=== PATIENT | female | born 1960 | race Caucasian/White ===

== ENCOUNTER → 2020-02-01 08:30 | Outpatient (BNVA) | payer MEDICAID, SELFPAY | PROVIDERS: PCP Internal Medicine; Referring Provider Internal Medicine; Visit Provider Nurse Practitioner | DX: K59.04 Chronic idiopathic constipation (principal); K59.9 Functional intestinal disorder, unspecified; K21.9 Gastro-esophageal reflux disease without esophagitis; N81.6 Rectocele; Z79.899 Other long term (current) drug therapy | CPT/HCPCS: 99214 ==

== ENCOUNTER → 2020-03-25 14:41 | Outpatient (BNVA) | payer MEDICAID, SELFPAY | PROVIDERS: PCP Internal Medicine; Visit Provider Nurse Practitioner | DX: Z76.89 Persons encountering health services in other specified circumstances (principal) ==

== ENCOUNTER 2020-03-27 12:51 | Outpatient (REF) | payer MEDICAID, SELFPAY | END 2020-03-27 12:52 | disposition home or self-care (01) | LOC: HO.LAB 12:51 | PROVIDERS: Visit Provider Internal Medicine | DX: Z20.828 Contact with and (suspected) exposure to other viral communicable diseases (principal) | CPT/HCPCS: C9803; U0003 ==

== ENCOUNTER → 2020-04-01 10:49 | Outpatient (BNVA) | payer MEDICAID, SELFPAY | PROVIDERS: PCP Internal Medicine; Visit Provider Nurse Practitioner Gerontology | DX: E11.42 Type 2 diabetes mellitus with diabetic polyneuropathy (principal); E66.09 Other obesity due to excess calories; Z68.34 Body mass index [BMI] 34.0-34.9, adult; E78.5 Hyperlipidemia, unspecified; I10 Essential (primary) hypertension | CPT/HCPCS: 82947 ==

== ENCOUNTER 2020-05-17 13:00 | Outpatient (REF) | payer MEDICAID, SELFPAY ==
[2020-05-17 14:29] LABS: Creatinine Urine 146.63 mg/dL; Microalbum/Creatinine Ratio Ur 5.4 ug/mg cr
[2020-05-17 14:47] LABS: Cholesterol 128 mg/dL; HDL Cholesterol 33 mg/dL; LDL Cholesterol Calculated 49 mg/dl; Triglycerides 233 mg/dL
== END 2020-05-17 13:01 | disposition home or self-care (01) ==
LOC: HO.LAB 13:00
PROVIDERS: PCP Internal Medicine; Visit Provider Nurse Practitioner Gerontology
DX: E11.42 Type 2 diabetes mellitus with diabetic polyneuropathy (principal)
CPT/HCPCS: 36415; 80061; 82043

== ENCOUNTER 2020-06-27 14:10 | Outpatient (REF) | payer MEDICAID, SELFPAY ==
--- NOTE | ~2020-06-27 | MR_ITS ---
EXAMINATION: MR BRAIN WITHOUT CONTRAST CLINICAL INFORMATION: Evaluate for left acoustic neuroma. Ringing in ears. Vertigo. COMPARISON: Head CT dated 12/27/2016.. TECHNIQUE: Multiplanar, multisequential imaging was obtained without intravenous contrast. Due to claustrophobia, the patient refused contrast. FINDINGS: No diffusion abnormality is seen. There are punctate foci of T2 hyperintense signal abnormality in the bifrontal centrum semiovale which are nonspecific. The ventricles are normal in size. No mass effect or midline shift is evident. No extra-axial fluid collections are noted. The brainstem and cerebellum are normal. The VII and VIII cranial nerve complexes are normal in course and caliber. Fluid signal is preserved within the cochlea, semicircular canals, and vestibule on the high-resolution axial FIESTA sequence. No cerebellopontine angle lesion is noted. The gradient acquisition is normal. The craniovertebral junction, marrow signal, and midline structures are normal. The visualized portions of the major intracranial flow voids at the level of the [place] of [place] are preserved. The dural venous sinus flow voids are maintained. The mastoid air cells and paranasal sinuses are well aerated. MR/MR head/brain wo con IMPRESSION: No retrocochlear pathology. Nonspecific very mild bifrontal white matter signal changes. No acute process. Otherwise, relatively normal MRI of the brain.
[2020-06-27 15:01] LABS: Blood Urea Nitrogen 16 mg/dL (9-16); Estimated Glomerular Filt Rate > 60
== END 2020-06-27 14:11 | disposition home or self-care (01) ==
LOC: HO.MRI 14:10
PROVIDERS: Visit Provider Otolaryngology
DX: H90.42 Sensorineural hearing loss, unilateral, left ear, with unrestricted hearing on the contralateral side (principal); H81.4 Vertigo of central origin; D33.3 Benign neoplasm of cranial nerves
CPT/HCPCS: 36415; 70551; 82565; 84520

== ENCOUNTER 2020-07-10 11:00 | Outpatient (RCR) | payer MEDICAID, SELFPAY ==
[2020-07-05 14:18] VITALS: BP 122/70
--- NOTE | 2020-07-05 15:48 | MHC.PT.EP ---
[facility] [place] Office [place] Office [place] Office [address] Keli Gonzales [address] [phone] F: [phone] F: [phone] F: [phone] F: [phone] Physical Therapy Plan of Care Date of Evaluation: 07/05/20 Date of Surgery: Diagnosis: Vestibular rehab, vertigo Assessment: 59 year old female referred for vestibular rehab, vertigo . Pt reports of having symptoms of vertigo for last 2 years. They are intermittent in nature and last for a few hours to days. During episodes of vertigo she has dizziness with rolling in bed, sit to supine, looking up and down and looking side ways. She describes her symptoms as feeling confused . She started therapy for vertigo last year but had to stop due to COVID. Examination reveals intact saccades, smooth pursuit, visual tracking and DVA. She has mildly impaired static and dynamic balance. She was negative for BPPV in [place] and B roll test. She is independent with ADLS during remission. Her daughter helps her with ADLs during acute episodes. 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 She would benefit from vestibular rehab to address the above mentioned impairments. Frequency and Duration: The patient will be seen 2/ week for 5 weeks. Short Term Goals: 1. Pt will be able to perform bed mobility activities without any symptoms of vertigo in 2 weeks. 2. Pt will be independent with balance exercises and be able to maintain improvements between sessions in 3 weeks. Fdc Goals: 1. Pt will be able walk, bend forward and perform sudden head turns as needed for ADLS without vertigo in 4 weeks. 2. Pt will return to PLOF in 5 weeks. Treatment Plan: Modalities to reduce pain, spasms and effusion. Manual therapy to restore motion and function. Therapeutic exercise to improve strength and flexibility. Neuromuscular re-education for posture and balance. Therapeutic activities to return to functional activities of daily living. Electronically signed by: Shoshana Reyna DPT Please sign and return to therapist. Thank you for your referral.
--- NOTE | 2020-08-19 09:27 | MHC.PT.DC ---
[facility] [place] [facility] [place] Office [place] Office [address] Keli Gonzales [address] [phone] F: [phone] F: [phone] F: [phone] F: [phone] Physical Therapy Discharge Report Diagnosis: Vestibular rehab, vertigo Date of Surgery: NA Date of Evaluation: 07/05/20 Date of Discharge: 08/19/20 Treatments to Date: 2 Cancellations to Date: 1 No Shows to Date: 4 Discharge Status: Visit Non-compliance Discharge Summary: Pt no showed 4 visits after her second treatment. She was therefore d/c from therapy for non compliance. Electronically signed by: Shoshana Reyna DPT Please sign and return to therapist. Thank you for your referral.
== END 2020-08-19 09:28 | disposition other institution (70) ==
LOC: HO.PT 11:00
PROVIDERS: PCP Internal Medicine; Visit Provider Otolaryngology
DX: R42 Dizziness and giddiness (principal)
CPT/HCPCS: 97112; 97161; 97530

== ENCOUNTER → 2020-07-22 15:12 | Outpatient (BNVA) | payer MEDICAID, SELFPAY | PROVIDERS: PCP Internal Medicine; Visit Provider Nurse Practitioner ==

== ENCOUNTER 2020-09-20 10:11 | Outpatient (REF) | payer MEDICAID, SELFPAY ==
[2020-09-20 11:53] LABS: Estimated Average Glucose 160 mg/dL; Hemoglobin A1c % 7.2 %
[2020-09-20 12:15] LABS: Alanine Aminotransferase 24 U/L (0-31); Albumin Level 4.4 g/dL (3.5-5.0); Alkaline Phosphatase 81 U/L (39-117); Anion Gap 13 (12-20); Aspartate Amino Transferase 29 U/L (5-31); Blood Urea Nitrogen 12 mg/dL (9-16); Calcium 9.8 mg/dL (8.4-10.2); Carbon Dioxide 28 mmol/L (22-29); Chloride 104 mmol/L (96-108); Estimated Glomerular Filt Rate > 60; Glucose Random 234 mg/dL (60-115); Sodium 140 mmol/L (135-145); Total Protein 7.3 g/dL (6.5-8.0)
== END 2020-09-20 10:12 | disposition home or self-care (01) ==
LOC: HO.LAB 10:11
PROVIDERS: PCP Internal Medicine; Visit Provider Internal Medicine
DX: E11.9 Type 2 diabetes mellitus without complications (principal); I10 Essential (primary) hypertension; J30.89 Other allergic rhinitis; J45.998 Other asthma
CPT/HCPCS: 36415; 80053; 83036

== ENCOUNTER 2020-10-23 09:17 | Outpatient (REF) | payer MEDICAID, SELFPAY ==
--- NOTE | ~2020-10-23 | XR_ITS ---
EXAMINATION: XR PELVIS CLINICAL INFORMATION: Pubic region pain after a fall COMPARISON: CT 12/28/2019 TECHNIQUE: AP view of the pelvis. FINDINGS: The bones and soft tissues are normal. No fracture. Sacroiliac and hip joints are normal. Pubic symphysis is normal. No abnormal soft tissue calcifications. XR/XR pelvis 1-2V IMPRESSION: No fracture.
[2020-10-23 10:07] LABS: Estimated Average Glucose 160 mg/dL; Hemoglobin A1c % 7.2 %
[2020-10-23 10:24] LABS: Alanine Aminotransferase 17 U/L (0-31); Albumin Level 4.3 g/dL (3.5-5.0); Alkaline Phosphatase 78 U/L (39-117); Anion Gap 12 (12-20); Aspartate Amino Transferase 25 U/L (5-31); Bilirubin Total 0.8 mg/dL (0.0-1.0); Blood Urea Nitrogen 13 mg/dL (9-16); Calcium 9.5 mg/dL (8.4-10.2); Carbon Dioxide 29 mmol/L (22-29); Chloride 104 mmol/L (96-108); Estimated Glomerular Filt Rate > 60; Glucose Random 201 mg/dL (60-115); Potassium 4.9 mmol/L (3.3-5.1); Sodium 140 mmol/L (135-145); Total Protein 7.1 g/dL (6.5-8.0)
== END 2020-10-23 09:18 | disposition home or self-care (01) ==
LOC: HO.XRAY 09:17
PROVIDERS: PCP Internal Medicine; Visit Provider Internal Medicine
DX: E11.9 Type 2 diabetes mellitus without complications (principal); G56.03 Carpal tunnel syndrome, bilateral upper limbs; I10 Essential (primary) hypertension; M13.0 Polyarthritis, unspecified
CPT/HCPCS: 36415; 72170; 80053; 83036

== ENCOUNTER → 2020-11-27 11:06 | Outpatient (BNVA) | payer MEDICAID, SELFPAY | PROVIDERS: PCP Internal Medicine; Visit Provider Nurse Practitioner Gerontology | DX: E11.42 Type 2 diabetes mellitus with diabetic polyneuropathy (principal); I10 Essential (primary) hypertension; E78.5 Hyperlipidemia, unspecified; E66.09 Other obesity due to excess calories; Z68.34 Body mass index [BMI] 34.0-34.9, adult | CPT/HCPCS: 82947; 99212 ==

== ENCOUNTER 2021-01-01 08:05 | Outpatient (REF) | payer MEDICAID, SELFPAY ==
--- NOTE | 2021-01-01 08:11 | EMG_ITS ---
This is a 60-year-old woman with bilateral hand pain and numbness. PHYSICAL EXAMINATION: On examination, she is alert and oriented with normal intellectual functions. Cranial nerves II through XII are normal. Muscle tone and strength are normal in all 4 extremities. Deep tendon reflexes symmetrical. Plantar responses are flexor. No Tinel or Phalen sign. IMPRESSION: Rule out carpal tunnel syndrome. Nerve conduction EMG study: Normal electrodiagnostic study of both upper extremities with no evidence of carpal tunnel syndrome or generalized peripheral neuropathy. Normal EMG of the right C5-T1 innervated muscles. MD JACOBY Reyes/MISSY / [id number]
== END 2021-01-01 08:06 | disposition home or self-care (01) ==
LOC: HO.NEURO 08:05
PROVIDERS: PCP Internal Medicine; Visit Provider Internal Medicine
DX: G56.02 Carpal tunnel syndrome, left upper limb (principal)
CPT/HCPCS: 95885; 95913

== ENCOUNTER → 2021-01-21 07:51 | Outpatient (BNVA) | payer MEDICAID, SELFPAY | PROVIDERS: PCP Internal Medicine; Visit Provider Nurse Practitioner Gerontology | DX: E11.9 Type 2 diabetes mellitus without complications (principal); E78.5 Hyperlipidemia, unspecified; E66.09 Other obesity due to excess calories; I10 Essential (primary) hypertension; Z68.34 Body mass index [BMI] 34.0-34.9, adult | CPT/HCPCS: 82947; 83036; 99212 ==

== ENCOUNTER 2021-02-12 18:18 | Emergency (ER) | payer OTHER, SELFPAY ==
--- NOTE | ~2021-02-12 | CT_ITS ---
EXAMINATION: CT HEAD WITHOUT CONTRAST CLINICAL INFORMATION: Fall COMPARISON: Previous head CT most recent December 2016 and brain MRI June 2020 TECHNIQUE: Contiguous axial imaging was performed from the skull base to vertex without intravenous administration of contrast. This CT examination was performed using dose optimization techniques as appropriate, variously including the following: *Automated exposure control *Adjustment of mA and/or kV according to patient size (this includes techniques or standardized protocols for targeted exams where dose is matched to indication/reason for exam; i.e. extremities or head) *Use of iterative reconstruction technique DLP: 703 mGy-cm FINDINGS: There is no evidence of acute intracranial hemorrhage or territorial infarction. No abnormal mass effect or midline shift is seen. Rose to white matter differentiation is well preserved. No extra-axial fluid collections are identified. The ventricles are normal in size. There is no abnormal attenuation within the brain parenchyma. The osseous structures and soft tissues are normal. The mastoid air cells and visualized portions of the paranasal sinuses are well aerated. CT/CT head/brain wo con IMPRESSION: Unremarkable exam
--- NOTE | ~2021-02-12 | XR_ITS ---
EXAMINATION: XR ELBOW, LEFT CLINICAL INFORMATION: Fall COMPARISON: None TECHNIQUE: AP, lateral, and oblique views of the left elbow. FINDINGS: No acute fracture or dislocation. Some possible soft tissue disruption toward the ulnar aspect XR/XR elbow LT min 3V IMPRESSION: No acute fracture or dislocation.
[2021-02-12 18:27] VITALS: BP 149/76; PULSE 71; RESP 18; TEMP 36.2; O2SAT 98; BMI 32.5
[2021-02-12 20:31] VITALS: BP 148/87; PULSE 72; RESP 20; TEMP 37.1; O2SAT 100
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
== END 2021-02-12 21:06 | disposition home or self-care (01) ==
PROVIDERS: Emergency Provider Emergency Medicine Emergency Medical Services; PCP Internal Medicine
DX: M25.522 Pain in left elbow (principal); M54.2 Cervicalgia; M54.50 Low back pain, unspecified; R51.9 Headache, unspecified; I10 Essential (primary) hypertension; E11.9 Type 2 diabetes mellitus without complications; J45.909 Unspecified asthma, uncomplicated; Z91.81 History of falling
CPT/HCPCS: 70450; 73080; 99284

== ENCOUNTER 2021-03-14 11:02 | Outpatient (REF) | payer MEDICAID, SELFPAY ==
--- NOTE | ~2021-03-14 | MM_ITS ---
EXAMINATION: MM SCREENING DIGITAL BREAST TOMOSYNTHESIS, BILATERAL CLINICAL INFORMATION: Screening. Asymptomatic. The lifetime risk of breast cancer based on the Tyrer-Cuzick Model is 5%. COMPARISON: Mammography: 06/09/2018, 11/30/2016, 06/26/2015 TECHNIQUE: Digital breast tomosynthesis is performed in both the craniocaudal and mediolateral oblique views along with computer-aided detection (CAD). Synthesized 2D images are generated from the tomosynthesis. FINDINGS: There are scattered areas of fibroglandular density (ACR BI-RADS breast composition Category b). There are no significant masses, abnormal calcifications, or other abnormalities. No developing density. The axilla and skin contours are unremarkable. No significant changes. MM/MM tomosynthesis screening BI IMPRESSION: No mammographic evidence of malignancy. ASSESSMENT: BI-RADS 1: Negative RECOMMENDATION: Routine annual mammography screening. This patient's information was entered into a reminder system with a target due date for their next mammogram.
== END 2021-03-14 11:03 | disposition home or self-care (01) ==
LOC: HO.MAMMO 11:02
PROVIDERS: Visit Provider Internal Medicine
DX: Z12.31 Encounter for screening mammogram for malignant neoplasm of breast (principal)
CPT/HCPCS: 77063; 77067

== ENCOUNTER 2021-03-19 10:22 | Outpatient (REF) | payer MEDICAID, SELFPAY ==
[2021-03-19 13:43] LABS: MANUAL DIFF FLAG NO
[2021-03-19 13:54] LABS: Basophils Percent Auto 0.3 % (0-2); Eosinophils Absolute Auto 0.1 X10*3/uL (0.0-0.4); Eosinophils Percent Auto 2.1 % (0-4); Hematocrit 37.5 % (37.0-47.0); Hemoglobin 12.4 g/dl (12.0-16.0); Imm Gran Abs Auto 0.01 X10*3/uL (0.00-0.03); Imm Gran Pct Auto 0.2 % (0.0-0.4); Lymphocytes Percent Auto 34.9 % (20-40); Mean Corpuscular HGB Conc 33.1 g/dl (31.0-35.0); Mean Corpuscular Hemoglobin 31.7 pg (27.0-33.0); Mean Corpuscular Volume 95.9 fL (80.0-98.0); Mean Platelet Volume 10.4 fL (9.4-12.3); Monocytes Absolute Auto 0.5 X10*3/uL (0.1-1.2); Monocytes Percent Auto 9.3 % (2-11); Neutrophils Absolute Auto 3.1 x10*3/uL (2.0-8.3); Neutrophils Percent Auto 53.2 % (45-73); Platelet Count 293 X10*3/uL (160-400); Red Blood Count 3.91 X10*6/uL (4.20-5.50); Red Cell Distribution Width 12.4 % (11.0-16.0); White Blood Count 5.8 X10*3/uL (4.8-10.8)
[2021-03-19 14:25] LABS: Creatinine Urine 40.48 mg/dL; Microalbumin Urine < 5.0 mg/L
[2021-03-19 14:30] LABS: Estimated Average Glucose 160 mg/dL; Hemoglobin A1c % 7.2 %
[2021-03-19 14:39] LABS: Alanine Aminotransferase 22 U/L (0-31); Albumin Level 4.4 g/dL (3.5-5.0); Alkaline Phosphatase 78 U/L (39-117); Anion Gap 13 (12-20); Aspartate Amino Transferase 27 U/L (5-31); Bilirubin Total 0.8 mg/dL (0.0-1.0); Blood Urea Nitrogen 14 mg/dL (9-16); Calcium 9.5 mg/dL (8.4-10.2); Carbon Dioxide 26 mmol/L (22-29); Chloride 104 mmol/L (96-108); Cholesterol 144 mg/dL; Estimated Glomerular Filt Rate > 60; Glucose Random 168 mg/dL (60-115); HDL Cholesterol 30 mg/dL; LDL Cholesterol Calculated 41 mg/dl; Potassium 4.9 mmol/L (3.3-5.1); Sodium 138 mmol/L (135-145); Total Protein 7.5 g/dL (6.5-8.0); Triglycerides 366 mg/dL
[2021-03-19 15:50] LABS: Vitamin B12 327 pg/mL (200-900)
== END 2021-03-19 10:23 | disposition home or self-care (01) ==
LOC: HO.10HDL 10:22
PROVIDERS: Visit Provider Internal Medicine
DX: B37.3 Candidiasis of vulva and vagina (principal); E11.9 Type 2 diabetes mellitus without complications; I10 Essential (primary) hypertension; R35.0 Frequency of micturition; E78.00 Pure hypercholesterolemia, unspecified; F41.8 Other specified anxiety disorders
CPT/HCPCS: 36415; 80053; 80061; 82043; 82607; 83036; 85025; 87086

== ENCOUNTER 2021-03-20 19:24 | Emergency (ER) | payer MEDICAID, SELFPAY ==
--- NOTE | ~2021-03-20 | CT_ITS ---
EXAMINATION: CT ABDOMEN AND PELVIS WITH CONTRAST CLINICAL INFORMATION: Abdominal distention, nausea COMPARISON: 12/28/2019 TECHNIQUE: Multidetector volumetric images were obtained from the superior aspect of the liver through the pubic symphysis following administration 85 mL of Omnipaque 350 intravenous contrast. Sagittal and coronal reformatted images were obtained on the technologist's workstation. Oral contrast: No This CT examination was performed using dose optimization techniques as appropriate, variously including the following: *Automated exposure control *Adjustment of mA and/or kV according to patient size (this includes techniques or standardized protocols for targeted exams where dose is matched to indication/reason for exam; i.e. extremities or head) *Use of iterative reconstruction technique DLP: 701 mGy-cm FINDINGS: LUNG BASES: The visualized lung bases are unremarkable. LIVER, GALLBLADDER, AND BILIARY TREE: The liver is normal in size, shape, and attenuation. No focal hepatic lesion or biliary ductal dilatation is present. The gallbladder is unremarkable with no evidence of radiopaque gallstones, gallbladder wall thickening, or obvious pericholecystic inflammatory changes. PANCREAS: Unremarkable. SPLEEN: Unremarkable. ADRENAL GLANDS: Unremarkable. KIDNEYS AND URETERS: The kidneys are normal in size, shape, and attenuation. No hydronephrosis, hydroureter, or calculi seen. No perinephric stranding. Unchanged left renal cyst. BLADDER: Unremarkable. GASTROINTESTINAL TRACT: The cecum is distended with stool. No focal inflammatory process or obstruction. Postsurgical changes related to gastric bypass. ABDOMINAL WALL: No significant hernia is appreciated. LYMPH NODES: Normal. VASCULAR: Diffuse atherosclerotic calcifications. PELVIC VISCERA: The uterus is surgically absent. OSSEOUS STRUCTURES: Unremarkable. CT/CT abdomen pelvis w con IMPRESSION: Distended rectum with stool. No proximal bowel dilatation to suggest obstruction. No focal inflammatory process.
[2021-03-20 19:31] VITALS: BP 150/73; PULSE 73; RESP 17; TEMP 36.8; O2SAT 98; BMI 34.0
[2021-03-20 19:58] VITALS: BP 130/86; PULSE 75; RESP 20; TEMP 36.6; O2SAT 96
--- NOTE | 2021-03-20 20:13 | ED.ABDPAIN ---
HPI - Abdominal Pain General Chief Complaint: Abdominal Pain Stated Complaint: Abdominal pain Time Seen by Provider: 03/20/21 19:35 Source: patient Mode of arrival: ambulatory History of Present Illness HPI narrative: This is a 60-year-old female with history of diabetes, hypertension as well as gastric bypass who comes in with abdominal distension and pain where she states it feels like ?my intestines or moving around? and the pain worsens when she attempts to have a bowel movement. Patient states she did pass flatus 1 time today and has been having nausea with some chills but denies any vomiting or fevers or shortness of breath/chest pain/palpitations. She was recently started on Norvasc in feels that she has become more constipated after being started on this medication. In addition, patient was recently treated for a UTI with Bactrim. Related Data Home Medications Medication Instructions Recorded Confirmed ascorbic acid (vitamin C) 500 mg 1 g PO Q6H 02/01/20 01/21/21 tablet cholecalciferol (vitamin D3) 25 25 mcg PO DAILY 02/01/20 01/21/21 mcg (1,000 unit) capsule cinnamon bark 500 mg capsule 1,000 mg PO DAILY 02/01/20 01/21/21 (Cinnamon) loratadine 10 mg tablet (Allergy 10 mg PO DAILY 02/01/20 01/21/21 Relief (loratadine)) losartan 100 mg tablet 100 mg PO DAILY 02/01/20 01/21/21 omeprazole 40 mg capsule,delayed 40 mg PO DAILY 02/01/20 01/21/21 release Previous Rx's Medication Instructions Recorded linaclotide 290 mcg capsule 290 mcg PO DAILY 30 Days #30 cap 03/25/20 (Linzess) bisacodyl 5 mg tablet,delayed 10 mg PO BEDTIME 30 Days #60 tab 07/22/20 release (Dulcolax (bisacodyl)) metoclopramide HCl 5 mg tablet 5 mg PO .T.I.D. Q.H.S. 30 Days #90 07/22/20 (Reglan) tab simethicone 180 mg capsule 180 mg PO QID #120 cap 12/11/20 hydrocortisone acetate 25 mg 25 mg OK BEDTIME 20 Days #24 ea 12/30/20 rectal suppository flash glucose sensor (FreeStyle #2 ea 01/21/21 Glenn 2 Sensor) metformin 500 mg tablet,extended 500 mg PO BID 30 Days #60 tab 01/21/21 release 24 hr sitagliptin 100 mg tablet (Januvia) 100 mg PO DAILY #30 tab 01/21/21 acetaminophen 500 mg tablet 500 mg PO Q6H PRN #20 tab 02/12/21 (Tylenol Extra Strength) cyclobenzaprine 5 mg tablet 5 mg PO Q8H PRN 5 Days #14 tab 02/12/21 lidocaine 5 % topical patch 1 patch TOPICAL DAILY PRN #30 ea 02/12/21 (Lidoderm) MDD remove after 12 hours naproxen 500 mg tablet 500 mg PO BID PRN 10 Days #20 tab 02/12/21 repaglinide 0.5 mg tablet 0.5 mg PO BID #60 tab 02/17/21 nitrofurantoin 100 mg PO Q12H 5 Days #10 cap 03/20/21 monohydrate/macrocrystals 100 mg capsule (Macrobid) Allergies Allergy/AdvReac Type Severity Reaction Status Date / Time latex [LATEX] Allergy Intermediate RASH Verified 02/12/21 18:27 lisinopril [LISINOPRIL] Allergy Intermediate HALLUCINATIONS, Verified 02/12/21 18:27 cough CLOVER Inhibitors Allergy Unknown UNKNOWN Verified 02/12/21 18:27 [CLOVER INHIBITORS] canagliflozin [Invokana] Allergy Unknown unknown Verified 02/12/21 18:27 liraglutide [From VICTOZA] Allergy Unknown UNKNOWN, Verified 02/12/21 18:27 abdominal pain, nausea metformin [METFORMIN] Allergy Unknown UNKNOWN, Verified 02/12/21 18:27 abdominal cramps penicillin V Allergy Unknown angioedema Verified 02/12/21 18:27 Penicillins [PENICILLINS] Allergy Unknown SYNCOPE Verified 02/12/21 18:27 pioglitazone [From ACTOS] Allergy Unknown UNKNOW, Verified 02/12/21 18:27 body puffiness sertraline Allergy Unknown unknown Verified 02/12/21 18:27 shellfish derived Allergy Unknown Rash and Verified 02/12/21 18:27 [SHELLFISH DERIVED] swelling Sulfa (Sulfonamide Allergy Unknown RASH Verified 02/12/21 18:27 Antibiotics) [SULFA (SULFONAMIDE ANTIBIOTICS)] black pepper Allergy cough, Verified 02/12/21 18:27 choking seafood Allergy Swelling Verified 02/12/21 18:27 mushrooms Allergy Intermediate Diarrhea, Uncoded 01/21/21 08:13 swollen stomach,rash Onglyza Allergy Unknown unknown Uncoded 01/21/21 08:13 Danish vanilla creamer AdvReac Diarhea, Uncoded 01/21/21 08:13 nausea, stomach pain Review of Systems Review of Systems Pertinent positives and negatives as stated in HPI 10 point review of systems is otherwise negative. Physical Exam Vital Signs: Vital Signs: Last Vital Signs Temp 98 F 03/20/21 19:58 Pulse 75 03/20/21 19:58 Resp 20 03/20/21 19:58 BP 130/86 03/20/21 19:58 Pulse Ox 96 03/20/21 19:58 Body Mass Index 34.0 VITAL SIGNS: Reviewed. GENERAL: Well developed, well nourished, in no acute distress. HEAD: Normocephalic/atraumatic EYES: PERRLA, EOMI OROPHARYNX: no oral lesions noted, posterior pharynx clear NECK: Supple, no adenopathy LUNGS: Normal breath sounds. No adventitious sounds or accessory muscle use. SpO2<96> CARDIOVASCULAR: Regular rate and rhythm without noted murmurs ABDOMEN: Obese, physical exam limited by body habitus, Soft, mild diffuse tenderness, non-distended with hypoactive bowel sounds. MUSCULOSKELETAL: No tenderness, deformities, or effusions noted on gross inspection. EXTREMITIES: No cyanosis, clubbing or edema. SKIN: Inspection of the skin reveals no rashes NEUROLOGIC: Alert and oriented x 4. Strength and sensation to light touch were grossly intact x 4. Course Course Course Narrative: 52-year-old female with history and clinical presentation suggestive SBO, diverticulitis and less likely felt to be renal colic or UTI. Review of all investigations negative for acute findings although patient likely had an attenuated treatment course for for UTI and will be discharged with antibiotics to complete. MDM - Abdominal Pain Lab Data Result diagrams: 03/20/21 20:29 03/20/21 20:29 Labs: Lab Results 03/20/21 03/20/21 03/20/21 Range/Units 20:29 20:29 20:29 WBC 7.0 (4.8-10.8) X10*3/uL RBC 4.09 L (4.20-5.50) X10*6/uL Hgb 12.8 (12.0-16.0) g/dl Hct 39.3 (37.0-47.0) % MCV 96.1 (80.0-98.0) fL MCH 31.3 (27.0-33.0) pg MCHC 32.6 (31.0-35.0) g/dl RDW 12.1 (11.0-16.0) % Plt Count 315 (160-400) X10*3/uL MPV 9.6 (9.4-12.3) fL Immature Gran % (Auto) 0.1 (0.0-0.4) % Neut % (Auto) 51.7 (45-73) % Lymph % (Auto) 37.3 (20-40) % [place] % (Auto) 8.8 (2-11) % Eos % (Auto) 1.8 (0-4) % Baso % (Auto) 0.3 (0-2) % Lymph # (Auto) 2.6 (1.2-4.9) X10*3/uL [place] # (Auto) 0.6 (0.1-1.2) X10*3/uL Eos # (Auto) 0.1 (0.0-0.4) X10*3/uL Baso # (Auto) 0.0 (0.0-0.2) X10*3/uL Abs Immat Gran (auto) 0.01 (0.00-0.03) X10*3/uL Absolute Neuts (auto) 3.6 (2.0-8.3) x10*3/uL Absolute Nucleated RBC 0.000 (0.0-0.012) X10*3/uL Nucleated RBC % (auto) 0.0 (0.0-0.2) /100WBC Sodium 139 (135-145) mmol/L Potassium 4.8 (3.3-5.1) mmol/L Chloride 104 (96-108) mmol/L Carbon Dioxide 26 (22-29) mmol/L Anion Gap 14 (12-20) BUN 20 H (9-16) mg/dL Creatinine 0.91 (0.5-1.4) mg/dL Estim Creat Clear Calc 81.2 Estimated GFR > 60 Random Glucose 121 H (60-115) mg/dL Lactic Acid 1.8 (0.5-2.0) mmol/L Calcium 10.1 D (8.4-10.2) mg/dL Total Bilirubin 0.4 (0.0-1.0) mg/dL AST 29 (5-31) U/L ALT 21 (0-31) U/L Alkaline Phosphatase 76 (39-117) U/L Total Protein 8.1 H (6.5-8.0) g/dL Albumin 4.7 (3.5-5.0) g/dL Lipase 64 (8-78) U/L Urine Color Urine Appearance Urine pH (5.0-8.0) Ur Specific [place] (1.005-1.025) Urine Protein (NEG-TRACE) MG/DL Urine Glucose (UA) (NEG) MG/DL Urine Ketones (NEG) MG/DL Urine Blood (NEG) Urine Nitrite (NEG) Ur Leukocyte Esterase (NEG) Urine RBC (0) /HPF Urine WBC (0-4) /HPF Ur Squamous Epith Cells /LPF Urine Bacteria /LPF // Range/Units 21:22 WBC (4.8-10.8) X10*3/uL RBC (4.20-5.50) X10*6/uL Hgb (12.0-16.0) g/dl Hct (37.0-47.0) % MCV (80.0-98.0) fL MCH (27.0-33.0) pg MCHC (31.0-35.0) g/dl RDW (11.0-16.0) % Plt Count (160-400) X10*3/uL MPV (9.4-12.3) fL Immature Gran % (Auto) (0.0-0.4) % Neut % (Auto) (45-73) % Lymph % (Auto) (20-40) % [place] % (Auto) (2-11) % Eos % (Auto) (0-4) % Baso % (Auto) (0-2) % Lymph # (Auto) (1.2-4.9) X10*3/uL [place] # (Auto) (0.1-1.2) X10*3/uL Eos # (Auto) (0.0-0.4) X10*3/uL Baso # (Auto) (0.0-0.2) X10*3/uL Abs Immat Gran (auto) (0.00-0.03) X10*3/uL Absolute Neuts (auto) (2.0-8.3) x10*3/uL Absolute Nucleated RBC (0.0-0.012) X10*3/uL Nucleated RBC % (auto) (0.0-0.2) /100WBC Sodium (135-145) mmol/L Potassium (3.3-5.1) mmol/L Chloride (96-108) mmol/L Carbon Dioxide (22-29) mmol/L Anion Gap (12-20) BUN (9-16) mg/dL Creatinine (0.5-1.4) mg/dL Estim Creat Clear Calc Estimated GFR Random Glucose (60-115) mg/dL Lactic Acid (0.5-2.0) mmol/L Calcium (8.4-10.2) mg/dL Total Bilirubin (0.0-1.0) mg/dL AST (5-31) U/L ALT (0-31) U/L Alkaline Phosphatase (39-117) U/L Total Protein (6.5-8.0) g/dL Albumin (3.5-5.0) g/dL Lipase (8-78) U/L Urine Color YELLOW Urine Appearance CLEAR Urine pH 6.0 (5.0-8.0) Ur Specific [place] <= 1.005 (1.005-1.025) Urine Protein NEG (NEG-TRACE) MG/DL Urine Glucose (UA) NEG (NEG) MG/DL Urine Ketones NEG (NEG) MG/DL Urine Blood 1+ H (NEG) Urine Nitrite NEG (NEG) Ur Leukocyte Esterase NEG (NEG) Urine RBC 0-2 (0) /HPF Urine WBC 0 (0-4) /HPF Ur Squamous Epith Cells TRACE /LPF Urine Bacteria TRACE /LPF Discharge Plan Discharge Clinical Impression: Constipation, Abdominal discomfort Patient Disposition: Home, Self-Care Instructions: Constipation (ED), Urinary Tract Infection in Women (ED), Gas and Bloating (ED), Abdominal Pain (ED) Additional Instructions: 1. Resume all home medications as prescribed. 2. Increase fluid hydration especially with water as well as raw fruits and vegetables. 3. Consider using daily MiraLax until you are having regular, soft stools. 4. Please complete the entire course of antibiotics. 5. Follow-up with primary care provider in the next 2-3 days for re-evaluation. Return to the ER for worsening symptoms. Prescriptions: New nitrofurantoin monohyd/m-cryst [Macrobid] 100 mg capsule 100 mg PO Q12H 5 Days Qty: 10 RF: 0 No Action simethicone 180 mg capsule 180 mg PO QID Qty: 120 RF: 3 hydrocortisone acetate 25 mg suppository 25 mg OK BEDTIME 20 Days Qty: 24 RF: 0 repaglinide 0.5 mg tablet 0.5 mg PO BID Qty: 60 RF: 4 acetaminophen [Tylenol Extra Strength] 500 mg tablet 500 mg PO Q6H PRN (Reason: pain or fever) Qty: 20 RF: 0 lidocaine [Lidoderm] 5 % adhesive patch,medicated 1 patch topical DAILY MDD remove after 12 hours PRN (Reason: pain) Qty: 30 RF: 0 naproxen 500 mg tablet 500 mg PO BID PRN (Reason: pain) 10 Days Qty: 20 RF: 0 cyclobenzaprine 5 mg tablet 5 mg PO Q8H PRN (Reason: pain (scale score 7-10)) 5 Days Qty: 14 RF: 0 losartan 100 mg tablet 100 mg PO DAILY RF: 0 cinnamon bark [Cinnamon] 500 mg capsule 1,000 mg PO DAILY RF: 0 loratadine [Allergy Relief (loratadine)] 10 mg tablet 10 mg PO DAILY RF: 0 omeprazole 40 mg capsule,delayed release(DR/EC) 40 mg PO DAILY RF: 0 cholecalciferol (vitamin D3) 25 mcg (1,000 unit) capsule 25 mcg PO DAILY RF: 0 ascorbic acid (vitamin C) 500 mg tablet 1 g PO Q6H RF: 0 Linzess 290 mcg capsule 290 mcg PO DAILY 30 Days Qty: 30 RF: 6 bisacodyl [Dulcolax (bisacodyl)] 5 mg tablet,delayed release (DR/EC) 10 mg PO BEDTIME 30 Days Qty: 60 RF: 6 metoclopramide HCl [Reglan] 5 mg tablet 5 mg PO .T.I.D. Q.H.S. 30 Days Qty: 90 RF: 4 metformin 500 mg tablet extended release 24 hr 500 mg PO BID 30 Days Qty: 60 RF: 6 Januvia 100 mg tablet 100 mg PO DAILY Qty: 30 RF: 11 (DME) FreeStyle Glenn 2 Sensor Kit See Rx Instructions .ROUTE .MEDSUPPLY Qty: 2 RF: 0 Referrals: Michelle Sidhu MD [Primary Care Provider] - 2 days [facility] Past Medical History Source: nursing notes reviewed Medical History Allergic rhinitis Asthma Carpal tunnel syndrome Cataracts, bilateral Depression with anxiety DM2 (diabetes mellitus, type 2) Essential hypertension Fibromyalgia High cholesterol HTN (hypertension), benign Hyperlipidemia LDL goal <100 Surgical History H/O esophagogastroduodenoscopy H/O gastric bypass H/O hemorrhoidectomy H/O hysterectomy for benign disease History of carpal tunnel release History of colonoscopy History of ear surgery History of Cynthia fundoplication Hx of cataract surgery Hx of hand surgery S/P appendectomy Family History Family History Father Myocardial infarction Hypertension Diabetes Mother Dementia HTN (hypertension), benign High cholesterol Diabetes Maternal Aunt Breast cancer Social History Social History Household Members: Spouse Alcohol intake: former Patient Tobacco Use Status: Former Tobacco user Years Smoked: quit 15-20 years ago Advance Directives: No Advance Directives Information Provided: No Patient : No Current occupational status: employed 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
[2021-03-20 20:33] LABS: MANUAL DIFF FLAG NO
[2021-03-20 20:36] LABS: Basophils Percent Auto 0.3 % (0-2); Eosinophils Absolute Auto 0.1 X10*3/uL (0.0-0.4); Eosinophils Percent Auto 1.8 % (0-4); Hematocrit 39.3 % (37.0-47.0); Hemoglobin 12.8 g/dl (12.0-16.0); Imm Gran Abs Auto 0.01 X10*3/uL (0.00-0.03); Imm Gran Pct Auto 0.1 % (0.0-0.4); Lymphocytes Absolute Auto 2.6 X10*3/uL (1.2-4.9); Lymphocytes Percent Auto 37.3 % (20-40); Mean Corpuscular HGB Conc 32.6 g/dl (31.0-35.0); Mean Corpuscular Hemoglobin 31.3 pg (27.0-33.0); Mean Corpuscular Volume 96.1 fL (80.0-98.0); Mean Platelet Volume 9.6 fL (9.4-12.3); Monocytes Absolute Auto 0.6 X10*3/uL (0.1-1.2); Monocytes Percent Auto 8.8 % (2-11); Neutrophils Absolute Auto 3.6 x10*3/uL (2.0-8.3); Neutrophils Percent Auto 51.7 % (45-73); Platelet Count 315 X10*3/uL (160-400); Red Blood Count 4.09 X10*6/uL (4.20-5.50); Red Cell Distribution Width 12.1 % (11.0-16.0)
[2021-03-20 20:46] LABS: Lactic Acid 1.8 mmol/L (0.5-2.0)
[2021-03-20 20:51] LABS: Alanine Aminotransferase 21 U/L (0-31); Albumin Level 4.7 g/dL (3.5-5.0); Alkaline Phosphatase 76 U/L (39-117); Anion Gap 14 (12-20); Aspartate Amino Transferase 29 U/L (5-31); Bilirubin Total 0.4 mg/dL (0.0-1.0); Blood Urea Nitrogen 20 mg/dL (9-16); Calcium 10.1 mg/dL (8.4-10.2); Carbon Dioxide 26 mmol/L (22-29); Chloride 104 mmol/L (96-108); Creatinine Clr Calc Pharmacy 81.2; Estimated Glomerular Filt Rate > 60; Glucose Random 121 mg/dL (60-115); Lipase 64 U/L (8-78); Potassium 4.8 mmol/L (3.3-5.1); Sodium 139 mmol/L (135-145); Total Protein 8.1 g/dL (6.5-8.0)
[2021-03-20] MEDS: iohexoL 350 MG/ML 100 ML INFUS..BTL IV (21:20)
[2021-03-20 21:29] LABS: Appearance Urine CLEAR; Color Urine YELLOW; Glucose Urine UA NEG (NEG); Leukocyte Esterase Urine NEG (NEG); Nitrite Urine NEG (NEG); Specific Gravity - Urine <= 1.005 (1.005-1.025); UACC Culture Trigger NO; Urine Blood 1+ (NEG); Urine Ketones NEG (NEG); Urine Protein NEG (NEG-TRACE)
[2021-03-20 21:40] LABS: Bacteria Urine TRACE /LPF; RBC Urine 0-2 /HPF (0); Squamous Epithelial Cell Urine TRACE /LPF; WBC Urine 0 /HPF (0-4)
== END 2021-03-20 22:43 | disposition home or self-care (01) ==
PROVIDERS: Emergency Provider Student in an Organized Health Care Education/Training Program; PCP Internal Medicine
DX: K59.00 Constipation, unspecified (principal); R10.9 Unspecified abdominal pain; R11.0 Nausea; E11.9 Type 2 diabetes mellitus without complications; I10 Essential (primary) hypertension; Z87.440 Personal history of urinary (tract) infections
CPT/HCPCS: 36415; 74177; 80053; 81001; 83605; 83690; 85025; 99283; 99284; Q9967

== ENCOUNTER → 2021-04-08 09:25 | Outpatient (BNVA) | payer MEDICAID, SELFPAY | PROVIDERS: PCP Internal Medicine; Visit Provider Nurse Practitioner | DX: K31.84 Gastroparesis (principal); K59.04 Chronic idiopathic constipation; K21.9 Gastro-esophageal reflux disease without esophagitis; K59.9 Functional intestinal disorder, unspecified; D12.6 Benign neoplasm of colon, unspecified; N81.6 Rectocele; R14.0 Abdominal distension (gaseous) | CPT/HCPCS: 99212 ==

== ENCOUNTER → 2021-04-09 13:04 | Outpatient (BNVA) | payer MEDICAID, SELFPAY | PROVIDERS: PCP Internal Medicine; Visit Provider Registered Nurse Diabetes Educator | DX: E11.9 Type 2 diabetes mellitus without complications (principal) | CPT/HCPCS: 99211 ==

== ENCOUNTER → 2021-04-23 09:16 | Outpatient (BNVA) | payer MEDICAID, SELFPAY | PROVIDERS: PCP Internal Medicine; Visit Provider Nurse Practitioner Gerontology ==

== ENCOUNTER 2021-05-06 10:50 | Outpatient (REF) | payer MEDICAID, SELFPAY ==
[2021-05-06 11:59] LABS: Estimated Average Glucose 163 mg/dL; Hemoglobin A1c % 7.3 %
[2021-05-06 12:20] LABS: Alanine Aminotransferase 20 U/L (0-31); Albumin Level 4.2 g/dL (3.5-5.0); Alkaline Phosphatase 68 U/L (39-117); Anion Gap 11 (12-20); Aspartate Amino Transferase 23 U/L (5-31); Bilirubin Total 0.6 mg/dL (0.0-1.0); Blood Urea Nitrogen 14 mg/dL (9-16); Calcium 9.6 mg/dL (8.4-10.2); Carbon Dioxide 27 mmol/L (22-29); Chloride 106 mmol/L (96-108); Cholesterol 139 mg/dL; Estimated Glomerular Filt Rate > 60; Glucose Random 109 mg/dL (60-115); HDL Cholesterol 29 mg/dL; LDL Cholesterol Calculated 52 mg/dl; Potassium 4.3 mmol/L (3.3-5.1); Sodium 140 mmol/L (135-145); Total Protein 7.2 g/dL (6.5-8.0); Triglycerides 293 mg/dL
[2021-05-06 12:47] LABS: Creatinine Urine 126.51 mg/dL; Microalbum/Creatinine Ratio Ur 4.7 ug/mg cr
[2021-05-08 20:17] LABS: TS Negative Control Passed; TS Panel A 1; TS Panel B 0; TS Positive Control Passed; TSpotTB Negative (Negative)
== END 2021-05-06 10:51 | disposition home or self-care (01) ==
LOC: HO.LAB 10:50
PROVIDERS: PCP Internal Medicine; Visit Provider Internal Medicine
DX: Z11.1 Encounter for screening for respiratory tuberculosis (principal); E11.9 Type 2 diabetes mellitus without complications; I10 Essential (primary) hypertension; J45.901 Unspecified asthma with (acute) exacerbation; U07.1 COVID-19
CPT/HCPCS: 36415; 80053; 80061; 82043; 83036; 86481

== ENCOUNTER 2021-06-24 11:15 | Outpatient (REF) | payer MEDICAID, SELFPAY ==
[2021-06-24 12:42] LABS: Estimated Average Glucose 163 mg/dL; Hemoglobin A1c % 7.3 %
[2021-06-24 13:17] LABS: Alanine Aminotransferase 13 U/L (0-31); Albumin Level 4.3 g/dL (3.5-5.0); Alkaline Phosphatase 72 U/L (39-117); Anion Gap 10 (12-20); Aspartate Amino Transferase 22 U/L (5-31); Bilirubin Total 0.6 mg/dL (0.0-1.0); Blood Urea Nitrogen 11 mg/dL (9-16); Calcium 10.1 mg/dL (8.4-10.2); Carbon Dioxide 31 mmol/L (22-29); Chloride 102 mmol/L (96-108); Estimated Glomerular Filt Rate > 60; Glucose Random 134 mg/dL (60-115); Sodium 138 mmol/L (135-145); Total Protein 7.5 g/dL (6.5-8.0)
[2021-06-24 13:38] LABS: Thyroid Stimulating Hormone 2.21 uIU/mL (0.32-4.0); Vitamin B12 364 pg/mL (200-900)
== END 2021-06-24 11:16 | disposition home or self-care (01) ==
LOC: HO.LAB 11:15
PROVIDERS: PCP Internal Medicine; Visit Provider Internal Medicine
DX: Z00.00 Encounter for general adult medical examination without abnormal findings (principal); E11.69 Type 2 diabetes mellitus with other specified complication; I10 Essential (primary) hypertension; Z98.84 Bariatric surgery status
CPT/HCPCS: 36415; 80053; 82607; 83036; 84443

== ENCOUNTER → 2021-07-25 10:51 | Outpatient (BNVA) | payer MEDICAID, SELFPAY | PROVIDERS: PCP Internal Medicine; Visit Provider Nurse Practitioner Gerontology | DX: E11.9 Type 2 diabetes mellitus without complications (principal); E78.5 Hyperlipidemia, unspecified; E66.09 Other obesity due to excess calories; Z68.34 Body mass index [BMI] 34.0-34.9, adult; I10 Essential (primary) hypertension; Z71.3 Dietary counseling and surveillance | CPT/HCPCS: 82947; 99212 ==

== ENCOUNTER 2021-08-20 12:52 | Emergency (ER) | payer MEDICAID, SELFPAY | END 2021-08-20 13:40 | disposition left against medical advice (07) | PROVIDERS: Emergency Provider Emergency Medicine; PCP Internal Medicine | DX: M25.569 Pain in unspecified knee (principal); E11.9 Type 2 diabetes mellitus without complications; Z91.81 History of falling ==

== ENCOUNTER 2021-08-20 14:11 | Outpatient (REF) | payer MEDICAID, SELFPAY ==
--- NOTE | ~2021-08-20 | XR_ITS ---
EXAMINATION: XR KNEE, RIGHT CLINICAL INFORMATION: Right knee pain status post fall. COMPARISON: None TECHNIQUE: Four views of the right knee. FINDINGS: Mild lateral femoral tibial joint space narrowing is seen. There is no acute fracture or dislocation. Trace suprapatellar joint fluid is seen. The soft tissues are unremarkable. XR/XR knee RT 4V IMPRESSION: Mild lateral patellofemoral joint space narrowing and trace suprapatellar joint fluid without acute abnormality.
[2021-08-20 15:18] LABS: Alanine Aminotransferase 15 U/L (0-31); Albumin Level 4.4 g/dL (3.5-5.0); Alkaline Phosphatase 75 U/L (39-117); Anion Gap 12 (12-20); Aspartate Amino Transferase 21 U/L (5-31); Bilirubin Total 0.9 mg/dL (0.0-1.0); Blood Urea Nitrogen 14 mg/dL (9-16); Calcium 10.1 mg/dL (8.4-10.2); Carbon Dioxide 29 mmol/L (22-29); Chloride 103 mmol/L (96-108); Estimated Glomerular Filt Rate > 60; Glucose Random 154 mg/dL (60-115); Potassium 5.2 mmol/L (3.3-5.1); Sodium 139 mmol/L (135-145); Total Protein 7.5 g/dL (6.5-8.0)
[2021-08-20 15:22] LABS: Estimated Average Glucose 157 mg/dL; Hemoglobin A1c % 7.1 %
== END 2021-08-20 14:12 | disposition home or self-care (01) ==
LOC: HO.LAB 14:11
PROVIDERS: PCP Internal Medicine; Visit Provider Internal Medicine
DX: M25.561 Pain in right knee (principal); E11.9 Type 2 diabetes mellitus without complications; N30.00 Acute cystitis without hematuria; Z90.710 Acquired absence of both cervix and uterus
CPT/HCPCS: 36415; 73564; 80053; 83036

== ENCOUNTER 2021-09-13 21:03 | Emergency (ER) | payer MEDICAID, SELFPAY ==
--- NOTE | ~2021-09-13 | XR_ITS ---
EXAMINATION: XR FOOT, LEFT CLINICAL INFORMATION: Pain x2 days. No injury. COMPARISON: 02/22/2013 TECHNIQUE: AP, lateral, and oblique views of the left foot. FINDINGS: Small enthesopathic spurs at the Achilles tendon insertion and plantar fascial origin on the calcaneus are slightly more pronounced in size as compared to the prior study from 2018. No fracture or malalignment. Bones are osteopenic. Soft tissues are unremarkable. Joints appear well-preserved. No erosions. No radiodense foreign bodies. XR/XR foot LT min 3V IMPRESSION: Enthesopathic spurs at the calcaneus. No acute osseous or soft tissue findings
[2021-09-13 21:36] VITALS: BP 138/88; PULSE 70; RESP 18; TEMP 36.7; O2SAT 99; BMI 34.0
--- NOTE | 2021-09-13 22:59 | ED.LOWEXIN ---
HPI - Extremity Injury (Lower) General Chief Complaint: Extremity Injury, Lower Stated Complaint: L foot pain Time Seen by Provider: 09/13/21 22:59 Source: patient Mode of arrival: ambulatory Limitations: no limitations History of Present Illness HPI Narrative: patient been having left heel pain for some time got worse for last few days no injury Related Data Home Medications Medication Instructions Recorded Confirmed ascorbic acid (vitamin C) 500 mg 1 g PO Q6H 02/01/20 07/25/21 tablet cholecalciferol (vitamin D3) 25 25 mcg PO DAILY 02/01/20 07/25/21 mcg (1,000 unit) capsule cinnamon bark 500 mg capsule 1,000 mg PO DAILY 02/01/20 07/25/21 (Cinnamon) loratadine 10 mg tablet (Allergy 10 mg PO DAILY 02/01/20 07/25/21 Relief (loratadine)) losartan 100 mg tablet 100 mg PO DAILY 02/01/20 07/25/21 amlodipine 2.5 mg tablet 2.5 mg PO DAILY 04/08/21 07/25/21 clonazepam 1 mg tablet 1 mg PO TID PRN 04/08/21 07/25/21 Previous Rx's Medication Instructions Recorded hydrocortisone acetate 25 mg 25 mg FL BEDTIME 20 Days #24 ea 12/30/20 rectal suppository sitagliptin 100 mg tablet (Januvia) 100 mg PO DAILY #30 tab 01/21/21 acetaminophen 500 mg tablet 500 mg PO Q6H PRN #20 tab 02/12/21 (Tylenol Extra Strength) cyclobenzaprine 5 mg tablet 5 mg PO Q8H PRN 5 Days #14 tab 02/12/21 lidocaine 5 % topical patch 1 patch TOPICAL DAILY PRN #30 ea 02/12/21 (Lidoderm) MDD remove after 12 hours naproxen 500 mg tablet 500 mg PO BID PRN 10 Days #20 tab 02/12/21 nitrofurantoin 100 mg PO Q12H 5 Days #10 cap 03/20/21 monohydrate/macrocrystals 100 mg capsule (Macrobid) omeprazole 40 mg capsule,delayed 40 mg PO DAILY 30 Days #30 cap 04/08/21 release simethicone 180 mg capsule 180 mg PO QID #120 cap 04/08/21 linaclotide 290 mcg capsule 290 mcg PO DAILY 30 Days #30 cap 04/09/21 (Linzess) bisacodyl 5 mg tablet,delayed 10 mg PO BEDTIME #60 tab 04/21/21 release (Laxative (bisacodyl)) blood sugar diagnostic (FreeStyle #100 ea 04/23/21 Lite Strips) flash glucose sensor (FreeStyle #2 ea 04/23/21 Glenn 2 Sensor) metformin 500 mg tablet,extended See Rx Instructions PO BID 30 Days 04/23/21 release 24 hr #90 tab acarbose 25 mg tablet 25 mg PO TID 30 Days #90 tab 07/25/21 ibuprofen 600 mg tablet 600 mg PO Q6H PRN #30 tab 09/13/21 tramadol 50 mg tablet 50 mg PO Q6H PRN #20 tab 09/13/21 Allergies Allergy/AdvReac Type Severity Reaction Status Date / Time latex [LATEX] Allergy Intermediate RASH Verified 09/13/21 21:35 lisinopril [LISINOPRIL] Allergy Intermediate HALLUCINATIONS, Verified 09/13/21 21:35 cough CLOVER Inhibitors Allergy Unknown UNKNOWN Verified 09/13/21 21:35 [CLOVER INHIBITORS] canagliflozin [Invokana] Allergy Unknown unknown Verified 09/13/21 21:35 liraglutide [From VICTOZA] Allergy Unknown UNKNOWN, Verified 09/13/21 21:35 abdominal pain, nausea penicillin V Allergy Unknown angioedema Verified 09/13/21 21:35 Penicillins [PENICILLINS] Allergy Unknown SYNCOPE Verified 09/13/21 21:35 pioglitazone [From ACTOS] Allergy Unknown UNKNOW, Verified 09/13/21 21:35 body puffiness sertraline Allergy Unknown unknown Verified 09/13/21 21:35 shellfish derived Allergy Unknown Rash and Verified 09/13/21 21:35 [SHELLFISH DERIVED] swelling Sulfa (Sulfonamide Allergy Unknown RASH Verified 09/13/21 21:35 Antibiotics) [SULFA (SULFONAMIDE ANTIBIOTICS)] black pepper Allergy cough, Verified 09/13/21 21:35 choking seafood Allergy Swelling Verified 09/13/21 21:35 mushrooms Allergy Intermediate Diarrhea, Uncoded 07/25/21 11:06 swollen stomach,rash Onglyza Allergy Unknown unknown Uncoded 07/25/21 11:06 Slovenian vanilla creamer AdvReac Diarhea, Uncoded 07/25/21 11:06 nausea, stomach pain Review of Systems Review of Systems: Yes all other systems are reviewed and are negative [facility] Past Medical History Medical History Allergic rhinitis Asthma Carpal tunnel syndrome Cataracts, bilateral Depression with anxiety DM2 (diabetes mellitus, type 2) Essential hypertension Fibromyalgia High cholesterol HTN (hypertension), benign Hyperlipidemia LDL goal <100 Surgical History H/O esophagogastroduodenoscopy H/O gastric bypass H/O hemorrhoidectomy H/O hysterectomy for benign disease History of carpal tunnel release History of colonoscopy History of ear surgery History of Cynthia fundoplication Hx of cataract surgery Hx of hand surgery S/P appendectomy Family History Family History Father Myocardial infarction Hypertension Diabetes Mother Dementia HTN (hypertension), benign High cholesterol Diabetes Maternal Aunt Breast cancer Social History Social History Household Members: Spouse Alcohol intake: former Patient Tobacco Use Status: Former Tobacco user Years Smoked: quit 15-20 years ago Advance Directives: No Advance Directives Information Provided: Yes Current occupational status: employed 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 tenderness at left heel with slight swelling no deformity MDM - Extremity Injury (Lower) MDM Narrative Medical decision making narrative: patient clinically with plantar fasciitis with calcaneal spur patient does not want any lidocaine or cortisone injection at this time will follow with hose inspector will give her ibuprofen for pain x-ray negative for fracture Discharge Plan Discharge Clinical Impression: Plantar fasciitis of left foot Patient Disposition: Home, Self-Care Instructions: Plantar Fasciitis (ED), Heel Spur (ED) Additional Instructions: take pain medication as prescribed use heel cushion for support follow-up with hose inspector Prescriptions: New tramadol 50 mg tablet 50 mg PO Q6H PRN (Reason: pain) Qty: 20 0RF ibuprofen 600 mg tablet 600 mg PO Q6H PRN (Reason: pain) Qty: 30 0RF No Action hydrocortisone acetate 25 mg suppository 25 mg FL BEDTIME 20 Days Qty: 24 0RF Rx Instructions: UNWRAP AND INSERT 1 SUPPOSITORY RECTALLY TWICE DAILY NEEDED FOR 20 DAYS Linzess 290 mcg capsule 290 mcg PO DAILY 30 Days Qty: 30 6RF bisacodyl [Laxative (bisacodyl)] 5 mg tablet,delayed release (DR/EC) 10 mg PO BEDTIME Qty: 60 6RF acetaminophen [Tylenol Extra Strength] 500 mg tablet 500 mg PO Q6H PRN (Reason: pain or fever) Qty: 20 0RF lidocaine [Lidoderm] 5 % adhesive patch,medicated 1 patch topical DAILY MDD remove after 12 hours PRN (Reason: pain) Qty: 30 0RF Rx Instructions: leave on most painful area for up to 12 hrs naproxen 500 mg tablet 500 mg PO BID PRN (Reason: pain) 10 Days Qty: 20 0RF cyclobenzaprine 5 mg tablet 5 mg PO Q8H PRN (Reason: pain (scale score 7-10)) 5 Days Qty: 14 0RF nitrofurantoin monohyd/m-cryst [Macrobid] 100 mg capsule 100 mg PO Q12H 5 Days Qty: 10 0RF Rx Instructions: must administer with a meal/food losartan 100 mg tablet 100 mg PO DAILY 0RF cinnamon bark [Cinnamon] 500 mg capsule 1,000 mg PO DAILY 0RF loratadine [Allergy Relief (loratadine)] 10 mg tablet 10 mg PO DAILY 0RF cholecalciferol (vitamin D3) 25 mcg (1,000 unit) capsule 25 mcg PO DAILY 0RF ascorbic acid (vitamin C) 500 mg tablet 1 g PO Q6H 0RF (DME) FreeStyle Lite Strips Strip See Rx Instructions .ROUTE .MEDSUPPLY Qty: 100 11RF Rx Instructions: As directed three times a day (DME) FreeStyle Glenn 2 Sensor Kit See Rx Instructions .ROUTE .MEDSUPPLY Qty: 2 11RF Rx Instructions: As directed every 2 weeks metformin 500 mg tablet extended release 24 hr See Rx Instructions PO BID 30 Days Qty: 90 6RF Rx Instructions: 1 tab in the am and 2 tab in pm PO 2 times a day; acarbose 25 mg tablet 25 mg PO TID 30 Days Qty: 90 6RF Januvia 100 mg tablet 100 mg PO DAILY Qty: 30 11RF clonazepam 1 mg tablet 1 mg PO TID PRN0RF amlodipine 2.5 mg tablet 2.5 mg PO DAILY 0RF omeprazole 40 mg capsule,delayed release(DR/EC) 40 mg PO DAILY 30 Days Qty: 30 6RF simethicone 180 mg capsule 180 mg PO QID Qty: 120 6RF Print Language: [place]anian
[2021-09-13] MEDS: Ibuprofen 600 MG TABLET PO (23:35)
== END 2021-09-14 00:20 | disposition home or self-care (01) ==
PROVIDERS: Emergency Provider Internal Medicine; PCP Internal Medicine
DX: M72.2 Plantar fascial fibromatosis (principal); Z87.891 Personal history of nicotine dependence; Z79.899 Other long term (current) drug therapy
CPT/HCPCS: 73630; 99282; 99283

== ENCOUNTER → 2021-10-07 10:34 | Outpatient (BNVA) | payer MEDICAID, SELFPAY | PROVIDERS: PCP Internal Medicine; Visit Provider Nurse Practitioner | DX: K59.04 Chronic idiopathic constipation (principal); K21.9 Gastro-esophageal reflux disease without esophagitis; K31.84 Gastroparesis; N81.6 Rectocele; R14.0 Abdominal distension (gaseous); Z86.010 Personal history of colon polyps; Z79.899 Other long term (current) drug therapy; Z98.890 Other specified postprocedural states | CPT/HCPCS: 99212 ==

== ENCOUNTER 2021-12-31 10:40 | Outpatient (REF) | payer MEDICAID, SELFPAY ==
[2021-12-31 12:38] LABS: Alanine Aminotransferase 17 U/L (0-31); Albumin Level 4.5 g/dL (3.5-5.0); Alkaline Phosphatase 68 U/L (39-117); Anion Gap 17 (12-20); Aspartate Amino Transferase 24 U/L (5-31); Blood Urea Nitrogen 15 mg/dL (9-16); Calcium 9.6 mg/dL (8.4-10.2); Carbon Dioxide 25 mmol/L (22-29); Chloride 103 mmol/L (96-108); Estimated Glomerular Filt Rate > 60; Glucose Random 114 mg/dL (60-115); Potassium 4.7 mmol/L (3.3-5.1); Sodium 140 mmol/L (135-145); Total Protein 7.8 g/dL (6.5-8.0)
[2021-12-31 15:29] LABS: Estimated Average Glucose 151 mg/dL; Hemoglobin A1c % 6.9 %
== END 2021-12-31 10:41 | disposition home or self-care (01) ==
LOC: HO.LAB 10:40
PROVIDERS: PCP Internal Medicine; Visit Provider Internal Medicine
DX: E11.9 Type 2 diabetes mellitus without complications (principal); E78.00 Pure hypercholesterolemia, unspecified; F41.8 Other specified anxiety disorders; G47.62 Sleep related leg cramps; I10 Essential (primary) hypertension; K58.9 Irritable bowel syndrome, unspecified
CPT/HCPCS: 36415; 80053; 83036

== ENCOUNTER 2022-03-16 11:31 | Outpatient (REF) | payer MEDICAID, SELFPAY ==
--- NOTE | ~2022-03-16 | MM_ITS ---
EXAMINATION: MM SCREENING DIGITAL BREAST TOMOSYNTHESIS, BILATERAL CLINICAL INFORMATION: Screening. Asymptomatic. The lifetime risk of breast cancer based on the Tyrer-Cuzick Model is 5%. COMPARISON: Mammography: 03/14/2021, 02/06/2019 TECHNIQUE: Digital breast tomosynthesis is performed in both the craniocaudal and mediolateral oblique views along with computer-aided detection (CAD). Synthesized 2D images are generated from the tomosynthesis. Additional right CC view is provided. FINDINGS: There are scattered areas of fibroglandular density (ACR BI-RADS breast composition Category b). There are no significant masses, abnormal calcifications, or other abnormalities. Parenchymal pattern is similar to prior studies. The axilla and skin contours are unremarkable. No significant changes. MM/MM tomosynthesis screening BI IMPRESSION: No mammographic evidence of malignancy. ASSESSMENT: BI-RADS 1: Negative RECOMMENDATION: Routine annual mammography screening. This patient's information was entered into a reminder system with a target due date for their next mammogram.
== END 2022-03-16 11:32 | disposition home or self-care (01) ==
LOC: HO.MAMMO 11:31
PROVIDERS: PCP Internal Medicine; Visit Provider Internal Medicine
DX: Z12.31 Encounter for screening mammogram for malignant neoplasm of breast (principal)
CPT/HCPCS: 77063; 77067

== ENCOUNTER 2022-03-17 10:51 | Outpatient (REF) | payer MEDICAID, SELFPAY ==
--- NOTE | ~2022-03-17 | XR_ITS ---
EXAMINATION: XR FOOT, LEFT CLINICAL INFORMATION: Pain. Rule out fracture. COMPARISON: Previous x-ray August 2021 TECHNIQUE: AP, lateral, and oblique views of the left foot. FINDINGS: Bone alignment is normal. No fracture or dislocation. Joint spaces are normal. The bones are osteopenic. There is a plantar calcaneal spur. Soft tissues are otherwise normal. XR/XR foot LT min 3V IMPRESSION: Osteopenia and small plantar calcaneal spur similar to recent exam.
[2022-03-17 11:15] LABS: MANUAL DIFF FLAG NO
[2022-03-17 12:08] LABS: Basophils Percent Auto 0.5 % (0-2); Eosinophils Absolute Auto 0.1 X10*3/uL (0.0-0.4); Hematocrit 41.7 % (37.0-47.0); Hemoglobin 13.5 g/dl (12.0-16.0); Imm Gran Abs Auto 0.01 X10*3/uL (0.00-0.03); Imm Gran Pct Auto 0.2 % (0.0-0.4); Lymphocytes Absolute Auto 2.2 X10*3/uL (1.2-4.9); Lymphocytes Percent Auto 36.9 % (20-40); Mean Corpuscular HGB Conc 32.4 g/dl (31.0-35.0); Mean Corpuscular Hemoglobin 30.8 pg (27.0-33.0); Mean Platelet Volume 10.1 fL (9.4-12.3); Monocytes Absolute Auto 0.3 X10*3/uL (0.1-1.2); Monocytes Percent Auto 5.5 % (2-11); Neutrophils Absolute Auto 3.3 x10*3/uL (2.0-8.3); Neutrophils Percent Auto 54.9 % (45-73); Platelet Count 316 X10*3/uL (160-400); Red Blood Count 4.39 X10*6/uL (4.20-5.50); Red Cell Distribution Width 12.2 % (11.0-16.0)
[2022-03-17 12:30] LABS: Estimated Average Glucose 163 mg/dL; Hemoglobin A1c % 7.3 %
[2022-03-17 12:44] LABS: Microalbumin Urine < 5.0 mg/L
[2022-03-17 13:11] LABS: Alanine Aminotransferase 17 U/L (0-31); Albumin Level 4.3 g/dL (3.5-5.0); Alkaline Phosphatase 65 U/L (39-117); Anion Gap 16 (12-20); Aspartate Amino Transferase 22 U/L (5-31); Blood Urea Nitrogen 11 mg/dL (9-16); Calcium 9.7 mg/dL (8.4-10.2); Carbon Dioxide 26 mmol/L (22-29); Chloride 104 mmol/L (96-108); Cholesterol 144 mg/dL; Estimated Glomerular Filt Rate > 60; Glucose Random 244 mg/dL (60-115); HDL Cholesterol 34 mg/dL; LDL Cholesterol Calculated 62 mg/dl; Potassium 5.2 mmol/L (3.3-5.1); Sodium 141 mmol/L (135-145); Total Protein 7.2 g/dL (6.5-8.0); Triglycerides 243 mg/dL
== END 2022-03-17 10:52 | disposition home or self-care (01) ==
LOC: HO.XRAY 10:51
PROVIDERS: PCP Internal Medicine; Visit Provider Internal Medicine
DX: M79.672 Pain in left foot (principal); E11.9 Type 2 diabetes mellitus without complications; E78.00 Pure hypercholesterolemia, unspecified; I10 Essential (primary) hypertension; R07.89 Other chest pain; R35.0 Frequency of micturition
CPT/HCPCS: 36415; 73630; 80053; 80061; 82043; 83036; 85025

== ENCOUNTER → 2022-04-01 11:22 | Outpatient (BNVA) | payer MEDICAID, SELFPAY | PROVIDERS: PCP Internal Medicine; Visit Provider Physician Assistant | DX: M76.62 Achilles tendinitis, left leg (principal); M72.2 Plantar fascial fibromatosis; M76.72 Peroneal tendinitis, left leg | CPT/HCPCS: 99202 ==

== ENCOUNTER → 2022-04-07 10:47 | Outpatient (BNVA) | payer MEDICAID, SELFPAY | PROVIDERS: PCP Internal Medicine; Visit Provider Nurse Practitioner | DX: K59.04 Chronic idiopathic constipation (principal); K31.84 Gastroparesis; K21.9 Gastro-esophageal reflux disease without esophagitis; K59.9 Functional intestinal disorder, unspecified; N81.6 Rectocele; R14.0 Abdominal distension (gaseous); D12.6 Benign neoplasm of colon, unspecified | CPT/HCPCS: 99212 ==

== ENCOUNTER 2022-05-13 14:08 | Outpatient (REF) | payer MEDICAID, SELFPAY ==
[2022-05-13 14:22] LABS: MANUAL DIFF FLAG NO
[2022-05-13 14:31] LABS: Basophils Percent Auto 0.3 % (0-2); Eosinophils Absolute Auto 0.1 X10*3/uL (0.0-0.4); Hematocrit 39.3 % (37.0-47.0); Hemoglobin 12.8 g/dl (12.0-16.0); Imm Gran Abs Auto 0.03 X10*3/uL (0.00-0.03); Imm Gran Pct Auto 0.4 % (0.0-0.4); Lymphocytes Percent Auto 27.8 % (20-40); Mean Corpuscular HGB Conc 32.6 g/dl (31.0-35.0); Mean Corpuscular Hemoglobin 30.5 pg (27.0-33.0); Mean Corpuscular Volume 93.8 fL (80.0-98.0); Mean Platelet Volume 9.1 fL (9.4-12.3); Monocytes Absolute Auto 0.7 X10*3/uL (0.1-1.2); Monocytes Percent Auto 9.4 % (2-11); Neutrophils Absolute Auto 4.4 x10*3/uL (2.0-8.3); Neutrophils Percent Auto 61.1 % (45-73); Platelet Count 322 X10*3/uL (160-400); Red Blood Count 4.19 X10*6/uL (4.20-5.50); Red Cell Distribution Width 12.5 % (11.0-16.0); White Blood Count 7.2 X10*3/uL (4.8-10.8)
[2022-05-13 14:37] LABS: Estimated Average Glucose 174 mg/dL; Hemoglobin A1c % 7.7 %
[2022-05-13 14:57] LABS: Alanine Aminotransferase 15 U/L (0-31); Albumin Level 4.1 g/dL (3.5-5.0); Alkaline Phosphatase 63 U/L (39-117); Anion Gap 12 (12-20); Aspartate Amino Transferase 19 U/L (5-31); Bilirubin Total 0.6 mg/dL (0.0-1.0); Blood Urea Nitrogen 13 mg/dL (9-16); Calcium 9.3 mg/dL (8.4-10.2); Carbon Dioxide 28 mmol/L (22-29); Chloride 107 mmol/L (96-108); Estimated Glomerular Filt Rate > 60; Glucose Random 106 mg/dL (60-115); Potassium 4.3 mmol/L (3.3-5.1); Sodium 143 mmol/L (135-145)
== END 2022-05-13 14:09 | disposition home or self-care (01) ==
LOC: HO.LAB 14:08
PROVIDERS: PCP Internal Medicine; Visit Provider Internal Medicine
DX: Z00.00 Encounter for general adult medical examination without abnormal findings (principal)
CPT/HCPCS: 36415; 80053; 83036; 85025

== ENCOUNTER → 2022-08-14 08:50 | Outpatient (BNVA) | payer MEDICAID, SELFPAY | PROVIDERS: PCP Internal Medicine; Visit Provider Nurse Practitioner | DX: Z01.818 Encounter for other preprocedural examination (principal); K31.84 Gastroparesis; K59.04 Chronic idiopathic constipation; K21.9 Gastro-esophageal reflux disease without esophagitis; R14.0 Abdominal distension (gaseous); N95.1 Menopausal and female climacteric states; D12.6 Benign neoplasm of colon, unspecified | CPT/HCPCS: 99212 ==

== ENCOUNTER 2022-08-20 10:01 | Outpatient (REF) | payer MEDICAID, SELFPAY ==
[2022-08-20 10:44] LABS: Estimated Average Glucose 169 mg/dL; Hemoglobin A1c % 7.5 %
[2022-08-20 11:44] LABS: Alanine Aminotransferase 13 U/L (0-31); Alkaline Phosphatase 58 U/L (39-117); Anion Gap 12 (12-20); Aspartate Amino Transferase 21 U/L (5-31); Bilirubin Total 0.9 mg/dL (0.0-1.0); Blood Urea Nitrogen 10 mg/dL (9-16); Calcium 9.4 mg/dL (8.4-10.2); Carbon Dioxide 28 mmol/L (22-29); Chloride 105 mmol/L (96-108); Estimated Glomerular Filt Rate > 60; Glucose Random 168 mg/dL (60-115); Sodium 140 mmol/L (135-145); Total Protein 6.6 g/dL (6.5-8.0)
== END 2022-08-20 10:02 | disposition home or self-care (01) ==
LOC: HO.LAB 10:01
PROVIDERS: PCP Internal Medicine; Visit Provider Internal Medicine
DX: Z00.00 Encounter for general adult medical examination without abnormal findings (principal); E78.00 Pure hypercholesterolemia, unspecified; H02.89 Other specified disorders of eyelid; I10 Essential (primary) hypertension; N30.00 Acute cystitis without hematuria; Z86.010 Personal history of colon polyps
CPT/HCPCS: 36415; 80053; 83036

== ENCOUNTER → 2022-10-01 11:03 | Outpatient (BNVA) | payer MEDICAID, SELFPAY | PROVIDERS: PCP Internal Medicine; Visit Provider Nurse Practitioner | DX: K31.84 Gastroparesis (principal); K59.04 Chronic idiopathic constipation; K59.9 Functional intestinal disorder, unspecified; K21.9 Gastro-esophageal reflux disease without esophagitis; D12.6 Benign neoplasm of colon, unspecified; N81.6 Rectocele | CPT/HCPCS: 99212 ==

== ENCOUNTER 2022-10-12 13:12 | Day surgery (SDC) | payer MEDICAID, SELFPAY ==
[2022-10-08 09:37] VITALS: BMI 32.8
--- NOTE | 2022-10-09 13:30 | P.CONAN_ITS ---
Documented by User: Arlette Alvarez NP 10/09/22 13:32 HPI - Anesthesia Eval Consult details Narrative: 61yo F for Upper Endoscopy and Colonoscopy Multiple Med Allergies PMFSH Active Problems Active Problems: All Active Problems (Updated 08/14/22 @ 10:21 by NASEEM Ortega) Pre-op examination (Acute) Menopause syndrome (Acute) Diarrhea (Acute) Peroneal tendonitis of left lower leg (Acute) Plantar fasciitis, left (Acute) Achilles tendinitis, left leg (Acute) Abdominal bloating (Acute) DM2 (diabetes mellitus, type 2) (Acute) Tubular adenoma of colon (Acute) Gastroparesis (Acute) Essential hypertension (Acute) Hyperlipidemia LDL goal <100 (Acute) Obesity (Acute) Chronic idiopathic constipation (Acute) Rectocele (Acute) Microscopic hematuria (Acute) Small bowel motility disorder (Acute) GERD (gastroesophageal reflux disease) (Acute) Hemorrhoids (Acute) Plantar fasciitis (Acute) Past Medical History Medical History (Updated 10/12/22 @ 13:45 by Isha Adam, RN) Allergic rhinitis Asthma Carpal tunnel syndrome Cataracts, bilateral Depression with anxiety DM2 (diabetes mellitus, type 2) Essential hypertension Fibromyalgia GERD (gastroesophageal reflux disease) High cholesterol HTN (hypertension), benign Hyperlipidemia LDL goal <100 IBS (irritable bowel syndrome) Family History Family History Father Myocardial infarction Hypertension Diabetes Mother Dementia HTN (hypertension), benign High cholesterol Diabetes Maternal Aunt Breast cancer Surgical History Surgical History H/O esophagogastroduodenoscopy H/O gastric bypass H/O hemorrhoidectomy H/O hysterectomy for benign disease History of carpal tunnel release History of colonoscopy History of ear surgery History of Cynthia fundoplication Hx of cataract surgery Hx of hand surgery S/P appendectomy Social History Social History Household Members: Spouse Alcohol intake: former Patient Tobacco Use Status: Former Tobacco user Quit Date: >10 YRS AGO Years Smoked: quit 15-20 years ago Use of substances other than those prescribed or required for medical reasons: No Are you DNR?: No Advance Directives: No Advance Directives Information Provided: Yes Current occupational status: employed 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 Meds Allergies Allergy/AdvReac Type Severity Reaction Status Date / Time latex [LATEX] Allergy Intermediate RASH Verified 10/12/22 13:40 lisinopril [LISINOPRIL] Allergy Intermediate HALLUCINATIONS, Verified 10/12/22 13:40 cough CLOVER Inhibitors Allergy Unknown UNKNOWN Verified 10/12/22 13:40 [CLOVER INHIBITORS] canagliflozin [Invokana] Allergy Unknown unknown Verified 10/12/22 13:40 liraglutide [From VICTOZA] Allergy Unknown UNKNOWN, Verified 10/12/22 13:40 abdominal pain, nausea penicillin V Allergy Unknown angioedema Verified 10/12/22 13:40 Penicillins [PENICILLINS] Allergy Unknown SYNCOPE Verified 10/12/22 13:40 pioglitazone [From ACTOS] Allergy Unknown UNKNOW, Verified 10/12/22 13:40 body puffiness sertraline Allergy Unknown unknown Verified 10/12/22 13:40 shellfish derived Allergy Unknown Rash and Verified 10/12/22 13:40 [SHELLFISH DERIVED] swelling Sulfa (Sulfonamide Allergy Unknown RASH Verified 10/12/22 13:40 Antibiotics) [SULFA (SULFONAMIDE ANTIBIOTICS)] black pepper Allergy cough, Verified 10/12/22 13:40 choking mushrooms Allergy Intermediate Diarrhea, Uncoded 04/07/22 11:00 swollen stomach,rash Onglyza Allergy Unknown unknown Uncoded 04/07/22 11:00 [place]err[place] vanilla creamer AdvReac Diarhea, Uncoded 04/07/22 11:00 nausea, stomach pain Home Medications Medication Instructions Recorded Confirmed Last Taken Type cinnamon bark 500 mg capsule 1,000 mg PO DAILY 02/01/20 10/12/22 Unknown History (Cinnamon) clonazepam 1 mg tablet 1 mg PO TID PRN Anxiety 04/08/21 10/12/22 Unknown History albuterol sulfate 90 mcg/actuation 2 puff inhalation Q4H PRN wheezing 10/07/21 10/12/22 10/12/22 09:00 History aerosol inhaler (ProAir HFA) meclizine 25 mg tablet 25 mg PO TID 10/07/21 10/12/22 Unknown History pravastatin 40 mg tablet 40 mg PO BEDTIME 10/07/21 10/12/22 Unknown History fexofenadine 180 mg tablet 180 mg PO DAILY 04/07/22 10/12/22 Unknown History ketotifen fumarate 0.025 % (0.035 2 drp ophthalmic (eye) BID 04/07/22 10/12/22 Unknown History %) eye drops (Alaway) metoprolol succinate 100 mg 100 mg PO DAILY 10/01/22 10/12/22 10/12/22 09:00 History tablet,extended release 24 hr Exam Exam Date and Time: October 09, 2022 1330 Height,Weight and Vital Signs: Height 5 ft 8 in Weight 97.976 kg Pertinent Lab Results Pertinent Lab Results: Laboratory Tests 05/13/22 08/20/22 14:21 10:16 WBC 7.2 Hgb 12.8 Hct 39.3 Plt Count 322 Sodium 140 Potassium 5.0 Chloride 105 Carbon Dioxide 28 BUN 10 Creatinine 0.69 Assessment and Plan Assessment Anesthesia Assessment: Chart Reviewed Documented by User: Stella Parkinson MD 10/12/22 14:47 [facility] Past Medical History Medical History (Updated 10/12/22 @ 13:45 by Isha Adam, ARPITA) Allergic rhinitis Asthma Carpal tunnel syndrome Cataracts, bilateral Depression with anxiety DM2 (diabetes mellitus, type 2) Essential hypertension Fibromyalgia GERD (gastroesophageal reflux disease) High cholesterol HTN (hypertension), benign Hyperlipidemia LDL goal <100 IBS (irritable bowel syndrome) Family History Family History Father Myocardial infarction Hypertension Diabetes Mother Dementia HTN (hypertension), benign High cholesterol Diabetes Maternal Aunt Breast cancer Family history of problems with anesthesia: No Surgical History Surgical History H/O esophagogastroduodenoscopy H/O gastric bypass H/O hemorrhoidectomy H/O hysterectomy for benign disease History of carpal tunnel release History of colonoscopy History of ear surgery History of Cynthia fundoplication Hx of cataract surgery Hx of hand surgery S/P appendectomy History of Problems with Anesthesia: No Social History Social History Household Members: Spouse Alcohol intake: former Patient Tobacco Use Status: Former Tobacco user Quit Date: >10 YRS AGO Years Smoked: quit 15-20 years ago Use of substances other than those prescribed or required for medical reasons: No Are you DNR?: No Advance Directives: No Advance Directives Information Provided: Yes Current occupational status: employed 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 Meds Allergies Allergy/AdvReac Type Severity Reaction Status Date / Time latex [LATEX] Allergy Intermediate RASH Verified 10/12/22 13:40 lisinopril [LISINOPRIL] Allergy Intermediate HALLUCINATIONS, Verified 10/12/22 13:40 cough CLOVER Inhibitors Allergy Unknown UNKNOWN Verified 10/12/22 13:40 [CLOVER INHIBITORS] canagliflozin [Invokana] Allergy Unknown unknown Verified 10/12/22 13:40 liraglutide [From VICTOZA] Allergy Unknown UNKNOWN, Verified 10/12/22 13:40 abdominal pain, nausea penicillin V Allergy Unknown angioedema Verified 10/12/22 13:40 Penicillins [PENICILLINS] Allergy Unknown SYNCOPE Verified 10/12/22 13:40 pioglitazone [From ACTOS] Allergy Unknown UNKNOW, Verified 10/12/22 13:40 body puffiness sertraline Allergy Unknown unknown Verified 10/12/22 13:40 shellfish derived Allergy Unknown Rash and Verified 10/12/22 13:40 [SHELLFISH DERIVED] swelling Sulfa (Sulfonamide Allergy Unknown RASH Verified 10/12/22 13:40 Antibiotics) [SULFA (SULFONAMIDE ANTIBIOTICS)] black pepper Allergy cough, Verified 10/12/22 13:40 choking mushrooms Allergy Intermediate Diarrhea, Uncoded 04/07/22 11:00 swollen stomach,rash Onglyza Allergy Unknown unknown Uncoded 04/07/22 11:00 [place] vanilla creamer AdvReac Diarhea, Uncoded 04/07/22 11:00 nausea, stomach pain Home Medications Medication Instructions Recorded Confirmed Last Taken Type cinnamon bark 500 mg capsule 1,000 mg PO DAILY 02/01/20 10/12/22 Unknown History (Cinnamon) clonazepam 1 mg tablet 1 mg PO TID PRN Anxiety 04/08/21 10/12/22 Unknown History albuterol sulfate 90 mcg/actuation 2 puff inhalation Q4H PRN wheezing 10/07/21 10/12/22 10/12/22 09:00 History aerosol inhaler (ProAir HFA) meclizine 25 mg tablet 25 mg PO TID 10/07/21 10/12/22 Unknown History pravastatin 40 mg tablet 40 mg PO BEDTIME 10/07/21 10/12/22 Unknown History fexofenadine 180 mg tablet 180 mg PO DAILY 04/07/22 10/12/22 Unknown History ketotifen fumarate 0.025 % (0.035 2 drp ophthalmic (eye) BID 04/07/22 10/12/22 Unknown History %) eye drops (Alaway) metoprolol succinate 100 mg 100 mg PO DAILY 10/01/22 10/12/22 10/12/22 09:00 History tablet,extended release 24 hr Exam Airway Mallampati Class: III (cracked teeth) TM Dist: >3cm Neck ROM: Full Heart: rrr Lungs: cta Assessment and Plan Assessment Anesthesia Assessment: Anesthesia Plan Discussed Final Anesthetic Review Family History of Problems with Anesthesia: No History of Problems with Anesthesia: No NPO: Yes ASA Class: III Final Preanesthetic Review: No Changes in Pt Med Stat, Meds/Allgs Chart Reviewed and Consent Obtained/Reviewed Patient Risk: Intermediate Procedure Risk: Intermediate Anesthetic Plan Anesthetic Plan: MAC: Disposition: Standard PACU
[2022-10-12 13:46] VITALS: BMI 32.7
[2022-10-12 14:05] VITALS: BP 136/76; PULSE 55; RESP 16; TEMP 36.4; O2SAT 98
[2022-10-12] MEDS: Lactated Ringers 1,000 ML 100 ML IVCONT (14:13)
[2022-10-12 15:00] LABS: Glucose, Whole Blood 124 mg/dL (60-115)
--- NOTE | 2022-10-12 15:06 | P.HPSUR_ITS ---
Pre-Procedural Eval Section A Date of Service: 10/12/22 The patient is an INPATIENT: No Changes since office visit: Yes Patient answered all questions; No Cold of Flu in the past 2 weeks, No New Medical Problems and No Changes in Medication The History & Physical has been completed within 30 days and I have reviewed it.: Yes Section B Chief Complaint: Gastroparesis,Chronic idiopathic constipation,rect Allergies: Allergies Allergy/AdvReac Type Severity Reaction Status Date / Time latex [LATEX] Allergy Intermediate RASH Verified 10/12/22 13:40 lisinopril [LISINOPRIL] Allergy Intermediate HALLUCINATIONS, Verified 10/12/22 13:40 cough CLOVER Inhibitors Allergy Unknown UNKNOWN Verified 10/12/22 13:40 [CLOVER INHIBITORS] canagliflozin [Invokana] Allergy Unknown unknown Verified 10/12/22 13:40 liraglutide [From VICTOZA] Allergy Unknown UNKNOWN, Verified 10/12/22 13:40 abdominal pain, nausea penicillin V Allergy Unknown angioedema Verified 10/12/22 13:40 Penicillins [PENICILLINS] Allergy Unknown SYNCOPE Verified 10/12/22 13:40 pioglitazone [From ACTOS] Allergy Unknown UNKNOW, Verified 10/12/22 13:40 body puffiness sertraline Allergy Unknown unknown Verified 10/12/22 13:40 shellfish derived Allergy Unknown Rash and Verified 10/12/22 13:40 [SHELLFISH DERIVED] swelling Sulfa (Sulfonamide Allergy Unknown RASH Verified 10/12/22 13:40 Antibiotics) [SULFA (SULFONAMIDE ANTIBIOTICS)] black pepper Allergy cough, Verified 10/12/22 13:40 choking mushrooms Allergy Intermediate Diarrhea, Uncoded 04/07/22 11:00 swollen stomach,rash Onglyza Allergy Unknown unknown Uncoded 04/07/22 11:00 Martiniquais vanilla creamer AdvReac Diarhea, Uncoded 04/07/22 11:00 nausea, stomach pain Plan Diagnosis/Plan: Change (Pt scheduled for EGD and Colonoscopy) I have reviewed the history and physical and performed a pertinent physical examination on my patient. No changes have occurred unless specified. Time Spent With Patient Time: Total time managing care of this patient today ____ minutes.
--- NOTE | 2022-10-12 15:07 | W.PM.OPN ---
Operative Note Operative Note Date of Service: 10/12/22 Narrative: FLEXIBLE TRANSORAL UPPER GASTROINTESTINAL ENDOSCOPY WITH BIOPSIES AND COLONOSCOPY TILL CECUM WITH SNARE POLYPECTOMY Pre-op diagnosis: Colon cancer screening, hx of colon polyps, abdominal pain, status post gastric bypass. Post-op diagnosis: GERD, Gastric bypass status,?Colon polyp Endoscopist:? Robert Larsen MD Anesthesia:?MAC UPPER ENDOSCOPY Consent: Indications for the procedure and potential complications of bleeding, perforation, reaction to medications and missed diagnosis were discussed with the patient and informed consent was obtained. Instrument: Olympus GIF H 190 mid size upper endoscope Monitoring: Vital signs and clinical assessment, continuous EKG monitoring, Pulse oximetry, Carbon Dioxide monitoring and blood pressure monitoring were done throughout the procedure. Procedure: The patient was placed in the left lateral decubitis position and pre-procedure medications were administered and a bite block was placed. The endoscope was inserted into the mouth and advanced under direct vision to the third part of duodenum. A careful inspection was made as the upper endoscope was withdrawn including a retroflexed examination of the proximal stomach; Findings and interventions are described below. Findings: Larynx: Normal Esophagus: GE junction at 35 cms. No esophagitis or Baptiste's. Stomach: Normal appearing gastric pouch with normal anatomosis at 40 cms. Biopsies were obtained from the gastric pouch. Jejunum: Normal small bowel mucosa - biopsies obtained to check for celiac sprue Intervention: Biopsies as noted above COLONOSCOPY PROCEDURE NOTE Consent: Indications for the procedure and potential complications of bleeding, perforation, reaction to medications and missed diagnosis were discussed with the patient and informed consent was obtained. Instrument: Olympus PCF H 190 L variable stiffness pediatric colonoscope Monitoring: Vital signs and clinical assessment, intermittent blood pressure monitoring, continuous EKG monitoring, Pulse oximetry and Carbon Dioxide monitoring were done throughout the procedure. Colon withdrawl time was 25 minutes. Procedure: The patient was placed in the left lateral decubitis position and pre-procedure medications were administered. After a digital rectal examination of the ano-rectum, the video colonoscope was inserted into the rectum and advanced through the colon to the cecum. The colonoscope was slowly withdrawn in a retrograde panoramic fashion and the colon mucosa was carefully examined including a retroflexed view of the rectum. Findings and interventions are described below. Procedure Difficulty: Colon was long and tortuous and live was spasm and recurrent loop formation Findings: Terminal Ileum: Not evaluated Cecum: Partially evaluated due to fair prep Ascending Colon: Normal Transverse Colon: Normal Descending Colon: Normal Sigmoid Colon: A 10-12 mm sessile polyp inadvertantly removed with a cold snare. Some bleeding noted from polypectomy site - treated with cautery using the snare tip. Polyp was not retrieved. Rectum: Normal Ano-rectum: Normal Colon preparation: Good after copious irrigation and fair in the cecum and rectum Impression and Post Procedure Diagnosis: Endoscopy Findings: STOMACH: Normal appearing gastric pouch with normal anatomosis at 40 cms. Biopsies were obtained from the gastric pouch. JEJUNUM: Normal small bowel mucosa Colonoscopy Findings: One medium sized polyp removed - polyp was not retrieved Plan: Await pathology results Patient has an appointment on 10/29/22 in the [facility] with Isabel Shabazz NP. Repeat Colonoscopy interval based on path results - in 3 years due to fair prep (Bisacodyl x 3 days before colonoscopy and adult colonoscope for future colonoscopies). Above findings were reviewed with the patient and colon polyps handout was given in the discharge area
[2022-10-12 16:10] VITALS: BP 123/60; PULSE 62; RESP 16; TEMP 36.1; O2SAT 98
[2022-10-12 16:25] VITALS: BP 134/64; PULSE 58; RESP 16; TEMP 36.9; O2SAT 98
== END 2022-10-12 16:45 | disposition home or self-care (01) ==
PROVIDERS: PCP Internal Medicine; Visit Provider Internal Medicine Gastroenterology
PROC: (CPT 45385; principal; 2022-10-12 14:40)
DX: Z12.11 Encounter for screening for malignant neoplasm of colon (principal); Z86.010 Personal history of colon polyps; K63.5 Polyp of colon; K59.04 Chronic idiopathic constipation; N81.6 Rectocele; K31.84 Gastroparesis; R14.0 Abdominal distension (gaseous); K21.9 Gastro-esophageal reflux disease without esophagitis; K59.9 Functional intestinal disorder, unspecified; Z98.84 Bariatric surgery status; J45.909 Unspecified asthma, uncomplicated; I10 Essential (primary) hypertension; E78.00 Pure hypercholesterolemia, unspecified; F41.8 Other specified anxiety disorders; M79.7 Fibromyalgia; Z79.899 Other long term (current) drug therapy; Z88.0 Allergy status to penicillin; Z88.2 Allergy status to sulfonamides; Z88.8 Allergy status to other drugs, medicaments and biological substances; Z91.040 Latex allergy status; Z87.891 Personal history of nicotine dependence; Z98.890 Other specified postprocedural states
CPT/HCPCS: 45385; 43239; 82947; 88305; 88342

== ENCOUNTER → 2022-10-29 14:24 | Outpatient (BNVA) | payer MEDICAID, SELFPAY | PROVIDERS: PCP Internal Medicine; Visit Provider Nurse Practitioner | DX: K21.9 Gastro-esophageal reflux disease without esophagitis (principal); K59.9 Functional intestinal disorder, unspecified; K59.04 Chronic idiopathic constipation; K31.84 Gastroparesis; D12.6 Benign neoplasm of colon, unspecified | CPT/HCPCS: 99212 ==

== ENCOUNTER 2022-12-08 11:42 | Outpatient (REF) | payer MEDICAID, SELFPAY ==
[2022-12-08 12:27] LABS: Estimated Average Glucose 154 mg/dL
[2022-12-08 12:31] LABS: Alanine Aminotransferase 14 U/L (0-31); Albumin Level 4.2 g/dL (3.5-5.0); Alkaline Phosphatase 61 U/L (39-117); Anion Gap 10 (12-20); Aspartate Amino Transferase 23 U/L (5-31); Blood Urea Nitrogen 12 mg/dL (9-16); Carbon Dioxide 29 mmol/L (22-29); Chloride 106 mmol/L (96-108); Estimated Glomerular Filt Rate > 60; Glucose Random 163 mg/dL (60-115); Potassium 4.3 mmol/L (3.3-5.1); Sodium 141 mmol/L (135-145); Total Protein 7.5 g/dL (6.5-8.0)
== END 2022-12-08 11:43 | disposition home or self-care (01) ==
LOC: HO.LAB 11:42
PROVIDERS: PCP Internal Medicine; Visit Provider Internal Medicine
DX: E11.65 Type 2 diabetes mellitus with hyperglycemia (principal); I10 Essential (primary) hypertension; J01.90 Acute sinusitis, unspecified; R35.0 Frequency of micturition; R60.0 Localized edema
CPT/HCPCS: 36415; 80053; 83036

== ENCOUNTER 2023-01-13 13:42 | Outpatient (REF) | payer MEDICAID, SELFPAY ==
[2023-01-13 14:46] LABS: Estimated Average Glucose 154 mg/dL
[2023-01-13 15:14] LABS: Alanine Aminotransferase 14 U/L (0-31); Albumin Level 4.3 g/dL (3.5-5.0); Alkaline Phosphatase 67 U/L (39-117); Anion Gap 12 (12-20); Aspartate Amino Transferase 25 U/L (5-31); Bilirubin Total 0.9 mg/dL (0.0-1.0); Blood Urea Nitrogen 16 mg/dL (9-16); Calcium 9.9 mg/dL (8.4-10.2); Carbon Dioxide 28 mmol/L (22-29); Chloride 106 mmol/L (96-108); Estimated Glomerular Filt Rate > 60; Glucose Random 109 mg/dL (60-115); Potassium 4.9 mmol/L (3.3-5.1); Sodium 141 mmol/L (135-145); Total Protein 7.8 g/dL (6.5-8.0)
== END 2023-01-13 13:43 | disposition home or self-care (01) ==
LOC: HO.LAB 13:42
PROVIDERS: PCP Internal Medicine; Visit Provider Internal Medicine
DX: E11.9 Type 2 diabetes mellitus without complications (principal); I10 Essential (primary) hypertension; M76.62 Achilles tendinitis, left leg
CPT/HCPCS: 36415; 80053; 83036

== ENCOUNTER 2023-02-08 12:44 | Emergency (ER) | payer MEDICAID, SELFPAY ==
--- NOTE | ~2023-02-08 | XR_ITS ---
EXAMINATION: XR FOOT, LEFT CLINICAL INFORMATION: Left heel pain COMPARISON: 03/17/2022 TECHNIQUE: AP, lateral, and oblique views of the left foot. FINDINGS: There is no evidence of fracture or dislocation. There is stable plantar calcaneal spurring. Soft tissues unremarkable. XR/XR foot LT 2V IMPRESSION: Plantar calcaneal spur
--- NOTE | ~2023-02-08 | XR_ITS ---
EXAMINATION: XR FOOT, RIGHT CLINICAL INFORMATION: Right heel pain COMPARISON: 09/20/2018 TECHNIQUE: AP, lateral, and oblique views of the right foot. FINDINGS: Seen on the previous examination of comminuted fracture of the distal third phalanx has been completely healed. The rest of the foot is unremarkable. There is small enthesopathy at the insertion of Achilles tendon. XR/XR foot RT 2V IMPRESSION: Healed fracture of the distal third phalanx.
[2023-02-08 13:09] VITALS: BP 152/60; PULSE 76; RESP 18; TEMP 36.4; O2SAT 97; BMI 32.4
--- NOTE | 2023-02-08 13:15 | ED_ITS ---
HPI - General Adult General Chief complaint: Extremity Problem Stated complaint: both heels in pain Time Seen by Provider: 02/08/23 14:20 Source: patient Mode of arrival: ambulatory Limitations: no limitations History of Present Illness HPI narrative: 62 year old female with pmhx significant for plantar fasciitis, achilles tendinitis, IBS, GERD, T2DM, HTN, HDL, presents to the ED today with bilateral heel pain x1 year, worsening x1 mo. Patient reports a history of Achilles tendinitis and plantar fasciitis and sees her PCP who administers her cortisone injections every 3-6 months. She has an appointment with an orthopedist next month to establish care. Admits to a slip and fall about 1 month ago and since this time has had worsening right heel pain. No head strike or LOC. Her bilateral heel pain is worse upon waking in the morning and standing for long periods of time. Pain does not radiate. Has not taken any medications for this at home. Denies fever, chills, knee or ankle pain, or numbness/tingling/ weakness of the LE. Related Data Home Medications Medication Instructions Recorded Confirmed cinnamon bark 500 mg capsule 1,000 mg PO DAILY 02/01/20 10/12/22 (Cinnamon) clonazepam 1 mg tablet 1 mg PO TID PRN Anxiety 04/08/21 10/12/22 albuterol sulfate 90 mcg/actuation 2 puff inhalation Q4H PRN wheezing 10/07/21 10/12/22 aerosol inhaler (ProAir HFA) meclizine 25 mg tablet 25 mg PO TID 10/07/21 10/12/22 pravastatin 40 mg tablet 40 mg PO BEDTIME 10/07/21 10/12/22 fexofenadine 180 mg tablet 180 mg PO DAILY 04/07/22 10/12/22 ketotifen fumarate 0.025 % (0.035 2 drp ophthalmic (eye) BID 04/07/22 10/12/22 %) eye drops (Alaway) metoprolol succinate 100 mg 100 mg PO DAILY 10/01/22 10/12/22 tablet,extended release 24 hr Previous Rx's Medication Instructions Recorded acetaminophen 500 mg tablet 500 mg PO Q6H PRN pain or fever 02/12/21 (Tylenol Extra Strength) #20 tabs blood sugar diagnostic (FreeStyle #100 ea 04/23/21 Lite Strips) flash glucose sensor (FreeStyle #2 ea 04/23/21 Glenn 2 Sensor kit) metformin 500 mg tablet,extended See Rx Instructions PO BID 30 days 04/23/21 release 24 hr #90 tabs sitagliptin phosphate 100 mg 100 mg PO DAILY #30 tabs 01/01/22 tablet (Januvia) Saccharomyces boulardii 250 mg 250 mg PO DAILY #30 caps 08/14/22 capsule (Daily Probiotic (S. boulardii)) simethicone 180 mg capsule 180 mg PO QID #120 caps 08/14/22 hydrocortisone acetate 25 mg 25 mg AK BID 30 days #6 supp 10/01/22 rectal suppository linaclotide 290 mcg capsule 290 mcg PO DAILY 30 days #30 caps 10/01/22 (Linzess) metoclopramide HCl 5 mg tablet 5 mg PO QIDACHS #120 tabs 10/01/22 (Reglan) omeprazole 40 mg capsule,delayed 40 mg PO DAILY 30 days #30 caps 10/01/22 release acetaminophen 325 mg tablet 325 mg PO Q6H PRN pain (scale 02/08/23 (Tylenol) score 1-3) #20 tabs Allergies Allergy/AdvReac Type Severity Reaction Status Date / Time latex [LATEX] Allergy Intermediate RASH Verified 10/12/22 13:40 lisinopril [LISINOPRIL] Allergy Intermediate HALLUCINATIONS, Verified 10/12/22 13:40 cough CLOVER Inhibitors Allergy Unknown UNKNOWN Verified 10/12/22 13:40 [CLOVER INHIBITORS] canagliflozin [Invokana] Allergy Unknown unknown Verified 10/12/22 13:40 liraglutide [From VICTOZA] Allergy Unknown UNKNOWN, Verified 10/12/22 13:40 abdominal pain, nausea penicillin V Allergy Unknown angioedema Verified 10/12/22 13:40 Penicillins [PENICILLINS] Allergy Unknown SYNCOPE Verified 10/12/22 13:40 pioglitazone [From ACTOS] Allergy Unknown UNKNOW, Verified 10/12/22 13:40 body puffiness sertraline Allergy Unknown unknown Verified 10/12/22 13:40 shellfish derived Allergy Unknown Rash and Verified 10/12/22 13:40 [SHELLFISH DERIVED] swelling Sulfa (Sulfonamide Allergy Unknown RASH Verified 10/12/22 13:40 Antibiotics) [SULFA (SULFONAMIDE ANTIBIOTICS)] black pepper Allergy cough, Verified 10/12/22 13:40 choking mushrooms Allergy Intermediate Diarrhea, Uncoded 04/07/22 11:00 swollen stomach,rash Onglyza Allergy Unknown unknown Uncoded 04/07/22 11:00 Tajik vanilla creamer AdvReac Diarhea, Uncoded 04/07/22 11:00 nausea, stomach pain Review of Systems Review of Systems: Constitutional: No fever, chills, fatigue, night sweats, weight changes ENT/Mouth: No ear pain, hearing loss, nasal congestion Eyes: No eye pain, swelling, redness, vision changes, discharge Cardio: No chest pain, palpitations, STREET, orthopnea, peripheral edema Pulm: No SOB, cough, sputum, wheezing, dyspnea, hemoptysis GI: No nausea, vomiting, hematemesis, abdominal pain : No irregular bleeding, dysuria, frequency, urgency, hesitancy, hematuria MSK: No back pain, neck pain, joint pain, myalgias, +bilateral heel pain Skin: No lesions, rashes Neuro: No weakness, numbness, paresthesias, LOC, dizziness, headache All other systems reviewed and are negative. [facility] Past Medical History Attestation statement: The following information was validated with the patient. Source: old records reviewed and nursing notes reviewed Medical History IBS (irritable bowel syndrome) GERD (gastroesophageal reflux disease) DM2 (diabetes mellitus, type 2) Cataracts, bilateral Essential hypertension Hyperlipidemia LDL goal <100 Allergic rhinitis Carpal tunnel syndrome Asthma Fibromyalgia Depression with anxiety High cholesterol HTN (hypertension), benign Surgical History Hx of hand surgery History of colonoscopy H/O esophagogastroduodenoscopy History of Cynthia fundoplication Hx of cataract surgery History of ear surgery History of carpal tunnel release H/O gastric bypass H/O hemorrhoidectomy S/P appendectomy H/O hysterectomy for benign disease Family History Family History Father Myocardial infarction Hypertension Diabetes Mother Dementia HTN (hypertension), benign High cholesterol Diabetes Maternal Aunt Breast cancer Social History Social History Household Members: Spouse Alcohol intake: former Patient Tobacco Use Status: Former Tobacco user Quit Date: >10 YRS AGO Years Smoked: quit 15-20 years ago Smoked in Last 30 Days: No Use of substances other than those prescribed or required for medical reasons: No Advance Directives: No Advance Directives Information Provided: Yes Current occupational status: employed 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 Const General: cooperative, comfortable, no acute distress, alert and awake Orientation/consciousness: patient oriented x3 Limitations: no limitations HENWA Head: Yes normal to inspection Ears: hearing grossly normal bilaterally General nose exam: Normal external nose present Eyes General: appearance normal, both eyes and all related structures Conjunctivae: conjunctivae normal Sclerae: sclerae normal Pupils: Equal, round and reactive pupils present EOM: EOMs intact bilaterally Resp Effort & Inspection: normal respiratory effort Auscultation: clear to auscultation bilaterally, no rales, no rhonchi and no wheezes Cardio Rate: regular rate Rhythm: regular rhythm Peripheral pulses: Peripheral pulses 2+ throughout Skin General skin exam: no rashes or lesions noted Neuro General: patient oriented x3, gait normal and moves all extremities Cranial nerves: Yes CN's II-XII intact bilaterally and Yes Equal, round and reactive pupils present Extrem Other: Full ROM to plantar/ dorsi flexion and inversion/eversion of bilateral feet. Strength 5/5 intact throughout.?Sensation intact to light touch.?NV intact distally.? 2+ DP/PT pulses bilaterally. General: Yes normal to inspection and Yes full ROM Course Course Course Narrative: RME: 62 yold female presents to the ED for bilateral heel pain. patient states foot injury last month and pmh of heel spurs of left foot which requires cortisone shots. xrays ordered Reevaluation(s) Reevaluation #1: [id number]-- Patient tells me she has to leave the ED for an emergency at home. I informed her that her xray results are still pending and that she would be leaving against medical advice/ without completing treatment. She expresses understanding and has decided to leave. She is asking that tylenol be sent to her pharmacy. >> Xray pending. Xray shows old fracture of the right distal 3rd phalynx. No acute fracture noted on left foot xray. Patient's pain is most likely consisted with plantar fasciitis. Will call and inform patient of her xray results. Medications Administered Discontinued Medications Generic Name Dose Route Start Last Admin Trade Name Carlos PRN Reason Stop Dose Admin Acetaminophen 975 mg 02/08/23 15:01 02/08/23 15:05 Acetaminophen 325 Mg Tablet PO 02/08/23 15:02 975 mg ONCE ONE Administration Medical Decision Making Medical Decision Making MDM Narrative: 62 year old female with pmhx significant for plantar fasciitis, achilles tendinitis, IBS, GERD, T2DM, HTN, HDL, presents to the ED today with bilateral heel pain x1 year, worsening x1 mo. VSS. Patient is nontoxic appearing and in NAD. Full ROM intact throughout. Stregnth 5/5 throughout. NV intact distally. There is no visible palpable deformity noted to heels b/l. Patient walking with steady gait. Clinical concern for plantar fasciitis vs diabetic neuropathy vs bursitis vs tendonitis vs tendonopathy. Low suspicion for fracture or dislocation. Unlikely osteomyelitis, arterial occlusion, DVT, threat to limb. Differential Diagnosis Differential Diagnoses: The differential diagnosis associated with the presentation includes As above. Admission/Observation Not indicated. Independent Interpretation I performed an independent interpretation of an: Plain X-Ray Interpretation: Xray left foot without acute facture, agree with radiologist's interpretation. Xray right foot with fracture of distal 3rd phalynx, agree with radiologist's interpretation. Radiology Impression Discussion of test interpretation with radiology: I have reviewed the radiologist's reading. Radiologist Impression: XR foot LT 2V IMPRESSION: Plantar calcaneal spur XR foot RT 2V IMPRESSION: Healed fracture of the distal third phalanx. External Record Review External record reviewed: Inpatient record, Office record, Outpatient record, Prior outpatient labs, Prior outpatient radiology, Primary care record and Outside ED record Prescription Management I considered prescription management with: Pain Medication Chronic Conditions Patient?s care impacted by: Diabetes Social Determinants Patient?s care significantly limited by Social Determinants of Health including: Other Social Determinant of Health Critical Care Time Critical Care Time Critical Care Time: No Discharge Plan Discharge Clinical Impression: Plantar fasciitis, bilateral, Closed fracture of phalanx of left third toe, Heel spur Patient Disposition: Left W/O Completing Treatment Instructions: Plantar Fasciitis (ED), Plantar Fasciitis Exercises (ED) Additional Instructions: The xray of your right foot showed an old fracture of the 3rd toe. The xray of your left foot showed chronic bone spurs along the heel. Your symptoms are consistent with plantar fasciitis. Take Tylenol and ibuprofen as needed for pain or discomfort. You can purchase heel lifts from the store which you can put in your shoes to help the discomfort. You've also been provided with exercises for your feet that you can do daily. A referral for podiatry has been provided to you. Call them to make an appointment. They will not call you. If you develop new or worsening symptoms, return to the ED. In the case of emergency call 911. Prescriptions: New acetaminophen [Tylenol] 325 mg tablet 325 mg PO Q6H PRN (Reason: pain (scale score 1-3)) Qty: 20 0RF No Action Januvia 100 mg tablet 100 mg PO DAILY Qty: 30 3RF acetaminophen [Tylenol Extra Strength] 500 mg tablet 500 mg PO Q6H PRN (Reason: pain or fever) Qty: 20 0RF cinnamon bark [Cinnamon] 500 mg capsule 1,000 mg PO DAILY (DME) FreeStyle Lite Strips Strip See Rx Instructions .ROUTE .MEDSUPPLY Qty: 100 11RF Rx Instructions: As directed three times a day (DME) FreeStyle Glenn 2 Sensor Kit See Rx Instructions .ROUTE .MEDSUPPLY Qty: 2 11RF Rx Instructions: As directed every 2 weeks metformin 500 mg tablet extended release 24 hr See Rx Instructions PO BID 30 Days Qty: 90 6RF Rx Instructions: 1 tab in the am and 2 tab in pm PO 2 times a day; clonazepam 1 mg tablet 1 mg PO TID PRN (Reason: Anxiety) albuterol sulfate [ProAir HFA] 90 mcg/actuation HFA aerosol inhaler 2 puff inhalation Q4H PRN (Reason: wheezing) meclizine 25 mg tablet 25 mg PO TID pravastatin 40 mg tablet 40 mg PO BEDTIME fexofenadine 180 mg tablet 180 mg PO DAILY ketotifen fumarate [Alaway] 0.025 % (0.035 %) drops 2 drp ophthalmic (eye) BID metoprolol succinate 100 mg tablet extended release 24 hr 100 mg PO DAILY Linzess 290 mcg capsule 290 mcg PO DAILY 30 Days Qty: 30 6RF metoclopramide HCl [Reglan] 5 mg tablet 5 mg PO QIDACHS Qty: 120 6RF omeprazole 40 mg capsule,delayed release(DR/EC) 40 mg PO DAILY 30 Days Qty: 30 6RF hydrocortisone acetate 25 mg suppository 25 mg AK BID 30 Days Qty: 6 3RF simethicone 180 mg capsule 180 mg PO QID Qty: 120 6RF Saccharomyces boulardii [Daily Probiotic (S. boulardii)] 250 mg capsule 250 mg PO DAILY Qty: 30 6RF Referrals: Luis Cheatham MD [Physician] - Discharge Date/Time: 02/08/23 15:54
--- NOTE | 2023-02-08 15:00 | PC.NURSE ---
sitting at bedside. +CMS. heel pain continues. no respiratory distress.
[2023-02-08] MEDS: Acetaminophen 325 MG TABLET 975 MG PO (15:05)
--- NOTE | 2023-02-08 15:54 | PC.NURSE ---
pt made nurse/provider aware pt had emergency at home and needed to leave- pt provided with DC instrcutions- advised to return with any new/worsening symptoms- pt verbalized understanding
== END 2023-02-08 15:54 | disposition left against medical advice (07) ==
PROVIDERS: Emergency Provider Emergency Medicine; PCP Internal Medicine
DX: S92.502A Displaced unspecified fracture of left lesser toe(s), initial encounter for closed fracture (principal); M72.2 Plantar fascial fibromatosis; M77.32 Calcaneal spur, left foot; M77.31 Calcaneal spur, right foot; M79.672 Pain in left foot; M79.671 Pain in right foot; X58.XXXA Exposure to other specified factors, initial encounter; Y93.9 Activity, unspecified; Y92.9 Unspecified place or not applicable; Y99.9 Unspecified external cause status
CPT/HCPCS: 73620; 99283; 99284

== ENCOUNTER 2023-03-12 12:07 | Outpatient (REF) | payer MEDICAID, SELFPAY ==
[2023-03-15 10:38] LABS: TS Negative Control Passed; TS Panel A 2; TS Panel B 2; TS Positive Control Passed; TSpotTB Negative (Negative)
== END 2023-03-12 12:08 | disposition home or self-care (01) ==
LOC: HO.LAB 12:07
PROVIDERS: PCP Internal Medicine; Visit Provider Internal Medicine
DX: Z11.1 Encounter for screening for respiratory tuberculosis (principal); E11.65 Type 2 diabetes mellitus with hyperglycemia; J45.901 Unspecified asthma with (acute) exacerbation
CPT/HCPCS: 36415; 86481

== ENCOUNTER 2023-03-23 10:53 | Outpatient (REF) | payer MEDICAID, SELFPAY | END 2023-03-23 10:54 | disposition home or self-care (01) | LOC: HO.MAMMO 10:53 | PROVIDERS: PCP Internal Medicine; Visit Provider Internal Medicine | DX: Z12.31 Encounter for screening mammogram for malignant neoplasm of breast (principal) | CPT/HCPCS: 77063; 77067 ==

== ENCOUNTER → 2023-03-23 11:15 | Outpatient (BNV) | payer MEDICAID, SELFPAY | PROVIDERS: PCP Internal Medicine; Visit Provider Radiology Diagnostic Radiology | DX: Z12.31 Encounter for screening mammogram for malignant neoplasm of breast (principal) | CPT/HCPCS: 77063; 77067 ==

== ENCOUNTER 2023-04-13 20:08 | Emergency (ER) | payer MEDICAID, SELFPAY ==
--- NOTE | ~2023-04-13 | CT_ITS ---
EXAMINATION: CT HEAD WITHOUT CONTRAST CLINICAL INFORMATION: Pain. Fall. COMPARISON: Previous head CT January 2021 TECHNIQUE: Contiguous axial imaging was performed from the skull base to vertex without intravenous administration of contrast. This CT examination was performed using dose optimization techniques as appropriate, variously including the following: *Automated exposure control *Adjustment of mA and/or kV according to patient size (this includes techniques or standardized protocols for targeted exams where dose is matched to indication/reason for exam; i.e. extremities or head) *Use of iterative reconstruction technique DLP: 742 mGy-cm FINDINGS: There is no evidence for an extra-axial collection. There is no evidence for intra-or extra-axial hemorrhage. The ventricles and extra-axial CSF spaces are appropriate. Rose-white matter differentiation is normal. No mass, mass effect or infarct is seen. Review of bone windows is normal. Visualized paranasal sinuses, mastoid air cells ears and middle ears are clear. CT/CT head/brain wo IV con IMPRESSION: Unremarkable exam.
--- NOTE | ~2023-04-13 | CT_ITS ---
EXAMINATION: CT CERVICAL SPINE WITHOUT CONTRAST CLINICAL INFORMATION: Pain. Fall. COMPARISON: None available. TECHNIQUE: Axial images through the cervical spine without IV contrast. Sagittal and coronal reconstructions on the technologist workstation. This CT examination was performed using dose optimization techniques as appropriate, variously including the following: *Automated exposure control *Adjustment of mA and/or kV according to patient size (this includes techniques or standardized protocols for targeted exams where dose is matched to indication/reason for exam; i.e. extremities or head) *Use of iterative reconstruction technique DLP: 596 mGy-cm FINDINGS: Bone alignment is normal. No fracture or dislocation. Normal disc spaces. Prevertebral soft tissues are normal. Bilateral carotid calcification. Lung apices are clear. CT/CT cervical spine wo IV con IMPRESSION: Unremarkable examination. Fleischner guidelines were followed.
--- NOTE | ~2023-04-13 | XR_ITS ---
EXAMINATION: BILATERAL KNEES CLINICAL INFORMATION: Pain COMPARISON: Right knee 08/20/2021 TECHNIQUE: 4 views each knee FINDINGS: There is mild narrowing of the medial compartments bilaterally consistent with mild degenerative change. No fractures are seen. No joint effusions. No chondrocalcinosis. XR/XR knee RT 3V IMPRESSION: Mild narrowing of the medial compartments bilaterally.
--- NOTE | ~2023-04-13 | XR_ITS ---
EXAMINATION: BILATERAL KNEES CLINICAL INFORMATION: Pain COMPARISON: Right knee 08/20/2021 TECHNIQUE: 4 views each knee FINDINGS: There is mild narrowing of the medial compartments bilaterally consistent with mild degenerative change. No fractures are seen. No joint effusions. No chondrocalcinosis. XR/XR knee LT 3V IMPRESSION: Mild narrowing of the medial compartments bilaterally.
--- NOTE | 2023-04-13 20:36 | ED_ITS ---
HPI - General Adult General Chief complaint: Fall Stated complaint: fall/elbow & knee Time Seen by Provider: 04/13/23 22:26 Source: patient Mode of arrival: ambulatory Limitations: no limitations History of Present Illness HPI narrative: 62 yo female with PMH of HTN, HLD, DM, fibromyalgia not on blood thinners here with c/o being at gas station and there is a black speedbump that is hard to see. She tripped over it falling forward did hit head and hurt R elbow, both knees no LOC. Hurts to walk. complaint: trip and fall Onset (ago): hour(s) (few hours ago) Location: head, upper extremity and lower extremity Radiation: non-radiation Severity: moderate Quality: aching Pain Consistency: intermittent Relieving factors: none Exacerbating factors: movement Associated symptoms: denies other symptoms Treatments prior to arrival: none Related Data Home Medications Medication Instructions Recorded Confirmed cinnamon bark 500 mg capsule 1,000 mg PO DAILY 02/01/20 10/12/22 (Cinnamon) clonazepam 1 mg tablet 1 mg PO TID PRN Anxiety 04/08/21 10/12/22 albuterol sulfate 90 mcg/actuation 2 puff inhalation Q4H PRN wheezing 10/07/21 10/12/22 aerosol inhaler (ProAir HFA) meclizine 25 mg tablet 25 mg PO TID 10/07/21 10/12/22 pravastatin 40 mg tablet 40 mg PO BEDTIME 10/07/21 10/12/22 fexofenadine 180 mg tablet 180 mg PO DAILY 04/07/22 10/12/22 ketotifen fumarate 0.025 % (0.035 2 drp ophthalmic (eye) BID 04/07/22 10/12/22 %) eye drops (Alaway) metoprolol succinate 100 mg 100 mg PO DAILY 10/01/22 10/12/22 tablet,extended release 24 hr Previous Rx's Medication Instructions Recorded acetaminophen 500 mg tablet 500 mg PO Q6H PRN pain or fever 02/12/21 (Tylenol Extra Strength) #20 tabs blood sugar diagnostic (FreeStyle #100 ea 04/23/21 Lite Strips) flash glucose sensor (FreeStyle #2 ea 04/23/21 Glenn 2 Sensor kit) metformin 500 mg tablet,extended See Rx Instructions PO BID 30 days 04/23/21 release 24 hr #90 tabs sitagliptin phosphate 100 mg 100 mg PO DAILY #30 tabs 01/01/22 tablet (Januvia) Saccharomyces boulardii 250 mg 250 mg PO DAILY #30 caps 08/14/22 capsule (Daily Probiotic (S. boulardii)) simethicone 180 mg capsule 180 mg PO QID #120 caps 08/14/22 hydrocortisone acetate 25 mg 25 mg MD BID 30 days #6 supp 10/01/22 rectal suppository linaclotide 290 mcg capsule 290 mcg PO DAILY 30 days #30 caps 10/01/22 (Linzess) metoclopramide HCl 5 mg tablet 5 mg PO QIDACHS #120 tabs 10/01/22 (Reglan) acetaminophen 325 mg tablet 325 mg PO Q6H PRN pain (scale 02/08/23 (Tylenol) score 1-3) #20 tabs omeprazole 40 mg capsule,delayed 40 mg PO DAILY 30 days #30 caps 03/16/23 release Allergies Allergy/AdvReac Type Severity Reaction Status Date / Time latex [LATEX] Allergy Intermediate RASH Verified 10/12/22 13:40 lisinopril [LISINOPRIL] Allergy Intermediate HALLUCINATIONS, Verified 10/12/22 13:40 cough CLOVER Inhibitors Allergy Unknown UNKNOWN Verified 10/12/22 13:40 [CLOVER INHIBITORS] canagliflozin [Invokana] Allergy Unknown unknown Verified 10/12/22 13:40 liraglutide [From VICTOZA] Allergy Unknown UNKNOWN, Verified 10/12/22 13:40 abdominal pain, nausea penicillin V Allergy Unknown angioedema Verified 10/12/22 13:40 Penicillins [PENICILLINS] Allergy Unknown SYNCOPE Verified 10/12/22 13:40 pioglitazone [From ACTOS] Allergy Unknown UNKNOW, Verified 10/12/22 13:40 body puffiness sertraline Allergy Unknown unknown Verified 10/12/22 13:40 shellfish derived Allergy Unknown Rash and Verified 10/12/22 13:40 [SHELLFISH DERIVED] swelling Sulfa (Sulfonamide Allergy Unknown RASH Verified 10/12/22 13:40 Antibiotics) [SULFA (SULFONAMIDE ANTIBIOTICS)] black pepper Allergy cough, Verified 10/12/22 13:40 choking mushrooms Allergy Intermediate Diarrhea, Uncoded 04/07/22 11:00 swollen stomach,rash Onglyza Allergy Unknown unknown Uncoded 04/07/22 11:00 Y[place]ut vanilla creamer AdvReac Diarhea, Uncoded 04/07/22 11:00 nausea, stomach pain Review of Systems Review of Systems: Constitutional : No Fever, No Chills ENT/Mouth : No Ear Pain, No Hoarseness, No sore throat Eyes: No Eye Pain, No Swelling, No Redness, No Foreign Body Cardiovascular : No Chest Pain, No SOB Respiratory : No Cough, No Dyspnea Gastrointestinal : No Nausea, No Vomiting, No Diarrhea, No abdominal Pain Genitourinary : No Dysuria, No Hematuria Musculoskeletal : positive joint pain, No Myalgias, No Joint Swelling Skin : No Skin lacerations, No rash Neuro : No Weakness, No Numbness, No Loss of Consciousness, No Dizziness, pos Headache Psych : No Anxiety/Panic, No Depression All other systems reviewed and are negative [facility] Past Medical History Attestation statement: The following information was validated with the patient. Source: old records reviewed Medical History IBS (irritable bowel syndrome) GERD (gastroesophageal reflux disease) DM2 (diabetes mellitus, type 2) Cataracts, bilateral Essential hypertension Hyperlipidemia LDL goal <100 Allergic rhinitis Carpal tunnel syndrome Asthma Fibromyalgia Depression with anxiety High cholesterol HTN (hypertension), benign Surgical History Hx of hand surgery History of colonoscopy H/O esophagogastroduodenoscopy History of Cynthia fundoplication Hx of cataract surgery History of ear surgery History of carpal tunnel release H/O gastric bypass H/O hemorrhoidectomy S/P appendectomy H/O hysterectomy for benign disease Family History Family History Father Myocardial infarction Hypertension Diabetes Mother Dementia HTN (hypertension), benign High cholesterol Diabetes Maternal Aunt Breast cancer Social History Social History Household Members: Spouse Alcohol intake: former Patient Tobacco Use Status: Former Tobacco user Quit Date: >10 YRS AGO Years Smoked: quit 15-20 years ago Advance Directives: No Advance Directives Information Provided: No Current occupational status: employed 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 Oriented X3. No acute distress. Eyes: Pupils equal, round and reactive to light. ENT: Pharynx normal. Atraumatic Neck: Normal inspection. Neck supple. CVS: Normal heart rate and rhythm. Pulses normal. Respiratory: No respiratory distress. Breath sounds normal. Abdomen: Soft and nontender. Skin: Skin warm and dry. Normal skin color. Normal skin turgor. Extremities: No lower extremity edema. contusions and abrasions both knees. normal ROM of both knees and elbows Neuro: Oriented X 3. No motor deficit. No sensory deficit. Course Course Course Narrative: RME- 62 year old female presents for evaluation after a fall. Plan for x-rays Medical Decision Making Medical Decision Making MDM Narrative: 62 yo female with PMH of HTN, HLD, DM, fibromyalgia not on blood thinners here with trip and fall at gas station at this time xrays of both knees she has normal ROM and CT head and cspine. She is GCS 15. Will give tylenol. She is NV intact Differential Diagnosis Differential Diagnoses: The differential diagnosis associated with the presentation includes sprain, strain, head injury, abrasions, contusions Admission/Observation Consideration of admission/observation: Escalation of care including admission/observation considered Independent Interpretation I performed an independent interpretation of an: Plain X-Ray (no fracture) and CT Scan (no trauma) Radiology Impression Discussion of test interpretation with radiology: I have reviewed the radiologist's reading. Independent Historian Clinical information obtained from an independent historian. History obtained from or confirmed by: Spouse Discharge Plan Discharge Clinical Impression: Contusion of knee Qualifiers: Encounter type: initial encounter Laterality: unspecified laterality Qualified Code(s): S80.00XA - Contusion of unspecified knee, initial encounter Head injury Qualifiers: Encounter type: initial encounter Qualified Code(s): S09.90XA - Unspecified injury of head, initial encounter Elbow sprain Qualifiers: Encounter type: initial encounter Laterality: right Qualified Code(s): S53.401A - Unspecified sprain of right elbow, initial encounter Patient Disposition: Home, Self-Care Instructions: Head Injury (ED), Contusion in Adults (ED), Elbow Sprain (ED) Additional Instructions: return for worsening pain, confusion, vomiting, numbness, weakness or any other concerns. no trauma noted on CT head or cervical spine no fractures on knees just arthritis Prescriptions: No Action Januvia 100 mg tablet 100 mg PO DAILY Qty: 30 3RF omeprazole 40 mg capsule,delayed release(DR/EC) 40 mg PO DAILY 30 Days Qty: 30 6RF acetaminophen [Tylenol Extra Strength] 500 mg tablet 500 mg PO Q6H PRN (Reason: pain or fever) Qty: 20 0RF acetaminophen [Tylenol] 325 mg tablet 325 mg PO Q6H PRN (Reason: pain (scale score 1-3)) Qty: 20 0RF cinnamon bark [Cinnamon] 500 mg capsule 1,000 mg PO DAILY (DME) FreeStyle Lite Strips Strip See Rx Instructions .ROUTE .MEDSUPPLY Qty: 100 11RF Rx Instructions: As directed three times a day (DME) FreeStyle Glenn 2 Sensor Kit See Rx Instructions .ROUTE .MEDSUPPLY Qty: 2 11RF Rx Instructions: As directed every 2 weeks metformin 500 mg tablet extended release 24 hr See Rx Instructions PO BID 30 Days Qty: 90 6RF Rx Instructions: 1 tab in the am and 2 tab in pm PO 2 times a day; clonazepam 1 mg tablet 1 mg PO TID PRN (Reason: Anxiety) albuterol sulfate [ProAir HFA] 90 mcg/actuation HFA aerosol inhaler 2 puff inhalation Q4H PRN (Reason: wheezing) meclizine 25 mg tablet 25 mg PO TID pravastatin 40 mg tablet 40 mg PO BEDTIME fexofenadine 180 mg tablet 180 mg PO DAILY ketotifen fumarate [Alaway] 0.025 % (0.035 %) drops 2 drp ophthalmic (eye) BID metoprolol succinate 100 mg tablet extended release 24 hr 100 mg PO DAILY Linzess 290 mcg capsule 290 mcg PO DAILY 30 Days Qty: 30 6RF metoclopramide HCl [Reglan] 5 mg tablet 5 mg PO QIDACHS Qty: 120 6RF hydrocortisone acetate 25 mg suppository 25 mg MD BID 30 Days Qty: 6 3RF simethicone 180 mg capsule 180 mg PO QID Qty: 120 6RF Saccharomyces boulardii [Daily Probiotic (S. boulardii)] 250 mg capsule 250 mg PO DAILY Qty: 30 6RF
[2023-04-13 20:37] VITALS: BP 170/64; PULSE 60; RESP 18; TEMP 36.8; O2SAT 97; BMI 32.6
[2023-04-13] MEDS: Acetaminophen 325 MG TABLET 650 MG PO (23:28)
== END 2023-04-13 23:32 | disposition home or self-care (01) ==
PROVIDERS: Emergency Provider Emergency Medicine; PCP Internal Medicine
DX: S80.00XA Contusion of unspecified knee, initial encounter (principal); S09.90XA Unspecified injury of head, initial encounter; S53.401A Unspecified sprain of right elbow, initial encounter; R51.9 Headache, unspecified; M54.2 Cervicalgia; M25.562 Pain in left knee; M25.561 Pain in right knee; W01.10XA Fall on same level from slipping, tripping and stumbling with subsequent striking against unspecified object, initial encounter; Y93.9 Activity, unspecified; Y92.524 Gas station as the place of occurrence of the external cause; Y99.9 Unspecified external cause status; Z79.899 Other long term (current) drug therapy
CPT/HCPCS: 70450; 72125; 73562; 99283; 99284

== ENCOUNTER 2023-04-28 11:08 | Outpatient (REF) | payer MEDICAID, SELFPAY ==
[2023-04-28 13:25] LABS: Alanine Aminotransferase 14 U/L (0-31); Albumin Level 4.2 g/dL (3.5-5.0); Alkaline Phosphatase 63 U/L (39-117); Anion Gap 10 (12-20); Aspartate Amino Transferase 22 U/L (5-31); Bilirubin Total 0.7 mg/dL (0.0-1.0); Blood Urea Nitrogen 11 mg/dL (9-16); Calcium 9.6 mg/dL (8.4-10.2); Carbon Dioxide 30 mmol/L (22-29); Chloride 106 mmol/L (96-108); Cholesterol 154 mg/dL (<200); Estimated Glomerular Filt Rate > 60; Glucose Random 130 mg/dL (60-115); HDL Cholesterol 40 mg/dL (>40); LDL Cholesterol Calculated 68 mg/dL (<100); Potassium 4.2 mmol/L (3.3-5.1); Sodium 142 mmol/L (135-145); Thyroid Stimulating Hormone 1.65 uIU/mL (0.32-4.0); Total Protein 7.4 g/dL (6.5-8.0); Triglycerides 232 mg/dL (<150)
[2023-04-28 14:15] LABS: Creatinine Urine 148.63 mg/dL
== END 2023-04-28 11:09 | disposition home or self-care (01) ==
LOC: HO.LAB 11:08
PROVIDERS: PCP Internal Medicine; Visit Provider Internal Medicine
DX: E11.65 Type 2 diabetes mellitus with hyperglycemia (principal); J45.901 Unspecified asthma with (acute) exacerbation
CPT/HCPCS: 36415; 80053; 80061; 82043; 82570; 83036; 84443; 85025

== ENCOUNTER 2023-05-10 16:06 | Emergency (ER) | payer MEDICAID, SELFPAY ==
[2023-05-10 16:45] VITALS: BP 127/47; PULSE 65; RESP 16; TEMP 36.4; O2SAT 98; BMI 33.0
== END 2023-05-10 18:24 | disposition left against medical advice (07) ==
PROVIDERS: Emergency Provider Emergency Medicine; PCP Internal Medicine
DX: R51.9 Headache, unspecified (principal)
CPT/HCPCS: 99281

== ENCOUNTER 2023-05-12 11:05 | Outpatient (REF) | payer MEDICAID, SELFPAY ==
[2023-05-12 12:32] LABS: Estimated Average Glucose 154 mg/dL
== END 2023-05-12 11:06 | disposition home or self-care (01) ==
LOC: HO.LAB 11:05
PROVIDERS: PCP Internal Medicine; Visit Provider Internal Medicine
DX: B37.31 Acute candidiasis of vulva and vagina (principal); E11.65 Type 2 diabetes mellitus with hyperglycemia; I10 Essential (primary) hypertension
CPT/HCPCS: 36415; 83036

== ENCOUNTER 2023-10-05 10:50 | Outpatient (REF) | payer MEDICAID, SELFPAY ==
[2023-10-05 12:12] LABS: Estimated Average Glucose 157 mg/dL; Hemoglobin A1c % 7.1 % (<6.0)
[2023-10-05 13:03] LABS: Alanine Aminotransferase 30 U/L (0-31); Albumin Level 4.3 g/dL (3.5-5.0); Alkaline Phosphatase 63 U/L (39-117); Anion Gap 11 (12-20); Aspartate Amino Transferase 30 U/L (5-31); Bilirubin Total 0.8 mg/dL (0.0-1.0); Blood Urea Nitrogen 11 mg/dL (9-16); Calcium 9.9 mg/dL (8.4-10.2); Carbon Dioxide 30 mmol/L (22-29); Chloride 104 mmol/L (96-108); Cholesterol 163 mg/dL (<200); Estimated Glomerular Filt Rate > 60; Glucose Random 157 mg/dL (60-115); HDL Cholesterol 46 mg/dL (>40); LDL Cholesterol Calculated 74 mg/dL (<100); Potassium 4.8 mmol/L (3.3-5.1); Sodium 140 mmol/L (135-145); Total Protein 7.7 g/dL (6.5-8.0); Triglycerides 217 mg/dL (<150)
== END 2023-10-05 10:51 | disposition home or self-care (01) ==
LOC: HO.LAB 10:50
PROVIDERS: PCP Internal Medicine; Visit Provider Internal Medicine
DX: E11.9 Type 2 diabetes mellitus without complications (principal); E66.9 Obesity, unspecified; H81.10 Benign paroxysmal vertigo, unspecified ear; I10 Essential (primary) hypertension
CPT/HCPCS: 36415; 80053; 80061; 83036

== ENCOUNTER 2023-11-02 15:15 | Outpatient (REF) | payer MEDICAID, SELFPAY ==
--- NOTE | ~2023-11-02 | US_ITS ---
EXAMINATION: US VENOUS ULTRASOUND WITH DOPPLER LOWER EXTREMITY, RIGHT CLINICAL INFORMATION: Lower extremity edema COMPARISON: 02/22/2013 TECHNIQUE: Ultrasound of the deep veins is performed from the hip to the calf with compression sonography and color and pulse Doppler assessment. Spectral analysis with color-flow imaging is performed. FINDINGS: There is normal venous compression and respiratory variation and augmented flow. The visualized common femoral vein, superficial femoral vein, profunda femoral vein, popliteal vein, and the trifurcation region shows no evidence of deep venous thrombosis. There is no significant popliteal fossa cyst. If the patient's symptoms persist, followup ultrasound in 5 days 7 days might be of value to exclude proximal propagation from a non-visualized calf vein. US/US venous duplex LE RT IMPRESSION: No DVT demonstrated in the right lower extremity.
== END 2023-11-02 15:16 | disposition home or self-care (01) ==
LOC: HO.US 15:15
PROVIDERS: PCP Internal Medicine; Visit Provider Internal Medicine
DX: R60.0 Localized edema (principal)
CPT/HCPCS: 93971

== ENCOUNTER 2023-12-30 11:59 | Outpatient (AMB) | payer MEDICAID, SELFPAY ==
--- NOTE | 2023-12-30 12:04 | MHC.OFFVIS ---
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 Accompanied by: Self / Same As Patient Allergies latex [LATEX] Allergy (Intermediate, Verified 12/30/23 12:06) RASH lisinopril [LISINOPRIL] Allergy (Intermediate, Verified 12/30/23 12:06) HALLUCINATIONS, cough CLOVER Inhibitors [CLOVER INHIBITORS] Allergy (Unknown, Verified 12/30/23 12:06) UNKNOWN canagliflozin [Invokana] Allergy (Unknown, Verified 12/30/23 12:06) unknown liraglutide [From VICTOZA] Allergy (Unknown, Verified 12/30/23 12:06) UNKNOWN, abdominal pain, nausea penicillin V Allergy (Unknown, Verified 12/30/23 12:06) angioedema Penicillins [PENICILLINS] Allergy (Unknown, Verified 12/30/23 12:06) SYNCOPE pioglitazone [From ACTOS] Allergy (Unknown, Verified 12/30/23 12:06) UNKNOW, body puffiness sertraline Allergy (Unknown, Verified 12/30/23 12:06) unknown shellfish derived [SHELLFISH DERIVED] Allergy (Unknown, Verified 12/30/23 12:06) Rash and swelling Sulfa (Sulfonamide Antibiotics) [SULFA (SULFONAMIDE ANTIBIOTICS)] Allergy (Unknown, Verified 12/30/23 12:06) RASH black pepper Allergy (Verified 12/30/23 12:06) cough, choking mushrooms Allergy (Intermediate, Uncoded 04/07/22 11:00) Diarrhea, swollen stomach,rash Onglyza Allergy (Unknown, Uncoded 04/07/22 11:00) unknown Mongolian vanilla creamer Adverse Reaction (Uncoded 04/07/22 11:00) Diarhea, nausea, stomach pain HPI HPI Follow up medication refill: Details: Assessment & Plan (1) Tubular adenoma of colon: Comment: 2022 equal un retrieved polyp and insufficient prep repeat in 3 years : 2018 sessile polyp . Code(s): D12.6 - Benign neoplasm of colon, unspecified Plan: Repeat Colonoscopy interval based on path results - in 3 years due to fair prep (Bisacodyl x 3 days before colonoscopy and adult colonoscope for future colonoscopies). The procedure was well tolerated. The results were explained and the patient is agreeable to the follow-up interval as stated. The bowel pattern has returned to normal. Education was provided to tell any 1st degree relatives about their findings to be sure that they are screened by age 45. Educated that they will be put on a recall list when it is time for their repeat scope but should they move out of state or away from the hospital they will need to remember along with their primary to repeat the procedure in a timely fashion to avoid any adverse complications. . She continues on her Linzess 290, Reglan 5mg qidachs, omeprazole 40mg qd, simethicone and a denise tea with probiotic. . Return office visit in 6 months (2) GERD (gastroesophageal reflux disease): Code(s): K21.9 - Gastro-esophageal reflux disease without esophagitis (3) Small bowel motility disorder: Code(s): K59.9 - Functional intestinal disorder, unspecified (4) Chronic idiopathic constipation: Comment: Complicated by rectocele that really should be surgically corrected but the patient is not ready Code(s): K59.04 - Chronic idiopathic constipation (5) Gastroparesis: Code(s): K31.84 - Gastroparesis Laboratory Tests 10/05/23 11:11 Estimated GFR > 60 Total Bilirubin 0.8 AST 30 ALT 30 Alkaline Phosphatase 63 CORRESPONDENCE On 09/07/23 @ 12:58 MeleIsabel Wrote To Mele (2) She should continue Linzess and I am sending bisacodyl for her to take 2 tablets at bedtime to see if this helps. On 09/07/23 @ 10:16 Melissa Knox Wrote To Mele patient requesting increase in Linzess but I see she is at the maximum dose. patient states gets a lot of urge, but cannot move her bowels. TODAYS VISIT She is having trouble with her plantar fasciitis; apparently her current foot doctor won't give her cortisone injections as aggressively as she has had in the past. She continues to do well on her GI regimen. She continues on her Linzess 290, Reglan 5mg qidachs, omeprazole 40mg qd, simethicone and a denise tea with probiotic. She is due for repeat colonoscopy. She had history of large tubular adenomas in the past There are no prior problems with anesthesia or sedation. Her asthma is well controlled and she denies any cardiac problems. NO ID problems. Needs 2 days prep, bisacodyl the week before, low fiber diet, can't tolerate liquid preps needs SUtab. ROV 6 mos. PFSH Medical History IBS (irritable bowel syndrome) GERD (gastroesophageal reflux disease) DM2 (diabetes mellitus, type 2) Cataracts, bilateral Essential hypertension Hyperlipidemia LDL goal <100 Allergic rhinitis Carpal tunnel syndrome Asthma Fibromyalgia Depression with anxiety High cholesterol HTN (hypertension), benign Surgical History Hx of hand surgery History of colonoscopy H/O esophagogastroduodenoscopy History of Cynthia fundoplication Hx of cataract surgery History of ear surgery History of carpal tunnel release H/O gastric bypass H/O hemorrhoidectomy S/P appendectomy H/O hysterectomy for benign disease Family History Father Myocardial infarction Hypertension Diabetes Mother Dementia HTN (hypertension), benign High cholesterol Diabetes Maternal Aunt Breast cancer Social History Household Members: Spouse Alcohol intake: former Patient Tobacco Use Status: Former Tobacco user Years Smoked: quit 15-20 years ago Current occupational status: employed 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 Review of Systems Const Denies fatigue, Denies fever(s), Denies night sweats, Denies poor appetite and Denies weight loss ENT Reports Normal hearing present, Denies dysphagia, Denies odynophagia, Denies throat swelling and Denies tongue swelling Card Reports no additional complaints Resp Reports no additional complaints GI Details: Denies abdominal pain, Denies melena, Reports bloating, Denies hematochezia, Reports constipation, Denies GI cramping, Denies dysphagia, Denies excessive flatus, Reports early satiety, Reports heartburn, Denies diarrhea, Denies nausea, Denies odynophagia, Denies vomiting and Denies hematemesis Musc Reports other (Foot pain) Skin/Breast Denies pruritus, Denies lesions, Denies rash and Denies jaundice Neuro Reports Normal hearing present and Denies Abnormal speech present Endo Denies fatigue Aller/Immun Denies throat swelling and Denies tongue swelling Physical Exam Vital Signs: Last Vital Signs Pulse 54 12/30/23 12:07 BP 107/53 L 12/30/23 12:07 Const General: cooperative, no acute distress, well developed and well groomed Nutritional Appearance: well nourished and obese Orientation/consciousness: oriented to person, oriented to place and oriented to time Limitations: No language barrier HEENT Head: Yes normocephalic and Yes atraumatic Eyes General: appearance normal, both eyes and all related structures Pupils: Equal, round and reactive pupils present Neck Neck: Yes normal visual inspection and Yes no lymphadenopathy Thyroid: Thyroid normal Resp Effort & Inspection: normal respiratory effort and able to speak in complete sentences Auscultation: clear to auscultation bilaterally Cardio Rate: regular rate Rhythm: regular rhythm Heart sounds: Normal, physiologic split S2 sound present Peripheral pulses: radial pulses present and posterior tibial pulses present GI Inspection: No distended, No Abdominal panniculus present and Yes obesity Palpation (GI): Soft to palpation, nontender, no guarding, not rigid and No hepatosplenomegaly present Percussion: Yes normal to percussion Auscultation: normal bowel sounds Rectal Exam - Female: deferred Skin General skin exam: no rashes or lesions noted, turgor normal, skin not dry, no jaundice, No spider nevi and no striae Rashes: no rashes Nails: normal Neuro General: oriented to person, oriented to place and oriented to time Cranial nerves: Yes Equal, round and reactive pupils present and Yes Normal hearing present Speech: No Abnormal speech present Extrem Other: Right foot in walking/boot General: Yes normal to inspection, No clubbing, No cyanosis and No edema Psych Appearance: grossly normal and well kempt Mental Status: mental status grossly normal Speech and movement: Normal speech and movement present Affect: normal affect Attitude: cooperative Thought process: Normal thought process present and not confabulating Thought content: Normal thought content present Insight: Limited insight present (Psych) Judgement: Limited judgement present (Psych) Results Reviewed Results Reviewed: Laboratory Tests 10/05/23 11:11 Estimated GFR > 60 Total Bilirubin 0.8 AST 30 ALT 30 Alkaline Phosphatase 63 Assessment & Plan Assessment & Plan (1) Tubular adenoma of colon: Comment: 2022 equal un retrieved polyp and insufficient prep repeat in 3 years : 2018 sessile polyp . Code(s): D12.6 - Benign neoplasm of colon, unspecified Category: Medical (2) GERD (gastroesophageal reflux disease): Code(s): K21.9 - Gastro-esophageal reflux disease without esophagitis Category: Medical (3) Small bowel motility disorder: Code(s): K59.9 - Functional intestinal disorder, unspecified Category: Medical (4) Chronic idiopathic constipation: Comment: Complicated by rectocele that really should be surgically corrected but the patient is not ready Code(s): K59.04 - Chronic idiopathic constipation Category: Medical (5) Abdominal bloating: Code(s): R14.0 - Abdominal distension (gaseous) Category: Medical (6) Pre-op examination: Code(s): Z01.818 - Encounter for other preprocedural examination Category: Medical Plan She is having trouble with her plantar fasciitis; apparently her current foot doctor won't give her cortisone injections as aggressively as she has had in the past. She continues to do well on her GI regimen. She continues on her Linzess 290, Reglan 5mg qidachs, omeprazole 40mg qd, simethicone and a denise tea with probiotic. She is due for repeat colonoscopy. She had history of large tubular adenomas in the past There are no prior problems with anesthesia or sedation. Her asthma is well controlled and she denies any cardiac problems. NO ID problems. Needs 2 days prep, bisacodyl the week before, low fiber diet, can't tolerate liquid preps needs SUtab. ROV 6 mos. Orders: Orders Colonoscopy - GI Use Only Today D12.6 - Benign neoplasm of colon, unspecified Medications: New sod sulf-pot chloride-mag sulf 1.479-0.188- 0.225 gram (Sutab) PO PER PKG DIR for colonoscopy prep 24 tabs 0RF Refilled bisacodyl (Dulcolax (bisacodyl)) 10 mg (2 x 5 mg) PO BEDTIME 60 tabs 3RF 30 days simethicone 180 mg PO QID 120 caps 6RF Saccharomyces boulardii (Daily Probiotic (S. boulardii)) 250 mg PO DAILY 30 caps 6RF Coding Level of Care Code Est Pt Level 4 (89721) Diagnoses Tubular adenoma of colon D12.6 GERD (gastroesophageal reflux disease) K21.9 Small bowel motility disorder K59.9 Chronic idiopathic constipation K59.04 Abdominal bloating R14.0 Pre-op examination Z01.818
[2023-12-30 12:07] VITALS: BP 107/53; PULSE 54
== END 2023-12-30 13:10 | disposition home or self-care (01) ==
PROVIDERS: PCP Internal Medicine; Visit Provider Nurse Practitioner
DX: D12.6 Benign neoplasm of colon, unspecified (principal); K21.9 Gastro-esophageal reflux disease without esophagitis; K59.9 Functional intestinal disorder, unspecified; K59.04 Chronic idiopathic constipation; R14.0 Abdominal distension (gaseous); Z01.818 Encounter for other preprocedural examination
CPT/HCPCS: 99214

== ENCOUNTER → 2023-12-30 11:59 | Outpatient (BNVA) | payer MEDICAID, SELFPAY | PROVIDERS: PCP Internal Medicine; Visit Provider Nurse Practitioner | DX: Z01.818 Encounter for other preprocedural examination (principal); K21.9 Gastro-esophageal reflux disease without esophagitis; K59.9 Functional intestinal disorder, unspecified; K59.04 Chronic idiopathic constipation; K31.84 Gastroparesis; R14.0 Abdominal distension (gaseous); D12.6 Benign neoplasm of colon, unspecified; Z79.899 Other long term (current) drug therapy | CPT/HCPCS: 99212 ==

== ENCOUNTER 2024-02-22 10:29 | Outpatient (REF) | payer MEDICAID, SELFPAY ==
[2024-02-22 11:30] LABS: Estimated Average Glucose 171 mg/dL; Hemoglobin A1C 204.3326 umol/L; Hemoglobin A1c % 7.6 % (<6.0); Total Hemoglobin (HGBA1C) 3443.4828 umol/L
[2024-02-22 12:20] LABS: Alanine Aminotransferase 17 U/L (0-31); Alkaline Phosphatase 68 U/L (39-117); Anion Gap 15 (12-20); Aspartate Amino Transferase 27 U/L (5-31); Bilirubin Total 0.8 mg/dL (0.0-1.0); Blood Urea Nitrogen 11 mg/dL (9-16); Calcium 9.5 mg/dL (8.4-10.2); Carbon Dioxide 29 mmol/L (22-29); Chloride 105 mmol/L (96-108); Estimated Glomerular Filt Rate > 60; Glucose Random 176 mg/dL (60-115); Potassium 4.5 mmol/L (3.3-5.1); Sodium 144 mmol/L (135-145); Total Protein 7.2 g/dL (6.5-8.0)
== END 2024-02-22 10:30 | disposition home or self-care (01) ==
LOC: HO.LAB 10:29
PROVIDERS: PCP Internal Medicine; Visit Provider Internal Medicine
DX: E11.9 Type 2 diabetes mellitus without complications (principal); F32.2 Major depressive disorder, single episode, severe without psychotic features; F41.0 Panic disorder [episodic paroxysmal anxiety]; M72.2 Plantar fascial fibromatosis
CPT/HCPCS: 36415; 80053; 83036

== ENCOUNTER 2024-05-11 11:04 | Outpatient (REF) | payer MEDICAID, SELFPAY ==
[2024-05-11 11:44] LABS: MANUAL DIFF FLAG NO
[2024-05-11 12:05] LABS: Basophils Percent Auto 0.3 % (0-2); Eosinophils Absolute Auto 0.1 X10*3/uL (0.0-0.4); Eosinophils Percent Auto 1.3 % (0-4); Hematocrit 42.5 % (37.0-47.0); Hemoglobin 13.8 g/dl (12.0-16.0); Imm Gran Abs Auto 0.04 X10*3/uL (0.00-0.03); Imm Gran Pct Auto 0.4 % (0.0-0.4); Lymphocytes Absolute Auto 2.9 X10*3/uL (1.2-4.9); Lymphocytes Percent Auto 32.4 % (20-40); Mean Corpuscular HGB Conc 32.5 g/dl (31.0-35.0); Mean Corpuscular Hemoglobin 31.2 pg (27.0-33.0); Mean Corpuscular Volume 96.2 fL (80.0-98.0); Mean Platelet Volume 9.8 fL (9.4-12.3); Monocytes Absolute Auto 0.8 X10*3/uL (0.1-1.2); Monocytes Percent Auto 8.4 % (2-11); Neutrophils Absolute Auto 5.1 x10*3/uL (2.0-8.3); Neutrophils Percent Auto 57.2 % (45-73); Platelet Count 327 X10*3/uL (160-400); Red Blood Count 4.42 X10*6/uL (4.20-5.50); Red Cell Distribution Width 12.7 % (11.0-16.0)
[2024-05-11 12:18] LABS: Estimated Average Glucose 160 mg/dL; Hemoglobin A1C 204.0626 umol/L; Hemoglobin A1c % 7.2 % (<6.0); Total Hemoglobin (HGBA1C) 3677.2159 umol/L
[2024-05-11 12:52] LABS: Creatinine Urine 296.41 mg/dL; Microalbum/Creatinine Ratio Ur 15.8 ug/mg cr (<30)
[2024-05-11 12:55] LABS: Alanine Aminotransferase 25 U/L (0-31); Albumin Level 4.4 g/dL (3.5-5.0); Alkaline Phosphatase 78 U/L (39-117); Anion Gap 14 (12-20); Aspartate Amino Transferase 36 U/L (5-31); Blood Urea Nitrogen 14 mg/dL (9-16); Calcium 9.8 mg/dL (8.4-10.2); Carbon Dioxide 24 mmol/L (22-29); Chloride 105 mmol/L (96-108); Cholesterol 155 mg/dL (<200); Estimated Glomerular Filt Rate > 60; Glucose Random 127 mg/dL (60-115); HDL Cholesterol 39 mg/dL (>40); LDL Cholesterol Calculated 68 mg/dL (<100); Potassium 4.7 mmol/L (3.3-5.1); Sodium 138 mmol/L (135-145); Total Protein 8.7 g/dL (6.5-8.0); Triglycerides 240 mg/dL (<150)
== END 2024-05-11 11:05 | disposition home or self-care (01) ==
LOC: HO.LAB 11:04
PROVIDERS: PCP Internal Medicine; Visit Provider Internal Medicine
DX: E11.65 Type 2 diabetes mellitus with hyperglycemia (principal); E78.2 Mixed hyperlipidemia; I10 Essential (primary) hypertension; J45.909 Unspecified asthma, uncomplicated
CPT/HCPCS: 36415; 80053; 80061; 82043; 82570; 83036; 85025

== ENCOUNTER 2024-06-14 13:34 | Emergency (ER) | payer MEDICAID, SELFPAY ==
--- NOTE | ~2024-06-14 | XR_ITS ---
EXAMINATION: XR CHEST CLINICAL INFORMATION: cough COMPARISON: None available. TECHNIQUE: 2 views of the chest were obtained. FINDINGS: The cardiac, hilar, and mediastinal contours are normal. The lungs are clear bilaterally. There is no pneumothorax or pleural effusion. There is no focal osseous or soft tissue abnormality. XR/XR chest 2V IMPRESSION: No active disease. Electronically signed by: Paul Dueñas MD 06/14/2024 02:26 PM [facility] [place]
--- NOTE | 2024-06-14 14:09 | ED_ITS ---
HPI - General Adult General Chief complaint: Abdominal Pain Stated complaint: Lower Abd Pain, Left Side Pain Time Seen by Provider: 06/14/24 18:26 Source: patient Mode of arrival: ambulatory Limitations: no limitations History of Present Illness ED Provider: lisa hernandez NP HPI narrative: Patient is a 63-year-old female who presents emergency department for evaluation. Reports over the past 2 days she has been experiencing intermittent headache without dizziness lightheadedness vision changes or neck pain/stiffness. She has also experiencing generalized fatigue and feeling off from her baseline. She has had a nonproductive cough, she has pain to the bilateral sides of her abdomen during episodes of cough only. Otherwise without abdominal pain. Has no associated nausea, vomiting, diarrhea, constipation, genitourinary symptoms. She denies any overt unilateral weakness, no facial drooping, no numbness or tingling of the extremities. Denies any known sick contacts. She states that she has a history of asthma, she had a couple prednisone 20 mg tablets left over which she took 1 tablet 2 days ago and another today. She states she does not like to take more than 20 mg of prednisone when she does as it causes her blood sugars to elevate. Related Data Home Medications ?Medication ?Instructions ?Recorded ?Confirmed cinnamon bark 500 mg capsule 1,000 mg PO DAILY 02/01/20 10/12/22 (Cinnamon) clonazepam 1 mg tablet 1 mg PO TID PRN Anxiety 04/08/21 10/12/22 albuterol sulfate 90 mcg/actuation 2 puff inhalation Q4H PRN wheezing 10/07/21 10/12/22 aerosol inhaler (ProAir HFA) meclizine 25 mg tablet 25 mg PO TID 10/07/21 10/12/22 pravastatin 40 mg tablet 40 mg PO BEDTIME 10/07/21 10/12/22 fexofenadine 180 mg tablet 180 mg PO DAILY 04/07/22 10/12/22 ketotifen fumarate 0.025 % (0.035 2 drp ophthalmic (eye) BID 04/07/22 10/12/22 %) eye drops (Alaway) metoprolol succinate 100 mg 100 mg PO DAILY 10/01/22 10/12/22 tablet,extended release 24 hr Previous Rx's ?Medication ?Instructions ?Recorded acetaminophen 500 mg tablet 500 mg PO Q6H PRN pain or fever 02/12/21 (Tylenol Extra Strength) #20 tabs blood sugar diagnostic (FreeStyle #100 ea 04/23/21 Lite Strips) flash glucose sensor (FreeStyle #2 ea 04/23/21 Glenn 2 Sensor kit) metformin 500 mg tablet,extended See Rx Instructions PO BID 30 days 04/23/21 release 24 hr #90 tabs sitagliptin phosphate 100 mg 100 mg PO DAILY #30 tabs 01/01/22 tablet (Januvia) hydrocortisone acetate 25 mg 25 mg IN BID 30 days #6 supp 10/01/22 rectal suppository metoclopramide HCl 5 mg tablet 5 mg PO QIDACHS #120 tabs 10/01/22 (Reglan) acetaminophen 325 mg tablet 325 mg PO Q6H PRN pain (scale 02/08/23 (Tylenol) score 1-3) #20 tabs linaclotide 290 mcg capsule 290 mcg PO DAILY #30 caps 11/24/23 (Linzess) bisacodyl 5 mg tablet,delayed 10 mg (2 x 5 mg) PO BEDTIME 30 12/30/23 release (Dulcolax (bisacodyl)) days #60 tabs simethicone 180 mg capsule 180 mg PO QID #120 caps 12/30/23 sodium sul 1.479 gram-potas ch See Rx Instructions PO PER PKG DIR 12/30/23 0.188 gram-magnes sul 0.225 gram #24 tabs tablet (Sutab) Saccharomyces boulardii 250 mg 250 mg PO DAILY #30 caps 12/31/23 capsule (Daily Probiotic (S. boulardii)) omeprazole 40 mg capsule,delayed 40 mg PO DAILY #90 caps 05/26/24 release acetaminophen 500 mg capsule 1,000 mg (2 x 500 mg) PO Q6H PRN 06/14/24 fever or pain #30 caps azithromycin 250 mg tablet See Rx Instructions PO .COMPLEX #6 06/14/24 tabs prednisone 20 mg tablet 20 mg PO DAILY #5 tabs 06/14/24 Allergies Allergy/AdvReac Type Severity Reaction Status Date / Time latex [LATEX] Allergy Intermediate RASH Verified 06/14/24 14:16 lisinopril [LISINOPRIL] Allergy Intermediate HALLUCINATIONS, Verified 06/14/24 14:16 cough CLOVER Inhibitors Allergy Unknown UNKNOWN Verified 06/14/24 14:16 [CLOVER INHIBITORS] canagliflozin [Invokana] Allergy Unknown unknown Verified 06/14/24 14:16 liraglutide [From VICTOZA] Allergy Unknown UNKNOWN, Verified 06/14/24 14:16 abdominal pain, nausea penicillin V Allergy Unknown angioedema Verified 06/14/24 14:16 Penicillins [PENICILLINS] Allergy Unknown SYNCOPE Verified 06/14/24 14:16 pioglitazone [From ACTOS] Allergy Unknown UNKNOW, Verified 06/14/24 14:16 body puffiness sertraline Allergy Unknown unknown Verified 06/14/24 14:16 shellfish derived Allergy Unknown Rash and Verified 06/14/24 14:16 [SHELLFISH DERIVED] swelling Sulfa (Sulfonamide Allergy Unknown RASH Verified 06/14/24 14:16 Antibiotics) [SULFA (SULFONAMIDE ANTIBIOTICS)] black pepper Allergy cough, Verified 06/14/24 14:16 choking mushrooms Allergy Intermediate Diarrhea, Uncoded 04/07/22 11:00 swollen stomach,rash Onglyza Allergy Unknown unknown Uncoded 04/07/22 11:00 Kinyarwanda vanilla creamer AdvReac Diarhea, Uncoded 04/07/22 11:00 nausea, stomach pain Review of Systems 2 Review of Systems: Yes all other systems are reviewed and are negative PMFSH Past Medical History Attestation statement: The following information was validated with the patient. Source: old records reviewed Medical History IBS (irritable bowel syndrome) GERD (gastroesophageal reflux disease) DM2 (diabetes mellitus, type 2) Cataracts, bilateral Essential hypertension Hyperlipidemia LDL goal <100 Allergic rhinitis Carpal tunnel syndrome Asthma Fibromyalgia Depression with anxiety High cholesterol HTN (hypertension), benign Surgical History Hx of hand surgery History of colonoscopy H/O esophagogastroduodenoscopy History of Cynthia fundoplication Hx of cataract surgery History of ear surgery History of carpal tunnel release H/O gastric bypass H/O hemorrhoidectomy S/P appendectomy H/O hysterectomy for benign disease Family History Family History Father Myocardial infarction Hypertension Diabetes Mother Dementia HTN (hypertension), benign High cholesterol Diabetes Maternal Aunt Breast cancer Social History Social History Household Members: Spouse Alcohol intake: former Patient Tobacco Use Status: Former Tobacco user Years Smoked: quit 15-20 years ago Current occupational status: employed 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 No acute distress.?Normal affect.?? ENT: TM normal bilaterally. Posterior oropharynx normal. Neck: Normal inspection.? Neck supple.??No nuchal rigidity. No cervical adenopathy CVS: Heart sounds normal. Normal heart rate and rhythm.? Pulses normal.?? Respiratory: No respiratory distress.? Lung sounds with mild expiratory wheezing bilaterally Abdomen: Soft and non-tender. No rebound tenderness at McBurney's point. Negative psoas sign. Negative Rovsing sign. Negative Valerio sign. No CVAT. Normoactive bowel sounds. No pulsatile mass.?? Skin: Skin warm and dry.? Normal skin color.? Extremities: No lower extremity edema.? Neuro: Moves all extremities spontaneously. Sensation intact bilaterally. Ambulates with normal steady gait. No focal neurological deficits Course Course Course Narrative: RME, this is a rapid medical exam performed by Macho Valverde please refer to primary provider for complete H&P- 63-year-old female presents for evaluation of weakness, confusion, cough for last 2 days. Plan for labs, viral testing, EKG and a chest x-ray. She is neurologically intact in triage. No nuchal rigidity Medical Decision Making Medical Decision Making MDM Narrative: Patient is a 63-year-old female presents emergency department for evaluation of viral type symptoms including headache, myalgias, cough, pain in the abdomen during episodes of coughing as per HPI. Overall she appears well, she is without tachycardia tachypnea hypoxia or increased work of breathing. She is speaking clear full sentences. No clinical evidence of DVT, denies personal history of VTE/malignancy. Her abdominal examination is benign, I suspect that this is muscular in nature due to her coughing episodes, lower suspicion for acute surgical abdomen that would warrant radiographic imaging. Chest x-ray was obtained is without signs consolidation infiltrate to suggest pneumonia. She is noted to be influenza A positive, suspect that this is causing an exacerbation/flare of her asthma with result in bronchitis causing excessive cough and discomfort. She has an associated headache but no meningismus or nuchal rigidity, not consistent with meningitis. We discussed indications for use and possible side effects/contraindications for Tamiflu, she declines interest in Tamiflu at this time. On review of serum labs CBC revealing a mild leukopenia consistent with likely viral infection, no anemia, no thrombocytopenia. Random sodium of 133 glucose of 229 corrected sodium of 135. No NAHID. LFTs overall unremarkable. High sensitive troponin below detectable limits, EKG revealing normal sinus rhythm with ventricular rate of 72, QTC 409, no ST elevation, nonspecific T-wave abnormality, not consistent with ACS at this time. At this time is stable for discharge home outpatient follow-up with primary care doctor cautions have been discussed. All questions answered. Differential Diagnosis Differential Diagnoses: The differential diagnosis associated with the presentation includes (See narrative above) Admission/Observation Consideration of admission/observation: Escalation of care including admission/observation considered (See narrative above ) Lab Data MDM Lab Attestation statement: I reviewed the patient's lab results. 06/14/24 18:00 06/14/24 18:00 Labs: Lab Results 06/14/24 Range/Units 18:00 PT 12.6 H (10.9-12.4) SEC INR 1.1 (0.9-1.1) Sodium 133 L (135-145) mmol/L Potassium 4.8 (3.3-5.1) mmol/L Chloride 100 (96-108) mmol/L Carbon Dioxide 21 L (22-29) mmol/L Anion Gap 17 (12-20) BUN 18 H (9-16) mg/dL Creatinine 0.89 (0.5-1.4) mg/dL Estim Creat Clear Calc 81.0 Estimated GFR > 60 Random Glucose 229 H (60-115) mg/dL Calcium 9.5 (8.4-10.2) mg/dL Magnesium 2.2 (1.6-2.6) mg/dL Total Bilirubin 0.6 (0.0-1.0) mg/dL AST 46 H (5-31) U/L ALT 25 (0-31) U/L Alkaline Phosphatase 73 (39-117) U/L Total Protein 8.3 H (6.5-8.0) g/dL Albumin 4.4 (3.5-5.0) g/dL Lipase 75 (8-78) U/L Independent Interpretation I performed an independent interpretation of an: EKG (See narrative above) and Plain X-Ray (See narrative above) Radiology Impression Discussion of test interpretation with radiology: I have reviewed the radiologist's reading. Radiologist Impression: XR/XR chest 2V IMPRESSION: No active disease. Independent Historian Clinical information obtained from an independent historian. History obtained from or confirmed by: Spouse External Record Review External record reviewed: Outpatient record Prescription Management I considered prescription management with: Other (See narrative above) Chronic Conditions Patient?s care impacted by: Other (See narrative above) Discharge Plan Discharge Clinical Impression: Bronchitis, Influenza A Patient Disposition: Home, Self-Care Instructions: Influenza (ED), Acute Bronchitis (ED) Additional Instructions: Be sure to rest, stay well hydrated drinking plenty of fluids, eat small frequent meals. You can take Tylenol 500 mg, 2 tablets (1,000mg) every 4-6 hours as needed for pain, but not to exceed 3 doses daily (3,000mg).? Desv-qay-ieuwess cold medications may be helpful as well for symptoms. Saline nasal spray, humidifier may be helpful for nasal congestion. You may return to the emergency department with any new or worsening symptoms or concerns. Follow-up with your primary care provider as needed. Prescriptions: New acetaminophen 500 mg capsule 1,000 mg PO Q6H PRN (Reason: fever or pain) Qty: 30 0RF azithromycin 250 mg tablet See Rx Instructions .ROUTE .COMPLEX Qty: 6 0RF Rx Instructions: For 250 mg dose pack: take 500 mg today (day 1), then 250 mg for 4 days (days 2-5) prednisone 20 mg tablet 20 mg PO DAILY Qty: 5 0RF No Action Januvia 100 mg tablet 100 mg PO DAILY Qty: 30 3RF Linzess 290 mcg capsule 290 mcg PO DAILY Qty: 30 6RF Saccharomyces boulardii [Daily Probiotic (S. boulardii)] 250 mg capsule 250 mg PO DAILY Qty: 30 6RF omeprazole 40 mg capsule,delayed release(DR/EC) 40 mg PO DAILY Qty: 90 2RF acetaminophen [Tylenol Extra Strength] 500 mg tablet 500 mg PO Q6H PRN (Reason: pain or fever) Qty: 20 0RF acetaminophen [Tylenol] 325 mg tablet 325 mg PO Q6H PRN (Reason: pain (scale score 1-3)) Qty: 20 0RF cinnamon bark [Cinnamon] 500 mg capsule 1,000 mg PO DAILY (DME) FreeStyle Lite Strips Strip See Rx Instructions .ROUTE .MEDSUPPLY Qty: 100 11RF Rx Instructions: As directed three times a day (DME) FreeStyle Glenn 2 Sensor Kit See Rx Instructions .ROUTE .MEDSUPPLY Qty: 2 11RF Rx Instructions: As directed every 2 weeks metformin 500 mg tablet extended release 24 hr See Rx Instructions PO BID 30 Days Qty: 90 6RF Rx Instructions: 1 tab in the am and 2 tab in pm PO 2 times a day; clonazepam 1 mg tablet 1 mg PO TID PRN (Reason: Anxiety) albuterol sulfate [ProAir HFA] 90 mcg/actuation HFA aerosol inhaler 2 puff inhalation Q4H PRN (Reason: wheezing) meclizine 25 mg tablet 25 mg PO TID pravastatin 40 mg tablet 40 mg PO BEDTIME fexofenadine 180 mg tablet 180 mg PO DAILY ketotifen fumarate [Alaway] 0.025 % (0.035 %) drops 2 drp ophthalmic (eye) BID metoprolol succinate 100 mg tablet extended release 24 hr 100 mg PO DAILY metoclopramide HCl [Reglan] 5 mg tablet 5 mg PO QIDACHS Qty: 120 6RF hydrocortisone acetate 25 mg suppository 25 mg IN BID 30 Days Qty: 6 3RF Sutab 1.479-0.188- 0.225 gram tablet See Rx Instructions PO PER PKG DIR Qty: 24 0RF Rx Instructions: PO PER PKG DIR for colonoscopy prep bisacodyl [Dulcolax (bisacodyl)] 5 mg tablet,delayed release (DR/EC) 10 mg PO BEDTIME 30 Days Qty: 60 3RF simethicone 180 mg capsule 180 mg PO QID Qty: 120 6RF Referrals: Michelle Sidhu MD [Primary Care Provider] - Print Language: Nepalese
--- NOTE | 2024-06-14 14:11 | ECG_ITS ---
Test Reason : weaness Blood Pressure : */* mmHG Vent. Rate : 72 BPM Atrial Rate : 72 BPM P-R Int : 156 ms QRS Dur : 80 ms QT Int : 374 ms P-R-T Axes : 3 -11 -1 degrees QTcB Int : 409 ms Normal sinus rhythm with sinus arrhythmia Nonspecific T wave abnormality Abnormal ECG When compared with ECG of 28-Jan-2018 11:06, No significant change was found Referred By: Jose Valverde Electronically Signed By: MICHELLE OLMSTEAD
[2024-06-14 14:14] VITALS: BP 137/44; PULSE 75; RESP 18; TEMP 36.9; O2SAT 96; BMI 32.7
[2024-06-14 18:06] LABS: MANUAL DIFF FLAG NO
[2024-06-14 18:12] LABS: INTERNATIONAL NORM RATIO 1.1 (0.9-1.1); Prothrombin Time 12.6 SEC (10.9-12.4)
[2024-06-14 18:20] LABS: Alanine Aminotransferase 25 U/L (0-31); Albumin Level 4.4 g/dL (3.5-5.0); Alkaline Phosphatase 73 U/L (39-117); Anion Gap 17 (12-20); Aspartate Amino Transferase 46 U/L (5-31); Bilirubin Total 0.6 mg/dL (0.0-1.0); Blood Urea Nitrogen 18 mg/dL (9-16); Calcium 9.5 mg/dL (8.4-10.2); Carbon Dioxide 21 mmol/L (22-29); Chloride 100 mmol/L (96-108); Estimated Glomerular Filt Rate > 60; Glucose Random 229 mg/dL (60-115); Lipase 75 U/L (8-78); Magnesium 2.2 mg/dL (1.6-2.6); Potassium 4.8 mmol/L (3.3-5.1); Sodium 133 mmol/L (135-145); Total Protein 8.3 g/dL (6.5-8.0)
[2024-06-14 18:28] LABS: Basophils Percent Auto 0.2 % (0-2); Hematocrit 39.7 % (37.0-47.0); Hemoglobin 13.2 g/dl (12.0-16.0); Imm Gran Abs Auto 0.02 X10*3/uL (0.00-0.03); Imm Gran Pct Auto 0.5 % (0.0-0.4); Lymphocytes Absolute Auto 0.8 X10*3/uL (1.2-4.9); Mean Corpuscular HGB Conc 33.2 g/dl (31.0-35.0); Mean Corpuscular Hemoglobin 30.6 pg (27.0-33.0); Mean Corpuscular Volume 91.9 fL (80.0-98.0); Mean Platelet Volume 9.5 fL (9.4-12.3); Monocytes Absolute Auto 0.4 X10*3/uL (0.1-1.2); Monocytes Percent Auto 8.7 % (2-11); Neutrophils Absolute Auto 3.2 x10*3/uL (2.0-8.3); Neutrophils Percent Auto 72.6 % (45-73); Platelet Count 287 X10*3/uL (160-400); Red Blood Count 4.32 X10*6/uL (4.20-5.50); Red Cell Distribution Width 12.9 % (11.0-16.0); White Blood Count 4.4 X10*3/uL (4.8-10.8)
[2024-06-14 18:30] LABS: Troponin-I High Sensitivity < 2.7 ng/L (<3.5-17.0)
[2024-06-14 18:43] LABS: Influenza A PCR POSITIVE (Negative); Influenza B PCR NEGATIVE (Negative); Resp Syncy Virus RNA Qual PCR NEGATIVE (Negative); SARS COV2 PCR INHOUSE NEGATIVE (Negative)
[2024-06-14 19:40] VITALS: BP 137/44; PULSE 75; RESP 18; TEMP 36.9; O2SAT 96
== END 2024-06-14 19:40 | disposition home or self-care (01) ==
PROVIDERS: Physician Assistant; Emergency Provider Emergency Medicine; PCP Internal Medicine
DX: J10.1 Influenza due to other identified influenza virus with other respiratory manifestations (principal); J40 Bronchitis, not specified as acute or chronic; Z03.818 Encounter for observation for suspected exposure to other biological agents ruled out; E11.9 Type 2 diabetes mellitus without complications; I10 Essential (primary) hypertension; E78.5 Hyperlipidemia, unspecified; J45.909 Unspecified asthma, uncomplicated; Z87.891 Personal history of nicotine dependence
CPT/HCPCS: 0241U; 71046; 80053; 83690; 83735; 84484; 85025; 85610; 93005; 99283

== ENCOUNTER → 2024-06-14 14:11 | Outpatient (BNV) | payer MEDICAID, SELFPAY | PROVIDERS: PCP Internal Medicine; Visit Provider Internal Medicine | DX: I49.9 Cardiac arrhythmia, unspecified (principal) | CPT/HCPCS: 93010 ==

== ENCOUNTER → 2024-06-14 14:11 | Outpatient (BNV) | payer MEDICAID, SELFPAY | PROVIDERS: PCP Internal Medicine; Visit Provider Radiology Diagnostic Radiology | DX: R05.9 Cough, unspecified (principal) | CPT/HCPCS: 71046 ==

== ENCOUNTER 2024-06-27 08:01 | Day surgery (SDC) | payer MEDICAID, SELFPAY ==
--- NOTE | 2024-06-26 13:42 | HO.ANESPROP2 ---
Documented by User: Arlette Alvarez NP 06/26/24 13:44 HPI - Anesthesia Eval Consult details Narrative: 63yo F for Colonoscopy Anesthesia Pre-Procedure Meds Is the patient on any of the following meds?: GLP1/DPP4 PMFSH Active Problems Active Problems: All Active Problems Pre-op examination (Acute) Menopause syndrome (Acute) Diarrhea (Acute) Peroneal tendonitis of left lower leg (Acute) Plantar fasciitis, left (Acute) Achilles tendinitis, left leg (Acute) Abdominal bloating (Acute) Tubular adenoma of colon (Acute) Gastroparesis (Acute) Chronic idiopathic constipation (Acute) Rectocele (Acute) Microscopic hematuria (Acute) Small bowel motility disorder (Acute) GERD (gastroesophageal reflux disease) (Acute) Hemorrhoids (Acute) Obesity (Acute) Plantar fasciitis (Acute) DM2 (diabetes mellitus, type 2) (Acute) Essential hypertension (Acute) Hyperlipidemia LDL goal <100 (Acute) Past Medical History Medical History IBS (irritable bowel syndrome) GERD (gastroesophageal reflux disease) DM2 (diabetes mellitus, type 2) Cataracts, bilateral Essential hypertension Hyperlipidemia LDL goal <100 Allergic rhinitis Carpal tunnel syndrome Asthma Fibromyalgia Depression with anxiety High cholesterol HTN (hypertension), benign Family History Family History Father Myocardial infarction Hypertension Diabetes Mother Dementia HTN (hypertension), benign High cholesterol Diabetes Maternal Aunt Breast cancer Family history of problems with anesthesia: No Surgical History Surgical History Hx of hand surgery History of colonoscopy H/O esophagogastroduodenoscopy History of Cynthia fundoplication Hx of cataract surgery History of ear surgery History of carpal tunnel release H/O gastric bypass H/O hemorrhoidectomy S/P appendectomy H/O hysterectomy for benign disease History of Problems with Anesthesia: No Social History Social History Household Members: Spouse Are you a primary daycare teacher to a significant other at home: No Do you presently have visiting nurse or other home services: No Alcohol intake: former Patient Tobacco Use Status: Former Tobacco user Years Smoked: quit 15-20 years ago Have you been hit, kicked, punched, or otherwise hurt by someone within the past year? 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 Allergies Allergy/AdvReac Type Severity Reaction Status Date / Time latex [LATEX] Allergy Intermediate RASH Verified 06/27/24 08:53 lisinopril [LISINOPRIL] Allergy Intermediate HALLUCINATIONS, Verified 06/27/24 08:53 cough CLOVER Inhibitors Allergy Unknown UNKNOWN Verified 06/14/24 14:16 [CLOVER INHIBITORS] canagliflozin [Invokana] Allergy Unknown unknown Verified 06/27/24 08:53 liraglutide [From VICTOZA] Allergy Unknown UNKNOWN, Verified 06/27/24 08:53 abdominal pain, nausea penicillin V Allergy Unknown angioedema Verified 06/27/24 08:53 Penicillins [PENICILLINS] Allergy Unknown SYNCOPE Verified 06/27/24 08:53 pioglitazone [From ACTOS] Allergy Unknown UNKNOW, Verified 06/27/24 08:53 body puffiness sertraline Allergy Unknown unknown Verified 06/27/24 08:53 shellfish derived Allergy Unknown Rash and Verified 06/27/24 08:53 [SHELLFISH DERIVED] swelling Sulfa (Sulfonamide Allergy Unknown RASH Verified 06/27/24 08:53 Antibiotics) [SULFA (SULFONAMIDE ANTIBIOTICS)] black pepper Allergy cough, Verified 06/27/24 08:53 choking mushrooms Allergy Intermediate Diarrhea, Uncoded 06/27/24 08:53 swollen stomach,rash Onglyza Allergy Unknown unknown Uncoded 06/27/24 08:53 Citizen Of [place] vanilla creamer AdvReac Diarhea, Uncoded 06/27/24 08:53 nausea, stomach pain Home Medications ?Medication ?Instructions ?Recorded ?Confirmed ?Last Taken ?Type cinnamon bark 500 mg capsule 1,000 mg PO DAILY 02/01/20 06/23/24 Unknown History (Cinnamon) clonazepam 1 mg tablet 1 mg PO TID PRN Anxiety 04/08/21 06/23/24 Unknown History albuterol sulfate 90 mcg/actuation 2 puff inhalation Q4H PRN wheezing 10/07/21 06/23/24 10/12/22 09:00 History aerosol inhaler (ProAir HFA) meclizine 25 mg tablet 25 mg PO TID 10/07/21 06/23/24 Unknown History pravastatin 40 mg tablet 40 mg PO BEDTIME 10/07/21 06/23/24 Unknown History fexofenadine 180 mg tablet 180 mg PO DAILY 04/07/22 06/23/24 Unknown History ketotifen fumarate 0.025 % (0.035 2 drp ophthalmic (eye) BID 04/07/22 06/23/24 Unknown History %) eye drops (Alaway) metoprolol succinate 100 mg 100 mg PO DAILY 10/01/22 06/23/24 10/12/22 09:00 History tablet,extended release 24 hr semaglutide 0.25 mg or 0.5 mg (2 0.25 mg subcut QWEEK 06/23/24 06/23/24 06/19/24 History mg/3 mL) subcutaneous pen injector (Ozempic) Exam Height,Weight and Vital Signs: Height 5 ft 8 in Pertinent Lab Results Pertinent Lab Results: Laboratory Tests 06/14/24 18:00 Hgb 13.2 Hct 39.7 Plt Count 287 Sodium 133 L Potassium 4.8 Chloride 100 Carbon Dioxide 21 L BUN 18 H Creatinine 0.89 Narrative Narrative: EKG 05/2024 Vent. Rate : 72 BPM Atrial Rate : 72 BPM P-R Int : 156 ms QRS Dur : 80 ms QT Int : 374 ms P-R-T Axes : 3 -11 -1 degrees QTcB Int : 409 ms Normal sinus rhythm with sinus arrhythmia Nonspecific T wave abnormality Abnormal ECG When compared with ECG of 28-Jan-2018 11:06, No significant change was found Assessment and Plan Assessment Anesthesia Assessment: Chart Reviewed Final Anesthetic Review Family History of Problems with Anesthesia: No History of Problems with Anesthesia: No Documented by User: Zach Collier MD 06/27/24 10:13 HPI - Anesthesia Eval Anesthesia Pre-Procedure Meds If yes to any meds - educate patient: Pt education - increased risk of aspiration and/or euvolemic DKA and Pt education - possibility of cancelled proc at provider's discretion PMFSH Past Medical History Medical History IBS (irritable bowel syndrome) GERD (gastroesophageal reflux disease) DM2 (diabetes mellitus, type 2) Cataracts, bilateral Essential hypertension Hyperlipidemia LDL goal <100 Allergic rhinitis Carpal tunnel syndrome Asthma Fibromyalgia Depression with anxiety High cholesterol HTN (hypertension), benign Family History Family History Father Myocardial infarction Hypertension Diabetes Mother Dementia HTN (hypertension), benign High cholesterol Diabetes Maternal Aunt Breast cancer Surgical History Surgical History Hx of hand surgery History of colonoscopy H/O esophagogastroduodenoscopy History of Cynthia fundoplication Hx of cataract surgery History of ear surgery History of carpal tunnel release H/O gastric bypass H/O hemorrhoidectomy S/P appendectomy H/O hysterectomy for benign disease Social History Social History Household Members: Spouse Are you a primary daycare teacher to a significant other at home: No Do you presently have visiting nurse or other home services: No Alcohol intake: former Patient Tobacco Use Status: Former Tobacco user Years Smoked: quit 15-20 years ago Have you been hit, kicked, punched, or otherwise hurt by someone within the past year? 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 Allergies Allergy/AdvReac Type Severity Reaction Status Date / Time latex [LATEX] Allergy Intermediate RASH Verified 06/27/24 08:53 lisinopril [LISINOPRIL] Allergy Intermediate HALLUCINATIONS, Verified 06/27/24 08:53 cough CLOVER Inhibitors Allergy Unknown UNKNOWN Verified 06/14/24 14:16 [CLOVER INHIBITORS] canagliflozin [Invokana] Allergy Unknown unknown Verified 06/27/24 08:53 liraglutide [From VICTOZA] Allergy Unknown UNKNOWN, Verified 06/27/24 08:53 abdominal pain, nausea penicillin V Allergy Unknown angioedema Verified 06/27/24 08:53 Penicillins [PENICILLINS] Allergy Unknown SYNCOPE Verified 06/27/24 08:53 pioglitazone [From ACTOS] Allergy Unknown UNKNOW, Verified 06/27/24 08:53 body puffiness sertraline Allergy Unknown unknown Verified 06/27/24 08:53 shellfish derived Allergy Unknown Rash and Verified 06/27/24 08:53 [SHELLFISH DERIVED] swelling Sulfa (Sulfonamide Allergy Unknown RASH Verified 06/27/24 08:53 Antibiotics) [SULFA (SULFONAMIDE ANTIBIOTICS)] black pepper Allergy cough, Verified 06/27/24 08:53 choking mushrooms Allergy Intermediate Diarrhea, Uncoded 06/27/24 08:53 swollen stomach,rash Onglyza Allergy Unknown unknown Uncoded 06/27/24 08:53 Citizen Of [place] vanilla creamer AdvReac Diarhea, Uncoded 06/27/24 08:53 nausea, stomach pain Home Medications ?Medication ?Instructions ?Recorded ?Confirmed ?Last Taken ?Type cinnamon bark 500 mg capsule 1,000 mg PO DAILY 02/01/20 06/23/24 Unknown History (Cinnamon) clonazepam 1 mg tablet 1 mg PO TID PRN Anxiety 04/08/21 06/23/24 Unknown History albuterol sulfate 90 mcg/actuation 2 puff inhalation Q4H PRN wheezing 10/07/21 06/23/24 10/12/22 09:00 History aerosol inhaler (ProAir HFA) meclizine 25 mg tablet 25 mg PO TID 10/07/21 06/23/24 Unknown History pravastatin 40 mg tablet 40 mg PO BEDTIME 10/07/21 06/23/24 Unknown History fexofenadine 180 mg tablet 180 mg PO DAILY 04/07/22 06/23/24 Unknown History ketotifen fumarate 0.025 % (0.035 2 drp ophthalmic (eye) BID 04/07/22 06/23/24 Unknown History %) eye drops (Alaway) metoprolol succinate 100 mg 100 mg PO DAILY 10/01/22 06/23/24 10/12/22 09:00 History tablet,extended release 24 hr semaglutide 0.25 mg or 0.5 mg (2 0.25 mg subcut QWEEK 06/23/24 06/23/24 06/19/24 History mg/3 mL) subcutaneous pen injector (Ozempic) Exam Airway Mallampati Class: I TM Dist: >3cm Neck ROM: Full Loose/Missing/Broken Teeth: Yes Assessment and Plan Assessment Anesthesia Assessment: Anesthesia Plan Discussed Final Anesthetic Review NPO: Yes ASA Class: III Final Preanesthetic Review: No Changes in Pt Med Stat, Meds/Allgs Chart Reviewed, Consent Obtained/Reviewed and Anes Risks/Benef Reviewed Patient Risk: Intermediate Procedure Risk: Low Anesthetic Plan Anesthetic Plan: MAC: Disposition: Standard PACU
[2024-06-27 08:50] VITALS: BMI 31.6
[2024-06-27] MEDS: Sodium Phosphate,Mono-Dibasic 133 ML ENEMA PR (08:57)
[2024-06-27] MEDS: Lactated Ringers 1,000 ML 100 ML IVCONT (09:01)
[2024-06-27 09:16] VITALS: BP 123/62; PULSE 73; RESP 18; TEMP 36.7; O2SAT 99
[2024-06-27 09:18] LABS: Glucose, Whole Blood 150 mg/dL (60-115)
--- NOTE | 2024-06-27 09:41 | MHC.SHP ---
Pre-Procedural Eval Section A - 24 Hr Update-Section A only Date of Service: 06/27/24 Section B - Complete if H&P > 30 days Chief Complaint: Hx of polyps Details of Present Illness: IBS (irritable bowel syndrome) GERD (gastroesophageal reflux disease) DM2 (diabetes mellitus, type 2) Cataracts, bilateral Essential hypertension Hyperlipidemia LDL goal <100 Allergic rhinitis Carpal tunnel syndrome Asthma Fibromyalgia Depression with anxiety High cholesterol HTN (hypertension), benign Surgical History Hx of hand surgery History of colonoscopy H/O esophagogastroduodenoscopy History of Cynthia fundoplication Hx of cataract surgery History of ear surgery History of carpal tunnel release H/O gastric bypass H/O hemorrhoidectomy S/P appendectomy H/O hysterectomy for benign disease Allergies: Allergies Allergy/AdvReac Type Severity Reaction Status Date / Time latex [LATEX] Allergy Intermediate RASH Verified 06/27/24 08:53 lisinopril [LISINOPRIL] Allergy Intermediate HALLUCINATIONS, Verified 06/27/24 08:53 cough CLOVER Inhibitors Allergy Unknown UNKNOWN Verified 06/14/24 14:16 [CLOVER INHIBITORS] canagliflozin [Invokana] Allergy Unknown unknown Verified 06/27/24 08:53 liraglutide [From VICTOZA] Allergy Unknown UNKNOWN, Verified 06/27/24 08:53 abdominal pain, nausea penicillin V Allergy Unknown angioedema Verified 06/27/24 08:53 Penicillins [PENICILLINS] Allergy Unknown SYNCOPE Verified 06/27/24 08:53 pioglitazone [From ACTOS] Allergy Unknown UNKNOW, Verified 06/27/24 08:53 body puffiness sertraline Allergy Unknown unknown Verified 06/27/24 08:53 shellfish derived Allergy Unknown Rash and Verified 06/27/24 08:53 [SHELLFISH DERIVED] swelling Sulfa (Sulfonamide Allergy Unknown RASH Verified 06/27/24 08:53 Antibiotics) [SULFA (SULFONAMIDE ANTIBIOTICS)] black pepper Allergy cough, Verified 06/27/24 08:53 choking mushrooms Allergy Intermediate Diarrhea, Uncoded 06/27/24 08:53 swollen stomach,rash Onglyza Allergy Unknown unknown Uncoded 06/27/24 08:53 [place] vanilla creamer AdvReac Diarhea, Uncoded 06/27/24 08:53 nausea, stomach pain Review of Systems Review of Systems Comment: Ten point ROS negative Exam Exam Comment: Gen appear: No acute distress HEENT: no icterus Chest: No overt resp distress Abd: soft, nontender, nondistended Psych: Stable affect, answering questions appropriately Neuro: A/Ox3 noted to move all extremities spontaneously Ext: no peripheral edema Plan Diagnosis/Plan: Unchanged I have reviewed the history and physical and performed a pertinent physical examination on my patient. No changes have occurred unless specified. Time Spent With Patient Time: Total time managing care of this patient today ____ minutes.
--- NOTE | 2024-06-27 09:42 | HO.OPN-COLON ---
Colonoscopy Operative Note Operative Note Date of Service: 06/27/24 Narrative: Procedure: Colonoscopy Indication: Personal history of polyps Endoscopist: Brooklyn Arroyo MD Anesthesia Provider: Dr Zach Collier Anesthesia type: MAC Instrument: Olympus [id number] Consent: Indication, risks vs benefits, and alternatives were discussed with the patient who gave written informed consent to proceed. EKG, pulse, pulse oximetry and blood pressure were monitored throughout the procedure. Please see anesthesia flowsheet. Procedure: The patient was brought to the procedure room and placed in the left lateral decubitus position. IV medications were administered by the anesthesia provider in attendance. A digital rectal exam was performed which was normal. A distal attachment cap was affixed to the tip of the colonoscope which was then inserted through the anus and advanced through the colon to transverse colon at 70 cm. Mucosa was carefully examined under high definition white light as the instrument was slowly withdrawn in a retrograde panoramic fashion. The procedure was not difficult. There were no immediate obvious complications. The quality of the prep was BBPS: N/A+0+2 = inadequate Limitations: Poor prep Findings: Mucosa: Liquid stool in left colon and solid stool in transverse colon obscuring complete visualization. The procedure was therefore terminated. Impression: 1. Poor prep Recommendations: - This will be rebooked within 6 months. - Consider daily use of Linzess x 1 week prior to colo, 2 days of bisacodyl BID and 2 days of miralax BID followed by either miralax/gatorade prep or suprep 1 day before the procedure.
--- NOTE | 2024-06-27 09:58 | PC.NURSE ---
dr. sewell aware that patient drank all of the prep and clear liquids only yesterday and only had one very large BM that was yellow at the end per pt. Dr. sewell ordered enema to be given and results were yellow liquid. ok to proceed per dr. sewell.
[2024-06-27 10:05] VITALS: BP 122/57; PULSE 60; RESP 18; TEMP 36.2; O2SAT 98
[2024-06-27] MEDS: Scopolamine 1.5 MG PATCH.TD.3 EAR-BEHIND (10:09)
[2024-06-27 10:20] VITALS: BP 136/70; PULSE 60; RESP 16; TEMP 36.2; O2SAT 98
== END 2024-06-27 10:45 | disposition home or self-care (01) ==
PROVIDERS: PCP Internal Medicine; Visit Provider Internal Medicine
PROC: 0DJD8ZZ Inspection of Lower Intestinal Tract, Via Natural or Artificial Opening Endoscopic (ICD-10-PCS; CPT 45378; principal; 2024-06-27 10:30)
DX: Z12.11 Encounter for screening for malignant neoplasm of colon (principal); Z86.0101 Personal history of adenomatous and serrated colon polyps; K59.04 Chronic idiopathic constipation; K58.9 Irritable bowel syndrome, unspecified; K21.9 Gastro-esophageal reflux disease without esophagitis; I10 Essential (primary) hypertension; E11.9 Type 2 diabetes mellitus without complications; E78.00 Pure hypercholesterolemia, unspecified; J45.909 Unspecified asthma, uncomplicated; M79.7 Fibromyalgia; F41.9 Anxiety disorder, unspecified; Z79.84 Long term (current) use of oral hypoglycemic drugs; Z79.85 Long-term (current) use of injectable non-insulin antidiabetic drugs; Z79.899 Other long term (current) drug therapy; Z90.49 Acquired absence of other specified parts of digestive tract; Z91.018 Allergy to other foods; Z91.040 Latex allergy status; Z88.8 Allergy status to other drugs, medicaments and biological substances; Z88.0 Allergy status to penicillin; Z88.2 Allergy status to sulfonamides; Z98.890 Other specified postprocedural states; Z87.891 Personal history of nicotine dependence
CPT/HCPCS: 45378; 82947; J2003; J2704

== ENCOUNTER → 2024-06-27 08:01 | Outpatient (BNV) | payer MEDICAID, SELFPAY | PROVIDERS: PCP Internal Medicine; Visit Provider Internal Medicine | DX: Z12.11 Encounter for screening for malignant neoplasm of colon (principal); Z86.0100 Personal history of colon polyps, unspecified; Z91.199 Patient's noncompliance with other medical treatment and regimen due to unspecified reason | CPT/HCPCS: 45378 ==

== ENCOUNTER 2024-07-20 10:37 | Outpatient (REF) | payer MEDICAID, SELFPAY ==
[2024-07-20 11:23] LABS: Alanine Aminotransferase 23 U/L (0-31); Albumin Level 4.4 g/dL (3.5-5.0); Alkaline Phosphatase 73 U/L (39-117); Anion Gap 13 (12-20); Aspartate Amino Transferase 32 U/L (5-31); Bilirubin Total 0.7 mg/dL (0.0-1.0); Blood Urea Nitrogen 17 mg/dL (9-16); Calcium 9.8 mg/dL (8.4-10.2); Carbon Dioxide 27 mmol/L (22-29); Chloride 104 mmol/L (96-108); Estimated Glomerular Filt Rate > 60; Glucose Random 176 mg/dL (60-115); Potassium 3.9 mmol/L (3.3-5.1); Sodium 140 mmol/L (135-145); Total Protein 7.7 g/dL (6.5-8.0)
[2024-07-20 11:27] LABS: Estimated Average Glucose 169 mg/dL; Hemoglobin A1c % 7.5 % (<6.0)
[2024-07-20 11:57] LABS: Influenza A PCR NEGATIVE (Negative); Influenza B PCR NEGATIVE (Negative); Resp Syncy Virus RNA Qual PCR NEGATIVE (Negative); SARS COV2 PCR INHOUSE NEGATIVE (Negative)
== END 2024-07-20 10:38 | disposition home or self-care (01) ==
LOC: HO.LAB 10:37
PROVIDERS: PCP Internal Medicine; Visit Provider Internal Medicine
DX: E11.65 Type 2 diabetes mellitus with hyperglycemia (principal); I10 Essential (primary) hypertension; Z68.35 Body mass index [BMI] 35.0-35.9, adult
CPT/HCPCS: 0241U; 80053; 83036

== ENCOUNTER 2024-10-03 09:21 | Outpatient (AMB) | payer MEDICAID, SELFPAY ==
--- NOTE | 2024-10-03 09:23 | A.OFFVIS_ITS ---
Vital Signs 10/03/24 09:24 Height 5 ft 8 in Weight 204 lb 6 oz BMI 31.1 BP 114/72 Blood Pressure Location Lt brachial Position Sitting Pulse 63 Pulse Source Pulse Oximeter Pulse Oximetry (%) 99 Oxygen Delivery Method Room Air Intake Visit Reasons: asthma Allergies latex [LATEX] Allergy (Intermediate, Verified 10/03/24 09:) RASH lisinopril [LISINOPRIL] Allergy (Intermediate, Verified 10/03/24) HALLUCINATIONS, cough CLOVER Inhibitors [CLOVER INHIBITORS] Allergy (Unknown, Verified 10/03/24) UNKNOWN canagliflozin [Invokana] Allergy (Unknown, Verified 10/03/24) unknown liraglutide [From VICTOZA] Allergy (Unknown, Verified 10/03/24) UNKNOWN, abdominal pain, nausea penicillin V Allergy (Unknown, Verified 10/03/24) angioedema Penicillins [PENICILLINS] Allergy (Unknown, Verified 10/03/24) SYNCOPE pioglitazone [From ACTOS] Allergy (Unknown, Verified 10/03/24) UNKNOW, body puffiness sertraline Allergy (Unknown, Verified 10/03/24) unknown shellfish derived [SHELLFISH DERIVED] Allergy (Unknown, Verified 10/03/24) Rash and swelling Sulfa (Sulfonamide Antibiotics) [SULFA (SULFONAMIDE ANTIBIOTICS)] Allergy (Unknown, Verified 10/03/24) RASH black pepper Allergy (Verified 10/03/24:) cough, choking mushrooms Allergy (Intermediate, Uncoded 10/03/24:) Diarrhea, swollen stomach,rash Onglyza Allergy (Unknown, Uncoded 10/03/24:) unknown Jamaican vanilla creamer Adverse Reaction (Uncoded 10/03/24:28) Diarhea, nausea, stomach pain HPI HPI asthma: Details: Brooklyn is a pleasant 63 year old female, former 20 pack year smoker, quit 20 years ago with underlying asthma, DMII and s/p hiatal hernia repair 2018. She was referred by PCP for pulmonary evaluation for worsening control of asthma. She is currently prescribed Advair and albuterol MDI, however has discontinued use over the last 2 weeks as her symptoms were better controlled. She recently reports asthma exacerbation requiring prednisone with resolution of cough. She continues to report intermittent dyspnea and wheezing which is triggered by allergies and irritants. She previously underwent allergy testing 15+ years ago which revealed significant environmental allergies. She is also taking Singulair and antihistamine as needed with moderate effect. She reports of asthma was diagnosed as an adult, number requiring intubation. She denies any occupational exposures. She reports son with severe asthma, otherwise no pertinent family history. [facility] Medical History (Updated 10/03/24 @ 12:39 by Cherry Whitmore NP) Asthma IBS (irritable bowel syndrome) GERD (gastroesophageal reflux disease) DM2 (diabetes mellitus, type 2) Cataracts, bilateral Essential hypertension Hyperlipidemia LDL goal <100 Allergic rhinitis Carpal tunnel syndrome Fibromyalgia Depression with anxiety High cholesterol HTN (hypertension), benign Surgical History Hx of hand surgery History of colonoscopy H/O esophagogastroduodenoscopy History of Cynthia fundoplication Hx of cataract surgery History of ear surgery History of carpal tunnel release H/O gastric bypass H/O hemorrhoidectomy S/P appendectomy H/O hysterectomy for benign disease Family History Father Myocardial infarction Hypertension Diabetes Mother Dementia HTN (hypertension), benign High cholesterol Diabetes Maternal Aunt Breast cancer Social History Household Members: Spouse Are you a primary physician locums urgent care to a significant other at home: No Do you presently have visiting nurse or other home services: No Alcohol intake: former Patient Tobacco Use Status: Former Tobacco user Years Smoked: quit 15-20 years ago Current occupational status: employed 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[employer] Review of Systems Const Denies chills, Denies excessive sweating, Denies fever(s), Denies headache(s) and Denies night sweats Eyes Denies dry eyes, Denies irritation and Reports itchy eyes ENT Reports Normal hearing present and Denies headache(s) Card Denies chest pain, Denies chest pain at rest, Denies chest pain with activity, Denies claudication, Denies leg edema, Reports dyspnea on exertion, Denies orthopnea and Denies paroxysmal nocturnal dyspnea Resp Denies change in phlegm color, Denies chest congestion, Denies cough, Denies hemoptysis, Denies excessive phlegm production, Denies pain on inspiration, Denies pain with cough, Reports dyspnea on exertion, Denies stridor and Reports wheezing Musc Denies myalgias Neuro Reports Normal hearing present and Denies headache(s) Endo Denies excessive sweating Will/Lymph Denies lymphadenopathy Aller/Immun Reports itchy eyes, Reports seasonal rhinorrhea and Reports wheezing Physical Exam Vital Signs: Last Vital Signs Pulse 63 10/03/24 09:24 BP 114/72 10/03/24 09:24 Pulse Ox 99 10/03/24 09:24 Oxygen Delivery Method Room Air 10/03/24 09:24 BMI result Body Mass Index 31.1 Const General: cooperative, healthy appearing, comfortable, no acute distress, well developed and alert Nutritional Appearance: obese Orientation/consciousness: patient oriented x3 Limitations: no limitations HEENT Head: Yes normal to inspection, Yes normocephalic and Yes atraumatic Ears: hearing grossly normal bilaterally and external ears normal Eyes General: appearance normal, both eyes and all related structures Eyelids: Yes eyelids normal Sclerae: sclerae normal EOM: EOMs intact bilaterally Neck Neck: Yes normal visual inspection and Yes no lymphadenopathy Lymphatic: no lymphadenopathy noted Chest Chest palpation & inspection: normal inspection of the chest Resp Effort & Inspection: normal respiratory effort, able to speak in complete sentences, no audible wheezes, no cough, no stridor, not tachypneic, no tripod positioning and no use of accessory muscles Auscultation: clear to auscultation bilaterally Cardio Jugular venous distension: no JVD Rate: regular rate Rhythm: regular rhythm Skin Other: warm, dry General skin exam: no rashes or lesions noted Neuro General: patient oriented x3 Cranial nerves: Yes Normal hearing present Cognition (Neuro): normal cognition Gait exam (Neuro): Normal gait present Extrem General: Yes normal to inspection, Yes capillary refill normal, Yes no clubbing, cyanosis or edema and Yes no pedal edema Psych Appearance: grossly normal and well kempt Speech and movement: Normal speech and movement present and Clear speech present Affect: normal affect Attitude: cooperative Thought process: Normal thought process present Thought content: Normal thought content present Insight: Good insight present (Psych) Judgement: Good judgement present (Psych) Results Reviewed Results Reviewed: [address] [place] [address] XRay Report Signed Patient: Brooklyn Villalta MR#: [id number] : 1960 Acct:[id number] Age/Sex: 63 / F ADM Date: 06/14/24 Loc: .ED Attending Dr: Ordering Physician: Jose Valverde Date of Service: 06/14/24 Procedure(s): XR chest 2V Accession Number(s): [id number] cc: Michelle Sidhu MD; Jose Valverde~ EXAMINATION: XR CHEST CLINICAL INFORMATION: cough COMPARISON: None available. TECHNIQUE: 2 views of the chest were obtained. FINDINGS: The cardiac, hilar, and mediastinal contours are normal. The lungs are clear bilaterally. There is no pneumothorax or pleural effusion. There is no focal osseous or soft tissue abnormality. XR/XR chest 2V IMPRESSION: No active disease. Electronically signed by: Paul Dueñas MD 06/14/2024 02:26 PM [facility] Dictated By: Paul Dueñas MD Signed By: <Electronically signed by Paul Dueñas MD in OV> 06/14/24 1426 DD/ 1411 TD/TT: 06/14/24 1423 Pattern Assembler: Assessment & Plan Assessment & Plan (1) Asthma: Code(s): J45.909 - Unspecified asthma, uncomplicated Category: Medical (2) Environmental allergies: Code(s): Z91.09 - Other allergy status, other than to drugs and biological substances Category: Medical (3) Personal history of tobacco use: Code(s): Z87.891 - Personal history of nicotine dependence Category: Social Hx Plan Brooklyn presents for pulmonary evaluation for known history of asthma. Will send for PFT to assess severity. Will send for RAST to assess for an allergic component. Discussed ways to minimize allergen exposures. Encouraged patient to use Advair on a daily basis and albuterol p.r.n. for better control of asthma symptoms. She is aware to call if symptoms remain uncontrolled despite consistent therapy. Chest x-ray from May 2024 was unremarkable no need for further imaging at this time. All questions were answered patient is in agreement of plan. Will follow-up in 8-10 weeks or sooner if needed. Orders: Orders Resp Allergy Profile Region I Today Z91.09 - Other allergy status, other than to drugs and biological substances PFT pulmonary function test Today J45.909 - Unspecified asthma, uncomplicated Immunoglobulin E Today Z91.09 - Other allergy status, other than to drugs and biological substances Complete Blood Count Auto Diff Today Z91.09 - Other allergy status, other than to drugs and biological substances Coding Level of Care Code New Pt Level 4 (31783) Diagnoses Asthma J45.909 Environmental allergies Z91.09 Personal history of tobacco use Z87.896
[2024-10-03 09:24] VITALS: BP 114/72; PULSE 63; O2SAT 99; BMI 31.1
--- OUTSIDE RECORDS SUMMARY | 2024-10-03 10:14 | XMS_ITS | Clinical Summary ---
Author Organization [facility] Address [address] [place] [address] Phone Care Team Providers Care Telecommunications Sales Representative Name Role Phone Michelle Sidhu MD Primary Care Provider Allergies Active Allergy Reactions Criticality Noted Date [...] 1 (one) time each day if needed. 05/12/19 24 Active linaCLOtide (LINZESS) 290 mcg capsule Take by mouth. Activ e meclizine (ANTIVERT) 25 mg tablet Take by [...] cholecalciferol (Vitamin D3) 50 mcg (2,000 unit) capsuleIndication s:Postgastrectomy malabsorption Take 1 capsule (2,000 Units total) by mouth 1 (one) time each day. 30 each 03/14/20 24 025 Active ergocalciferol (VITAMIN D-2) 1,250 mcg (50,000 unit) capsuleIndication s:Postgastrectomy malabsorption Take 1 capsule (50,000 Units total) by mouth 1 (one) time per week. 4 each 03/15/20 24 Active cyanocobalamin (VITAMIN B-12) 1,000 mcg tabletIndications :Postgastrectomy malabsorption Take 1 tablet (1,000 mcg total) by mouth 1 (one) time each day. 30 each 03/15/20 24 025 Active ferrous gluconate (FERGON) 324 mg (38 mg iron) tabletIndications :Postgastrectomy malabsorption Take 1 tablet (324 mg total) by mouth 1 (one) time each day. 30 each 03/15/20 24 025 Active metoprolol succinate (TOPROL-XL) 100 mg 24 hr tablet Take 1 tablet (100 mg total) by mouth 1 (one) time each day. Do not crush or chew. Active hydroCHLOROthiazi de 12.5 mg tablet Take 1 tablet (12.5 [...] a day if needed (pain). 90 each 03/29/20 24 025 Active Additional Information Patient not taking.Reported on 08/11/2024 pregabalin (Lyrica) 50 mg capsule Take 1 capsule (50 mg total) by mouth 3 (three) times a day for 14 days. 42 each 04/11/20 24 Active semaglutide (OZEMPIC SUBQ) Inject under the skin. Active oxyCODONE (ROXICODONE) 5 mg immediate release tabletIndications :acute postoperative pain Take 1 tablet (5 mg total) by mouth every 6 (six) hours if needed (breakthrough pain). Max Daily Amount: 20 mg 10 tablet 04/12/20 24 Active Additional Information Patient not taking.Reported on 08/11/2024 docusate sodium (COLACE) 100 mg capsule TAKE 1 CAPSULE BY MOUTH TWICE A DAY FOR 2 WEEKS 28 capsule 08/01/19 25 Active nystatin (MYCOSTATIN) cream Apply 1 Application topically 1 (one) time each day. 30 g 3 08/04/19 25 Active multivitamin tablet Take 2 tablets by mouth 1 (one) time each day. 60 each 5 03/15/20 24 025 Active Problems Problem Noted Date Diagnosed Date Class 1 obesity due to exces s calories with serious comorbidity and body mass index (BMI) of 32.0 to 32.9 in adult 02/01/2024 Symptomatic abdominal panniculus 08/26/2020 Vitamin D deficiency 12/14/2018 Essential hypertension 11/25/2017 Intestinal malabsorption following gastrectomy 0 11/25/2017 Mixed hyperlipidemia 11/25/2017 Type 2 diabetes mellitus wit hout complication, without long-term current use of insulin ([facility] V24, [facility] V28) 11/25/2017 Encounters Date Type Department Care Team Description 08/11/2024 1:30 PM EDT Consult [facility]astic & [facility] [place] [address] [facility] [address] [place] [id number] Adan Maria PA Symptomatic abdominal panniculus 08/03/2024 8:15 AM EDT Office Visit Bariatric Surgery - [place] [address] [place] [id number] Melyssa Zuniga MD Class 1 obesity due to excess calories with serious comorbidity and body mass index (BMI) of 32.0 to 32.9 in adult (Primary Dx); Symptomatic abdominal panniculus; Postgastrectomy malabsorption from Last 3 Months Surgical History Surgery Date Site/Laterality Comments OTHER SURGICAL HISTORY 04/05/2014 PROCEDURE: OH LAPS GSTR RSTCV PX W/BYP INÉS-EN-Y LIMB <150 CM HYSTERECTOMY PROCEDURE: HISTORICAL HYSTERECTOMY HAND SURGERY PROCEDURE: HISTORICAL HAND SURGERY HEMORRHOID SURGERY PROCEDURE: OH INCISION THROMBOSED HEMORRHOID EXTERNAL APPENDECTOMY PROCEDURE: HISTORICAL APPENDECTOMY Medical History Medical History Date Comments 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 Type 2 diabetes mellitus wit hout complication, without long-term current use of insulin ([facility] V24, [facility] V28) 11/25/2017 DX:Type 2 diabetes mellitus without complication, without long-term current use of insulin ([facility]) Essential hypertension 11/25/2017 DX:Essent ial hypertension Mixed [...] AM EDT Office Visit Bariatric Surgery - [place] [address] [place] [phone] Melyssa Zuniga MD [address] [place] [address] Health Maintenance Due Date Last Done Comments [...] D 25 hydroxy (08/04/2024 1:45 PM EDT) [facility] Vit D, 25-Hydroxy 33.1 30.0 - 80.0 ng/mL LAB CHEMISTRY METHOD 08/04/2024 4:54 PM EDT [facility] Blood Venous blood specimen / Unknown Venipuncture / Unknown 08/04/2024 1:45 PM EDT 08/04/2024 3:16 PM EDT us Melyssa Zuniga MD LAB BLOOD ORDERABLES Final R esult [facility] [address] [place] [address], [place] [phone] * (ABNORMAL) Vitamin B12 (08/04/2024 1:45 PM EDT) [facility] Vitamin B-12 1,152(H) 250 - 900 pcg/mL LAB CHEMISTRY METHOD 08/04/2024 4:22 PM EDT [facility] Blood Venous blood specimen / Unknown Venipuncture / Unknown 08/04/2024 1:45 PM EDT 08/04/2024 3:16 PM EDT us Melyssa Zuniga MD LAB BLOOD ORDERABLES Final R esult Performing Organization Address [facility]/ZIP Co de Phone Number [facility] [address] [place] [address], [place] [phone] * (ABNORMAL) Hemoglobin A1c (03/27/2024 8:50 AM EST) [facility] Hemoglobin A1C 7.2(H) <6.5 % LAB CHEMISTRY METHOD 03/27/2024 11:00 AM EST [facility] Mean Bld Glu Estim. 160 mg/dL LAB CHEMISTRY METHOD 03/27/2024 11:00 AM EST [facility] Blood Venous blood specimen / Unknown Venipuncture / Unknown 03/27/2024 8:50 AM EST 03/27/2024 9:07 AM EST us Lisa Holly MD LAB BLOOD ORDERABLES Final Resu lt Performing Organization Address [facility]/ZIP Co de Phone Number [facility] [address] [place] [address], [place] [phone] * (ABNORMAL) Basic metabolic panel (03/27/2024 8:50 AM EST) [facility] Sodium 139 133 - 145 mmol/L LAB CHEMISTRY METHOD 03/27/2024 9:45 AM EST [facility] Potassium 4.5 3.5 - 5.5 mmol/L LAB CHEMISTRY METHOD 03/27/2024 9:45 AM EST [facility] Chloride 105 96 - 110 mmol/L LAB CHEMISTRY METHOD 03/27/2024 9:45 AM [facility] CO2 31 21 - 32 mmol/L LAB CHEMISTRY METHOD 03/27/2024 9:45 AM [facility] Anion Gap 3 3 - 11 LAB CHEMISTRY METHOD 03/27/2024 9:45 AM [facility] Glucose 202(H) 70 - 100 mg/dL LAB CHEMISTRY METHOD 03/27/2024 9:45 AM [facility] BUN 13 5 - 25 mg/dL LAB CHEMISTRY METHOD 03/27/2024 9:45 AM [facility] Creatinine 0.76 0.50 - 1.10 mg/dL LAB CHEMISTRY METHOD 03/27/2024 9:45 AM [facility] eGFR 89 >=60 mL/min/1. 73m2 LAB CHEMISTRY METHOD 03/27/2024 9:45 AM [facility] Comment:Calculation based on the??Chronic Kidney Disease Epidemiology Collaboration (CKD-EPI) equation refit??without adjustment for race. BUN/Creatinine Ratio 17.1 LAB CHEMISTRY METHOD 03/27/2024 9:45 AM [facility] Calcium 9.4 8.5 - 10.5 mg/dL LAB CHEMISTRY METHOD 03/27/2024 9:45 AM [facility] Blood Venous blood specimen / Unknown Venipuncture / Unknown 03/27/2024 8:50 AM EST 03/27/2024 9:07 AM EST us Lsia Holly MD LAB BLOOD ORDERABLES Final Resu lt [facility] [address] [place] [address], from Last 3 Months or Most Recently [...] currently active code status orders. Care Teams Telecommunications Sales Representative Relationship Specialty Start Date End Date Michelle Sidhu MD [address] [place], [place] PCP - General Internal Medicine 04/05/14
== END 2024-10-03 09:59 | disposition home or self-care (01) ==
LOC: HO.HPSW 09:22
PROVIDERS: PCP Internal Medicine; Visit Provider Nurse Practitioner Family
DX: J45.909 Unspecified asthma, uncomplicated (principal); Z91.09 Other allergy status, other than to drugs and biological substances; Z87.891 Personal history of nicotine dependence
CPT/HCPCS: 99204

== ENCOUNTER → 2024-10-03 09:21 | Outpatient (BNVA) | payer MEDICAID, SELFPAY | PROVIDERS: PCP Internal Medicine; Visit Provider Nurse Practitioner Family | DX: J45.909 Unspecified asthma, uncomplicated (principal); Z91.09 Other allergy status, other than to drugs and biological substances; Z87.891 Personal history of nicotine dependence | CPT/HCPCS: 99212 ==

== ENCOUNTER 2024-10-03 10:07 | Outpatient (REF) | payer MEDICAID, SELFPAY ==
[2024-10-03 11:27] LABS: MANUAL DIFF FLAG NO
[2024-10-03 11:32] LABS: Basophils Percent Auto 0.5 % (0-2); Eosinophils Absolute Auto 0.1 X10*3/uL (0.0-0.4); Hematocrit 40.4 % (37.0-47.0); Hemoglobin 13.1 g/dl (12.0-16.0); Imm Gran Abs Auto 0.02 X10*3/uL (0.00-0.03); Imm Gran Pct Auto 0.3 % (0.0-0.4); Lymphocytes Absolute Auto 2.1 X10*3/uL (1.2-4.9); Lymphocytes Percent Auto 31.8 % (20-40); Mean Corpuscular HGB Conc 32.4 g/dl (31.0-35.0); Mean Corpuscular Hemoglobin 30.9 pg (27.0-33.0); Mean Corpuscular Volume 95.3 fL (80.0-98.0); Mean Platelet Volume 10.1 fL (9.4-12.3); Monocytes Absolute Auto 0.5 X10*3/uL (0.1-1.2); Monocytes Percent Auto 7.6 % (2-11); Neutrophils Absolute Auto 3.8 x10*3/uL (2.0-8.3); Neutrophils Percent Auto 57.8 % (45-73); Platelet Count 356 X10*3/uL (160-400); Red Blood Count 4.24 X10*6/uL (4.20-5.50); Red Cell Distribution Width 12.6 % (11.0-16.0); White Blood Count 6.6 X10*3/uL (4.8-10.8)
[2024-10-04 05:54] LABS: Immunoglobulin E 218 kU/L (<OR=114)
[2024-10-04 22:58] LABS: Class Alternaria alternata 0; Class Aspergillus fumigatus 0; Class Bermuda Grass 0; Class Birch 0; Class Cat Dander 0; Class Cladosporium herbarum 0; Class Cockroach 0; Class Common Ragweed 0; Class Cottonwood 0; Class Derm. pterony 0; Class Dermatophagoides farinae 0; Class Dog Dander 0/1; Class Elm 0; Class Maple Box Elder 0; Class Mountain Cedar 0; Class Mouse Urine Protein 0; Class Mugwort 0; Class Oak 0; Class Penicillium crysogenum 0; Class Rough Pigweed 0; Class Sheep Sorrel 0; Class Sycamore 0; Class Timothy Grass 0; Class Walnut Tree 0; Class White Ash 0; Class White Mulberry 0; D001 IgE D pteronyssinus <0.10 kU/L; D002 - IgE D farinae <0.10 kU/L; E001 - IgE Cat Dander <0.10 kU/L; E005 - IgE Dog Dander 0.12 kU/L; E072-IgE Mouse Urine <0.10 kU/L; G002 IgE Bermuda Grass <0.10 kU/L; G006 - IgE Timothy Grass <0.10 kU/L; I006-IgE Cockroach, German <0.10 kU/L; Immunoglobulin E 208 kU/L (<OR=114); M001 IgE Penicillium chrysogen <0.10 kU/L; M002 - IgE Cladosporium herbar <0.10 kU/L; M003 - IgE Aspergillus fumigat <0.10 kU/L; M006 - IgE Alternaria alternat <0.10 kU/L; T001 IgE Maple/Box Elder <0.10 kU/L; T003 IgE Common Silver Birch <0.10 kU/L; T006 - IgE Cedar, Mountain <0.10 kU/L; T007 - IgE Oak, White <0.10 kU/L; T008 IgE Elm, American <0.10 kU/L; T010 - IgE Walnut <0.10 kU/L; T011 - IgE Maple Leaf Sycamore <0.10 kU/L; T014 - IgE Cottonwood <0.10 kU/L; T015 - IgE Ash, White <0.10 kU/L; T070 - IgE White Mulberry <0.10 kU/L; W001 - IgE Ragweed, Short <0.10 kU/L; W006 - IgE Mugwort <0.10 kU/L; W014 IgE Pigweed, Common <0.10 kU/L; W018 IgE Sheep Sorrel <0.10 kU/L
== END 2024-10-03 10:08 | disposition home or self-care (01) ==
LOC: HO.WFDLDS 10:07
PROVIDERS: Visit Provider Nurse Practitioner Family
DX: Z91.09 Other allergy status, other than to drugs and biological substances (principal)
CPT/HCPCS: 36415; 82785; 85025; 86003

== ENCOUNTER 2024-10-09 07:52 | Day surgery (SDC) | payer MEDICAID, SELFPAY ==
--- OUTSIDE RECORDS SUMMARY | 2024-08-28 13:28 | XMS_ITS | Data Portability ---
Author Organization [facility], Allergy Address [address] [facility] [address] [place] [phone] Care Team Providers Care Academic Advising Director Name Role Phone MALI JESUS Primary Care Provider [phone] Assessment Encounter Date Assessment Date Assessment LastModified by Organization Details LastModified Time 05/26/2024 05/26/2024 The patient's history, physical exam and audiometric findings are consistent with vestibular migraine (migraine associated dizziness). Today we discussed the pathophysiology of migraine and migraine associated phenomena such as dizziness and visual aura. We discussed how the patient's balance disturbance symptoms are likely mediated by a central processing abnormality rather than an isolated inner ear abnormality. I gave the patient a significant amount of literature to review at home regarding how there are many environmental and dietary triggers that can lead to not only migraine headaches but balance disturbance symptoms as well. We spent a lot of time discussing the importance of following a migraine diet. We have offered the patient a copy of the Heal Your Headache book to read at home, which gives a [id number] discussion on what causes migraine and how to make the necessary lifestyle and dietary changes to significantly reduce or eliminate migraine symptoms. I have also recommended the use of dietary supplements magnesium, vitamin B2 and feverfew which have been shown to help control migrainous phenomena. We discussed dosage and schedule for these supplements. We discussed alternative of using Migranol, which contains a combination of magnesium, vitamin B2, and feverfew. Follow up: As needed Dry mouth likely related to medications. Did not recommend meclizine long-term, but she may use it as needed. Encouraged her to discuss with her primary care possible rescue medications for migraine dplosky Not available 05/26/2024 11:23:52 Plan of Treatment Reminders Order Date Submit Date Provider Last Modified By Organization Details Last Modified Time Details Appointments None record ed. Lab None record ed. Referral None record ed. Procedures None record ed. Surgeries None record ed. Imaging None record ed. Medication Orders None record ed. Patient TargetsNo targets recorded. Patient InstructionsNo instructions recorded. Reason for Referral None Reported. Results Created Date Observation Date Name Description Value Unit Range Abnormal Flag Note LastModifiedBy Organization Detail LastModifiedTime 05/26/19 audio gram No observ ation record ed. BARCODE Not Available 2024 15:54:15 05/26/19 25 audio gram No observ ation record ed. BARCODE Not Available 2024 15:56:25 Result Notes None recorded. Problems Name Problem SNOMED Code Status Onset Date Resolution Date Notes Provider Name and Address Organization Details Recorded Time Bilateral tinnitus 38827331489 02 Active 2016 Tinnitus, bilateral ; Note: Date Diagnosed : 01/20/2017 3:55 PM (H93.13) [facility]14 Abnormal auditory perceptio n 02734114 Active 2016 Other abnormal auditory perceptio ns, bilateral ; Note: Date Diagnosed : 01/20/2017 3:55 PM (H93.293) [facility] Available [facility] 03:01:15 Dizziness and giddiness 567489935 Active 2016 Dizziness and giddiness ; Note: Date Diagnosed : 01/20/2017 3:55 PM (R42) Vertigo NOS; Note: Date Diagnosed : 01/20/2017 4:16 PM (R42) [facility] Available [facility] 03:01:12 Allergic rhinitis 72010449 Active 2016 Other allergic rhinitis; Note: Date Diagnosed : 7 11:47 AM (J30.89) Not Available [facility] 03:01:13 Migraine variants 591894462 Active 2024 ORQUIDEA ANDERSON MD [address] [place] [address], [facility] [place], [phone] , [facility] - [facility] 5 11:20:57 Problem Notes None recorded. Procedures Surgical History Date Name Laterality Status Provider Name and Address Organization Details Recorded Time 05/26/2024 Air & Speech Audio with Tymps - 00597, 38657 & 40141 completed DYLAN MOBLEY, AUD [address] [facility], [place], [address], [facility] - [facility] 05/26/2024 10:33:53 Imaging Results Imaging Date Name Status LastModified by Organiz ation Details LastModified Time 05/26/2024 audiogram completed BARCODE Information no t available 05/26/2024 15:54:15 05/26/2024 audiogram completed BARCODE Information no t available 05/26/2024 15:56:25 Procedure Notes None recorded. Medical Equipment None Reported. Allergies Allergen ID Allergen Name Allergen Category Reaction Reaction Severity Criticality Documentation Date Start Date Code Code System Note Provider Name and Address Organization Details Recorded Time 523214 penicilli n V potassium medicatio n other Not available Not available 09/07/202395596 5 RxNorm React ion: unkno wn, unspe cifie d;; Not Available [facility] 4 01:14:39 [id number] Substance with sulfonami de structure and antibacte rial mechanism of action (substanc e) medicatio n other Not available Not available 09/07/2023 [id number] SNOMED React ion: unkno wn, unspe cifie d;; Not Available [facility] 4 01:14:40 Medications Name Sig Start Date Stop Date Status Note LastModified by Organization Details LastModified Time Qvar 80 mcg/actua tion Metered Aerosol oral inhaler 2016 active Medicati on ID: [id number] D uration Value: 30 Brand Name: Qvar Sen d Method: E-Prescr ibed Sub s Allowed: subs OK Speci al Instruct ion: TAKE 2 PUFFS INHALED TWICE A DAY Medi cationGe nericNam e: Qvar Not Available Not Available Not Available venlafaxi ne ER 75 mg capsule,e xtended release 24 hr TAKE 1 CAPSULE BY MOUTH EVERY DAY active Not Available Not Available No t Available albuterol sulfate 2.5 mg/3 mL (0.083 %) solution for nebulizat ion INHALE USING 1 VIAL TWICE DAILY active Not Available Not Available No t Available cetirizin e 10 mg tablet TAKE 1 TABLET BY MOUTH EVERY DAY active Not Available Not Available No t Available azithromy kimberli 250 mg tablet TAKE 2 TABLETS BY MOUTH TODAY, THEN TAKE 1 TABLET DAILY FOR 4 DAYS DIRECTED 05/26 completed Not Available Not Available Not Available pravastat in 40 mg tablet ONE TAKE 1 TABLET BY MOUTH DAILY AT BEDTIME. active Not Available Not Available No t Available ibuprofen 800 mg tablet 05/26 completed Medicati on ID: [id number] D uration Value: 7 Brand Name: mark n Send Method: E-Prescr ibed Sub s Allowed: subs OK Speci al Instruct ion: TAKE 1 TABLET BY MOUTH EVERY 8 HOURS NEEDED M edicatio nGeneric Name: ibuprofe n Not Available Not Available Not Available simethico ne 180 mg capsule TAKE 1 CAPSULE BY MOUTH FOUR TIMES A DAY active Not Available Not Available No t Available fluconazo le 150 mg tablet TAKE 1 TABLET BY MOUTH ONCE 05/26 completed Not Available Not Available Not Available FreeStyle Lancets 28 gauge CHECK SUGARS 3 TIMES A DAY active Not Available Not Available No t Available prednison e 20 mg tablet TAKE 1 TABLET BY MOUTH EVERY DAY active Not Available Not Available No t Available metoprolo l succinate ER 100 mg tablet,ex tended release 24 hr TAKE 1 TABLET BY MOUTH EVERY DAY active Not Available Not Available No t Available terconazo le 0.8 % vaginal cream APPLY TO VAGINA AT BEDTIME active Not Available Not Available No t Available clonazepa m 1 mg tablet TAKE 1 TABLET BY MOUTH THREE TIMES A DAY active Not Available Not Available No t Available meclizine 12.5 mg tablet 2016 active Medicati on ID: [id number] D uration Value: 30 Brand Name: meclizin e Send Method: E-Prescr ibed Sub s Allowed: subs OK Speci al Instruct ion: TAKE 1 TABLET BY MOUTH 4 TIMES A DAY NEEDED FOR DIZZINES S Medica tionGene ricName: meclizin e Not Available Not Available Not Available cyanocoba parvin (vit B-12) 250 mcg tablet TAKE 1 TABLET BY MOUTH EVERY DAY active Not Available Not Available No t Available omeprazol e 40 mg capsule,d elayed release TAKE 1 CAPSULE BY MOUTH EVERY DAY active Not Available Not Available No t Available tramadol 50 mg tablet TAKE 1 TABLET EVERY 8 HOURS BY ORAL ROUTE NEEDED FOR 10 DAYS, FOR PAIN. active Not Available Not Available No t Available acetamino phen 500 mg tablet TAKE 2 TABLETS (1,000 MG TOTAL) BY MOUTH EVERY 6 (SIX) HOURS FOR 7 DAYS. 05/26 completed Not Available Not Available Not Available acetamino phen ER 650 mg tablet,ex tended release TAKE 1 TABLET BY MOUTH THREE TIMES A DAY active Not Available Not Available No t Available hydrocort isone acetate 25 mg rectal supposito ry 25 MG RECTALLY 2 TIMES A DAY FOR 30 DAYS NOT COVERED 05/26 completed Not Available Not Available Not Available repaglini de 0.5 mg tablet TAKE 1 TABLET BY MOUTH TWICE A DAY active Not Available Not Available No t Available telmisart an 40 mg tablet TAKE 1 TABLET BY MOUTH EVERY DAY active Not Available Not Available No t Available neomycin- polymyxin -dexameth 3.5 mg/mL-10, 000 unit/mL-0 .1% eye drops INSTILL 1 DROP INTO BOTH EYES FOUR TIMES A DAY USE FOR 2 WEEKS THEN STOP active Not Available Not Available No t Available oxycodone 5 mg capsule TAKE 1 CAPSULE EVERY 6 HOURS IF NEEDED FOR SEVERE PAIN FOR UP TO 10 DAYS. MAX DAILY AMOUNT: 20 MG 05/26 completed Not Available Not Available Not Available docusate sodium 100 mg capsule TAKE 1 CAPSULE BY MOUTH TWICE A DAY FOR 2 WEEKS 05/26 completed Not Available Not Available Not Available gabapenti n 300 mg capsule TAKE 1 CAPSULE BY MOUTH 3 TIMES A DAY IF NEEDED FOR PAIN 05/26 completed Not Available Not Available Not Available monteluka st 10 mg tablet TAKE 1 TABLET BY MOUTH EVERY DAY active Not Available Not Available No t Available clindamyc in 2 % vaginal cream INSERT 1 APPLICAT OR INTO THE VAGINA AT BEDTIME FOR 7 DAYS. 05/26 completed Not Available Not Available Not Available pravastat in 20 mg tablet 05/26 completed Medicati on ID: [id number] D uration Value: 30 Brand Name: pravasta tin Send Method: E-Prescr ibed Sub s Allowed: subs OK Speci al Instruct ion: TAKE 1 TABLET BY MOUTH AT BEDTIME Medicati onGeneri cName: pravasta tin Not Available Not Available Not Available hydrochlo rothiazid e 25 mg tablet TAKE 1 TABLET BY MOUTH EVERY MORNING active Not Available Not Available No t Available telmisart an 20 mg tablet TAKE 1 TABLET BY MOUTH EVERY DAY 05/26 completed Not Available Not Available Not Available ergocalci ferol (vitamin D2) 1,250 mcg (50,000 unit) capsule TAKE 1 CAPSULE (50,000 UNITS TOTAL) BY MOUTH ONCE WEEKLY active Not Available Not Available No t Available ibuprofen 600 mg tablet TAKE 1 TABLET (600 MG TOTAL) BY MOUTH EVERY 6 (SIX) HOURS FOR 5 DAYS. TAKE 3 HOURS AFTER TYLENOL 05/26 completed Not Available Not Available Not Available ferrous sulfate 325 mg (65 mg iron) tablet,de layed release TAKE 1 TABLET (324 MG TOTAL) BY MOUTH 1 (ONE) TIME EACH DAY. active Not Available Not Available No t Available celecoxib 100 mg capsule TAKE 1 CAPSULE BY MOUTH 2 TIMES A DAY IF NEEDED FOR MILD PAIN. DO NOT BREAK CAPSULE APART. 05/26 completed Not Available Not Available Not Available fluticaso ne propionat e 50 mcg/actua tion nasal spray,ian pension SPRAY 1 SPRAY NASALLY EVERY DAY 05/26 completed Not Available Not Available Not Available metformin ER 500 mg tablet,ex tended release 24 hr TAKE 2 TABLETS BY MOUTH TWICE A DAY active Not Available Not Available No t Available sertralin e 50 mg tablet ONE TAKE 1 TABLET BY MOUTH EVERY MORNING 05/26 completed Not Available Not Available Not Available loratadin e 10 mg tablet 2016 active Medicati on ID: [id number] D uration Value: 30 Brand Name: sandy antoine Send Method: E-Prescr ibed Sub s Allowed: subs OK Speci al Instruct ion: TAKE 1 TABLET BY MOUTH DAILY Me dication GenericN doreen: sandy elina Not Available Not Available Not Available Vitamin B-12 1,000 mcg tablet TAKE 1 TABLET (1,000 MCG TOTAL) BY MOUTH ONCE DAILY active Not Available Not Available No t Available Ventolin HFA 90 mcg/actua tion aerosol inhaler INHALE 2 PUFFS INTO THE LUNGS EVERY 4 HOURS NEEDED FOR SHORTNES S OF BREATH/W HEEZING active Not Available Not Available No t Available oxycodone 5 mg tablet TAKE 1 TABLET BY MOUTH EVERY 6 HOURS IF NEEDED (BREAKTH ROUGH PAIN). MAX DAILY AMOUNT: 20 MG 05/26 completed Not Available Not Available Not Available Laxative (bisacody l) 5 mg tablet,de layed release TAKE 2 TABLETS BY MOUTH AT BEDTIME 05/26 completed Not Available Not Available Not Available Hair Regrowth Treatment 2 % topical solution APPLY SCALP DAILY OTC NOT COVERED AND COUPONS DONT WORK ON OTC active Not Available Not Available No t Available metformin ER 750 mg tablet,ex tended release 24 hr 05/26 completed Medicati on ID: [id number] D uration Value: 30 Brand Name: desean n Send Method: E-Prescr ibed Sub s Allowed: subs OK Speci al Instruct ion: TAKE 1 TABLET BY MOUTH TWICE A DAY Medi cationGe nericNam e: metformi n Not Available Not Available Not Available Saccharom yces boulardii 250 mg capsule TAKE 1 CAPSULE BY MOUTH EVERY DAY active Not Available Not Available No t Available nitrofura ntoin monohydra te/macroc rystals 100 mg capsule TAKE 1 CAPSULE BY MOUTH TWICE A DAY FOR 7 DAYS active Not Available Not Available No t Available Januvia 100 mg tablet TAKE 1 TABLET BY MOUTH EVERY DAY active Not Available Not Available No t Available Alaway 0.025 % (0.035 %) eye drops INSTILL 2 DROPS INTO AFFECTED EYE(S) TWICE A DAY 05/26 completed Not Available Not Available Not Available FreeStyle Lite Strips CHECK SUGARS TWICE A DAY active Not Available Not Available No t Available cholecalc iferol (vitamin D3) 1,250 mcg (50,000 unit) capsule TAKE 1 CAPSULE BY MOUTH ONE TIME PER WEEK *INS NEEDS 3 MONTH SUPPLY* active Not Available Not Available No t Available Gavilax 17 gram/dose oral powder TAKE 17 GRAMS AND MIX WITH LIQUID BY MOUTH 1 (ONE) TIME EACH DAY FOR 14 DAYS. active Not Available Not Available No t Available Vitamin D3 50 mcg (2,000 unit) capsule TAKE 1 CAPSULE (2,000 UNITS TOTAL) BY MOUTH ONCE DAILY active Not Available Not Available No t Available Linzess 290 mcg capsule TAKE 1 CAPSULE BY MOUTH DAILY 05/26 completed Not Available Not Available Not Available Trulicity 0.75 mg/0.5 mL subcutane ous pen injector INJECT ONCE A WEEK DIRECTED active Not Available Not Available No t Available Sutab 1.479-0.1 88-0.225 gram tablet TAKE BY MOUTH PER PACKAGE DIRECTIO NS FOR COLONOSC OPY PREP active Not Available Not Available No t Available Daily-Vit e (with folic acid) 400 mcg tablet TAKE 2 TABLETS BY MOUTH EVERY DAY active Not Available Not Available No t Available Ozempic 0.25 mg or 0.5 mg (2 mg/3 mL) subcutane ous pen injector INJECT 0.25 MG SUBCUTAN EOUSLY WEEKLY active Not Available Not Available No t Available Vitals Date Recorded Body height Body mass index (BMI) Body weight Provider Name and Address Organization Details Last Updated DateTime 05/26/2024 172.72 cm 32.2 kg/m2 86063.58 g Yelitza Quezada [place] - [facility] 05/26/2024 10:44:23 Social History None recorded. Functional Status None recorded. Mental Status None recorded. Family History Nothing Reported. Medical History No medical history recorded. Gynecological HistoryNo gynecological history recorded. Obstetrics History GPAL:G 0 P 0 0 0 0 Past Encounters Encounter ID Performer Location Encounter Start Date Encounter Closed Date Diagnosis/Indication Diagnosis SNOMED-CT Code Diagnosis ICD10 Code Diagnosis Note [id number] ORQUIDEA ANDERSON MD [facility] [address] [phone] 05/26/2024 10:17:25 05/26/2024 11:24:09 Dizziness and giddiness 611175058 R42 Right Ear:Normal hearing with excellent speech discrimina tion. Left Ear:Normal hearing with excellent speech discrimina tion. Migraine variants [id number] 005 G43.809 Health Concerns Section Related Observation LastModified by Organization Detai ls LastModified Time None Recorded Concern Status LastModified by Organization Details LastModified Time None Recorded Advance Directives Directive None Recorded Payers Encounter Date Sequence Insurance Name Policy Number Policy Barger Covered Member ID Barger Member ID Guarantor Name 05/26/2024 1 [place] [facility] Brooklyn Cuellar [id number] Brooklyn Cuellar Notes Date Note Type Note Provider Name and Address Organization Details Recorded Time 05/26/2024 text/html dizzyusing mecli zine about one week at a time per monthhyperacusis at [place], bright lights also very sensitivefood triggers of seafood smell, mushrooms, spanish vanilladry mouth PV 03/11/2017 Norma tinnitus - advised masking techniques. migraine associated vertigo - elimination diet ORQUIDEA ANDERSON MD [address] [place], [address], [facility] - [facility] 05/26/2024 11:24:12 OBGyn Episode No OBEpisode recorded.
--- OUTSIDE RECORDS SUMMARY | 2024-08-28 13:28 | XMS_ITS | Clinical Summary ---
Author Organization [facility] Address [address] [place] [address] Phone Care Team Providers Care Wire Weaver Helper Name Role Phone Michelle Sidhu MD Primary Care Provider [phone] Allergies Active Allergy Reactions Criticality Noted Date Comments Aroldo Inhibitors Cough 03/09/2017 Allopurinol 12/10/2017 No reaction documented. Canagliflozin Other 03/09/2017 Yeast infections Latex 12/10/2017 No reaction documented. Liraglutide Nausea And Vomiting 03/09/2017 Metformin Other 03/09/2017 abd cramps Penicillins Angioedema High 03/09/2017 Pioglitazone Swelling 03/09/2017 Saxagliptin Other 03/09/2017 abd discomfort Sertraline Other 03/09/2017 sleepiness Shellfish Derived Rash Medium 03/27/2024 Sulfa (Sulfonamide Antibiotics) 12/10/2017 No reaction documented. Medications telmisartan (MICARDIS) 40 mg tablet Take 1 tablet (40 mg total) by mouth 1 (one) time each day if needed. 024 Active linaCLOtide (LINZESS) 290 mcg capsule Take by mouth. Act isidro meclizine (ANTIVERT) 25 mg tablet Take by mouth. Activ e cinnamon bark (CINNAMON ORAL) Take by mouth. Active SITagliptin phosphate (Januvia) 100 mg tablet Take 1 tablet (100 mg total) by mouth 1 (one) time each day. Active pravastatin (PRAVACHOL) 40 mg tablet Take 1 tablet (40 mg total) by mouth at bedtime. Active clonazePAM (KlonoPIN) 1 mg tablet Take 1 tablet (1 mg total) by mouth at bedtime. Active omeprazole (PriLOSEC) [address] capsule Take 1 capsule (40 mg total) by mouth every other day. Active cholecalciferol (Vitamin D3) 50 mcg (2,000 unit) capsuleIndicatio ns:Postgastrecto my malabsorption Take 1 capsule (2,000 Units total) by mouth 1 (one) time each day. 30 each 024 2024 Active ergocalciferol (VITAMIN D-2) 1,250 mcg (50,000 unit) capsuleIndicatio ns:Postgastrecto my malabsorption Take 1 capsule (50,000 Units total) by mouth 1 (one) time per week. 4 each 024 2024 Active cyanocobalamin (VITAMIN B-12) 1,000 mcg tabletIndication s:Postgastrectom y malabsorption Take 1 tablet (1,000 mcg total) by mouth 1 (one) time each day. 30 each 024 2024 Active multivitamin tablet Take 2 tablets by mouth 1 (one) time each day. 60 each 024 2024 Active ferrous gluconate (FERGON) 324 mg (38 mg iron) tabletIndication s:Postgastrectom y malabsorption Take 1 tablet (324 mg total) by mouth 1 (one) time each day. 30 each 024 2024 Active metoprolol succinate (TOPROL-XL) 100 mg 24 hr tablet Take 1 tablet (100 mg total) by mouth 1 (one) time each day. Do not crush or chew. Active hydroCHLOROthiaz mirela 12.5 mg tablet Take 1 tablet (12.5 mg total) by mouth 1 (one) time each day. Active metFORMIN XR (GLUCOPHAGE-XR) 500 mg 24 hr tablet Take 2 tablets (1,000 mg total) by mouth 2 (two) times a day. Do not crush, chew, or split. Active gabapentin (NEURONTIN) 300 mg capsule Take 1 capsule (300 mg total) by mouth 3 (three) times a day if needed (pain). 90 each 024 2024 Active Additional Information Patient not taking.Reported on 08/11/2024 pregabalin (Lyrica) 50 mg capsule Take 1 capsule (50 mg total) by mouth 3 (three) times a day for 14 days. 42 each Active semaglutide (OZEMPIC SUBQ) Inject under the skin. Active oxyCODONE (ROXICODONE) 5 mg immediate release tabletIndication s:acute postoperative pain Take 1 tablet (5 mg total) by mouth every 6 (six) hours if needed (breakthrough pain). Max Daily Amount: 20 mg 10 tablet Active Additional Information Patient not taking.Reported on 08/11/2024 docusate sodium (COLACE) 100 mg capsule TAKE 1 CAPSULE BY MOUTH TWICE A DAY FOR 2 WEEKS 28 capsule Active nystatin (MYCOSTATIN) cream Apply 1 Application topically 1 (one) time each day. 30 g 3 025 Active nystatin (MYCOSTATIN) cream Apply 1 Application topically 1 (one) time each day. 021 2024 Discontinued(R eorder) docusate sodium (COLACE) 100 mg capsule Take 1 capsule (100 mg total) by mouth 2 (two) times a day for 14 days. 28 capsule 024 2024 Discontinued Active Problems Problem Noted Date Diagnosed Date Class 1 obesity due to exces s calories with serious comorbidity and body mass index (BMI) of 32.0 to 32.9 in adult 02/01/2024 Symptomatic abdominal panniculus 08/26/2020 Vitamin D deficiency 12/14/2018 Essential hypertension 11/25/2017 Intestinal malabsorption following gastrectomy 0 11/25/2017 Mixed hyperlipidemia 11/25/2017 Type 2 diabetes mellitus wit hout complication, without long-term current use of insulin ([facility] V24, [facility] V28) 11/25/2017 Encounters Date Type Department Care Team Description 08/11/2024 1:30 PM EDT Consult Plastic & Reconstructive Surgery [facility] [address] [facility] [address] [place] [address] Adan Maria PA Symptomatic abdominal panniculus 08/03/2024 8:15 AM EDT Office Visit Bariatric Surgery - [place] [address] [facility] [address] [place] [address] Melyssa Zuniga MD Class 1 obesity due to excess calories with serious comorbidity and body mass index (BMI) of 32.0 to 32.9 in adult (Primary Dx); Symptomatic abdominal panniculus; Postgastrectomy malabsorption from Last 3 Months Surgical History Surgery Date Site/Laterality Comments OTHER SURGICAL HISTORY 04/05/2014 PROCEDURE: DC LAPS GSTR RSTCV PX W/BYP INÉS-EN-Y LIMB <150 CM HYSTERECTOMY PROCEDURE: HISTORICAL HYSTERECTOMY HAND SURGERY PROCEDURE: HISTORICAL HAND SURGERY HEMORRHOID SURGERY PROCEDURE: DC INCISION THROMBOSED HEMORRHOID EXTERNAL APPENDECTOMY PROCEDURE: HISTORICAL APPENDECTOMY Medical History Medical History Date Comments 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 Type 2 diabetes mellitus wit hout complication, without long-term current use of insulin (CMS/HCC V24, CMS/HCC V28) 11/25/2017 DX:Type 2 diabetes mellitus without complication, without long-term current use of insulin ([facility]) Essential hypertension 11/25/2017 DX:Essent ial hypertension Mixed hyperlipidemia 11/25/2017 DX:Mixed hy perlipidemia GERD (gastroesophageal reflux disease) Rectocele Family History Medical History Relation Name Comments Coronary artery disease Father Diabetes Mother Relation Name Status Comments Father Mother Social History Tobacco Use Types Packs/Day Years Used Date Smoking Tobacco: Former Smokeless Tobacco: Never Tobacco Cessation:Counseling Given: Not Answered Alcohol Use Standard Drinks/Week Comments No 0 (1 standard drink = 0.6 oz pur e alcohol) Interpersonal Safety Answer Date Record ed Physical Abuse 03/27/2024 Verbal Abuse 03/27/2024 Comments No Sex and Gender Information Value Date Recorded Sex Assigned at Female 03/27/2024 8:33 AM EST Legal Sex Female 2:37 AM EST Gender Identity Female 03/27/2024 8:33 AM EST Sexual Orientation Straight 03/27/2024 8: 33 AM EST Obstetrics History Last Filed Vital Signs Vital Sign Reading Time Taken Comments Blood Pressure 144/80 08/11/2024 1:49 PM EDT Pulse 72 08/11/2024 1:49 PM EDT Temperature 36.6 ??C (97.8 ??F) 08/03/2024 8:32 AM ED T Respiratory Rate 16 04/12/2024 8:38 AM EST Oxygen Saturation 99% 04/10/2024 4:00 PM EST Inhaled Oxygen Concentration - - Weight 95.9 kg (211 lb 6.4 oz) 08/11/2024 1:49 P M EDT Height 170.2 cm (5' 7 ) 08/11/2024 1:49 PM EDT Body Mass Index 33.11 08/11/2024 1:49 PM EDT Plan of Treatment Upcoming Encounters Date Type Department Care Team (Late st Contact Info) Description 02/13/2025 8:45 AM EDT Office Visit Bariatric Surgery - [place] [address] [place] [address] Melyssa Zuniga MD [address] [facility] [address] [place] [address] Health Maintenance Due Date Last Done Comments Breast Cancer Screening 1960 Diabetes: Annual Foot Exam 1972 Diabetes: Annual Retina Eye Exam 1972 Cervical Cancer Screening: Pap Smear 11/20/1983 Cholesterol Screening (Lipid Panel) 03/29/2022 Colorectal Cancer Screening: Colonoscopy 03/29/2022 Depression Screening 03/29/2022 HIV Screening 03/29/2022 Hepatitis C Screening 03/29/2022 Social Influencers of Health Screening 03/29/2022 Diabetes: Annual Urine Albumin-Creatinine Ratio (uACR) 04/11/2022 Diabetes: Blood Sugar Control Test (HGBA1C) 09/25/2024 03/27/2024 Influenza Vaccine (Season Ended) 2024 Diabetes: Annual GFR (Glomerular Filtration Rate) 03/27/2025 03/27/2024, 06/08/2018 Hypertension/CHF/CAD Annual BMP Blood Test 03/27/2025 03/27/2024, 06/08/2018 DTaP,Tdap,and Td Vaccines (2 - Td or Tdap) 08/22/2031 08/21/2021 RSV Immunization Adult Patients (1 - 1-dose 75+ series) 2037 Pneumococcal Vaccine: 50+ Years Completed 08/25/2021, 08/21/2021 Pneumococcal Vaccine: Pediatrics (0 to 5 Years) and At-Risk Patients (6 to 64 Years) Completed 08/25/2021, 08/21/2021 Zoster Vaccines Completed 08/04/2022, 11/21/2021 COVID-19 Vaccine Completed 01/19/2024, 12/2022, 02/17/2022, Additional history exists HIB Vaccines Aged Out No longer eligi ble based on patient's age to complete this topic HPV Vaccines Aged Out No longer eligi ble based on patient's age to complete this topic Hepatitis A Vaccines Aged Out No long er eligible based on patient's age to complete this topic Hepatitis B Vaccines Aged Out No long er eligible based on patient's age to complete this topic IPV Vaccines Aged Out No longer eligi ble based on patient's age to complete this topic MMR Vaccines Aged Out No longer eligi ble based on patient's age to complete this topic Meningococcal ACWY Vaccine Aged Out N o longer eligible based on patient's age to complete this topic Meningococcal B Vaccine Aged Out No l onger eligible based on patient's age to complete this topic RSV Immunization Patients Under 20 months Aged Out No longer eligible based on patient's age to complete this topic Varicella Vaccines Aged Out No longer eligible based on patient's age to complete this topic Procedures Procedure Name Priority Date/Time Associated Diagnosis Comments VITAMIN D 25 HYDROXY Routine 08/04/2024 1:45 PM EDT Postgastrectomy malabsorption VITAMIN B12 Routine 08/04/2024 1:45 PM EDT Postgastrectomy malabsorption BASIC METABOLIC PANEL STAT 03/27/2024 8:50 AM EST HEMOGLOBIN A1C STAT 03/27/2024 8:50 AM EST from Last 3 Months or Most Recently Relevant to Health Maintenance Results * Vitamin D 25 hydroxy (08/04/2024 1:45 PM EDT) Vit D, 25-Hydroxy 33.1 30.0 - 80.0 ng/mL LAB CHEMISTRY METHOD 08/04/2024 4:54 PM EDT [facility] Blood Venous blood specimen / Unknown Venipuncture / Unknown 08/04/2024 1:45 PM EDT 08/04/2024 3:16 PM EDT us Melyssa Zuniga MD LAB BLOOD ORDERABLES Final R esult [facility] [address] [place] [address], [place] [phone] * (ABNORMAL) Vitamin B12 (08/04/2024 1:45 PM EDT) [facility] Vitamin B-12 1,152(H) 250 - 900 pcg/mL LAB CHEMISTRY METHOD 08/04/2024 4:22 PM EDT [facility] Blood Venous blood specimen / Unknown Venipuncture / Unknown 08/04/2024 1:45 PM EDT 08/04/2024 3:16 PM EDT us Melyssa Zuniga MD LAB BLOOD ORDERABLES Final R esult Performing Organization Address [facility]/ZIP Co de Phone Number [facility] [address] [place] [address], [place] [phone] * (ABNORMAL) Hemoglobin A1c (03/27/2024 8:50 AM EST) [facility] Hemoglobin A1C 7.2(H) <6.5 % LAB CHEMISTRY METHOD 03/27/2024 11:00 AM EST [facility] Mean Bld Glu Estim. 160 mg/dL LAB CHEMISTRY METHOD 03/27/2024 11:00 AM EST [facility] Blood Venous blood specimen / Unknown Venipuncture / Unknown 03/27/2024 8:50 AM EST 03/27/2024 9:07 AM EST us Lisa Holly MD LAB BLOOD ORDERABLES Final Resu lt Performing Organization Address City/[facility]/ZIP Co de Phone Number [facility] [address] [place] [address], [place] [phone] * (ABNORMAL) Basic metabolic panel (03/27/2024 8:50 AM EST) Sodium 139 133 - 145 mmol/L LAB CHEMISTRY METHOD 03/27/2024 9:45 AM [facility] Potassium 4.5 3.5 - 5.5 mmol/L LAB CHEMISTRY METHOD 03/27/2024 9:45 AM [facility] Chloride 105 96 - 110 mmol/L LAB CHEMISTRY METHOD 03/27/2024 9:45 AM [facility] CO2 31 21 - 32 mmol/L LAB CHEMISTRY METHOD 03/27/2024 9:45 AM [facility] Anion Gap 3 3 - 11 LAB CHEMISTRY METHOD 03/27/2024 9:45 AM [facility] Glucose 202(H) 70 - 100 mg/dL LAB CHEMISTRY METHOD 03/27/2024 9:45 AM [facility] BUN 13 5 - 25 mg/dL LAB CHEMISTRY METHOD 03/27/2024 9:45 AM [facility] Creatinine 0.76 0.50 - 1.10 mg/dL LAB CHEMISTRY METHOD 03/27/2024 9:45 AM [facility] eGFR 89 >=60 mL/min/1. 73m2 LAB CHEMISTRY METHOD 03/27/2024 9:45 AM [facility] Comment:Calculation based on the??Chronic Kidney Disease Epidemiology Collaboration (CKD-EPI) equation refit??without adjustment for race. BUN/Creatinine Ratio 17.1 LAB CHEMISTRY METHOD 03/27/2024 9:45 AM [facility] Calcium 9.4 8.5 - 10.5 mg/dL LAB CHEMISTRY METHOD 03/27/2024 9:45 AM [facility] Blood Venous blood specimen / Unknown Venipuncture / Unknown 03/27/2024 8:50 AM EST 03/27/2024 9:07 AM EST us Lisa Holly MD LAB BLOOD ORDERABLES Final Resu lt [facility] [address] [place] [address], from Last 3 Months or Most Recently Relevant to Health Maintenance Insurance MEDICAID - [place] Advance Directives * Full Code - Default (Latest Code Status on File) Date Activated Date Inactivated Comments 03/27/2024 8:45 AM 03/27/2024 6:30 PM This is orde r is used when code status has not been discussed with the patient, or code status is otherwise unknown/unconfirmed To update the patient's code status, place a code status order. Do not modify or discontinue any currently active code status orders. Care Teams Wire Weaver Helper Relationship Specialty Start Date End Date Michelle Sidhu MD [address] [facility] [address] [place], [place] PCP - General Internal Medicine 04/05/14
[2024-10-05 12:12] VITALS: BMI 31.1
[2024-10-05 15:25] VITALS: BMI 30.7
--- NOTE | 2024-10-06 12:29 | P.CONAN_ITS ---
Documented by User: Arlette Alvarez NP 10/06/24 12:31 HPI - Anesthesia Eval Consult details Narrative: 63yo F for Colonoscopy s/p same 06/2024 with MAC Anesthesia Pre-Procedure Meds Is the patient on any of the following meds?: GLP1/DPP4 PMFSH Active Problems Active Problems: All Active Problems Personal history of tobacco use (Acute) Environmental allergies (Acute) Pre-op examination (Acute) Menopause syndrome (Acute) Diarrhea (Acute) Peroneal tendonitis of left lower leg (Acute) Plantar fasciitis, left (Acute) Achilles tendinitis, left leg (Acute) Abdominal bloating (Acute) Tubular adenoma of colon (Acute) Gastroparesis (Acute) Chronic idiopathic constipation (Acute) Rectocele (Acute) Microscopic hematuria (Acute) Small bowel motility disorder (Acute) GERD (gastroesophageal reflux disease) (Acute) Hemorrhoids (Acute) Obesity (Acute) Plantar fasciitis (Acute) Asthma (Acute) DM2 (diabetes mellitus, type 2) (Acute) Essential hypertension (Acute) Hyperlipidemia LDL goal <100 (Acute) Past Medical History Medical History IBS (irritable bowel syndrome) GERD (gastroesophageal reflux disease) DM2 (diabetes mellitus, type 2) Cataracts, bilateral Essential hypertension Hyperlipidemia LDL goal <100 Allergic rhinitis Carpal tunnel syndrome Asthma Fibromyalgia Depression with anxiety High cholesterol HTN (hypertension), benign Family History Family History Father Myocardial infarction Hypertension Diabetes Mother Dementia HTN (hypertension), benign High cholesterol Diabetes Maternal Aunt Breast cancer Family history of problems with anesthesia: No Surgical History Surgical History Hx of colonoscopy (06/27/24) Hx of hand surgery History of colonoscopy H/O esophagogastroduodenoscopy History of Cynthia fundoplication Hx of cataract surgery History of ear surgery History of carpal tunnel release H/O gastric bypass H/O hemorrhoidectomy S/P appendectomy H/O hysterectomy for benign disease History of Problems with Anesthesia: No Social History Social History Household Members: Spouse Are you a primary rn transitional care to a significant other at home: No Do you presently have visiting nurse or other home services: Yes ([employer] daily 2-3 hours) Alcohol intake: former Patient Tobacco Use Status: Former Tobacco user Tobacco use type: Cigarette Years Smoked: quit 15-20 years ago Use of substances other than those prescribed or required for medical reasons: No Have you been hit, kicked, punched, or otherwise hurt by someone within the past year? 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 Allergies Allergy/AdvReac Type Severity Reaction Status Date / Time latex [LATEX] Allergy Intermediate RASH Verified 10/09/24 08:58 lisinopril [LISINOPRIL] Allergy Intermediate HALLUCINATIONS, Verified 10/09/24 08:58 cough CLOVER Inhibitors Allergy Unknown UNKNOWN Verified 10/09/24 08:58 [CLOVER INHIBITORS] canagliflozin [Invokana] Allergy Unknown unknown Verified 10/09/24 08:58 liraglutide [From VICTOZA] Allergy Unknown UNKNOWN, Verified 10/09/24 08:58 abdominal pain, nausea penicillin V Allergy Unknown angioedema Verified 10/09/24 08:58 Penicillins [PENICILLINS] Allergy Unknown SYNCOPE Verified 10/09/24 08:58 pioglitazone [From ACTOS] Allergy Unknown UNKNOW, Verified 10/09/24 08:58 body puffiness sertraline Allergy Unknown unknown Verified 10/09/24 08:58 shellfish derived Allergy Unknown Rash and Verified 10/09/24 08:58 [SHELLFISH DERIVED] swelling Sulfa (Sulfonamide Allergy Unknown RASH Verified 10/09/24 08:58 Antibiotics) [SULFA (SULFONAMIDE ANTIBIOTICS)] black pepper Allergy cough, Verified 10/09/24 08:58 choking mushrooms Allergy Intermediate Diarrhea, Uncoded 10/09/24 08:58 swollen stomach,rash Onglyza Allergy Unknown unknown Uncoded 10/09/24 08:58 Welsh vanilla creamer AdvReac Diarhea, Uncoded 10/09/24 08:58 nausea, stomach pain Home Medications ?Medication ?Instructions ?Recorded ?Confirmed ?Last Taken ?Type cinnamon bark 500 mg capsule 1,000 mg PO DAILY 02/01/20 10/05/24 Unknown History (Cinnamon) clonazepam 1 mg tablet 1 mg PO TID PRN Anxiety 04/08/21 10/05/24 Unknown History albuterol sulfate 90 mcg/actuation 2 puff inhalation Q4H PRN wheezing 10/07/21 10/05/24 10/12/22 09:00 History aerosol inhaler (ProAir HFA) meclizine 25 mg tablet 25 mg PO TID PRN Vertigo 10/07/21 10/05/24 Unknown History pravastatin 40 mg tablet 40 mg PO BEDTIME 10/07/21 10/05/24 Unknown History ketotifen fumarate 0.025 % (0.035 2 drp ophthalmic (eye) BID 04/07/22 06/23/24 Unknown History %) eye drops (Alaway) metoprolol succinate 100 mg 100 mg PO DAILY 10/01/22 10/09/24 10/09/24 History tablet,extended release 24 hr semaglutide 0.25 mg or 0.5 mg (2 0.25 mg subcut QWEEK 06/23/24 10/05/24 09/27/24 History mg/3 mL) subcutaneous pen injector (Ozempic) albuterol sulfate 2.5 mg/3 mL mg continuous nebulization BID 10/03/24 Unknown History (0.083 %) solution for nebulization hydrochlorothiazide 25 mg tablet 12.5 mg PO QAM PRN Edema 10/03/24 10/05/24 Unknown History montelukast 10 mg tablet 10 mg PO DAILY 10/03/24 Unknown History telmisartan 40 mg tablet 40 mg PO DAILY 10/03/24 10/05/24 Unknown History cetirizine 10 mg capsule (Zyrtec) 10 mg PO DAILY PRN Allergy Symptoms 10/05/24 10/05/24 Unknown History fluticasone 250 mcg-salmeterol 50 1 inh inhalation BID 10/05/24 10/05/24 Unknown History mcg/dose blistr powdr for inhalation (Advair Diskus) simethicone 180 mg capsule 180 mg PO QID PRN Abdominal 10/05/24 10/05/24 Unknown History Discomfort Exam Height,Weight and Vital Signs: Height 5 ft 8 in Weight 91.626 kg Assessment and Plan Assessment Anesthesia Assessment: Chart Reviewed Final Anesthetic Review Family History of Problems with Anesthesia: No History of Problems with Anesthesia: No Documented by User: Kvng Sabillon MD 10/10/24 10:03 [facility] Past Medical History Medical History IBS (irritable bowel syndrome) GERD (gastroesophageal reflux disease) DM2 (diabetes mellitus, type 2) Cataracts, bilateral Essential hypertension Hyperlipidemia LDL goal <100 Allergic rhinitis Carpal tunnel syndrome Asthma Fibromyalgia Depression with anxiety High cholesterol HTN (hypertension), benign Family History Family History Father Myocardial infarction Hypertension Diabetes Mother Dementia HTN (hypertension), benign High cholesterol Diabetes Maternal Aunt Breast cancer Surgical History Surgical History Hx of colonoscopy (06/27/24) Hx of hand surgery History of colonoscopy H/O esophagogastroduodenoscopy History of Cynthia fundoplication Hx of cataract surgery History of ear surgery History of carpal tunnel release H/O gastric bypass H/O hemorrhoidectomy S/P appendectomy H/O hysterectomy for benign disease Social History Social History Household Members: Spouse Are you a primary rn transitional care to a significant other at home: No Do you presently have visiting nurse or other home services: Yes ([employer] daily 2-3 hours) Alcohol intake: former Patient Tobacco Use Status: Former Tobacco user Tobacco use type: Cigarette Years Smoked: quit 15-20 years ago Use of substances other than those prescribed or required for medical reasons: No Have you been hit, kicked, punched, or otherwise hurt by someone within the past year? 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 Allergies Allergy/AdvReac Type Severity Reaction Status Date / Time latex [LATEX] Allergy Intermediate RASH Verified 10/09/24 08:58 lisinopril [LISINOPRIL] Allergy Intermediate HALLUCINATIONS, Verified 10/09/24 08:58 cough CLOVER Inhibitors Allergy Unknown UNKNOWN Verified 10/09/24 08:58 [CLOVER INHIBITORS] canagliflozin [Invokana] Allergy Unknown unknown Verified 10/09/24 08:58 liraglutide [From VICTOZA] Allergy Unknown UNKNOWN, Verified 10/09/24 08:58 abdominal pain, nausea penicillin V Allergy Unknown angioedema Verified 10/09/24 08:58 Penicillins [PENICILLINS] Allergy Unknown SYNCOPE Verified 10/09/24 08:58 pioglitazone [From ACTOS] Allergy Unknown UNKNOW, Verified 10/09/24 08:58 body puffiness sertraline Allergy Unknown unknown Verified 10/09/24 08:58 shellfish derived Allergy Unknown Rash and Verified 10/09/24 08:58 [SHELLFISH DERIVED] swelling Sulfa (Sulfonamide Allergy Unknown RASH Verified 10/09/24 08:58 Antibiotics) [SULFA (SULFONAMIDE ANTIBIOTICS)] black pepper Allergy cough, Verified 10/09/24 08:58 choking mushrooms Allergy Intermediate Diarrhea, Uncoded 10/09/24 08:58 swollen stomach,rash Onglyza Allergy Unknown unknown Uncoded 10/09/24 08:58 Welsh vanilla creamer AdvReac Diarhea, Uncoded 10/09/24 08:58 nausea, stomach pain Home Medications ?Medication ?Instructions ?Recorded ?Confirmed ?Last Taken ?Type cinnamon bark 500 mg capsule 1,000 mg PO DAILY 02/01/20 10/05/24 Unknown History (Cinnamon) clonazepam 1 mg tablet 1 mg PO TID PRN Anxiety 04/08/21 10/05/24 Unknown History albuterol sulfate 90 mcg/actuation 2 puff inhalation Q4H PRN wheezing 10/07/21 10/05/24 10/12/22 09:00 History aerosol inhaler (ProAir HFA) meclizine 25 mg tablet 25 mg PO TID PRN Vertigo 10/07/21 10/05/24 Unknown History pravastatin 40 mg tablet 40 mg PO BEDTIME 10/07/21 10/05/24 Unknown History ketotifen fumarate 0.025 % (0.035 2 drp ophthalmic (eye) BID 04/07/22 06/23/24 Unknown History %) eye drops (Alaway) metoprolol succinate 100 mg 100 mg PO DAILY 10/01/22 10/09/24 10/09/24 History tablet,extended release 24 hr semaglutide 0.25 mg or 0.5 mg (2 0.25 mg subcut QWEEK 06/23/24 10/05/24 09/27/24 History mg/3 mL) subcutaneous pen injector (Ozempic) albuterol sulfate 2.5 mg/3 mL mg continuous nebulization BID 10/03/24 Unknown History (0.083 %) solution for nebulization hydrochlorothiazide 25 mg tablet 12.5 mg PO QAM PRN Edema 10/03/24 10/05/24 Unknown History montelukast 10 mg tablet 10 mg PO DAILY 10/03/24 Unknown History telmisartan 40 mg tablet 40 mg PO DAILY 10/03/24 10/05/24 Unknown History cetirizine 10 mg capsule (Zyrtec) 10 mg PO DAILY PRN Allergy Symptoms 10/05/24 10/05/24 Unknown History fluticasone 250 mcg-salmeterol 50 1 inh inhalation BID 10/05/24 10/05/24 Unknown History mcg/dose blistr powdr for inhalation (Advair Diskus) simethicone 180 mg capsule 180 mg PO QID PRN Abdominal 10/05/24 10/05/24 Unknown History Discomfort Exam Airway Mallampati Class: II TM Dist: >3cm Neck ROM: Full Loose/Missing/Broken Teeth: No Heart: RRR Lungs: CTA Assessment and Plan Final Anesthetic Review ASA Class: III Patient Risk: Low Procedure Risk: Low Anesthetic Plan Anesthetic Plan: GA Disposition: Standard PACU
[2024-10-09 09:14] VITALS: BP 130/66; PULSE 58; RESP 14; TEMP 36.6; O2SAT 98
--- NOTE | 2024-10-09 09:18 | P.HPSUR_ITS ---
Pre-Procedural Eval Section A - 24 Hr Update-Section A only Date of Service: 10/09/24 The patient is an INPATIENT: No The patient has been examined within 24 hours of the surgical procedure. The History & Physical has been completed within 30 days and I have reviewed it.: No Section B - Complete if H&P > 30 days Chief Complaint: Surveillance for colon polyps Relevant Family History (Specify if Yes): No Relevant Social History: Tobacco Use (Former smoker) Present Medications: see Short Stay Collaborative assessment Medical History: Significant History (Allergic rhinitis Asthma Carpal tunnel syndrome Cataracts, bilateral Depression with anxiety DM2 (diabetes mellitus, type 2) Essential hypertension Fibromyalgia GERD (gastroesophageal reflux disease) High cholesterol HTN (hypertension), benign Hyperlipidemia LDL goal <100 IBS (irritable bowel syndro) History of Previous Operations: Relevant previous surgery/procedure and date(s) (Hx of hand surgery History of colonoscopy H/O esophagogastroduodenoscopy History of Cynthia fundoplication Hx of cataract surgery History of ear surgery History of carpal tunnel release H/O gastric bypass H/O hemorrhoidectomy S/P appendectomy H/O hysterectomy for benign disease) Allergies: Allergies Allergy/AdvReac Type Severity Reaction Status Date / Time latex [LATEX] Allergy Intermediate RASH Verified 10/09/24 08:58 lisinopril [LISINOPRIL] Allergy Intermediate HALLUCINATIONS, Verified 10/09/24 08:58 cough CLOVER Inhibitors Allergy Unknown UNKNOWN Verified 10/09/24 08:58 [CLOVER INHIBITORS] canagliflozin [Invokana] Allergy Unknown unknown Verified 10/09/24 08:58 liraglutide [From VICTOZA] Allergy Unknown UNKNOWN, Verified 10/09/24 08:58 abdominal pain, nausea penicillin V Allergy Unknown angioedema Verified 10/09/24 08:58 Penicillins [PENICILLINS] Allergy Unknown SYNCOPE Verified 10/09/24 08:58 pioglitazone [From ACTOS] Allergy Unknown UNKNOW, Verified 10/09/24 08:58 body puffiness sertraline Allergy Unknown unknown Verified 10/09/24 08:58 shellfish derived Allergy Unknown Rash and Verified 10/09/24 08:58 [SHELLFISH DERIVED] swelling Sulfa (Sulfonamide Allergy Unknown RASH Verified 10/09/24 08:58 Antibiotics) [SULFA (SULFONAMIDE ANTIBIOTICS)] black pepper Allergy cough, Verified 10/09/24 08:58 choking mushrooms Allergy Intermediate Diarrhea, Uncoded 10/09/24 08:58 swollen stomach,rash Onglyza Allergy Unknown unknown Uncoded 10/09/24 08:58 [place] vanilla creamer AdvReac Diarhea, Uncoded 10/09/24 08:58 nausea, stomach pain Review of Systems Sugical H&P ROS: Negative: Constitution, Cardiovascular, Respiratory and Gastrointestinal Exam Surgical H&P Exam: Normal: Heart, Normal: Lungs, Normal: Extremities and Normal: Abdomen Plan Diagnosis/Plan: Change (proceed with colonoscopy) I have reviewed the history and physical and performed a pertinent physical examination on my patient. No changes have occurred unless specified. Time Spent With Patient Time: Total time managing care of this patient today ____ minutes.
[2024-10-09] MEDS: Lactated Ringers 1,000 ML 100 ML IVCONT (09:19)
[2024-10-09 09:44] LABS: Glucose, Whole Blood 150 mg/dL (60-115)
[2024-10-09 11:26] VITALS: BP 101/53; PULSE 60; RESP 18; TEMP 36.6; O2SAT 98
--- NOTE | 2024-10-09 11:26 | P.OPN-COLO_ITS ---
Colonoscopy Operative Note Operative Note Date of Service: 10/09/24 Narrative: COLONOSCOPY TILL CECUM WITH BIOPSIES AND SNARE POLYPECTOMY Pre-op diagnosis: Surveillance for colon polyps. Post-op diagnosis:? colon polyps Endoscopist:? Robert Larsen MD Anesthesia:?MAC Consent: Indications for the procedure and potential complications of bleeding, perforation, reaction to medications and missed diagnosis were discussed with the patient and informed consent was obtained. Instrument: Olympus PCF H 190 L variable stiffness pediatric colonoscope Monitoring: Vital signs and clinical assessment, intermittent blood pressure monitoring, continuous EKG monitoring, Pulse oximetry and Carbon Dioxide monitoring were done throughout the procedure. Please see anesthesia flowsheet. Colon withdrawl time was 25 minutes. Procedure: The patient was placed in the left lateral decubitis position and pre-procedure medications were administered. After a digital rectal examination of the ano-rectum, the video colonoscope was inserted into the rectum and advanced through the colon to the cecum. The colonoscope was slowly withdrawn in a retrograde panoramic fashion and the colon mucosa was carefully examined including a retroflexed view of the rectum. Findings and interventions are described below. Procedure Difficulty: Pt was placed in the supine position and LLQ pressure was applied to intubate the ascending colon Findings: Terminal Ileum: Not evaluated Cecum: Normal Ascending Colon: Normal Transverse Colon: A 6-7 mm sessile polyp removed with a cold snare and residual polyp was removed with a cold biopsy. Descending Colon: Normal Sigmoid Colon: A few 3-4 mm diminutive appearing polyps in the rectosigmoid - 1 removed with a cold biopsy. Rectum: A 7-8 mm sessile polyp adjacent to the snal verge (seen on retroflexed exam) - removed with a hot snare and polyp was not retrieved Ano-rectum: Normal Colon preparation: Good after copious irrigation. [place] Bowel Preparation Scale Right colon; 2 Transverse colon: 2 Left colon; 2 (0 = Unprepared colon segment with mucosa not seen due to solid stool that cannot be cleared. 1 = Portion of mucosa of the colon segment seen, but other areas of the colon segment not well seen due to staining, residual stool and/or opaque liquid. 2 = Minor amount of residual staining, small fragments of stool and/or opaque liquid, but mucosa of colon segment seen well. 3 = Entire mucosa of colon segment seen well with no residual staining, small fragments of stool or opaque liquid) Impression and Post Procedure Diagnosis: Colonoscopy Findings: Three small polyps were removed - 1 polyp was not retrieved. Plan: Pt has a FU appointment on 10/17/24 with Isabel Shabazz NP, Repeat Colonoscopy in 3-5 years if polyps are adenomatous and 10 year if polyps are hyperplastic. Above findings were reviewed with the patient and relevant handouts were given and the discharge area.
[2024-10-09 11:41] VITALS: BP 116/61; PULSE 56; RESP 16; O2SAT 98
[2024-10-09 11:56] VITALS: BP 119/68; PULSE 56; RESP 16; TEMP 36.4; O2SAT 98
== END 2024-10-09 12:25 | disposition home or self-care (01) ==
PROVIDERS: PCP Internal Medicine; Visit Provider Internal Medicine Gastroenterology
PROC: 0DJD8ZZ Inspection of Lower Intestinal Tract, Via Natural or Artificial Opening Endoscopic (ICD-10-PCS; CPT 45378; principal; 2024-10-09 10:20)
DX: Z12.11 Encounter for screening for malignant neoplasm of colon (principal); Z86.0101 Personal history of adenomatous and serrated colon polyps; K63.5 Polyp of colon; K57.30 Diverticulosis of large intestine without perforation or abscess without bleeding; K64.8 Other hemorrhoids; K59.04 Chronic idiopathic constipation; K58.9 Irritable bowel syndrome, unspecified; K21.9 Gastro-esophageal reflux disease without esophagitis; I10 Essential (primary) hypertension; E78.00 Pure hypercholesterolemia, unspecified; E11.9 Type 2 diabetes mellitus without complications; J45.909 Unspecified asthma, uncomplicated; M79.7 Fibromyalgia; F41.8 Other specified anxiety disorders; Z79.51 Long term (current) use of inhaled steroids; Z79.85 Long-term (current) use of injectable non-insulin antidiabetic drugs; Z79.899 Other long term (current) drug therapy; Z88.0 Allergy status to penicillin; Z88.2 Allergy status to sulfonamides; Z88.8 Allergy status to other drugs, medicaments and biological substances; Z91.040 Latex allergy status; Z98.890 Other specified postprocedural states; Z98.84 Bariatric surgery status; Z87.891 Personal history of nicotine dependence
CPT/HCPCS: 45385; 45380; 82947; 88305; J2003; J2250; J2704; J3010

== ENCOUNTER → 2024-10-09 07:52 | Outpatient (BNV) | payer MEDICAID, SELFPAY | PROVIDERS: PCP Internal Medicine; Visit Provider Internal Medicine Gastroenterology | DX: Z12.11 Encounter for screening for malignant neoplasm of colon (principal); D12.3 Benign neoplasm of transverse colon; D12.8 Benign neoplasm of rectum; D12.7 Benign neoplasm of rectosigmoid junction | CPT/HCPCS: 45380; 45385 ==

== ENCOUNTER 2024-10-16 07:24 | Outpatient (REF) | payer MEDICAID, SELFPAY ==
--- NOTE | ~2024-10-16 | MM_ITS ---
EXAMINATION: MM SCREENING DIGITAL BREAST TOMOSYNTHESIS, BILATERAL CLINICAL INFORMATION: Screening. Asymptomatic. COMPARISON: Mammography: Comparison is made with available priors TECHNIQUE: Digital breast mammography with tomosynthesis is performed in both the craniocaudal and mediolateral oblique views along with computer-aided detection (CAD). FINDINGS: There are scattered areas of fibroglandular density (ACR BI-RADS breast composition Category b). There are no significant masses, abnormal calcifications, or other abnormalities. MM/MM tomosynthesis screening BI IMPRESSION: No mammographic evidence of malignancy. ASSESSMENT: BI-RADS BI-RADS 1 - Negative RECOMMENDATION: Routine annual mammography screening. 1 year F/U This examination should not preclude the clinical evaluation of a suspicious palpable abnormality. This patient's information was entered into a reminder system with a target due date for their next mammogram. Electronically signed by: Cecile Mccauley DO 10/20/2024 08:45 AM EDT
--- OUTSIDE RECORDS SUMMARY | 2024-10-16 07:27 | XMS_ITS | Clinical Summary ---
Author Organization [facility] Address [address] [place] [address] Phone Care Team Providers Care Inspector Water Pollution Control Name Role Phone Michelle Sidhu MD Primary Care Provider [phone] Allergies Active Allergy Reactions Criticality Noted Date [...] 1 (one) time each day if needed. 4 Active linaCLOtide (LINZESS) 290 mcg capsule Take [...] 1 (one) time each day. 30 each 4 025 Active ergocalciferol (VITAMIN D-2) 1,250 mcg (50,000 unit) capsuleIndication s:Postgastrectomy malabsorption Take 1 capsule (50,000 Units total) by mouth 1 (one) time per week. 4 each 4 025 Active cyanocobalamin (VITAMIN B-12) 1,000 mcg tabletIndications :Postgastrectomy malabsorption Take 1 tablet (1,000 mcg total) by mouth 1 (one) time each day. 30 each 4 025 Active ferrous gluconate (FERGON) 324 mg (38 mg iron) tabletIndications :Postgastrectomy malabsorption Take 1 tablet (324 mg total) by mouth 1 (one) time each day. 30 each 4 025 Active metoprolol succinate (TOPROL-XL) 100 mg [...] a day if needed (pain). 90 each 4 025 Active Additional Information Patient not taking.Reported on 08/11/2024 pregabalin (Lyrica) 50 mg capsule Take 1 capsule (50 mg total) by mouth 3 (three) times a day for 14 days. 42 each 4 Active semaglutide (OZEMPIC SUBQ) Inject under the skin. Active oxyCODONE (ROXICODONE) 5 mg immediate release tabletIndications :acute postoperative pain Take 1 tablet (5 mg total) by mouth every 6 (six) hours if needed (breakthrough pain). Max Daily Amount: 20 mg 10 tablet 4 Active Additional Information Patient not taking.Reported on 08/11/2024 docusate sodium (COLACE) 100 mg capsule TAKE 1 CAPSULE BY MOUTH TWICE A DAY FOR 2 WEEKS 28 capsule 5 Active nystatin (MYCOSTATIN) cream Apply 1 Application topically 1 (one) time each day. 30 g 3 5 Active multivitamin (Daily-Feli, with folic acid,) tablet TAKE 2 TABLETS BY MOUTH EVERY DAY 180 tablet 1 5 Active Active Problems Problem Noted Date Diagnosed Date Class 1 obesity due to exces s calories with serious comorbidity and body mass index (BMI) of 32.0 to 32.9 in adult 02/01/2024 Symptomatic abdominal panniculus 08/26/2020 Vitamin D deficiency 12/14/2018 Essential hypertension 11/25/2017 Intestinal malabsorption following gastrectomy 0 11/25/2017 Mixed hyperlipidemia 11/25/2017 Type 2 diabetes mellitus wit hout complication, without long-term current use of insulin ([facility] V24, [facility] V28) 11/25/2017 Encounters Date Type Department Care Team Description 08/11/2024 1:30 PM EDT Consult Plastic & Reconstructive Surgery - [place] [address] [facility] [address] [place] [phone] Adan Maria PA Symptomatic abdominal panniculus 08/03/2024 8:15 AM EDT Office Visit Bariatric Surgery - [place] [address] [facility] [address] [place] [phone] Melyssa Zuniga MD Class 1 obesity due to excess calories with serious comorbidity and body mass index (BMI) of 32.0 to 32.9 in adult (Primary Dx); Symptomatic abdominal panniculus; Postgastrectomy malabsorption from Last 3 Months Surgical History Surgery Date Site/Laterality Comments OTHER SURGICAL HISTORY 04/05/2014 PROCEDURE: WI LAPS GSTR RSTCV PX W/BYP INÉS-EN-Y LIMB <150 CM HYSTERECTOMY PROCEDURE: HISTORICAL HYSTERECTOMY HAND SURGERY PROCEDURE: HISTORICAL HAND SURGERY HEMORRHOID SURGERY PROCEDURE: WI INCISION THROMBOSED HEMORRHOID EXTERNAL APPENDECTOMY PROCEDURE: HISTORICAL APPENDECTOMY Medical History Medical History Date Comments 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 Type 2 diabetes mellitus wit hout complication, without long-term current use of insulin ([facility] V24, [facility] V28) 11/25/2017 DX:Type 2 diabetes mellitus without complication, without long-term current use of insulin ([facility]) Essential hypertension 11/25/2017 DX:Essent ial hypertension Mixed [...] 72 08/11/2024 1:49 PM EDT Temperature 36.6 C (97.8 F) 08/03/2024 8:32 AM EDT Respiratory Rate 16 04/12/2024 8:38 AM EST [...] 8:45 AM EDT Office Visit Bariatric Surgery [address] [place] [phone] Melyssa Zuniga MD [address] [facility] [address] [place] [address] Health Maintenance Due Date Last Done Comments [...] D 25 hydroxy (08/04/2024 1:45 PM EDT) [facility] Vit D, 25-Hydroxy 33.1 30.0 - 80.0 ng/mL LAB CHEMISTRY METHOD 08/04/2024 4:54 PM EDT [facility] Blood Venous blood specimen / Unknown Venipuncture / Unknown 08/04/2024 1:45 PM EDT 08/04/2024 3:16 PM EDT us Melyssa Zuniga MD LAB BLOOD ORDERABLES Final R esult [facility] [address] [place] [address], [place] [phone] * (ABNORMAL) Vitamin B12 (08/04/2024 1:45 PM EDT) Vitamin B-12 1,152(H) 250 - 900 pcg/mL LAB CHEMISTRY METHOD 08/04/2024 4:22 PM EDT [facility] Blood Venous blood specimen / Unknown Venipuncture / Unknown 08/04/2024 1:45 PM EDT 08/04/2024 3:16 PM EDT us Melyssa Zuniga MD LAB BLOOD ORDERABLES Final R esult Performing Organization Address [facility]/ZIP Co de Phone Number [facility] [address] [place] [address], [place] [phone] * (ABNORMAL) Hemoglobin A1c (03/27/2024 8:50 AM EST) Pathologist [facility] Hemoglobin A1C 7.2(H) <6.5 % LAB CHEMISTRY METHOD 03/27/2024 11:00 AM EST [facility] Mean Bld Glu Estim. 160 mg/dL LAB CHEMISTRY METHOD 03/27/2024 11:00 AM EST [facility] Blood Venous blood specimen / Unknown Venipuncture / Unknown 03/27/2024 8:50 AM EST 03/27/2024 9:07 AM EST us iLsa Holly MD LAB BLOOD ORDERABLES Final Resu lt Performing Organization Address [facility]/ZIP Co de Phone Number [facility] [address] [place] [address], [place] [phone] * (ABNORMAL) Basic metabolic panel (03/27/2024 8:50 AM EST) Pathologist [facility] Sodium 139 133 - 145 mmol/L LAB CHEMISTRY METHOD 03/27/2024 9:45 AM EST [facility] Potassium 4.5 3.5 - 5.5 mmol/L LAB CHEMISTRY METHOD 03/27/2024 9:45 AM EST [facility] Chloride 105 96 - [...] [facility] Comment:Calculation based on the Chronic Kidney Disease Epidemiology Collaboration (CKD-EPI) equation refit without adjustment for race. BUN/Creatinine Ratio 17.1 LAB [...] MD LAB BLOOD ORDERABLES Final Resu lt [facility] [address] [place] [address], from Last 3 Months or Most Recently [...] currently active code status orders. Care Teams Inspector Water Pollution Control Relationship Specialty Start Date End Date Michelle Sidhu MD [address] [facility] [address] [place], [place] PCP - General Internal Medicine 04/05/14
== END 2024-10-16 07:25 | disposition home or self-care (01) ==
LOC: HO.MAMMO 07:24
PROVIDERS: PCP Internal Medicine; Visit Provider Internal Medicine
DX: Z12.31 Encounter for screening mammogram for malignant neoplasm of breast (principal)
CPT/HCPCS: 77063; 77067

== ENCOUNTER → 2024-10-16 07:30 | Outpatient (BNV) | payer MEDICAID, SELFPAY | PROVIDERS: PCP Internal Medicine; Visit Provider Internal Medicine | DX: Z12.31 Encounter for screening mammogram for malignant neoplasm of breast (principal) | CPT/HCPCS: 77063; 77067 ==

== ENCOUNTER 2024-11-03 09:47 | Outpatient (REF) | payer MEDICAID, SELFPAY ==
--- OUTSIDE RECORDS SUMMARY | 2024-11-03 10:08 | XMS_ITS | Data Portability ---
Author Organization ID - [facility], Allergy Address [address] [address] Care Team Providers Care Head Of It Name Role Phone MALI JESUS Primary Care Provider Assessment Encounter Date Assessment Date Assessment LastModified [...] to read at home, which gives a [id number] discussion on what causes migraine and how [...] Address Organization Details Recorded Time Bilateral tinnitus 04691404288 02 Active 2016 Tinnitus, bilateral ; Note: Date Diagnosed : 01/20/2017 3:55 PM (H93.13) Not Available [facility] 4 03:01:14 Abnormal auditory perceptio n 25278352 Active 2016 Other abnormal auditory perceptio ns, bilateral ; Note: Date Diagnosed : 01/20/2017 3:55 PM (H93.293) Not Available [facility] 4 03:01:15 Dizziness and giddiness 258798253 Active 2016 Dizziness and giddiness ; Note: Date Diagnosed : 01/20/2017 3:55 PM (R42) Vertigo NOS; Note: Date Diagnosed : 01/20/2017 4:16 PM (R42) Not Available [facility] 4 03:01:12 Allergic rhinitis 69787916 Active 2016 Other allergic rhinitis; Note: Date Diagnosed : 7 11:47 AM (J30.89) Not Available [facility] 4 03:01:13 Migraine variants 061462728 Active 2024 ORQUIDEA ANDERSON MD [address] [place] [address], [facility] [place], [address] , [facility] - [facility] 5 11:20:57 Problem Notes None recorded. Procedures Surgical History Date Name Laterality Status Provider Name and Address Organization Details Recorded Time 05/26/2024 Air & Speech Audio with Tymps - 25103, 42541 & 91492 completed DYLAN MOBLEY, AUD [address] [facility],[place] [address], [place], [address], [facility] 05/26/2024 10:33:53 Imaging Results None recorded. Procedure Notes None recorded. Medical Equipment None Reported. Allergies Allergen ID Allergen Name Allergen Category Reaction Reaction Severity Criticality Documentation Date Start Date Code Code System Note Provider Name and Address Organization Details Recorded Time 783987 penicilli n V potassium medicatio n other Not available Not available 09/07/202395764 5 RxNorm React ion: unkno wn, unspe cifie d;; Not Available [facility] 4 01:14:39 297722 Substance with sulfonami de structure and antibacte rial mechanism of action (substanc e) medicatio n other Not available Not available 09/07/2023 02944 8003 SNOMED React ion: unkno wn, unspe cifie d;; Not Available [facility] 4 01:14:40 Medications Name Sig Start Date Stop Date Status Note LastModified by Organization Details LastModified Time Qvar 80 mcg/actua tion Metered Aerosol oral inhaler 2016 active Medicati on ID: [id number] D uration Value: 30 Brand Name: Rupal Sen d Method: E-Prescr ibed Sub s [...] mg tablet 05/26 completed Medicati on ID: [id number] D uration Value: 7 Brand Name: mark n Send Method: E-Prescr ibed Sub s Allowed: subs OK Speci al Instruct ion: TAKE 1 TABLET BY MOUTH EVERY 8 HOURS NEEDED M karissa nGeneric Name: mark n Not Available Not Available Not Available [...] mg tablet 2016 active Medicati on ID: 608725 D uration Value: 30 Brand Name: meclizin [...] mg tablet 05/26 completed Medicati on ID: [id number] D uration Value: 30 Brand Name: praramírez britt Send Method: E-Prescr ibed Sub s Allowed: [...] mg tablet 2016 active Medicati on ID: [id number] D uration Value: 30 Brand Name: sandy antoine Send Method: E-Prescr ibed Sub s Allowed: subs OK Speci al Instruct ion: TAKE 1 TABLET BY MOUTH DAILY Me dication GenericN doreen: loratadi ne Not Available Not Available Not Available Vitamin [...] 24 hr 05/26 completed Medicati on ID: [id number] D uration Value: 30 Brand Name: desean major Send Method: E-Prescr ibed Sub s Allowed: [...] Updated DateTime 05/26/2024 172.72 cm 32.2 kg/m2 65759.58 g Yelitza Quezada [place] - [facility] 05/26/2024 10:44:23 Social History None recorded. Functional Status None recorded. Mental Status None recorded. Family History Nothing Reported. Medical History No medical history recorded. Gynecological HistoryNo gynecological history recorded. Obstetrics History GPAL:G 0 P 0 0 0 0 Past Encounters Encounter ID Performer Location Encounter Start Date Encounter Closed Date Diagnosis/Indication Diagnosis SNOMED-CT Code Diagnosis ICD10 Code Diagnosis Note [id number] ORQUIDEA ANDERSON MD [facility] [address] [address] 05/26/2024 10:17:25 05/26/2024 11:24:09 Dizziness and giddiness 528453548 R42 Right Ear:Normal hearing with excellent speech discrimina tion. Left Ear:Normal hearing with excellent speech discrimina tion. Migraine variants 467011 005 G43.809 Health Concerns Section Related Observation LastModified by Organization Detai ls LastModified Time None Recorded Concern Status LastModified by Organization Details LastModified Time None Recorded Advance Directives Directive None Recorded Payers Insurance Date Sequence Insurance Name Policy Number Policy Barger Covered Member ID Barger Member ID Guarantor Name 05/24/2024 1 [place] [facility] Brooklyn Cuellar [id number] Brooklyn Cuellar Notes Date Note Type Note Provider Name and Address Organization Details Recorded Time 05/26/2024 text/html dizzyusing mecli zine about one week at a time per monthhyperacusis at yazidism, bright lights also very sensitivefood triggers of seafood smell, mushrooms, haitian vanilladry mouth PV 03/11/2017 Norma tinnitus - advised masking techniques. migraine associated vertigo - elimination diet ORQUIDEA ANDERSON MD [address] [place] [address],[address], [address], [place] - [facility] 05/26/2024 11:24:12 OBGyn Episode No OBEpisode recorded.
--- OUTSIDE RECORDS SUMMARY | 2024-11-03 10:08 | XMS_ITS | Clinical Summary ---
Author Organization [facility] Address [address] [place] [address] Phone Care Team Providers Care Net Mvc Developer Name Role Phone Michelle Sidhu MD Primary Care Provider [phone] Allergies Active Allergy Reactions Criticality Noted Date [...] complication, without long-term current use of insulin ([facility] V24, [facility] V28) 11/25/2017 Encounters Date Type Department Care Team Description 08/11/2024 1:30 PM EDT Consult Plastic & Reconstructive Surgery - [address] [address] Sherine MariahCORINA Symptomatic abdominal panniculus from Last 3 Months Surgical History Surgery Date Site/Laterality Comments OTHER SURGICAL HISTORY 04/05/2014 PROCEDURE: [place] LAPS GSTR RSTCV PX W/BYP INÉS-EN-Y LIMB <150 CM HYSTERECTOMY PROCEDURE: HISTORICAL HYSTERECTOMY HAND SURGERY PROCEDURE: HISTORICAL HAND SURGERY HEMORRHOID SURGERY PROCEDURE: [place] INCISION THROMBOSED HEMORRHOID EXTERNAL APPENDECTOMY PROCEDURE: HISTORICAL APPENDECTOMY Medical History Medical History Date Comments 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 Type 2 diabetes mellitus wit hout complication, without long-term current use of insulin ([facility] V24, [facility] V28) 11/25/2017 DX:Type 2 diabetes mellitus without complication, without long-term current use of insulin (HCC) Essential hypertension 11/25/2017 DX:Essent ial hypertension Mixed [...] AM EDT Office Visit Bariatric Surgery - [place] [address] [facility] [address] [place] [phone] Melyssa Zuniga MD [address] [facility] [address] [place] [address] Health Maintenance Due Date Last Done Comments [...] Control Test (HGBA1C) 09/25/2024 03/27/2024 Influenza Vaccine (#1) 2024 Diabetes: Annual GFR (Glomerular Filtration Rate) 03/27/2025 03/27/2024, 06/08/2018 Hypertension/CHF/CAD Annual BMP Blood Test 03/27/2025 03/27/2024, 06/08/2018 DTaP,Tdap,and Td Vaccines (2 - Td or Tdap) 08/22/2031 08/21/2021 RSV Immunization Adult Patients (1 - 1-dose 75+ series) 2037 Pneumococcal Vaccine: 50+ Years Completed 08/25/2021, 08/21/2021 Pneumococcal Vaccine: Pediatrics (0 to 5 Years) and At-Risk Patients (6 to 49 Years) Completed 08/25/2021, 08/21/2021 Zoster Vaccines Completed [...] R esult [facility] [address] [place] [address], [place] [phone] * (ABNORMAL) Vitamin B12 (08/04/2024 1:45 PM EDT) Vitamin B-12 1,152(H) 250 - 900 pcg/mL LAB CHEMISTRY METHOD 08/04/2024 4:22 PM EDT [facility] Blood Venous blood specimen / Unknown Venipuncture / Unknown 08/04/2024 1:45 PM EDT 08/04/2024 3:16 PM EDT us Melyssa Zuniga MD LAB BLOOD ORDERABLES Final R esult [facility] [address] [place] [address], [place] [phone] * (ABNORMAL) Hemoglobin A1c (03/27/2024 8:50 AM EST) Pathologist [facility] Hemoglobin A1C 7.2(H) <6.5 % LAB CHEMISTRY METHOD 03/27/2024 11:00 AM EST [facility] Mean Bld Glu Estim. 160 mg/dL LAB CHEMISTRY METHOD 03/27/2024 11:00 AM EST [facility] Blood Venous blood specimen / Unknown Venipuncture / Unknown 03/27/2024 8:50 AM EST 03/27/2024 9:07 AM EST Lisa Holly MD LAB BLOOD ORDERABLES Final Resu lt Performing Organization Address City/[facility]/ZIP Co de Phone Number [facility] [address] [place] [address], [place] [phone] * (ABNORMAL) Basic metabolic panel (03/27/2024 8:50 AM EST) [facility] Sodium 139 133 - 145 mmol/L LAB CHEMISTRY METHOD 03/27/2024 9:45 AM EST [facility] Potassium 4.5 3.5 - 5.5 mmol/L LAB CHEMISTRY METHOD 03/27/2024 9:45 AM EST [facility] Chloride 105 96 - 110 mmol/L LAB CHEMISTRY METHOD 03/27/2024 9:45 AM EST [facility] CO2 31 21 - 32 mmol/L LAB CHEMISTRY METHOD 03/27/2024 9:45 AM [facility] Anion Gap 3 3 - 11 LAB CHEMISTRY METHOD 03/27/2024 9:45 AM EST [facility] Glucose 202(H) 70 - 100 mg/dL LAB CHEMISTRY METHOD 03/27/2024 9:45 AM EST [facility] BUN 13 5 - 25 mg/dL LAB CHEMISTRY METHOD 03/27/2024 9:45 AM EST [facility] Creatinine 0.76 0.50 - 1.10 mg/dL LAB CHEMISTRY METHOD 03/27/2024 9:45 AM [facility] eGFR 89 >=60 mL/min/1. 73m2 LAB CHEMISTRY METHOD 03/27/2024 9:45 AM [facility] Comment:Calculation based on the Chronic Kidney Disease Epidemiology Collaboration (CKD-EPI) equation refit without adjustment for race. BUN/Creatinine Ratio 17.1 LAB CHEMISTRY METHOD 03/27/2024 9:45 AM [facility] Calcium 9.4 8.5 - 10.5 mg/dL LAB CHEMISTRY METHOD 03/27/2024 9:45 AM [facility] Blood Venous blood specimen / Unknown Venipuncture / Unknown 03/27/2024 8:50 AM EST 03/27/2024 9:07 AM EST us Lisa Holly MD LAB BLOOD ORDERABLES Final Resu lt [facility] [address] [place] [address], from Last 3 Months or Most Recently [...] currently active code status orders. Care Teams Net Mvc Developer Relationship Specialty Start Date End Date Michelle Sidhu MD [address] PCP - General Internal Medicine 04/05/14
[2024-11-03 10:33] LABS: Hemoglobin A1C 193.1306 umol/L; Total Hemoglobin (HGBA1C) 3318.4723 umol/L
[2024-11-03 10:46] LABS: Alanine Aminotransferase 15 U/L (0-31); Albumin Level 4.2 g/dL (3.5-5.0); Alkaline Phosphatase 81 U/L (39-117); Anion Gap 12 (12-20); Aspartate Amino Transferase 26 U/L (5-31); Blood Urea Nitrogen 14 mg/dL (9-16); Calcium 8.9 mg/dL (8.4-10.2); Carbon Dioxide 28 mmol/L (22-29); Chloride 105 mmol/L (96-108); Estimated Glomerular Filt Rate > 60; Potassium 4.6 mmol/L (3.3-5.1); Sodium 140 mmol/L (135-145); Total Protein 6.8 g/dL (6.5-8.0)
== END 2024-11-03 09:48 | disposition home or self-care (01) ==
LOC: HO.LAB 09:47
PROVIDERS: PCP Internal Medicine; Visit Provider Internal Medicine
DX: E11.9 Type 2 diabetes mellitus without complications (principal); I10 Essential (primary) hypertension; M76.62 Achilles tendinitis, left leg; M79.672 Pain in left foot
CPT/HCPCS: 36415; 80053; 83036

== ENCOUNTER 2025-01-03 15:51 | Outpatient (REF) | payer MEDICAID, SELFPAY ==
--- NOTE | 2025-01-03 15:54 | PFT_ITS ---
Indication: Asthma Spirometry FEV1 to FVC 85%; FEV1 2.64 L; FVC 3.1 L. No significant response to bronchodilators noted. Lung Volumes Total lung capacity 80% predicted; residual volume 78% predicted; expiratory reserve volume 16% predicted Diffusion Capacity DLCO 100% predicted Comparisons None Interpretation No obstructive nor restrictive ventilatory defects identified. No significant response to bronchodilators noted. Lung volumes are normal except for decrease in the expiratory reserve volume secondary to likely an elevated BMI. Diffusing capacity is within normal limits. If asthma is in the differential methacholine challenge may be helpful in assessing for hyperreactive airways. Clinical correlation warranted. MTDD
--- OUTSIDE RECORDS SUMMARY | 2025-01-03 18:32 | XMS_ITS | Clinical Summary ---
Author Organization [facility] Address [address] [place] [address] Phone Care Team Providers Care Software Engineering Project Manager Name Role Phone Michelle Sidhu MD Primary Care Provider [phone] Allergies Active Allergy Reactions Criticality Noted Date [...] complication, without long-term current use of insulin ([facility] V24, [facility] V28) 11/25/2017 Surgical History Surgery Date Site/Laterality Comments OTHER SURGICAL HISTORY 04/05/2014 PROCEDURE: LA LAPS GSTR RSTCV PX W/BYP INÉS-EN-Y LIMB <150 CM HYSTERECTOMY PROCEDURE: HISTORICAL HYSTERECTOMY HAND SURGERY PROCEDURE: HISTORICAL HAND SURGERY HEMORRHOID SURGERY PROCEDURE: LA INCISION THROMBOSED HEMORRHOID EXTERNAL APPENDECTOMY PROCEDURE: HISTORICAL APPENDECTOMY Medical History Medical History Date Comments 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 Type 2 diabetes mellitus wit hout complication, without long-term current use of insulin ([facility] V24, CMS/HCC V28) 11/25/2017 DX:Type 2 diabetes mellitus without complication, without long-term current use of insulin ([facility]) Essential hypertension 11/25/2017 DX:Essent ial hypertension Mixed [...] AM EDT Office Visit Bariatric Surgery - [address] [address] Melyssa Zuniga MD [address] [place] [phone] Health Maintenance Due Date Last Done Comments Breast Cancer Screening 1962 Diabetes: Annual Foot Exam 1972 Diabetes: Annual Retina Eye Exam 1972 Cervical Cancer Screening: Pap Smear 11/20/1983 Cholesterol Screening (Lipid Panel) 03/29/2022 Colorectal Cancer Screening: Colonoscopy 03/29/2022 HIV Screening 03/29/2022 Hepatitis C Screening 03/29/2022 Social Influencers of Health Screening 03/29/2022 Diabetes: Annual Urine Albumin-Creatinine Ratio (uACR) 04/11/2022 Depression Screening 04/26/2024 Diabetes: Blood Sugar Control Test (HGBA1C) 09/25/2024 03/27/2024 Influenza Vaccine (#1) 2024 Diabetes: Annual GFR (Glomerular Filtration Rate) 03/27/2025 03/27/2024, 06/08/2018 Hypertension/CHF/CAD Annual BMP Blood Test 03/27/2025 03/27/2024, 06/08/2018 DTaP,Tdap,and Td Vaccines (2 - Td or Tdap) 08/22/2031 08/21/2021 RSV Immunization Adult Patients (1 - 1-dose 75+ series) 2037 Pneumococcal Vaccine: 50+ Years Completed 08/25/2021, 08/21/2021 Zoster Vaccines Completed 08/04/2022, [...] Procedure Name Priority Date/Time Associated Diagnosis Comments BASIC METABOLIC PANEL STAT 03/27/2024 8:50 AM EST HEMOGLOBIN A1C STAT 03/27/2024 8:50 AM EST from Last 3 Months or Most Recently Relevant to Health Maintenance Results * (ABNORMAL) Hemoglobin A1c (03/27/2024 8:50 AM EST) Hemoglobin A1C 7.2(H) <6.5 % LAB CHEMISTRY METHOD 03/27/2024 11:00 AM EST [facility] Mean Bld Glu Estim. 160 mg/dL LAB CHEMISTRY METHOD 03/27/2024 11:00 AM EST [facility] Blood Venous blood specimen / Unknown Venipuncture / Unknown 03/27/2024 8:50 AM EST 03/27/2024 9:07 AM EST us Lisa Holly MD LAB BLOOD ORDERABLES Final Resu lt [facility] [address] [place] [address], * (ABNORMAL) Basic metabolic panel (03/27/2024 8:50 AM EST) Pathologist [facility] Sodium 139 133 - 145 mmol/L LAB CHEMISTRY METHOD 03/27/2024 9:45 AM [facility] Potassium 4.5 3.5 - 5.5 mmol/L LAB CHEMISTRY METHOD 03/27/2024 9:45 AM [facility] Chloride 105 96 - 110 mmol/L LAB CHEMISTRY METHOD 03/27/2024 9:45 AM [facility] CO2 31 21 - 32 mmol/L LAB CHEMISTRY METHOD 03/27/2024 9:45 AM [facility] Anion Gap 3 3 - 11 LAB CHEMISTRY METHOD 03/27/2024 9:45 AM [facility] Glucose 202(H) 70 - 100 mg/dL LAB CHEMISTRY METHOD 03/27/2024 9:45 AM [facility] BUN 13 5 - 25 mg/dL LAB CHEMISTRY METHOD 03/27/2024 9:45 AM [facility] Creatinine 0.76 0.50 - 1.10 mg/dL LAB CHEMISTRY METHOD 03/27/2024 9:45 AM EST [facility] eGFR 89 >=60 mL/min/1. 73m2 LAB CHEMISTRY METHOD 03/27/2024 9:45 AM EST [facility] Comment:Calculation based on the Chronic Kidney Disease Epidemiology Collaboration (CKD-EPI) equation refit without adjustment for race. BUN/Creatinine Ratio 17.1 LAB CHEMISTRY METHOD 03/27/2024 9:45 AM EST [facility] Calcium 9.4 8.5 - 10.5 mg/dL LAB CHEMISTRY METHOD 03/27/2024 9:45 AM EST [facility] Blood Venous blood specimen / Unknown Venipuncture / Unknown 03/27/2024 8:50 AM EST 03/27/2024 9:07 AM EST us Lisa Holly MD LAB BLOOD ORDERABLES Final Resu lt [facility] [address] [place] [address], from Last 3 Months or Most Recently [...] currently active code status orders. Care Teams Software Engineering Project Manager Relationship Specialty Start Date End Date Michelle Sidhu MD [address] [facility] [address] [place], [place] PCP - General Internal Medicine 04/05/14
--- OUTSIDE RECORDS SUMMARY | 2025-01-03 18:32 | XMS_ITS ---
Author Name [facility] Organization Unknown History of Medication Use Medication Directions Dispensed Refills Start Date End Date Stat pregabalin (Lyrica) 50 mg capsule Take 1 capsule (50 mg total) by mouth 3 (three) times a day for 14 days. 04/11/2024 04/26/2024 active gabapentin (NEURONTIN) 300 mg capsule Take 1 capsule (300 mg total) by mouth 3 (three) times a day if needed (pain). 03/29/2024 active ibuprofen (ADVIL,MOTRIN) 600 mg tablet Take 1 tablet (600 mg total) by mouth every 6 (six) hours for 5 days. Take 3 hours after tylenol 03/27/2024 04/02/2024 active ferrous gluconate (FERGON) 324 mg (38 mg iron) tablet Take 1 tablet (324 mg total) by mouth 1 (one) time each day. 03/15/2024 active cholecalciferol (Vitamin D3) 50 mcg (2,000 unit) capsule Take 1 capsule (2,000 Units total) by mouth 1 (one) time each day. 03/14/2024 active telmisartan (MICARDIS) 40 mg tablet Take 1 tablet (40 mg total) by mouth 1 (one) time each day if needed. 05/12/2023 active cinnamon bark (CINNAMON ORAL) Take by mouth. activ e clonazePAM (KlonoPIN) 1 mg tablet Take 1 tablet (1 mg total) by mouth at bedtime. active linaCLOtide (LINZESS) 290 mcg capsule Take by mouth. activ e omeprazole (PriLOSEC) [address] capsule Take 1 capsule (40 mg total) by mouth every other day. active pravastatin (PRAVACHOL) 40 mg tablet Take 1 tablet (40 mg total) by mouth at bedtime. active SITagliptin phosphate (Januvia) 100 mg tablet Take 1 tablet (100 mg total) by mouth 1 (one) time each day. active Allergies Allergen Reaction Severity Comment Documented Date Source Status SHELLFISH DERIVED RASH 03/27/2024 [facility] active SULFA (SULFONAMIDE ANTIBIOTICS) No reaction documented. 12/10/2017 [facility] active SERTRALINE OTHER sleepiness 03/09/2017 [facility] acti ve CLOVER INHIBITORS COUGH [facility] ALLOPURINOL No reaction documented. [facility] CANAGLIFLOZIN OTHER Yeast infections [facility] LATEX No reaction documented. [facility] LIRAGLUTIDE NAUSEA AND VOMITING [facility] METFORMIN OTHER abd cramps [facility] PENICILLINS ANGIOEDEMA [facility] PIOGLITAZONE SWELLING [facility] SAXAGLIPTIN OTHER abd discomfort [facility] Problems Problem Status Onset Date Problem Type Date of Resoluti on Source Intestinal malabsorption following gastrectomy active 2017-11-25 ProblemAct [facility] Type 2 diabetes mellitus without complication, without long-term current use of insulin active 2017-11-25 ProblemAct [facility] Class 1 obesity due to excess calories with serious comorbidity and body mass index (BMI) of 32.0 to 32.9 in adult active 2024-02-01 ProblemAct [facility] Vitamin D deficiency active 2018-12-14 ProblemAct [facility] Symptomatic abdominal panniculus active 2020-08-26 ProblemAct [facility] Essential hypertension active 2017-11-25 ProblemAct [facility] Mixed hyperlipidemia active 2017-11-25 ProblemAct [facility] Encounters Encounter Type Encounter Reason Primary Diagnosis Location Date Ambulatory Other specified postprocedural states Other specified postprocedural states [facility] 03/31/2024 Care Team Organization Name Specialty Phone Email Start Date End Da te [facility] 04/03/2024 [facility] 03/31/2024
--- OUTSIDE RECORDS SUMMARY | 2025-01-03 18:32 | XMS_ITS | Encounter Summary ---
Author Organization [facility] Address [address] [place] [phone] Phone Care Team Providers Care Post Office Clerk Name Role Phone Michelle Sidhu MD Primary Care Provider Encounter Details Date Type Department Care Team (Late st Contact Info) Description 03/09/2017 Procedure Pass [facility], Ct Scan - [address] [address] Social History Tobacco Use Types Packs/Day Years Used Date Smoking Tobacco: Former Smokeless Tobacco: Never Comments:Quit 10 years ago Comments Unknown Sex and Gender Information Value Date Recorded Sex Assigned at Not on file Legal Sex Female 12:50 AM EST Gender Identity Not on file Sexual Orientation Not on file documented as of this encounter Plan of Treatment Not on file documented as of this encounter Visit Diagnoses Not on filedocumented in this encounter Care Teams Post Office Clerk Relationship Specialty Start Date End Date Michelle Sidhu MD [address] [place] [address] Dr Chang [place] [phone] PCP - General Internal Medicine 03/09/17 documented as of this encounter Additional Source Comments The information contained in this document represents components of the legal health record. It is not the complete legal health record.[facility]
--- OUTSIDE RECORDS SUMMARY | 2025-01-03 18:32 | XMS_ITS | Clinical Summary ---
Author Organization [facility] Address [address] [place] [phone] Phone Care Team Providers Care International Manager Name Role Phone Michelle Sidhu MD Primary Care Provider Allergies Active Allergy Reactions Criticality Noted Date Comments Aroldo Inhibitors Cough 03/09/2017 Pioglitazone Swelling 03/09/2017 Canagliflozin Other (See Comments) 03/09/2017 Yeast infections Metformin Other (See Comments) 03/09/2017 abd cramps Saxagliptin Other (See Comments) 03/09/2017 abd discomfort Penicillins Angioedema 03/09/2017 Sertraline Other (See Comments) 03/09/2017 sleepiness Liraglutide GI Upset 03/09/2017 Medications losartan-hydroC HLOROthiazide (HYZAAR) 50-12.5 mg per tabletIndicatio ns:12.5mg/100mg Take by mouth daily. Indications: 12.5mg/100mg Active clonazePAM (KLONOPIN) 1 MG tablet Take 0.5 mg by mouth nightly as needed. Active omeprazole (PRILOSEC) 40 MG capsuleIndicati ons:PRN Take 40 mg by mouth. Indications: PRN Active pravastatin (PRAVACHOL) 20 MG tablet Take 20 mg by mouth daily. Active meclizine (ANTIVERT) 12.5 mg tablet Take 12.5 mg by mouth 4 (four) times a day as needed for dizziness. Active acetaminophen (TYLENOL) 500 MG tablet Take 1,000 mg by mouth every 6 (six) hours as needed for pain (specific location in comments). Active MULTIVITAMIN ORAL Take by mouth daily. Active METFORMIN HCL (METFORMIN ORAL) Take 375 mg by mouth 2 (two) times a day. Pt is supposed to take 750mg BID but only takes half Active albuterol 90 mcg/actuation inhalerIndicati ons:PRN Inhale into the lungs. Indications: PRN Active Immunizations Immunization Administration Dates Next Due COVID-19 (Pre-02/15) Moderna Vaccine, mRNA, PF 0 06/20/2020,05/23/2020 Social History Tobacco Use Types Packs/Day Years Used Date Smoking Tobacco: Former Smokeless Tobacco: Never Comments:Quit 10 years ago Education Answer Date Recorded Are you interested in more education? Not on nora e 08/21/2022 Are you concerned about learning? Not on file 08/21/2022 No 08/21/2022 No 08/21/2022 Digital Access Answer Date Recorded No 09/19/2022 No 09/19/2022 No 09/19/2022 Reliable internet access at home? Not on file 09/19/2022 Device with a working camera? Not on file Comments Unknown Sex and Gender Information Value Date Recorded Sex Assigned at Not on file Legal Sex Female 12:50 AM EST Gender Identity Not on file Sexual Orientation Not on file Last Filed Vital Signs Vital Sign Reading Time Taken Comments Blood Pressure 103/61 03/09/2017 3:00 AM EST Pulse 58 03/09/2017 1:44 AM EST Temperature 36.5 C (97.7 F) 03/09/2017 1:05 AM EST Respiratory Rate 18 03/09/2017 1:44 AM EST Oxygen Saturation 100% 03/09/2017 3:15 AM EST Inhaled Oxygen Concentration - - Weight 98 kg (216 lb) 03/09/2017 1:05 AM EST Height 170.2 cm (5' 7 ) 03/09/2017 1:05 AM EST Body Mass Index 33.83 03/09/2017 1:05 AM EST Plan of Treatment Health Maintenance Due Date Last Done Comments Adult Td,Tdap Booster 1962 LIPID PANEL 1962 DEPRESSION SCREENING 1974 SMOKING Hx and SMOKELESS TOBACCO SCREENING 11/20/1975 HEPATITIS C SCREENING 1980 HIV ONE-TIME SCREENING (18-6 5 YEARS) 1980 PAP SMEAR 11/20/1983 MAMMOGRAM 2002 COLOGUARD 11/20/2007 COLONOSCOPY 11/20/2007 COLORECTAL CANCER SCREENING 11/20/2007 FIT TEST 11/20/2007 FOBT 11/20/2007 SIGMOIDOSCOPY 11/20/2007 VIRTUAL COLONOSCOPY 11/20/2007 PNEUMOCOCCAL VACCINES (50+ years) (1 of 1 - PCV) 2012 ZOSTER VACCINES (1 of 2) 2012 CREATININE LEVEL 03/09/2018 03/09/2017 POTASSIUM LEVEL 03/09/2018 03/09/2017 INFLUENZA VACCINE (#1) 2024 COVID-19 VACCINE (3 - 2024-2 6 season) 2024 06/20/2020, 05/23/2020 RSV VACCINE (1 - 1-dose 75+ series) 2037 HEPATITIS A VACCINES Aged Out No long er eligible based on patient's age to complete this topic HIB VACCINES Aged Out No longer eligi ble based on patient's age to complete this topic MENINGOCOCCAL VACCINES (ACWY) Aged Out No longer eligible based on patient's age to complete this topic MENINGOCOCCAL VACCINES (B) Aged Out N o longer eligible based on patient's age to complete this topic Medical Devices Not on file Procedures Procedure Name Priority Date/Time Associated Diagnosis Comments BASIC METABOLIC PANEL STAT 03/09/2017 2:56 AM EST from Last 3 Months or Most Recently Relevant to Health Maintenance Results * (ABNORMAL) Basic metabolic panel (03/09/2017 2:56 AM EST) SODIUM 144 133 - 146 mmol/L [facility] CHLORIDE 103 96 - 108 mmol/L [facility] POTASSIUM 3.8 3.3 - 5.1 mmol/L [facility] CO2 30 21 - 35 mmol/L [facility] BUN 13 6 - 19 mg/dL [facility] CREATININE 0.50 0.5 - 1.5 mg/dL [facility] GLUCOSE 133(H) 70 - 99 mg/dL [facility] CALCIUM 9.2 8.4 - 10.3 mg/dL [facility] EGFR >60 60 - 1000 mL/min/1.7 3m2 [facility] Comment:Abnormal if <60. If patient is -Austrian, multiply the result by 1.21. ANION GAP 15 10 - 20 mmol/L [facility] Blood 03/09/2017 2:56 AM EST 03/09/2017 3:04 AM EST us Nathaly Mclain MD, PhD LAB BLOOD ORDERABLE S Final Result [facility] [address] [place] [address] from Last 3 Months or Most Recently Relevant to Health Maintenance Insurance [facility] Care Teams International Manager Relationship Specialty Start Date End Date Michelle Sidhu MD [address] [place] [address] [place] [address] PCP - General Internal Medicine 03/09/17 Additional Source Comments The information contained in this document represents components of the legal health record. It is not the complete legal health record.[facility]
== END 2025-01-03 15:52 | disposition home or self-care (01) ==
LOC: HO.RESP 15:51
PROVIDERS: PCP Internal Medicine; Visit Provider Nurse Practitioner Family
DX: J45.909 Unspecified asthma, uncomplicated (principal)
CPT/HCPCS: 94010; 94727; 94729

== ENCOUNTER → 2025-01-03 15:54 | Outpatient (BNV) | payer MEDICAID, SELFPAY | PROVIDERS: PCP Internal Medicine; Visit Provider Hospitalist | DX: J45.909 Unspecified asthma, uncomplicated (principal) | CPT/HCPCS: 94060; 94727; 94729 ==

== ENCOUNTER 2025-01-29 11:53 | Outpatient (REF) | payer MEDICAID, SELFPAY ==
[2025-01-29 13:04] LABS: Alanine Aminotransferase 38 U/L (0-31); Albumin Level 4.6 g/dL (3.5-5.0); Alkaline Phosphatase 89 U/L (39-117); Anion Gap 12 (12-20); Aspartate Amino Transferase 40 U/L (5-31); Blood Urea Nitrogen 15 mg/dL (9-16); Calcium 9.3 mg/dL (8.4-10.2); Carbon Dioxide 25 mmol/L (22-29); Chloride 107 mmol/L (96-108); Cholesterol 146 mg/dL (<200); Estimated Glomerular Filt Rate > 60; HDL Cholesterol 34 mg/dL (>40); Potassium 4.2 mmol/L (3.3-5.1); Sodium 140 mmol/L (135-145); Total Protein 7.8 g/dL (6.5-8.0); Triglycerides 314 mg/dL (<150)
--- OUTSIDE RECORDS SUMMARY | 2025-01-29 14:26 | XMS_ITS | Encounter Summary ---
Author Organization [facility] Address [address] [place] [phone] Phone Care Team Providers Care Advanced Manager Name Role Phone Michelle Sidhu MD Primary Care Provider Encounter Details Date Type Department Care Team (Late st Contact Info) Description 03/09/2017 Procedure Pass [facility], Ct Scan - [address] [address] Social History Tobacco Use Types Packs/Day Years [...] on filedocumented in this encounter Care Teams Advanced Manager Relationship Specialty Start Date End Date Michelle Sidhu MD [address] [place] [address] Dr Chang [place]QUEZ [place] [phone] PCP - General Internal Medicine 03/09/17 documented as of this encounter Additional Source Comments The information contained in this document represents components of the legal health record. It is not the complete legal health record.[facility]
--- OUTSIDE RECORDS SUMMARY | 2025-01-29 14:26 | XMS_ITS | Clinical Summary ---
Author Organization [facility] Address [address] [place] [address] Phone Care Team Providers Care Respiratory Therapist Assistant Name Role Phone Michelle Sidhu MD Primary Care Provider [phone] Allergies Active Allergy Reactions Criticality Noted Date [...] complication, without long-term current use of insulin ([facility] V24, [facility] V28) 11/25/2017 Surgical History Surgery Date Site/Laterality Comments OTHER SURGICAL HISTORY 04/05/2014 PROCEDURE: SC LAPS GSTR RSTCV PX W/BYP INÉS-EN-Y LIMB <150 CM HYSTERECTOMY PROCEDURE: HISTORICAL HYSTERECTOMY HAND SURGERY PROCEDURE: HISTORICAL HAND SURGERY HEMORRHOID SURGERY PROCEDURE: SC INCISION THROMBOSED HEMORRHOID EXTERNAL APPENDECTOMY PROCEDURE: HISTORICAL APPENDECTOMY Medical History Medical History Date Comments 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 Type 2 diabetes mellitus wit hout complication, without long-term current use of insulin (CMS/[facility] V24, CMS/HCC V28) 11/25/2017 DX:Type 2 diabetes mellitus without complication, without long-term current use of insulin ([facility]) Essential hypertension 11/25/2017 DX:Essent ial hypertension [...] Safety Answer Date Record ed Physical Abuse Unrecognized value 03/27/2024 Verbal Abuse Unrecognized value 03/27/2024 Comments No Sex and Gender Information [...] AM EDT Office Visit Bariatric Surgery - [address] [place] [address] Melyssa Zuniga MD [address] [place] [phone] Health Maintenance Due Date Last Done Comments Breast Cancer Screening 1962 Colorectal Cancer Screening: Colonoscopy 1962 Diabetes: Annual Foot Exam 1972 Diabetes: Annual Retina Eye Exam 1972 Cervical Cancer Screening: Pap Smear 11/20/1983 Cholesterol Screening (Lipid Panel) 03/29/2022 HIV Screening 03/29/2022 Hepatitis C Screening [...] LAB CHEMISTRY METHOD 03/27/2024 11:[address] [facility] Mean Bld Glu Estim. 160 mg/dL LAB CHEMISTRY METHOD 03/27/2024 11:[address] [facility] Blood Venous blood specimen / Unknown Venipuncture / Unknown 03/27/2024 8:50 AM EST 03/27/2024 9:07 AM EST us Lisa Holly MD LAB BLOOD ORDERABLES Final Resu lt [facility] [address] [place] [address], * (ABNORMAL) Basic metabolic panel (03/27/2024 8:50 AM EST) Pathologist [facility] Sodium 139 133 - 145 mmol/L LAB CHEMISTRY METHOD 03/27/2024 9:45 AM [facility] Potassium 4.5 3.5 - 5.5 mmol/L LAB CHEMISTRY METHOD 03/27/2024 9:45 AM [facility] Chloride 105 96 - 110 mmol/L LAB CHEMISTRY METHOD 03/27/2024 9:45 AM [facility] CO2 31 21 - 32 mmol/L LAB CHEMISTRY METHOD 03/27/2024 9:45 AM [facility] Anion Gap 3 3 - 11 LAB CHEMISTRY METHOD 03/27/2024 9:45 AM [facility] Glucose 202(H) 70 - 100 mg/dL LAB CHEMISTRY METHOD 03/27/2024 9:45 AM [facility] BUN 13 5 - 25 mg/dL LAB CHEMISTRY METHOD 03/27/2024 9:45 AM [facility] Creatinine 0.76 0.50 - 1.10 mg/dL LAB CHEMISTRY METHOD 03/27/2024 9:[address] [facility] eGFR 89 >=60 mL/min/1. 73m2 LAB CHEMISTRY METHOD 03/27/2024 9:[address] [facility] Comment:Calculation based on the Chronic Kidney Disease Epidemiology Collaboration (CKD-EPI) equation refit without adjustment for race. BUN/Creatinine Ratio 17.1 LAB CHEMISTRY METHOD 03/27/2024 9:[address] [facility] Calcium 9.4 8.5 - 10.5 mg/dL LAB CHEMISTRY METHOD 03/27/2024 9:[address] [facility] Blood Venous blood specimen / Unknown Venipuncture / Unknown 03/27/2024 8:50 AM EST 03/27/2024 9:07 AM EST us Lisa Holly MD LAB BLOOD ORDERABLES Final Resu lt [facility] [address] [place] [address], from Last 3 Months or Most Recently [...] currently active code status orders. Care Teams Respiratory Therapist Assistant Relationship Specialty Start Date End Date Michelle Sidhu MD [address] PCP - General Internal Medicine 04/05/14
--- OUTSIDE RECORDS SUMMARY | 2025-01-29 14:27 | XMS_ITS | Clinical Summary ---
Author Organization [facility] Address [address] [place] [phone] Phone Care Team Providers Care Internal Auditor Name Role Phone Michelle Sidhu MD Primary [...] EST) SODIUM 144 133 - 146 mmol/L [facility] CHLORIDE 103 96 - 108 mmol/L [facility] POTASSIUM 3.8 3.3 - 5.1 mmol/L [facility] CO2 30 21 - 35 mmol/L [facility] BUN 13 6 - 19 mg/dL [facility] CREATININE 0.50 0.5 - 1.5 mg/dL [facility] GLUCOSE 133(H) 70 - 99 mg/dL [facility] CALCIUM 9.2 8.4 - 10.3 mg/dL [facility] EGFR >60 60 - 1000 mL/min/1.7 3m2 [facility] Comment:Abnormal if <60. If patient is -Chadian, multiply the result by 1.21. ANION GAP 15 10 - 20 mmol/L [facility] Blood 03/09/2017 2:56 AM EST 03/09/2017 3:04 AM EST us Nathaly Mclain MD, PhD LAB BLOOD ORDERABLE S Final Result [facility] [address] [place] [address] from Last 3 Months or Most Recently Relevant to Health Maintenance Insurance [facility] Care Teams Internal Auditor Relationship Specialty Start Date End Date Michelle Sidhu MD [address] [place] [address] [place] [address] PCP - General Internal Medicine 03/09/17 Additional Source Comments The information contained in this document represents components of the legal health record. It is not the complete legal health record.[facility]
== END 2025-01-29 11:54 | disposition home or self-care (01) ==
LOC: HO.LAB 11:53
PROVIDERS: PCP Internal Medicine; Visit Provider Internal Medicine
DX: E11.9 Type 2 diabetes mellitus without complications (principal); F41.8 Other specified anxiety disorders; H81.10 Benign paroxysmal vertigo, unspecified ear; J30.89 Other allergic rhinitis; R07.89 Other chest pain
CPT/HCPCS: 36415; 80053; 80061; 83036

== ENCOUNTER 2025-03-01 11:47 | Outpatient (REF) | payer MEDICAID, SELFPAY ==
[2025-03-01 13:50] LABS: Alanine Aminotransferase 20 U/L (0-31); Albumin Level 4.3 g/dL (3.5-5.0); Alkaline Phosphatase 85 U/L (39-117); Anion Gap 10 (12-20); Aspartate Amino Transferase 40 U/L (5-31); Blood Urea Nitrogen 12 mg/dL (9-16); Calcium 9.2 mg/dL (8.4-10.2); Carbon Dioxide 29 mmol/L (22-29); Chloride 107 mmol/L (96-108); Cholesterol 147 mg/dL (<200); Estimated Glomerular Filt Rate > 60; HDL Cholesterol 36 mg/dL (>40); Potassium 4.3 mmol/L (3.3-5.1); Sodium 142 mmol/L (135-145); Total Protein 7.3 g/dL (6.5-8.0); Triglycerides 277 mg/dL (<150)
--- OUTSIDE RECORDS SUMMARY | 2025-03-01 14:44 | XMS_ITS | Clinical Summary ---
Author Organization [facility] Address [address] [place] [id number] Phone Care Team Providers Care Day Haul Youth Supervisor Name Role Phone Michelle Sidhu MD Primary [...] Date/Time Associated Diagnosis Comments BASIC METABOLIC PANEL (BMP) STAT 03/09/2017 2:56 AM EST from Last 3 Months or Most Recently Relevant to Health Maintenance Results * (ABNORMAL) Basic metabolic panel (03/09/2017 2:56 AM EST) SODIUM 144 133 - 146 mmol/L [facility] CHLORIDE 103 96 - 108 mmol/L [facility] POTASSIUM 3.8 3.3 - 5.1 mmol/L [facility] CO2 30 21 - 35 mmol/L [facility] BUN 13 6 - 19 mg/dL [facility] CREATININE 0.50 0.5 - 1.5 mg/dL [facility] GLUCOSE 133(H) 70 - 99 mg/dL [facility] CALCIUM 9.2 8.4 - 10.3 mg/dL [facility] EGFR >60 60 - 1000 mL/min/1.7 3m2 [facility] Comment:Abnormal if <60. If patient is -Tongan, multiply the result by 1.21. ANION GAP 15 10 - 20 mmol/L [facility] Blood 03/09/2017 2:56 AM EST 03/09/2017 3:04 AM EST Nathaly Mclain MD, PhD LAB BLOOD BKR ORDER LILIYA Final Result [facility] [address] [place] [address] from Last 3 Months or Most Recently Relevant to Health Maintenance Insurance [facility] [place] [address] [address] [facility] Care Teams Day Haul Youth Supervisor Relationship Specialty Start Date End Date Michelle Sidhu MD [address] [place] [address] [place] [address] PCP - General Internal Medicine 03/09/17 Additional Source Comments The information contained in this document represents components of the legal health record. It is not the complete legal health record.[facility]
--- OUTSIDE RECORDS SUMMARY | 2025-03-01 14:44 | XMS_ITS | Encounter Summary ---
Author Organization [facility] Address [address] [place] [phone] Phone Care Team Providers Care Temper Mill Roller Name Role Phone Michelle Sidhu MD Primary Care Provider Encounter Details Date Type Department Care Team (Late st Contact Info) Description 03/09/2017 Procedure Pass [facility], Ct Scan - [address] [address] Social History Tobacco Use Types Packs/Day Years [...] on filedocumented in this encounter Care Teams Temper Mill Roller Relationship Specialty Start Date End Date Michelle Sidhu MD [address] [place] [address] Dr Chang MARQUEZ [place] [phone] PCP - General Internal Medicine 03/09/17 documented as of this encounter Additional Source Comments The information contained in this document represents components of the legal health record. It is not the complete legal health record.[facility]
--- OUTSIDE RECORDS SUMMARY | 2025-03-01 14:44 | XMS_ITS | Continuity of Care Document ---
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 I recommend that the patient consult her primary care doctor to develop a more effective migraine management plan. Additionally, I suggest that her primary care doctor refer her to an bankman or immunotherapy specialist to address her severe allergies, which include sensitivities to pollen, dust, roaches, seafood, spicy food, perfumes, mushrooms, and Sammarinese vanilla. The patient has been using meclizine to manage her dizziness episodes, which provides partial relief but does not prevent future occurrences. I recommend continuing this medication as needed for symptom relief. I will provide documentation for the patient's disability report, noting her atypical migraines and associated symptoms, including dizziness, ringing in the ears, imbalance, and sensitivity to environmental triggers. The patient is advised to follow up with her primary care doctor for further management and referrals as needed. [email or web address] Not available 02/27/2025 09:36:01 Plan of Treatment Reminders Order Date Submit Date Provider Last Modified By Organization Details Last Modified Time Details Appointments None record ed. Lab None record ed. Referral None record ed. Procedures None record ed. Surgeries None record ed. Imaging None record ed. Medication Orders None record ed. Patient TargetsNo targets recorded. Patient Instructions Encounter Date Encounter Id Patient Instructions Last Modified By Organization Details Last Modified Time 02/27/2025 [id number] - Consult your primary care doctor to develop a more effective migraine management plan. - Request a referral to an bankman or immunotherapy specialist for evaluation and management of severe allergies. - Continue using meclizine as needed for dizziness episodes. - Follow up with your primary care doctor for further management and referrals. [email or web address] Not available 02/27/2025 09:36:01 Please note: Par ts of this encounter note have been generated by AI based on audio conversation. Patient consent was required prior to utilizing this technology. Content review was required prior to finalizing the note. [email or web address] Not available 02/27/2025 09:36:01 Reason for Referral None Reported. Problems Name Problem SNOMED Code Status Onset Date Resolution Date Notes Provider Name and Address Organization Details Recorded Time Bilateral tinnitus 83405918157 02 Active 2016 Tinnitus, bilateral ; Note: Date Diagnosed : 01/20/2017 3:55 PM (H93.13) Not Available [facility] 4 03:01:14 Abnormal auditory perceptio n 49156675 Active 2016 Other abnormal auditory perceptio ns, bilateral ; Note: Date Diagnosed : 01/20/2017 3:55 PM (H93.293) Not Available [facility] 4 03:01:15 Dizziness and giddiness 180897457 Active 2016 Dizziness and giddiness ; Note: Date Diagnosed : 01/20/2017 3:55 PM (R42) Vertigo NOS; Note: Date Diagnosed : 01/20/2017 4:16 PM (R42) Not Available [facility] 4 03:01:12 Allergic rhinitis 14360638 Active 2016 Other allergic rhinitis; Note: Date Diagnosed : 7 11:47 AM (J30.89) Not Available [facility] 4 03:01:13 Migraine variants 951583490 Active 2024 ORQUIDEA ANDERSON MD [address] [place] [address], [place], [address] , [facility] - [facility] 5 11:20:57 Problem Notes None recorded. Procedures Surgical History Date Name Laterality Status Provider Name and Address Organization Details Recorded Time 05/26/2024 Air & Speech Audio with Tymps - 55609, 07983 & 68762 completed DYLAN MOBLEY, AUD [address] [facility] [address], [place], [address], [facility] - [facility] 05/26/2024 10:33:53 Imaging Results None recorded. Procedure Notes None recorded. Medical Equipment None Reported. Allergies Allergen ID Allergen Name Allergen Category Reaction Reaction Severity Criticality Documentation Date Start Date Code Code System Note Provider Name and Address Organization Details Recorded Time 197938 penicilli n V potassium medicatio n other Not available Not available 09/07/2023 41728 5 RxNorm React ion: unkno wn, unspe cifie d;; Not Available [facility] 4 01:14:39 511066 Substance with sulfonami de structure and antibacte rial mechanism of action (substanc e) medicatio n other Not available Not available 09/07/2023 64785 8003 SNOMED React ion: unkno wn, unspe cifie d;; Not Available [facility] 4 01:14:40 Medications Name Sig Start Date Stop Date Status Note LastModified by Organization Details LastModified Time Qvar 80 mcg/actua tion Metered Aerosol oral inhaler 02/27 completed Medicati on ID: [id number] D uration Value: 30 Brand Name: Qvar Sen d Method: E-Prescr ibed Sub s Allowed: subs OK Speci al Instruct ion: TAKE 2 PUFFS INHALED TWICE A DAY Medi cationGe nericNam e: Qvar Not Available Not Available Not Available venlafaxi ne ER 75 mg capsule,e xtended release 24 hr TAKE 1 CAPSULE BY MOUTH EVERY DAY 02/27 completed Not Available Not Available Not Available albuterol sulfate 2.5 mg/3 mL (0.083 [...] 1 TABLET DAILY FOR 4 DAYS DIRECTED 01/12 completed Not Available Not Available Not Available pravastat in 40 mg tablet ONE TAKE 1 TABLET BY MOUTH DAILY AT BEDTIME. active Not Available Not Available No t Available ibuprofen 800 mg tablet 05/26 completed Medicati on ID: [id number] D uration Value: 7 Brand Name: mark major Send Method: E-Prescr ibed Sub s Allowed: subs OK Speci al Instruct ion: TAKE 1 TABLET BY MOUTH EVERY 8 HOURS NEEDED M edicatio nGeneric Name: mark n Not Available Not Available Not Available simethico ne 180 mg capsule TAKE 1 CAPSULE BY MOUTH FOUR TIMES A DAY active Not Available Not Available No t Available fluconazo le 150 mg tablet TAKE 1 TAB BY MOUTH ONCE, THEN ONE TAB AFTER 1 WEEK active Not Available Not Available No t Available FreeStyle Lancets 28 gauge CHECK SUGARS [...] mg tablet TAKE 1 TABLET BY MOUTH 3 TIMES A DAY active Not Available Not Available No t Available cyanocoba parvin (vit B-12) 1,000 mcg tablet TAKE 1 TABLET (1,000 MCG TOTAL) BY MOUTH ONCE DAILY active Not Available Not Available No t Available meclizine 12.5 mg tablet 2016 active Medicati on ID: [id number] D uration Value: 30 Brand Name: meclizin e Send Method: E-Prescr ibed Sub s Allowed: subs OK Speci al Instruct ion: TAKE 1 TABLET BY MOUTH 4 TIMES A DAY NEEDED FOR DIZZINES S Medica tionGene ricName: meclizin e Not Available Not Available Not Available melatonin 3 mg tablet TAKE 1-2 TABLET BY MOUTH EVERY NIGHT AT BEDTIME NEEDED FOR SLEEP active Not Available Not Available No t Available cyanocoba parvin (vit B-12) 250 mcg [...] ROUTE NEEDED FOR 10 DAYS, FOR PAIN. 02/27 completed Not Available Not Available Not Available acetamino phen 500 mg tablet TAKE 2 CAPSULES BY MOUTH EVERY 6 HOURS NEEDED FEVER OR PAIN active Not Available Not Available No t Available acetamino phen ER 650 mg tablet,ex tended release TAKE 1 TABLET BY MOUTH THREE TIMES A DAY active Not Available Not Available No t Available hydrocort isone acetate 25 mg rectal supposito ry INSERT 1 SUPPOSIT ORY RECTALLY 2 TIMES A DAY FOR 30 DAYS active Not Available Not Available No t Available metoclopr amide 5 mg tablet TAKE 1 TABLET ORALLY 4 TIMES A DAY BEFORE MEAL/BED active Not Available Not Available No t Available repaglini de 0.5 mg tablet TAKE 1 TABLET BY MOUTH TWICE A DAY 02/27 completed Not Available Not Available Not Available meclizine 25 mg tablet TAKE 1 TABLET BY MOUTH THREE TIMES A DAY active Not Available Not Available No t Available benzonata te 100 mg capsule TAKE 1 CAP BY MOUTH 3 TIMESA DAY active Not Available Not Available No t Available telmisart an 40 mg tablet TAKE 1 TABLET BY MOUTH EVERY DAY active Not Available Not Available No t Available fluoxetin e 20 mg tablet TAKE 1/2 TABLET FOR 1 WEEK THEN TAKE 1 WHOLE TABLET MOVING FORWARD FOR DEPRESSI ON active Not Available Not Available No t Available neomycin- polymyxin -dexameth 3.5 mg/mL-10, 000 unit/mL-0 .1% eye drops INSTILL 1 DROP INTO BOTH EYES FOUR TIMES A DAY USE FOR 2 WEEKS THEN STOP 02/27 completed Not Available Not Available Not Available nystatin 100,000 unit/gram topical cream APPLY TOPICALL Y ONCE DAILY active Not Available Not Available No t Available fluoromet holone 0.1 % eye drops,ian pension INSTILL 1 DROP INTO BOTH EYES FOUR TIMES A DAY USE FOR 2 WEEKS, THEN STOP active Not Available Not Available No t Available FML Forte 0.25 % eye drops,ian pension INSTILL 1 DROP INTO BOTH EYES 4 TIMES A DAY FOR 3 WEEKS, THEN STOP active Not Available Not Available No t Available oxycodone 5 mg capsule TAKE 1 CAPSULE EVERY 6 HOURS IF NEEDED FOR SEVERE PAIN FOR UP TO 10 DAYS. MAX DAILY AMOUNT: 20 MG 05/26 completed Not Available Not Available Not Available Advair Diskus 250 mcg-50 mcg/dose powder for inhalatio n INHALE 1 PUFF TWICE A DAY active Not Available Not Available No t Available docusate sodium 100 mg capsule TAKE 1 CAPSULE BY MOUTH TWICE A DAY FOR 2 WEEKS active Not Available Not Available No t Available gabapenti n 300 mg capsule TAKE 1 CAPSULE BY MOUTH 3 TIMES A DAY IF NEEDED FOR PAIN 05/26 completed Not Available Not Available Not Available magnesium citrate oral solution DRINK 1 BOTTLE EVERY NIGHT NEEDED 6 DAYS BEFORE COLONOSC OPY. FOLLOW BOTTLE WITH 8 OUNCES WATER active Not Available Not Available No t Available monteluka st 10 mg tablet TAKE ONE TABLET BY MOUTH EVERY DAY active Not Available Not Available No t Available clindamyc in 2 % vaginal cream INSERT 1 APPLICAT OR INTO THE VAGINA AT BEDTIME FOR 7 DAYS. 05/26 completed Not Available Not Available Not Available hydroxyzi ne HCl 25 mg tablet TAKE 1 TABLET BY MOUTH 3 TIMES A DAY NEEDED FOR SLEEP AND ANXIETY active Not Available Not Available No t Available pravastat in 20 mg tablet 05/26 completed Medicati on ID: [id number] D uration Value: 30 Brand Name: priya britt Send Method: E-Prescr ibed Sub s Allowed: subs OK Speci al Instruct ion: TAKE 1 TABLET BY MOUTH AT BEDTIME Medicati onGeneri cName: pravasta tin Not Available Not Available Not Available hydrochlo rothiazid e 25 mg tablet TAKE 1 TABLET BY MOUTH EVERY DAY IN THE MORNING active Not Available Not Available No t Available telmisart an 20 mg tablet TAKE 1 TABLET BY MOUTH EVERY DAY active Not Available Not Available No t Available ergocalci ferol (vitamin D2) 1,250 mcg [...] pension SPRAY 1 SPRAY NASALLY EVERY DAY active Not Available Not Available No t Available metformin ER 500 mg tablet,ex tended release 24 hr TAKE 2 TABLETS BY MOUTH TWICE A DAY active Not Available Not Available No t Available sertralin e 50 mg tablet ONE TAKE 1 TABLET BY MOUTH EVERY MORNING 05/26 completed Not Available Not Available Not Available loratadin e 10 mg tablet 2016 active Medicati on ID: [id number] D uration Value: 30 Brand Name: loratadi ne Send Method: E-Prescr ibed Sub s Allowed: subs OK Speci al Instruct ion: TAKE 1 TABLET BY MOUTH DAILY Me dication GenericN doreen: loratadi ne Not Available Not Available Not Available Ventolin HFA 90 mcg/actua tion aerosol [...] TAKE 2 TABLETS BY MOUTH AT BEDTIME FOR 30 DAYS active Not Available Not Available No t Available Hair Regrowth Treatment 2 % topical solution APPLY SCALP DAILY OTC NOT COVERED AND COUPONS DONT WORK ON OTC active Not Available Not Available No t Available Restasis 0.05 % eye drops in a dropperet te INSTILL 1 DROP INTO BOTH EYES TWICE A DAY active Not Available Not Available No t Available metformin ER 750 mg tablet,ex tended release 24 hr 05/26 completed Medicati on ID: [id number] D uration Value: 30 Brand Name: metformi n Send Method: E-Prescr ibed Sub s Allowed: subs OK Speci al Instruct ion: TAKE 1 TABLET BY MOUTH TWICE A DAY Medi cationGe nericNam e: metformi n Not Available Not Available Not Available Saccharom yces boulardii 250 mg capsule TAKE 1 CAPSULE BY MOUTH EVERY DAY 02/27 completed Not Available Not Available Not Available mirtazapi ne 7.5 mg tablet TAKE 1 TABLET BY MOUTH EVERYDAY AT BEDTIME active Not Available Not Available No t Available nitrofura ntoin monohydra te/macroc rystals 100 mg capsule TAKE 1 CAPSULE BY MOUTH TWICE A DAY FOR 7 DAYS 02/27 completed Not Available Not Available Not Available Januvia 100 mg tablet TAKE 1 TABLET BY MOUTH EVERY DAY active Not Available Not Available No t Available Alaway 0.025 % (0.035 %) eye drops INSTILL 2 DROPS INTO AFFECTED EYE(S) TWICE A DAY active Not Available Not Available No t Available FreeStyle Lite Strips CHECK SUGARS 3 TIMES A DAY active Not Available Not Available No t Available cholecalc iferol (vitamin D3) 1,250 mcg (50,000 unit) capsule TAKE 1 CAPSULE BY MOUTH ONE TIME PER WEEK *INS NEEDS 3 MONTH SUPPLY* active Not Available Not Available No t Available diclofena c 1 % topical gel APPLY 2 GRAMS TO THE AFFECTED AREA(S) BY TOPICAL ROUTE 4 TIMES PER DAY active Not Available Not Available No t Available melatonin 5 mg tablet TAKE 1 TABLET BY MOUTH EVERYDAY AT BEDTIME active Not Available Not Available No t Available cholecalc iferol (vitamin D3) 50 mcg (2,000 unit) capsule TAKE 1 CAPSULE (2,000 UNITS TOTAL) BY MOUTH ONCE DAILY active Not Available Not Available No t Available Gavilax 17 gram/dose oral powder PLEASE SEE ATTACHED FOR DETAILED DIRECTIO NS active Not Available Not Available No t Available Suprep Bowel Prep Kit 17.5 gram-3.13 gram-1.6 gram oral solution PLEASE SEE ATTACHED FOR DETAILED DIRECTIO NS 02/27 completed Not Available Not Available Not Available Linzess 290 mcg capsule TAKE 1 CAPSULE BY MOUTH DAILY active Not Available Not Available No t Available Jardiance 25 mg tablet TAKE 1 TABLET BY MOUTH EVERY DAY IN THE MORNING active Not Available Not Available No t Available Trulicity 0.75 mg/0.5 mL subcutane ous pen injector INJECT ONCE A WEEK DIRECTED 02/27 completed Not Available Not Available Not Available Sutab 1.479-0.1 88-0.225 gram tablet TAKE BY MOUTH PER PACKAGE DIRECTIO NS FOR COLONOSC OPY PREP 02/27 completed Not Available Not Available Not Available Daily-Vit e (with folic acid) 400 mcg tablet TAKE 2 TABLETS BY MOUTH EVERY DAY active Not Available Not Available No t Available Ozempic 0.25 mg or 0.5 mg (2 mg/3 mL) subcutane ous pen injector INJECT 0.25 MG SUBCUTAN EOUSLY ONCE WEEKLY active Not Available Not Available No t Available Vitals Date Recorded Body height Provider Name an d Address Organization Details Last Updated DateTime 02/27/2025 172.72 cm YAMILA THOMSON [place] - [facility] 02/27/2025 09:17:23 Social History None recorded. Functional Status None recorded. Mental Status None recorded. Family History Nothing Reported. Medical History No medical history recorded. Gynecological HistoryNo gynecological history recorded. Obstetrics History GPAL:G 0 P 0 0 0 0 Past Encounters Encounter ID Performer Location Encounter Start Date Encounter Closed Date Diagnosis/Indication Diagnosis SNOMED-CT Code Diagnosis ICD10 Code Diagnosis IMO Codes Diagnosis Note [id number] ORQUIDEA ANDERSON MD [facility] [address] [address] 02/27/2025 09:13:14 02/27/2025 09:39:50 Bilateral tinnitus 7707541911 102 H93.13 Migraine variants 485260 005 G43.809 Allergic rhinitis 309838 04 J30.89 Dizziness and giddiness 442726384 R42 Right Ear:Normal hearing with excellent speech discrimina tion. Left Ear:Normal hearing with excellent speech discrimina tion. Health Concerns Section Related Observation LastModified by Organization Detai ls LastModified Time None Recorded Concern Status LastModified by Organization Details LastModified Time None Recorded Payers Encounter Date Sequence Insurance Name Policy Number Policy Barger Covered Member ID Barger Member ID Guarantor Name 02/27/2025 1 [place]: [facility] Brooklyn Cuellar [id number] Brooklyn Chinchilla Polo Notes Date Note Type Note Provider Name and Address Organization Details Recorded Time 02/27/2025 text/html migraine associated dizzy previously using meclizine about one week at a time per month hyperacusis at sikhism, bright lights also very sensitive food triggers of seafood smell, mushrooms, romanian vanilla dry mouth PV 03/11/2017 Norma tinnitus - advised masking techniques. migraine associated vertigo - elimination diet PV 05/26/24 Elian atypical migraine, advised discuss with PCP alternative migraine meds Brooklyn Cuellar is a 64-year-old female who presents for evaluation of dizziness, migraines, and allergies. She reports experiencing episodes of imbalance and vertigo approximately twice a week, which can last for varying durations. She uses meclizine once or twice a week to alleviate symptoms, which provides partial relief. She also reports ringing in her ears and dry eyes, nose, and mouth, which she attributes to her allergies. Her allergies include sensitivity to pollen, dust, roaches, seafood, spicy food, perfumes, and certain foods such as mushrooms and Sammarinese vanilla. She has a history of two ear surgeries and has been previously informed by her former physician, Dr. Short, that she would experience severe allergies. She has not discussed alternative migraine medications with her primary care doctor but is seeking documentation for her disability report. She denies any specific triggers for her dizziness episodes but notes that bright lights, loud noises, and certain smells exacerbate her migraines. She has experienced severe allergic reactions in the past, including one episode involving lobster that caused significant symptoms requiring assistance. ORQUIDEA ANDERSON MD [address] [place] [address], [phone], [facility] - [facility] 02/27/2025 09:37:31 OBGyn Episode No OBEpisode recorded.
--- OUTSIDE RECORDS SUMMARY | 2025-03-01 14:44 | XMS_ITS | Clinical Summary ---
Author Organization [facility] Address [address] [place] [address] Phone Care Team Providers Care Intervention Specialist Name Role Phone Michelle Sidhu MD Primary Care Provider [phone] Allergies Active Allergy Reactions Criticality Noted Date [...] complication, without long-term current use of insulin ([facility] V24, [facility] V28) 11/25/2017 Encounters Date Type Department Care Team Description 02/13/2025 8:45 AM EDT Office Visit Bariatric Surgery - [address] [place] [address] Melyssa Zuniga MD Class 1 obesity due to excess calories with serious comorbidity and body mass index (BMI) of 31.0 to 31.9 in adult (Primary Dx) from Last 3 Months Surgical History Surgery Date Site/Laterality Comments OTHER SURGICAL HISTORY 04/05/2014 PROCEDURE: VT LAPS GSTR RSTCV PX W/BYP INÉS-EN-Y LIMB <150 CM HYSTERECTOMY PROCEDURE: HISTORICAL HYSTERECTOMY HAND SURGERY PROCEDURE: HISTORICAL HAND SURGERY HEMORRHOID SURGERY PROCEDURE: VT INCISION THROMBOSED HEMORRHOID EXTERNAL APPENDECTOMY PROCEDURE: HISTORICAL APPENDECTOMY Medical History Medical History Date Comments 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 Type 2 diabetes mellitus wit hout complication, without long-term current use of insulin ([facility] V24, [facility] V28) 11/25/2017 DX:Type 2 diabetes mellitus without complication, without long-term current use of insulin ([facility]) Essential hypertension 11/25/2017 DX:Essent ial hypertension [...] Sign Reading Time Taken Comments Blood Pressure 133/69 02/13/2025 9:10 AM EDT Pulse 59 02/13/2025 9:10 AM EDT Temperature 36.6 C (97.8 F) 02/13/2025 9:10 AM EDT Respiratory Rate 16 04/12/2024 8:38 AM EST Oxygen Saturation 99% 04/10/2024 4:00 PM EST Inhaled Oxygen Concentration - - Weight 90.3 kg (199 lb) 02/13/2025 9:10 AM EDT Height 170.2 cm (5' 7 ) 02/13/2025 9:10 AM EDT Body Mass Index 31.17 02/13/2025 9:10 AM EDT Plan of Treatment Upcoming Encounters Date Type Department Care Team (Late st Contact Info) Description 07/12/2025 2:00 PM EDT Office Visit Bariatric Surgery - [address] [place] [address] Melyssa Zuniga MD [address] [place] [phone] Health Maintenance Due Date Last Done [...] Resu lt [facility] [address] [place] [address], * (ABNORMAL) Basic metabolic panel (03/27/2024 8:50 [...] 9:45 AM EST [facility] Anion Gap 3 3 [...] 9:45 AM EST [facility] eGFR 89 >=60 mL/min/1. 73m2 LAB CHEMISTRY METHOD 03/27/2024 9:45 AM [facility] Comment:Calculation based on the Chronic Kidney Disease Epidemiology Collaboration (CKD-EPI) equation refit without adjustment for race. BUN/Creatinine Ratio 17.1 LAB CHEMISTRY METHOD 03/27/2024 9:45 AM [facility] Calcium 9.4 8.5 - 10.5 mg/dL LAB CHEMISTRY METHOD 03/27/2024 9:45 AM [facility] Blood Venous blood specimen / Unknown Venipuncture / Unknown 03/27/2024 8:50 AM EST 03/27/2024 9:07 AM EST us Lisa Holly MD LAB BLOOD ORDERABLES Final Resu lt [facility] [address] [place] [address], from Last 3 Months or Most Recently [...] currently active code status orders. Care Teams Intervention Specialist Relationship Specialty Start Date End Date Michelle Sidhu MD [facility] [address] PCP - General Internal Medicine 04/05/14
--- OUTSIDE RECORDS SUMMARY | 2025-03-01 14:44 | XMS_ITS | Data Portability ---
Author Organization [place] - [facility], Allergy Address [address] [address] Care Team Providers Care Implementation Manager Name Role Phone MALI JESUS Primary Care [...] to read at home, which gives a [id number] discussion on what causes migraine and how [...] for migraine dplosky Not available 05/26/2024 11:23:52 02/27/2025 02/27/2025 Atypical migrain es are causing significant difficulties for the patient, including dizziness, ringing in the ears, imbalance, and sensitivity to loud noises, bright lights, and certain smells. I recommend that the patient consult her primary care doctor to develop a more effective migraine management plan. Additionally, I suggest that her primary care doctor refer her to an tourist adviser or immunotherapy specialist to address her severe allergies, which include sensitivities to pollen, dust, roaches, seafood, spicy food, perfumes, mushrooms, and Sinhala vanilla. The patient has been using meclizine [...] By Organization Details Last Modified Time 02/27/2025 [id number] - Consult your primary care doctor to develop a more effective migraine management plan. - Request a referral to an tourist adviser or immunotherapy specialist for evaluation and management [...] 02/27/2025 09:36:01 Reason for Referral None Reported. Results Created Date Observation Date Name Description Value Unit Range Abnormal Flag Note LastModifiedBy Organization Detail LastModifiedTime 05/26/19 25 audio gram No observ ation record ed. BARCODE Not Available 2024 15:54:15 05/26/19 25 audio gram No observ ation record ed. BARCODE Not Available 2024 15:56:25 Result Notes None recorded. Problems Name Problem SNOMED Code Status Onset Date Resolution Date Notes Provider Name and Address Organization Details Recorded Time Bilateral tinnitus 78470881650 02 Active 2016 Tinnitus, bilateral ; Note: Date Diagnosed : 01/20/2017 3:55 PM (H93.13) Not Available [facility] 4 03:01:14 Abnormal auditory perceptio n 14976035 Active 2016 Other abnormal auditory perceptio ns, bilateral ; Note: Date Diagnosed : 01/20/2017 3:55 PM (H93.293) Not Available [facility] 4 03:01:15 Dizziness and giddiness 129420085 Active 2016 Dizziness and giddiness ; Note: Date Diagnosed : 01/20/2017 3:55 PM (R42) Vertigo NOS; Note: Date Diagnosed : 01/20/2017 4:16 PM (R42) Not Available [facility] 4 03:01:12 Allergic rhinitis 49264947 Active 2016 Other allergic rhinitis; Note: Date Diagnosed : 7 11:47 AM (J30.89) Not Available [facility] 4 03:01:13 Migraine variants 922525834 Active 2024 ORQUIDEA ANDERSON MD [address] [place] [address], [phone] , [facility] 5 11:20:57 Problem Notes None recorded. Procedures Surgical History Date Name Laterality Status Provider Name and Address Organization Details Recorded Time 05/26/2024 Air & Speech Audio with Tymps - 69004, 78368 & 61313 completed MACKENZIE TRAN [address] [place] [address], [phone], [facility] 05/26/2024 10:33:53 Imaging Results None recorded. Procedure Notes None recorded. Medical Equipment None Reported. Allergies Allergen ID Allergen Name Allergen Category Reaction Reaction Severity Criticality Documentation Date Start Date Code Code System Note Provider Name and Address Organization Details Recorded Time 964669 penicilli n V potassium medicatio n other Not available Not available 09/07/202357271 5 RxNorm React ion: unkno wn, unspe cifie d;; Not Available [facility] 4 01:14:39 265603 Substance with sulfonami de structure and antibacte rial mechanism of action (substanc e) medicatio n other Not available Not available 09/07/2023 52095 8003 SNOMED React ion: unkno wn, unspe cifie d;; Not Available [facility] 4 01:14:40 Medications Name Sig Start Date Stop Date Status Note LastModified by Organization Details LastModified Time Qvar 80 mcg/actua tion Metered Aerosol oral inhaler 02/27 completed Medicati on ID: [id number] D uration Value: 30 Brand Name: Qvar [...] mg tablet 05/26 completed Medicati on ID: [id number] D uration Value: 7 Brand Name: ibuprofe n Send Method: E-Prescr ibed Sub s [...] mg tablet 2016 active Medicati on ID: [id number] D uration Value: 30 Brand Name: meclizin [...] mg tablet 05/26 completed Medicati on ID: [id number] D uration Value: 30 Brand Name: priya [...] mg tablet 2016 active Medicati on ID: [id number] D uration Value: 30 Brand Name: loratajl ne Send Method: E-Prescr ibed Sub s [...] 24 hr 05/26 completed Medicati on ID: [id number] D uration Value: 30 Brand Name: primoi n Send Method: E-Prescr ibed Sub s Allowed: subs OK Fabian al Instruct ion: TAKE 1 TABLET BY [...] Updated DateTime 05/26/2024 172.72 cm 32.2 kg/m2 53608.58 g Yelitza Quezada [place] - [facility] 05/26/2024 10:44:23 Date Recorded Body height Provider Name an d Address Organization Details Last Updated DateTime 02/27/2025 172.72 cm YAMILA BERTO [place] - [facility] 02/27/2025 09:17:23 Social History None recorded. Functional Status None recorded. Mental Status None recorded. Family History Nothing Reported. Medical History No medical history recorded. Gynecological HistoryNo gynecological history recorded. Obstetrics History GPAL:G 0 P 0 0 0 0 Past Encounters Encounter ID Performer Location Encounter Start Date Encounter Closed Date Diagnosis/Indication Diagnosis SNOMED-CT Code Diagnosis ICD10 Code Diagnosis IMO Codes Diagnosis Note [id number] ORQUIDEA ANDERSON MD [facility] [address] [address] 05/26/2024 10:17:25 05/26/2024 11:24:09 Dizziness and giddiness 346776745 R42 Right Ear:Normal hearing with excellent speech discrimina tion. Left Ear:Normal hearing with excellent speech discrimina tion. Migraine variants 358864 005 G43.809 [id number] ORQUIDEA ANDERSON MD [facility] [address] [address] 02/27/2025 09:13:14 02/27/2025 09:39:50 Bilateral tinnitus 0704350865 102 H93.13 Migraine variants 974267 005 G43.809 Allergic rhinitis 378989 04 J30.89 Dizziness and giddiness 076418745 R42 Right Ear:Normal hearing with excellent speech [...] Barger Member ID Guarantor Name 02/27/2025 1 [place]: [facility] Brooklyn Cuellar [id number] Brooklyn Cuellar Notes Date Note Type Note Provider Name and Address Organization Details Recorded Time 05/26/2024 text/html ROS as noted in the HPI dizzyusing meclizine about one week at a time per monthhyperacusis at [facility], bright lights also very sensitivefood triggers of seafood smell, mushrooms, romanian vanilladry mouth PV 03/11/2017 Norma, tinnitus - advised masking techniques. migraine associated vertigo - elimination diet ORQUIDEA ANDERSON MD [address] [facility],[address], [address], [facility] 05/26/2024 11:24:12 02/27/2025 text/html migraine associated dizzy previously using meclizine about one week at a time per month hyperacusis at [employer]isc[employer], bright lights also very sensitive food triggers of seafood smell, mushrooms, romanian vanilla dry mouth PV 03/11/2017 Norma, tinnitus - advised masking techniques. migraine associated vertigo - elimination diet PV 05/26/24 Elian, atypical migraine, advised discuss with PCP alternative [...] and certain foods such as mushrooms and Sinhala vanilla. She has a history of two [...] significant symptoms requiring assistance. ORQUIDEA ANDERSON MD [address] [facility],[address], [address], [facility] 02/27/2025 09:37:31 OBGyn Episode No OBEpisode recorded.
[2025-03-04 18:59] LABS: TS Negative Control Passed; TS Panel A 0; TS Panel B 0; TS Positive Control Passed; TSpotTB Negative (Negative)
== END 2025-03-01 11:48 | disposition home or self-care (01) ==
LOC: HO.LAB 11:47
PROVIDERS: PCP Internal Medicine; Visit Provider Internal Medicine
DX: Z11.1 Encounter for screening for respiratory tuberculosis (principal); E11.9 Type 2 diabetes mellitus without complications; R74.01 Elevation of levels of liver transaminase levels; B37.31 Acute candidiasis of vulva and vagina; E78.1 Pure hyperglyceridemia
CPT/HCPCS: 36415; 80053; 80061; 83036; 86481

== ENCOUNTER 2025-03-27 13:51 | Emergency (ER) | payer MEDICAID, SELFPAY ==
[2025-03-27 14:03] VITALS: BP 143/67; PULSE 60; RESP 16; TEMP 36.6; O2SAT 100; BMI 29.8
--- NOTE | 2025-03-27 14:03 | ECG_ITS ---
Test Reason : DIZZINESS Blood Pressure : */* mmHG Vent. Rate : 60 BPM Atrial Rate : 60 BPM P-R Int : 160 ms QRS Dur : 90 ms QT Int : 410 ms P-R-T Axes : 0 -14 -16 degrees QTcB Int : 410 ms Normal sinus rhythm Minimal voltage criteria for LVH, may be normal variant ( R in aVL ) Cannot rule out Anterior infarct , age undetermined Abnormal ECG When compared with ECG of 14-Jun-2024 14:37, No significant change was found Referred By: Jeri Sierra Electronically Signed By: MICHELLE OLMSTEAD
--- NOTE | 2025-03-27 14:04 | ED_ITS ---
HPI - General Adult General Chief complaint: Dizziness Stated complaint: Dizziness Related Data Home Medications ?Medication ?Instructions ?Recorded ?Confirmed cinnamon bark 500 mg capsule 1,000 mg PO DAILY 0 10/05/24 (Cinnamon) clonazepam 1 mg tablet 1 mg PO TID PRN Anxiety 03/2610/05/24 albuterol sulfate 90 mcg/actuation 2 puff inhalation Q 4H PRN wheezing 10/07/21 10/05/24 aerosol inhaler (ProAir HFA) meclizine 25 mg tablet 25 mg PO TID PRN Vertigo 10/05/24 pravastatin 40 mg tablet 40 mg PO BEDTIME 10/07/21 ketotifen fumarate 0.025 % (0.035 2 drp ophthalmic (ey e) BID 04/07/22 06/23/24 %) eye drops (Alaway) metoprolol succinate 100 mg 100 mg PO DAILY 10/01/22 0 10/09/24 tablet,extended release 24 hr semaglutide 0.25 mg or 0.5 mg (2 0.25 mg subcut QWEEK 06/23/24 10/05/24 mg/3 mL) subcutaneous pen injector (Ozempic) albuterol sulfate 2.5 mg/3 mL mg continuous nebulizati on BID 10/03/24 (0.083 %) solution for nebulization hydrochlorothiazide 25 mg tablet 12.5 mg PO QAM PRN Ed heraclio 10/03/24 10/05/24 montelukast 10 mg tablet 10 mg PO DAILY 10/03/24 telmisartan 40 mg tablet 40 mg PO DAILY 10/03/2409/24 cetirizine 10 mg capsule (Zyrtec) 10 mg PO DAILY PRN A llergy Symptoms 10/05/24 10/05/24 fluticasone 250 mcg-salmeterol 50 1 inh inhalation BID 10/05/24 10/05/24 mcg/dose blistr powdr for inhalation (Advair Diskus) simethicone 180 mg capsule 180 mg PO QID PRN Abdominal 10/05/24 10/05/24 Discomfort Previous Rx's ?Medication ?Instructions ?Recorded blood sugar diagnostic (FreeStyle #100 ea 04/23/21 Lite Strips) flash glucose sensor (FreeStyle #2 ea 04/23/21 Glenn 2 Sensor kit) metformin 500 mg tablet,extended See Rx Instructions P O BID 30 days 04/23/21 release 24 hr #90 tabs Saccharomyces boulardii 250 mg 250 mg PO DAILY #30 cap s 12/31/23 capsule (Daily Probiotic (S. boulardii)) acetaminophen 500 mg capsule 1,000 mg (2 x 500 mg) PO Q6H PRN 06/14/24 fever or pain #30 caps magnesium citrate 296 ml PO DAILY PRN constipa tion 06/21/24 #296 mL hydrocortisone acetate 25 mg 25 mg NJ BID 30 days #6 s upp 08/08/24 rectal suppository linaclotide 290 mcg capsule 290 mcg PO DAILY #30 caps 08/08/24 (Linzess) metoclopramide HCl 5 mg tablet 5 mg PO QIDACHS #120 ta bs 08/08/24 (Reglan) bisacodyl 5 mg tablet,delayed 10 mg (2 x 5 mg) PO BEDT STEPHANIE 30 02/21/25 release (Dulcolax (bisacodyl)) days #60 tabs omeprazole 40 mg capsule,delayed 40 mg PO DAILY #30 ca ps 02/21/25 release Allergies Allergy/AdvReac Type Severity Reaction Status Date / Time latex (LATEX) Allergy Intermediate RASH Verified 03/27/25 14:05 lisinopril (LISINOPRIL) Allergy Intermediate HALLUCINATIONS, Verified 03/27/25 14:05 cough CLOVER Inhibitors (CLOVER Allergy Unknown UNKNOWN Verified 03/27/25 14:05 INHIBITORS) canagliflozin (Invokana) Allergy Unknown unknown Verified 03/27/25 14:05 liraglutide (From VICTOZA) Allergy Unknown UNKNOWN, Verified 03/27/25 14:05 abdominal pain, nausea penicillin V Allergy Unknown angioedema Verified 03/27/25 14:05 Penicillins (PENICILLINS) Allergy Unknown SYNCOPE Verified 03/27/25 14:05 pioglitazone (From ACTOS) Allergy Unknown UNKNOW, Verified 03/27/25 14:05 body puffiness sertraline Allergy Unknown unknown Verified 03/27/25 14:05 shellfish derived (SHELLFISH Allergy Unknown Rash and Verified 03/27/25 14:05 DERIVED) swelling Sulfa (Sulfonamide Allergy Unknown RASH Verified 03/27/25 14:05 Antibiotics) (SULFA (SULFONAMIDE ANTIBIOTICS)) black pepper Allergy cough, Verified 03/27/25 14:05 choking mushrooms Allergy Intermediate Diarrhea, Uncoded 03/27/25 14:05 swollen stomach,rash Onglyza Allergy Unknown unknown Uncoded 03/27/25 14:05 Djiboutian vanilla creamer AdvReac Diarhea, Uncoded 03/27/25 14:05 nausea, stomach pain PMFSH Past Medical History Medical History (Updated 03/29/25 @ 07:21 by CORINA Chapin) IBS (irritable bowel syndrome) GERD (gastroesophageal reflux disease) DM2 (diabetes mellitus, type 2) Cataracts, bilateral Essential hypertension Hyperlipidemia LDL goal <100 Allergic rhinitis Carpal tunnel syndrome Asthma Fibromyalgia Depression with anxiety High cholesterol HTN (hypertension), benign Surgical History Hx of colonoscopy (06/27/24) Hx of hand surgery History of colonoscopy H/O esophagogastroduodenoscopy History of Cynthia fundoplication Hx of cataract surgery History of ear surgery History of carpal tunnel release H/O gastric bypass H/O hemorrhoidectomy S/P appendectomy H/O hysterectomy for benign disease Family History Family History Father Myocardial infarction Hypertension Diabetes Mother Dementia HTN (hypertension), benign High cholesterol Diabetes Maternal Aunt Breast cancer Social History Social History Household Members: Spouse Are you a primary career law clerk to a significant other at home: No Do you presently have visiting nurse or other home services: Yes ([employer] daily 2-3 hours) Alcohol intake: former Patient Tobacco Use Status: Former Tobacco user Tobacco use type: Cigarette Years Smoked: quit 15-20 years ago Advance Directives: No Advance Directives Information Provided: No Current occupational status: employed 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 Full HPI, ROS, assessment and treatment plan per primary provider in the Main ED. Hx: 64 yo F hx HTN, HLD, DM, fibromyalgia here for eval of nausea, dizziness, chest pain, fatigue, whole body muscle cramps and elevated blood sugar since her ozempic was discontinued 3.5 weeks ago. continuing to take metformin. Plan: labs, UA, ekg Reevaluation(s) Reevaluation #1: Patient left the emergency department before myself or any of the other clinicians could review or explain physical exam findings, test results, need or lack there of for additional testing, treatment options, or a treatment plan. Medical Decision Making Lab Data 03/27/25 14:27 03/27/25 14:27 Labs: Lab Results 03/27/25 03/27/25 Range/Units 14:27 14:32 WBC 8.0 (4.8-10.8) X10*3/uL RBC 4.12 L (4.20-5.50) X10*6/uL Hgb 12.5 (12.0-16.0) g/dl Hct 37.9 (37.0-47.0) % MCV 92.0 (80.0-98.0) fL MCH 30.3 (27.0-33.0) pg MCHC 33.0 (31.0-35.0) g/dl RDW 12.7 (11.0-16.0) % Plt Count 332 (160-400) X10*3/uL MPV 9.5 (9.4-12.3) fL Immature Gran % (Auto) 0.2 (0.0-0.4) % Neut % (Auto) 54.8 (45-73) % Lymph % (Auto) 36.6 (20-40) % Wharton % (Auto) 7.0 (2-11) % Eos % (Auto) 1.2 (0-4) % Baso % (Auto) 0.2 (0-2) % Lymph # (Auto) 2.9 (1.2-4.9) X10*3/uL Wharton # (Auto) 0.6 (0.1-1.2) X10*3/uL Eos # (Auto) 0.1 (0.0-0.4) X10*3/uL Baso # (Auto) 0.0 (0.0-0.2) X10*3/uL Abs Immat Gran (auto) 0.02 (0.00-0.03) X10*3/uL Absolute Neuts (auto) 4.4 (2.0-8.3) x10*3/uL Absolute Nucleated RBC 0.000 (0.0-0.012) X10*3/uL Nucleated RBC % (auto) 0.0 (0.0-0.2) /100WBC Sodium 139 (135-145) mmol/L Potassium 4.4 (3.3-5.1) mmol/L Chloride 105 (96-108) mmol/L Carbon Dioxide 25 (22-29) mmol/L Anion Gap 13 (12-20) BUN 19 H (9-16) mg/dL Creatinine 0.69 (0.5-1.4) mg/dL Estim Creat Clear Calc 98.6 Estimated GFR > 60 Random Glucose 131 H (60-115) mg/dL Calcium 9.7 (8.4-10.2) mg/dL Magnesium 1.9 (1.6-2.6) mg/dL Total Bilirubin 0.7 (0.0-1.0) mg/dL AST 27 (5-31) U/L ALT 18 (0-31) U/L Alkaline Phosphatase 88 (39-117) U/L Total Creatine Kinase 102 (26-140) U/L Troponin I High Sens < 2.7 (<3.5-17.0) ng/L Total Protein 7.6 (6.5-8.0) g/dL Albumin 4.7 (3.5-5.0) g/dL Beta-Hydroxybutyrate 0.14 (0.02-0.27) mmol/L Urine Color Yellow Urine Appearance Clear Urine pH 5.5 (5.0-9.0) Ur Specific Kiel 1.015 (1.005-1.025) Urine Protein Negative (Neg-Trace) mg/dL Urine Glucose (UA) Negative (Negative) mg/dL Urine Ketones Negative (Negative) mg/dL Urine Blood Negative (Negative) Urine Nitrite Negative (Negative) Ur Leukocyte Esterase Negative (Negative) Discharge Plan Discharge Clinical Impression: Dizziness Patient Disposition: Left W/O Completing Treatment Prescriptions: No Action Saccharomyces boulardii [Daily Probiotic (S. boulardii)] 250 mg capsule 250 mg PO DAILY Qty: 30 6RF magnesium citrate Solution 296 ml PO DAILY PRN (Reason: constipation) Qty: 296 0RF Rx Instructions: drink 1 bottle every night 6 days before colonoscopy. follow each bottle with 8 oz of water. hydrocortisone acetate 25 mg suppository 25 mg NJ BID 30 Days Qty: 6 3RF metoclopramide HCl [Reglan] 5 mg tablet 5 mg PO QIDACHS Qty: 120 6RF Linzess 290 mcg capsule 290 mcg PO DAILY Qty: 30 6RF bisacodyl [Dulcolax (bisacodyl)] 5 mg tablet,delayed release (DR/EC) 10 mg PO BEDTIME 30 Days Qty: 60 1RF omeprazole 40 mg capsule,delayed release(DR/EC) 40 mg PO DAILY Qty: 30 2RF Zyrtec 10 mg Capsule 10 mg PO DAILY PRN (Reason: Allergy Symptoms) acetaminophen 500 mg capsule 1,000 mg PO Q6H PRN (Reason: fever or pain) Qty: 30 0RF fluticasone propion-salmeterol [Advair Diskus] 250-50 mcg/dose Blister With Device 1 inh INHALATION BID simethicone 180 mg capsule 180 mg PO QID PRN (Reason: Abdominal Discomfort) Ozempic 0.25 mg or 0.5 mg (2 mg/3 mL) pen injector 0.25 mg subcut QWEEK cinnamon bark [Cinnamon] 500 mg capsule 1,000 mg PO DAILY (DME) FreeStyle Lite Strips Strip See Rx Instructions .ROUTE .MEDSUPPLY Qty: 100 11RF Rx Instructions: As directed three times a day (DME) FreeStyle Glenn 2 Sensor Kit See Rx Instructions .ROUTE .MEDSUPPLY Qty: 2 11RF Rx Instructions: As directed every 2 weeks metformin 500 mg tablet extended release 24 hr See Rx Instructions PO BID 30 Days Qty: 90 6RF Rx Instructions: 1 tab in the am and 2 tab in pm PO 2 times a day; clonazepam 1 mg tablet 1 mg PO TID PRN (Reason: Anxiety) albuterol sulfate [ProAir HFA] 90 mcg/actuation HFA aerosol inhaler 2 puff inhalation Q4H PRN (Reason: wheezing) meclizine 25 mg tablet 25 mg PO TID PRN (Reason: Vertigo) pravastatin 40 mg tablet 40 mg PO BEDTIME ketotifen fumarate [Alaway] 0.025 % (0.035 %) drops 2 drp ophthalmic (eye) BID metoprolol succinate 100 mg tablet extended release 24 hr 100 mg PO DAILY albuterol sulfate 2.5 mg /3 mL (0.083 %) solution for nebulization continuous nebulization BID montelukast 10 mg tablet 10 mg PO DAILY hydrochlorothiazide 25 mg tablet 12.5 mg PO QAM PRN (Reason: Edema) telmisartan 40 mg tablet 40 mg PO DAILY Discharge Date/Time: 03/28/25 01:03
[2025-03-27 14:49] LABS: MANUAL DIFF FLAG NO
[2025-03-27 14:53] LABS: Hematocrit 37.9 % (37.0-47.0); Hemoglobin 12.5 g/dl (12.0-16.0); Imm Gran Abs Auto 0.02 X10*3/uL (0.00-0.03); Imm Gran Pct Auto 0.2 % (0.0-0.4); Lymphocytes Absolute Auto 2.9 X10*3/uL (1.2-4.9); Mean Corpuscular HGB Conc 33.0 g/dl (31.0-35.0); Mean Corpuscular Hemoglobin 30.3 pg (27.0-33.0); Mean Corpuscular Volume 92.0 fL (80.0-98.0); NRBC Abs Auto 0.000 X10*3/uL (0.0-0.012); NRBC Pct Auto 0.0 /100WBC (0.0-0.2); Platelet Count 332 X10*3/uL (160-400); Red Blood Count 4.12 X10*6/uL (4.20-5.50); White Blood Count 8.0 X10*3/uL (4.8-10.8)
[2025-03-27 14:55] LABS: Appearance Urine Clear; Glucose Urine UA Negative (Negative); PH 5.5 (5.0-9.0); Specific Gravity - Urine 1.015 (1.005-1.025)
[2025-03-27 15:07] LABS: Alanine Aminotransferase 18 U/L (0-31); Albumin Level 4.7 g/dL (3.5-5.0); Alkaline Phosphatase 88 U/L (39-117); Anion Gap 13 (12-20); Aspartate Amino Transferase 27 U/L (5-31); Blood Urea Nitrogen 19 mg/dL (9-16); Calcium 9.7 mg/dL (8.4-10.2); Carbon Dioxide 25 mmol/L (22-29); Chloride 105 mmol/L (96-108); Creatinine Clr Calc Pharmacy 98.6; Estimated Glomerular Filt Rate > 60; Magnesium 1.9 mg/dL (1.6-2.6); Potassium 4.4 mmol/L (3.3-5.1); Sodium 139 mmol/L (135-145); Total Protein 7.6 g/dL (6.5-8.0)
[2025-03-27 15:19] LABS: Troponin-I High Sensitivity < 2.7 ng/L (<3.5-17.0)
--- OUTSIDE RECORDS SUMMARY | 2025-03-28 01:04 | XMS_ITS | Continuity of Care Document ---
Author Organization [place] [facility], [facility] Address [address] [place] [address] Care Team Providers Care Sports Clerk Name Role Phone MALI JESUS Primary Care Provider [phone] Assessment Encounter Date Assessment Date Assessment LastModified [...] primary care doctor refer her to an tripe washer or immunotherapy specialist to address her severe allergies, which include sensitivities to pollen, dust, roaches, seafood, spicy food, perfumes, mushrooms, and Cameroonian vanilla. The patient has been using meclizine [...] By Organization Details Last Modified Time 02/27/2025 82823 - Consult your primary care doctor to develop a more effective migraine management plan. - Request a referral to an tripe washer or immunotherapy specialist for evaluation and management [...] Address Organization Details Recorded Time Bilateral tinnitus 01123737010 02 Active 2016 Tinnitus, bilateral ; Note: Date Diagnosed : 01/20/2017 3:55 PM (H93.13) Not Available [facility] 4 03:01:14 Abnormal auditory perceptio n [id number] Active 2016 Other abnormal auditory perceptio ns, bilateral ; Note: Date Diagnosed : 01/20/2017 3:55 PM (H93.293) Not Available [facility] 4 03:01:15 Dizziness and giddiness 391715956 Active 2016 Dizziness and giddiness ; Note: Date Diagnosed : 01/20/2017 3:55 PM (R42) Vertigo NOS; Note: Date Diagnosed : 01/20/2017 4:16 PM (R42) Not Available [facility] 4 03:01:12 Allergic rhinitis 90263847 Active 2016 Other allergic rhinitis; Note: Date Diagnosed : 7 11:47 AM (J30.89) Not Available [facility] 4 03:01:13 Migraine variants 306133992 Active 2024 ORQUIDEA ANDERSON MD [address] [place] [address], [place], [phone] , [facility] - [facility] 5 11:20:57 Problem Notes None recorded. Procedures Surgical History Date Name Laterality Status Provider Name and Address Organization Details Recorded Time 05/26/2024 Air & Speech Audio with Tymps - 02578, 37395 & 00999 completed DYLAN MOBLEY, AUD [address] [facility],[place] [address], [place], [phone], [facility] - [facility] 05/26/2024 10:33:53 Imaging Results None recorded. Procedure Notes None recorded. Medical Equipment None Reported. Allergies Allergen ID Allergen Name Allergen Category Reaction Reaction Severity Criticality Documentation Date Start Date Code Code System Note Provider Name and Address Organization Details Recorded Time 902183 penicilli n V potassium medicatio n other Not available Not available 09/07/2023 26700 5 RxNorm React ion: unkno wn, unspe cifie d;; Not Available [facility] 4 01:14:39 439188 Substance with sulfonami de structure and antibacte rial mechanism of action (substanc e) medicatio n other Not available Not available 09/07/2023 50850 8003 SNOMED React ion: unkno wn, unspe cifie d;; Not Available [facility] 4 01:14:40 Medications Name Sig Start Date Stop Date Status Note LastModified by Organization Details LastModified Time Qvar 80 mcg/actua tion Metered Aerosol oral inhaler 02/27 completed Medicati on ID: [id number] D uration Value: 30 Brand Name: Qvar [...] mg tablet 05/26 completed Medicati on ID: [id number] D uration Value: 7 Brand Name: mark [...] mg tablet 2016 active Medicati on ID: [id number] D uration Value: 30 Brand Name: meclizin [...] mg tablet 05/26 completed Medicati on ID: [id number] D uration Value: 30 Brand Name: priya [...] mg tablet 2016 active Medicati on ID: [id number] D uration Value: 30 Brand Name: loratadi [...] 24 hr 05/26 completed Medicati on ID: [id number] D uration Value: 30 Brand Name: metformi [...] [place] [facility] 02/27/2025 09:17:23 Social History None recorded. Functional Status None recorded. Mental Status None recorded. Family History Nothing Reported. Medical History No medical history recorded. Gynecological HistoryNo gynecological history recorded. Obstetrics History GPAL:G 0 P 0 0 0 0 Past Encounters Encounter ID Performer Location Encounter Start Date Encounter Closed Date Diagnosis/Indication Diagnosis SNOMED-CT Code Diagnosis ICD10 Code Diagnosis IMO Codes Diagnosis Note [id number] ORQUIDEA ANDERSON MD [facility] [address] [address] 02/27/2025 09:13:14 02/27/2025 09:39:50 Bilateral tinnitus [id number] 102 H93.13 Migraine variants 687329 005 G43.809 Allergic rhinitis 076194 04 J30.89 Dizziness and giddiness 135916083 R42 Right Ear:Normal hearing with excellent speech discrimina tion. Left Ear:Normal hearing with excellent speech discrimina tion. Health Concerns Section Related Observation LastModified by Organization Detai ls LastModified Time None Recorded Concern Status LastModified by Organization Details LastModified Time None Recorded Payers Encounter Date Sequence Insurance Name Policy Number Policy Barger Covered Member ID Barger Member ID Guarantor Name 02/27/2025 1 [place] [facility] Brooklyn Cuellar [id number] [place] Chinchilla Polo Notes Date Note Type Note Provider Name and Address Organization Details Recorded Time 02/27/2025 text/html migraine associated dizzy previously using meclizine about one week at a time per month hyperacusis at denominational, bright lights also very sensitive food triggers of seafood smell, mushrooms, greek vanilla dry mouth PV 03/11/2017 Norma tinnitus [...] and certain foods such as mushrooms and Cameroonian vanilla. She has a history of two [...] significant symptoms requiring assistance. ORQUIDEA ANDERSON MD [address] [place] [address], [phone], [facility] - [facility] 02/27/2025 09:37:31 OBGyn Episode No OBEpisode recorded.
--- OUTSIDE RECORDS SUMMARY | 2025-03-28 01:04 | XMS_ITS | Encounter Summary ---
Author Organization [facility] Address [address] [facility] [place] [address] Phone Care Team Providers Care Business Rules Analyst Name Role Phone Michelle Sidhu MD Primary Care Provider Encounter Details Date Type Department Care Team (Late st Contact Info) Description 03/09/2017 Procedure Pass [facility], Ct Scan - [address] [address] Social History Tobacco Use Types Packs/Day Years [...] on filedocumented in this encounter Care Teams Business Rules Analyst Relationship Specialty Start Date End Date Michelle Sidhu MD [address] [place] [address] Dr Chang MARQUEZ [place] [phone] PCP - General Internal Medicine 03/09/17 documented as of this encounter Additional Source Comments The information contained in this document represents components of the legal health record. It is not the complete legal health record.[facility]
--- OUTSIDE RECORDS SUMMARY | 2025-03-28 01:04 | XMS_ITS | Clinical Summary ---
Author Organization [facility] Address [address] [place] [address] Phone Care Team Providers Care Transportation Supervisor Name Role Phone Michelle Sidhu MD Primary Care Provider [phone] Allergies Active Allergy Reactions Criticality Noted Date [...] total) by mouth every other day. Active metoprolol succinate (TOPROL-XL) 100 mg 24 [...] a day for 14 days. 42 each 024 Active oxyCODONE (ROXICODONE) 5 mg immediate release tabletIndication s:acute postoperative pain Take 1 tablet (5 mg total) by mouth every 6 (six) hours if needed (breakthrough pain). Max Daily Amount: 20 mg 10 tablet 024 Active Additional Information Patient not taking.Reported on 08/11/2024 docusate sodium (COLACE) 100 mg capsule TAKE 1 CAPSULE BY MOUTH TWICE A DAY FOR 2 WEEKS 28 capsule 025 Active nystatin (MYCOSTATIN) cream Apply 1 Application topically 1 (one) time each day. 30 g 3 025 Active multivitamin (Daily-Feli, with folic acid,) tablet TAKE 2 TABLETS BY MOUTH EVERY DAY 180 tablet 1 025 Active semaglutide (Ozempic) 0.25 mg or 0.5 mg (2 mg/3 mL) injection penIndications:C lass 1 obesity due to excess calories with serious comorbidity and body mass index (BMI) of 31.0 to 31.9 in adult,Type 2 diabetes mellitus without complication, without long-term current use of insulin ([facility] V24, [facility] V28) Inject 0.5 mg under the skin every 7 (seven) days for 4 doses. 3 mL 025 2024 Active cholecalciferol (Vitamin D3) 50 mcg (2,000 unit) capsuleIndicatio ns:Postgastrecto my malabsorption Take 1 capsule (2,000 Units total) by mouth 1 (one) time each day. 30 each 024 2024 ergocalciferol (VITAMIN D-2) 1,250 mcg (50,000 unit) capsuleIndicatio ns:Postgastrecto my malabsorption Take 1 capsule (50,000 Units total) by mouth 1 (one) time per week. 4 each 024 2024 cyanocobalamin (VITAMIN B-12) 1,000 mcg tabletIndication s:Postgastrectom y malabsorption Take 1 tablet (1,000 mcg total) by mouth 1 (one) time each day. 30 each 024 2024 ferrous gluconate (FERGON) 324 mg (38 mg iron) tabletIndication s:Postgastrectom y malabsorption Take 1 tablet (324 mg total) by mouth 1 (one) time each day. 30 each 024 2024 semaglutide (OZEMPIC SUBQ) Inject under the skin. 2024 Discontinued multivitamin (Daily-Feli, with folic acid,) tablet TAKE 2 TABLETS BY MOUTH EVERY DAY 180 tablet 1 025 2024 Discontinued semaglutide (Ozempic) 0.25 mg or 0.5 mg (2 mg/3 mL) injection pen Inject 0.25 mg under the skin every 7 (seven) days. 3 mL 025 2024 Discontinued(D ose adjustment) Active Problems Problem Noted Date Diagnosed Date Class 1 obesity due to exces s calories with serious comorbidity and body mass index (BMI) of 32.0 to 32.9 in adult 02/01/2024 Symptomatic abdominal panniculus 08/26/2020 Vitamin D deficiency 12/14/2018 Essential hypertension 11/25/2017 Intestinal malabsorption following gastrectomy 0 11/25/2017 Mixed hyperlipidemia 11/25/2017 Type 2 diabetes mellitus wit hout complication, without long-term current use of insulin ([facility] V24, [facility] V28) 11/25/2017 Encounters Date Type Department Care Team Description 03/21/2025 Results Follow-Up Bariatric Surgery - [address] [place] [phone] Melyssa Zuniga MD 03/20/2025 11:30 AM EST Lab Draw Station - [address] [place] [phone] Type 2 diabetes mellitus without complication, without long-term current use of insulin ([facility] V24, [facility] V28) 03/20/2025 11:15 AM EST Office Visit Bariatric Surgery - [address] [phone] Melyssa Zuniga MD Class 1 obesity due to excess calories with serious comorbidity and body mass index (BMI) of 31.0 to 31.9 in adult (Primary Dx); Type 2 diabetes mellitus without complication, without long-term current use of insulin ([facility] V24, [facility] V28) 03/05/2025 Telephone Bariatric Surgery - [address] [phone] Melyssa Zuniga MD 02/13/2025 8:45 AM EDT Office Visit Bariatric Surgery - [address] [phone] Melyssa Zuniga MD Class 1 obesity due to excess calories with serious comorbidity and body mass index (BMI) of 31.0 to 31.9 in adult (Primary Dx) from Last 3 Months Surgical History Surgery Date Site/Laterality Comments OTHER SURGICAL HISTORY 04/05/2014 PROCEDURE: AK LAPS GSTR RSTCV PX W/BYP INÉS-EN-Y LIMB <150 CM HYSTERECTOMY PROCEDURE: HISTORICAL HYSTERECTOMY HAND SURGERY PROCEDURE: HISTORICAL HAND SURGERY HEMORRHOID SURGERY PROCEDURE: AK INCISION THROMBOSED HEMORRHOID EXTERNAL APPENDECTOMY PROCEDURE: HISTORICAL APPENDECTOMY Medical History Medical History Date Comments 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 Type 2 diabetes mellitus wit hout complication, without long-term current use of insulin ([facility] V24, [facility] V28) 11/25/2017 DX:Type 2 diabetes mellitus without complication, without long-term current use of insulin ([facility]) Essential hypertension 11/25/2017 DX:Essent ial hypertension Mixed [...] Sign Reading Time Taken Comments Blood Pressure 133/74 03/20/2025 10:55 AM EST Pulse 70 03/20/2025 10:55 AM EST Temperature 36.6 C (97.8 F) 03/20/2025 10:55 AM EST Respiratory Rate 16 04/12/2024 8:38 AM EST Oxygen Saturation 99% 04/10/2024 4:00 PM EST Inhaled Oxygen Concentration - - Weight 91.2 kg (201 lb) 03/20/2025 10:55 AM EST Height 170.2 cm (5' 7 ) 03/20/2025 10:55 AM EST Body Mass Index 31.48 03/20/2025 10:55 AM EST Plan of Treatment Upcoming Encounters Date Type Department Care Team (Late st Contact Info) Description 07/12/2025 2:00 PM EDT Office Visit Bariatric Surgery - [address] [place] [address] Melyssa Zuniga MD [address] [place] [phone] Health Maintenance Due Date Last Done Comments Breast Cancer Screening 1962 Colorectal Cancer Screening: Colonoscopy 1962 Diabetes: Annual Foot Exam 1972 Diabetes: Annual Retina Eye Exam 1972 Cervical Cancer Screening: Pap Smear 11/20/1983 Cholesterol Screening (Lipid Panel) 03/29/2022 HIV Screening 03/29/2022 Hepatitis C Screening 03/29/2022 Social Influencers of Health Screening 03/29/2022 Diabetes: Annual Urine Albumin-Creatinine Ratio (uACR) 04/11/2022 Depression Screening 04/26/2024 COVID-19 Vaccine ( season) 2024 01/19/2024, 02/01/2023, 02/17/2022, Additional history exists Influenza Vaccine (#1) 2024 Diabetes: Annual GFR (Glomerular Filtration Rate) 03/27/2025 03/27/2024, 06/08/2018 Hypertension/CHF/CAD Annual BMP Blood Test 03/27/2025 03/27/2024, 06/08/2018 Diabetes: Blood Sugar Control Test (HGBA1C) 09/17/2025 03/20/2025, 03/27/2024 DTaP,Tdap,and Td Vaccines (2 - Td or Tdap) 08/22/2031 08/21/2021 RSV Immunization Adult Patients (1 - 1-dose 75+ series) 2037 Pneumococcal Vaccine: 50+ Years Completed 08/25/2021, 08/21/2021 Zoster Vaccines Completed 08/04/2022, 11/21/2021 HIB Vaccines Aged Out No longer eligi [...] Procedure Name Priority Date/Time Associated Diagnosis Comments HEMOGLOBIN A1C Routine 03/20/2025 11:14 AM EST Type 2 diabetes mellitus without complication, without long-term current use of insulin ([facility] V24, [facility] V28) BASIC METABOLIC PANEL STAT 03/27/2024 8:50 AM EST from Last 3 Months or Most Recently Relevant to Health Maintenance Results * (ABNORMAL) Hemoglobin A1c (03/20/2025 11:14 AM EST) Hemoglobin A1C 7.4(H) <6.5 % LAB CHEMISTRY METHOD 03/20/2025 9:58 PM EST [facility] Mean Bld Glu Estim. 166 mg/dL LAB CHEMISTRY METHOD 03/20/2025 9:58 PM EST [facility] Blood Venous blood specimen / Unknown Venipuncture / Unknown 03/20/2025 11:14 AM EST 03/20/2025 11:14 AM EST us Melyssa Zuniga MD LAB BLOOD ORDERABLES Final R esult [facility] [address] [place] [address], * (ABNORMAL) Basic metabolic panel (03/27/2024 8:50 AM EST) Sodium 139 133 - 145 mmol/L LAB CHEMISTRY METHOD 03/27/2024 9:45 AM EST [facility] Potassium 4.5 3.5 - 5.5 mmol/L LAB CHEMISTRY METHOD 03/27/2024 9:45 AM EST [facility] Chloride 105 96 - 110 mmol/L LAB CHEMISTRY METHOD 03/27/2024 9:45 AM EST [facility] CO2 31 21 - 32 mmol/L LAB CHEMISTRY METHOD 03/27/2024 9:45 AM [facility] Anion Gap 3 3 - 11 LAB CHEMISTRY METHOD 03/27/2024 9:45 AM [facility] Glucose 202(H) 70 - 100 mg/dL LAB CHEMISTRY METHOD 03/27/2024 9:45 AM [facility] BUN 13 5 - 25 mg/dL LAB CHEMISTRY METHOD 03/27/2024 9:45 AM [facility] Creatinine 0.76 0.50 - 1.10 mg/dL LAB CHEMISTRY METHOD 03/27/2024 9:45 AM [facility] eGFR 89 >=60 mL/min/1. 73m2 LAB CHEMISTRY METHOD 03/27/2024 9:45 AM [facility] Comment:Calculation based on the Chronic Kidney Disease Epidemiology Collaboration (CKD-EPI) equation refit without adjustment for race. BUN/Creatinine Ratio 17.1 LAB CHEMISTRY METHOD 03/27/2024 9:45 AM [facility] Calcium 9.4 8.5 - 10.5 mg/dL LAB CHEMISTRY METHOD 03/27/2024 9:45 AM [facility] Blood Venous blood specimen / Unknown Venipuncture / Unknown 03/27/2024 8:50 AM EST 03/27/2024 9:07 AM EST us Lisa Holly MD LAB BLOOD ORDERABLES Final Resu lt [facility] [address] [place] [address], from Last 3 Months or Most Recently [...] currently active code status orders. Care Teams Transportation Supervisor Relationship Specialty Start Date End Date Michelle Sidhu MD [address] PCP - General Internal Medicine 04/05/14
--- OUTSIDE RECORDS SUMMARY | 2025-03-28 01:04 | XMS_ITS | Clinical Summary ---
Author Organization [facility] Address [address] [place] [phone] Phone Care Team Providers Care Principal Investigator Name Role Phone Michelle Sidhu MD Primary [...] EST) SODIUM 144 133 - 146 mmol/L [facility] CHLORIDE 103 96 - 108 mmol/L [facility] POTASSIUM 3.8 3.3 - 5.1 mmol/L [facility] CO2 30 21 - 35 mmol/L [facility] BUN 13 6 - 19 mg/dL [facility] CREATININE 0.50 0.5 - 1.5 mg/dL [facility] GLUCOSE 133(H) 70 - 99 mg/dL [facility] CALCIUM 9.2 8.4 - 10.3 mg/dL [facility] EGFR >60 60 - 1000 mL/min/1.7 3m2 [facility] Comment:Abnormal if <60. If patient is -Malagasy, multiply the result by 1.21. ANION GAP 15 10 - 20 mmol/L [facility] Blood 03/09/2017 2:56 AM EST 03/09/2017 3:04 AM EST Nathaly Mclain MD, PhD LAB BLOOD BKR ORDER LILIYA Final Result [facility] [address] [place] [address] from Last 3 Months or Most Recently Relevant to Health Maintenance Insurance [facility] [address] [place] [address] [facility] Care Teams Principal Investigator Relationship Specialty Start Date End Date Michelle Sidhu MD [address] [place] [address] [place] [phone] PCP - General Internal Medicine 03/09/17 Additional Source Comments The information contained in this document represents components of the legal health record. It is not the complete legal health record.[facility]
--- OUTSIDE RECORDS SUMMARY | 2025-03-28 01:04 | XMS_ITS | Encounter Summary ---
Author Organization [facility] Address [address] [place] [address] Care Team Providers Care Power House Engineer Name Role Phone Michelle Sidhu MD Primary Care Provider Encounter Details Date Type Department Care Team (Late st Contact Info) Description 03/21/2025 Results Follow-Up Bariatric Surgery - [address] [place] [address] Melyssa Zuniga MD [address] [place] [phone] Social History Tobacco Use Types Packs/Day Years Used Date Smoking Tobacco: Former Smokeless Tobacco: Never Alcohol Use Standard Drinks/Week Comments No 0 [...] Orientation Straight 03/27/2024 8: 33 AM EST documented as of this encounter Functional Status * Are you deaf or do you have serious difficulty hearing? Answer Date of Assessment Author No 04/08/2024 2:06 PM Elvia Leija RN * Are you blind or do you have serious difficulty seeing, even when wearing glasses? Answer Date of Assessment Author No 04/08/2024 2:06 PM Elvia Leija RN * Do you have serious difficulty walking or climbing stairs? Answer Date of Assessment Author No 04/08/2024 2:06 PM Elvia Leija RN * Do you have serious difficulty dressing or bathing? Answer Date of Assessment Author No 04/08/2024 2:06 PM Elvia Leija RN * Because of a physical, mental, or emotional condition, do you have serious difficulty doing errandsalone such as visiting the doctor? Answer Date of Assessment Author No 04/08/2024 2:06 PM Elvia Leija RN documented as of this encounter Mental Status * Because of a physical, mental, or emotional condition, do you have serious difficulty concentrating, remembering, or making decisions? (5 years old or older) Answer Entry Date Author No 04/08/2024 2:06 PM Elvia Leija RN documented in this encounter Plan of Treatment Upcoming Encounters Date Type Department Care Team (Late st Contact Info) Description 07/12/2025 2:00 PM EDT Office Visit Bariatric Surgery - [address] [place] [phone] Melyssa Zuniga MD [address] [place] [phone] documented as of this encounter Visit Diagnoses Not on filedocumented in this encounter Care Teams Power House Engineer Relationship Specialty Start Date End Date Michelle Sidhu MD [address] PCP - General Internal Medicine 04/05/14 documented as of this encounter
--- OUTSIDE RECORDS SUMMARY | 2025-03-28 01:05 | XMS_ITS | Data Portability ---
Author Organization [place] - [facility], Allergy Address [address] [place] [phone] Care Team Providers Care Stoneworker Name Role Phone MALI JESUS Primary Care [...] to read at home, which gives a [id number] discussion on what causes migraine and how [...] primary care doctor refer her to an route salesman and driver or immunotherapy specialist to address her severe allergies, which include sensitivities to pollen, dust, roaches, seafood, spicy food, perfumes, mushrooms, and Kyrgyz vanilla. The patient has been using meclizine [...] By Organization Details Last Modified Time 02/27/2025 11528 - Consult your primary care doctor to develop a more effective migraine management plan. - Request a referral to an route salesman and driver or immunotherapy specialist for evaluation and management [...] Address Organization Details Recorded Time Bilateral tinnitus 46406466325 02 Active 2016 Tinnitus, bilateral ; Note: Date Diagnosed : 01/20/2017 3:55 PM (H93.13) Not Available [facility] 4 03:01:14 Abnormal auditory perceptio n 03200939 Active 2016 Other abnormal auditory perceptio ns, bilateral ; Note: Date Diagnosed : 01/20/2017 3:55 PM (H93.293) Not Available [facility] 4 03:01:15 Dizziness and giddiness 926500713 Active 2016 Dizziness and giddiness ; Note: Date Diagnosed : 01/20/2017 3:55 PM (R42) Vertigo NOS; Note: Date Diagnosed : 01/20/2017 4:16 PM (R42) Not Available [facility] 4 03:01:12 Allergic rhinitis 30362314 Active 2016 Other allergic rhinitis; Note: Date Diagnosed : 7 11:47 AM (J30.89) Not Available [facility] 4 03:01:13 Migraine variants 317706909 Active 2024 ORQUIDEA ANDERSON MD [address] [place] [address], [phone] , [facility] 5 11:20:57 Problem Notes None recorded. Procedures Surgical History Date Name Laterality Status Provider Name and Address Organization Details Recorded Time 05/26/2024 Air & Speech Audio with Tymps - 22635, 03611 & 23968 completed MACKENZIE TRAN [address] [place] [address], [phone], [facility] 05/26/2024 10:33:53 Imaging Results None recorded. Procedure Notes None recorded. Medical Equipment None Reported. Allergies Allergen ID Allergen Name Allergen Category Reaction Reaction Severity Criticality Documentation Date Start Date Code Code System Note Provider Name and Address Organization Details Recorded Time 029688 penicilli n V potassium medicatio n other Not available Not available 09/07/202305132 5 RxNorm React ion: unkno wn, unspe cifie d;; Not Available [facility] 4 01:14:39 781492 Substance with sulfonami de structure and antibacte rial mechanism of action (substanc e) medicatio n other Not available Not available 09/07/2023 12363 8003 SNOMED React ion: unkno wn, unspe cifie d;; Not Available [facility] 4 01:14:40 Medications Name Sig Start Date Stop Date Status Note LastModified by Organization Details LastModified Time Qvar 80 mcg/actua tion Metered Aerosol oral inhaler 02/27 completed Medicati on ID: [id number] D uration Value: 30 Brand Name: Qvar [...] mg tablet 05/26 completed Medicati on ID: [id number] D uration Value: 7 Brand Name: ibuprofe [...] mg tablet 2016 active Medicati on ID: 945468 D uration Value: 30 Brand Name: meclizin [...] mg tablet 05/26 completed Medicati on ID: [id number] D uration Value: 30 Brand Name: priya [...] mg tablet 2016 active Medicati on ID: [id number] D uration Value: 30 Brand Name: loratajl [...] 24 hr 05/26 completed Medicati on ID: [id number] D uration Value: 30 Brand Name: primoi [...] Updated DateTime 05/26/2024 172.72 cm 32.2 kg/m2 55756.58 g Yelitza Quezada [place] - [facility] 05/26/2024 10:44:23 Date Recorded Body height Provider Name an d Address Organization Details Last Updated DateTime 02/27/2025 172.72 cm YAMILA BERTO [place] - [facility] 02/27/2025 09:17:23 Social History None recorded. Functional Status None recorded. Mental Status None recorded. Family History Nothing Reported. Medical History No medical history recorded. Gynecological HistoryNo gynecological history recorded. Obstetrics History GPAL:G 0 P 0 0 0 0 Past Encounters Encounter ID Performer Location Encounter Start Date Encounter Closed Date Diagnosis/Indication Diagnosis SNOMED-CT Code Diagnosis ICD10 Code Diagnosis IMO Codes Diagnosis Note [id number] ORQUIDEA ANDERSON MD [facility] [address] [address] 05/26/2024 10:17:25 05/26/2024 11:24:09 Dizziness and giddiness 389068134 R42 Right Ear:Normal hearing with excellent speech discrimina tion. Left Ear:Normal hearing with excellent speech discrimina tion. Migraine variants 423593 005 G43.809 [id number] ORQUIDEA ANDERSON MD [facility] [address] [address] 02/27/2025 09:13:14 02/27/2025 09:39:50 Bilateral tinnitus 7359957669 102 H93.13 Migraine variants 476999 005 G43.809 Allergic rhinitis 905922 04 J30.89 Dizziness and giddiness 454883283 R42 Right Ear:Normal hearing with excellent speech [...] Barger Member ID Guarantor Name 02/27/2025 1 [place] [facility] [place] Cuellar [id number] [place] Cuellar Notes Date Note Type Note Provider Name and Address Organization Details Recorded Time 05/26/2024 text/html ROS as noted in the HPI dizzyusing meclizine about one week at a time per monthhyperacusis at taoism, bright lights also very sensitivefood triggers of seafood smell, mushrooms, tajik vanilladry mouth PV 03/11/2017 Norma, tinnitus - advised masking techniques. migraine associated vertigo - elimination diet ORQUIDEA ANDERSON MD [address] [facility] [facility],[address], [phone], [facility] 05/26/2024 11:24:12 02/27/2025 text/html migraine associated dizzy previously using meclizine about one week at a time per month hyperacusis at taoism, bright lights also very sensitive food triggers of seafood smell, mushrooms, tajik vanilla dry mouth PV 03/11/2017 Norma, tinnitus [...] and certain foods such as mushrooms and Kyrgyz vanilla. She has a history of two [...] symptoms requiring assistance. ORQUIDEA ANDERSON MD [address] [facility] [facility],[address], [phone], [facility] 02/27/2025 09:37:31 OBGyn Episode No OBEpisode recorded.
--- OUTSIDE RECORDS SUMMARY | 2025-03-28 01:05 | XMS_ITS | Encounter Summary ---
Author Organization [facility] Address [address] [place] [address] Care Team Providers Care Pocket Maker Name Role Phone Michelle Sidhu MD Primary Care Provider [phone] Reason for Visit * Reason Onset Date Comments Med Refill 03/05/2025 Ozempic & daily vitamins Encounter Details Date Type Department Care Team (Late st Contact Info) Description 03/05/2025 Telephone Bariatric Surgery - [address] [place] [address] Melyssa Zuniga MD [address] [place] [phone] Social History Tobacco Use Types Packs/Day Years [...] Elvia Leija RN documented in this encounter Progress Notes * Marina Burgess - 03/09/2025 1:31 PM EST [place] called her insurance denied Ozempic - she is diabetic and has not had medication in over a week. Can we please expedite appeal if you see fit. Patient would like to be contacted by Dr Zuniga at [phone] - she's concerned being a diabetic and not having her medication in over a week. * Marina Burgess - 03/06/2025 10:06 AM EST The patient is very upset about running out of Ozempic. She reports elevated blood sugar levels andis urgently requesting that the prescription and prior authorization be sent as soon as possible. Iadvised her to call about a week before running out in the future to avoid delays. She stated that this was a yearly prescription. * Marina Burgess - 03/05/2025 4:14 PM EST Patient is requesting refill on Ozempic THIAGO - it's all she has for her diabetes. She's also requesting a refill on her multi-vitamin. documented in this encounter Plan of Treatment Upcoming Encounters Date Type Department Care Team ([facility] st Contact Info) Description 07/12/2025 2:00 PM EDT Office Visit Bariatric Surgery - [address] [place] [phone] Melyssa Zuniga MD [address] [place] [phone] documented as of this encounter Visit Diagnoses Not on filedocumented in this encounter Care Teams Pocket Maker Relationship Specialty Start Date End Date Michelle Sidhu MD [address] [facility] [address] [place], [place] PCP - General Internal Medicine 04/05/14 documented as of this encounter
== END 2025-03-28 01:03 | disposition left against medical advice (07) ==
LOC: HO.ED 03-28 01:02
PROVIDERS: Physician Assistant Medical; Emergency Provider Emergency Medicine
DX: R42 Dizziness and giddiness (principal); Z53.29 Procedure and treatment not carried out because of patient's decision for other reasons; E11.9 Type 2 diabetes mellitus without complications; I10 Essential (primary) hypertension; E78.00 Pure hypercholesterolemia, unspecified; E78.5 Hyperlipidemia, unspecified; J45.909 Unspecified asthma, uncomplicated; Z87.891 Personal history of nicotine dependence
CPT/HCPCS: 36415; 80053; 81003; 82010; 82550; 83735; 84484; 85025; 93005; 99283

== ENCOUNTER → 2025-03-27 14:03 | Outpatient (BNV) | payer MEDICAID, SELFPAY | PROVIDERS: Emergency Provider Emergency Medicine; Visit Provider Internal Medicine | DX: R94.31 Abnormal electrocardiogram [ECG] [EKG] (principal); R42 Dizziness and giddiness | CPT/HCPCS: 93010 ==

== ENCOUNTER 2025-04-06 10:27 | Outpatient (AMB) | payer MEDICAID, SELFPAY ==
--- NOTE | 2025-04-06 10:50 | MHC.OFFVIS ---
Vital Signs 04/06/25 11:05 Height 5 ft 8 in Weight 196 lb BMI 29.8 BP 102/56 L Blood Pressure Location Lt brachial Position Sitting Pulse 61 Intake Visit Reasons: Follow up med/GERD Intake Note: [place] presents in follow up of GERD. CC: Patient reports that she's been having headaches and dizziness for about 2 weeks.She reports BMs about every other day with help of meds and sometimes needs to strain. Also, c/o abd bloating. 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 Accompanied by: Self / Same As Patient Allergies latex (LATEX) Allergy (Intermediate, Verified 04/06/25 11:10) RASH lisinopril (LISINOPRIL) Allergy (Intermediate, Verified 04/06/25 11:10) HALLUCINATIONS, cough CLOVER Inhibitors (CLOVER INHIBITORS) Allergy (Unknown, Verified 04/06/25 11:10) UNKNOWN canagliflozin (Invokana) Allergy (Unknown, Verified 04/06/25 11:10) unknown liraglutide (From VICTOZA) Allergy (Unknown, Verified 04/06/25 11:10) UNKNOWN, abdominal pain, nausea nylon Allergy (Unknown, Verified 04/06/25 11:10) irritation penicillin V Allergy (Unknown, Verified 04/06/25 11:10) angioedema Penicillins (PENICILLINS) Allergy (Unknown, Verified 04/06/25 11:10) SYNCOPE pioglitazone (From ACTOS) Allergy (Unknown, Verified 04/06/25 11:10) UNKNOW, body puffiness sertraline Allergy (Unknown, Verified 04/06/25 11:10) unknown shellfish derived (SHELLFISH DERIVED) Allergy (Unknown, Verified 04/06/25 11:10) Rash and swelling Sulfa (Sulfonamide Antibiotics) (SULFA (SULFONAMIDE ANTIBIOTICS)) Allergy (Unknown, Verified 04/06/25 11:10) RASH black pepper Allergy (Verified 04/06/25 11:10) cough, choking mushrooms Allergy (Intermediate, Uncoded 03/27/25 14:05) Diarrhea, swollen stomach,rash Onglyza Allergy (Unknown, Uncoded 03/27/25 14:05) unknown Nepali vanilla creamer Adverse Reaction (Uncoded 03/27/25 14:05) Diarhea, nausea, stomach pain HPI HPI Follow up med/GERD: Details: Assessment & Plan (1) Tubular adenoma of colon: Comment: 2023 equal un retrieved polyp and insufficient prep repeat in 3 years : 2018 sessile polyp . Code(s): D12.6 - Benign neoplasm of colon, unspecified Category: Medical (2) GERD (gastroesophageal reflux disease): Code(s): K21.9 - Gastro-esophageal reflux disease without esophagitis Category: Medical (3) Small bowel motility disorder: Code(s): K59.9 - Functional intestinal disorder, unspecified Category: Medical (4) Chronic idiopathic constipation: Comment: Complicated by rectocele that really should be surgically corrected but the patient is not ready Code(s): K59.04 - Chronic idiopathic constipation Category: Medical (5) Abdominal bloating: Code(s): R14.0 - Abdominal distension (gaseous) Category: Medical (6) Pre-op examination: Code(s): Z01.818 - Encounter for other preprocedural examination Category: Medical Plan She is having trouble with her plantar fasciitis; apparently her current foot doctor won't give her cortisone injections as aggressively as she has had in the past. She continues to do well on her GI regimen. She continues on her Linzess 290, Reglan 5mg qidachs, omeprazole 40mg qd, simethicone and a denise tea with probiotic. She is due for repeat colonoscopy. She had history of large tubular adenomas in the past There are no prior problems with anesthesia or sedation. Her asthma is well controlled and she denies any cardiac problems. NO ID problems. Needs 2 days prep, bisacodyl the week before, low fiber diet, can't tolerate liquid preps needs SUtab. ROV 6 mos. Orders: Orders Colonoscopy - GI Use Only Today D12.6 - Benign neoplasm of colon, unspecified Medications: New sod sulf-pot chloride-mag sulf 1.479-0.188- 0.225 gram (Sutab) PO PER PKG DIR for colonoscopy prep 24 tabs 0RF Refilled bisacodyl (Dulcolax (bisacodyl)) 10 mg (2 x 5 mg) PO BEDTIME 60 tabs 3RF 30 days simethicone 180 mg PO QID 120 caps 6RF Saccharomyces boulardii (Daily Probiotic (S. boulardii)) 250 mg PO DAILY 30 caps 6RF COLONOSCOPY 06/2024 Impression: 1. Poor prep Recommendations: - This will be rebooked within 6 months. - Consider daily use of Linzess x 1 week prior to colo, 2 days of bisacodyl BID and 2 days of miralax BID followed by either miralax/gatorade prep or suprep 1 day before the procedure. COLONOSCOPY Findings: Terminal Ileum: Not evaluated Cecum: Normal Ascending Colon: Normal Transverse Colon: A 6-7 mm sessile polyp removed with a cold snare and residual polyp was removed with a cold biopsy. Descending Colon: Normal Sigmoid Colon: A few 3-4 mm diminutive appearing polyps in the rectosigmoid - 1 removed with a cold biopsy. Rectum: A 7-8 mm sessile polyp adjacent to the snal verge (seen on retroflexed exam) - removed with a hot snare and polyp was not retrieved Ano-rectum: Normal Impression and Post Procedure Diagnosis: Colonoscopy Findings: Three small polyps were removed - 1 polyp was not retrieved. Plan: Pt has a FU appointment on 10/17/24 with Isabel Shabazz NP, Repeat Colonoscopy in 3-5 years if polyps are adenomatous and 10 year if polyps are hyperplastic. BIOPSY Received: 10/09/24 Diagnosis A. Colon, transverse, polyp: Colonic mucosa with surface hyperplastic changes and additional fragments of vegetable matter; negative for dysplasia. B. Colon, sigmoid, polyp: Fragments of hyperplastic polyp; negative for dysplasia TODAY'S VISIT Patient has been lost to follow-up since 12/2023 [facility] Medical History IBS (irritable bowel syndrome) GERD (gastroesophageal reflux disease) DM2 (diabetes mellitus, type 2) Cataracts, bilateral Essential hypertension Hyperlipidemia LDL goal <100 Allergic rhinitis Carpal tunnel syndrome Asthma Fibromyalgia Depression with anxiety High cholesterol HTN (hypertension), benign Surgical History Hx of colonoscopy (06/27/24) Hx of hand surgery History of colonoscopy H/O esophagogastroduodenoscopy History of Cynthia fundoplication Hx of cataract surgery History of ear surgery History of carpal tunnel release H/O gastric bypass H/O hemorrhoidectomy S/P appendectomy H/O hysterectomy for benign disease Family History Father Myocardial infarction Hypertension Diabetes Mother Dementia HTN (hypertension), benign High cholesterol Diabetes Maternal Aunt Breast cancer Social History Household Members: Spouse Are you a primary childcare center director to a significant other at home: No Do you presently have visiting nurse or other home services: Yes (FIELD ACCOUNT MANAGER daily 2-3 hours) Alcohol intake: former Patient Tobacco Use Status: Former Tobacco user Tobacco use type: Cigarette Years Smoked: quit 15-20 years ago Current occupational status: employed 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 Review of Systems Const Denies fatigue, Denies fever(s), Reports headache(s), Denies night sweats, Denies poor appetite and Denies weight loss ENT Reports Normal hearing present, Denies dental pain, Denies dysphagia, Reports vertigo, Reports headache(s), Denies hearing loss, Denies mouth pain, Denies odynophagia, Reports tinnitus, Denies throat swelling, Denies tongue swelling and Reports other (Dentition adequate) Card Reports no additional complaints Resp Reports no additional complaints GI Details: Denies abdominal pain, Denies melena, Reports bloating, Denies hematochezia, Reports constipation, Denies GI cramping, Denies dysphagia, Denies excessive flatus, Denies early satiety, Denies heartburn, Denies diarrhea, Denies nausea, Denies odynophagia, Denies vomiting and Denies hematemesis Reports difficulty voiding Skin/Breast Denies pruritus, Denies lesions, Denies rash and Denies jaundice Neuro Reports Normal hearing present, Denies Abnormal speech present, Reports vertigo, Reports headache(s) and Reports restless legs Endo Denies fatigue Aller/Immun Denies throat swelling and Denies tongue swelling Physical Exam Vital Signs: Last Vital Signs Pulse 61 04/06/25 11:05 BP 102/56 L 04/06/25 11:05 BMI result Body Mass Index 29.8 Const General: cooperative, no acute distress, well developed and well groomed Nutritional Appearance: well nourished and overweight Orientation/consciousness: oriented to person, oriented to place and oriented to time Limitations: No language barrier HEENT Head: Yes normocephalic and Yes atraumatic Eyes General: appearance normal, both eyes and all related structures Pupils: Equal, round and reactive pupils present Neck Neck: Yes normal visual inspection and Yes no lymphadenopathy Thyroid: Thyroid normal Resp Effort & Inspection: normal respiratory effort and able to speak in complete sentences Auscultation: clear to auscultation bilaterally Cardio Rate: regular rate Rhythm: regular rhythm Heart sounds: Normal, physiologic split S2 sound present Peripheral pulses: radial pulses present and posterior tibial pulses present GI Inspection: No distended, No Abdominal panniculus present and Yes obesity Palpation (GI): Soft to palpation, nontender, no guarding, not rigid and No hepatosplenomegaly present Percussion: Yes normal to percussion Auscultation: normal bowel sounds Rectal Exam - Female: deferred Abdomen image:  1. Well-healing recent surgical scar Skin General skin exam: no rashes or lesions noted, turgor normal, skin not dry, no jaundice, No spider nevi and no striae Rashes: no rashes Nails: normal Neuro General: oriented to person, oriented to place and oriented to time Cranial nerves: Yes Equal, round and reactive pupils present and Yes Normal hearing present Speech: No Abnormal speech present Extrem General: Yes normal to inspection, No clubbing, No cyanosis and No edema Psych Appearance: grossly normal and well kempt Mental Status: mental status grossly normal Speech and movement: Normal speech and movement present Affect: normal affect Attitude: cooperative Thought process: Normal thought process present and not confabulating Thought content: Normal thought content present Insight: Fair insight present (Psych) and Limited insight present (Psych) Judgement: Fair judgement present (Psych) and Limited judgement present (Psych) Assessment & Plan Assessment & Plan (1) Gastroparesis: Code(s): K31.84 - Gastroparesis Category: Medical (2) GERD (gastroesophageal reflux disease): Code(s): K21.9 - Gastro-esophageal reflux disease without esophagitis Category: Medical (3) Chronic idiopathic constipation: Comment: Complicated by rectocele that really should be surgically corrected but the patient is not ready Code(s): K59.04 - Chronic idiopathic constipation Category: Medical (4) Tubular adenoma of colon: Comment: 08/2024= hyperplastic polyps, repeat in 5 years; 2022 equal un retrieved polyp and insufficient prep repeat in 3 years : 2018 sessile polyp . Code(s): D12.6 - Benign neoplasm of colon, unspecified Category: Medical (5) Chronic left-sided headaches: Code(s): R51.9 - Headache, unspecified; G89.29 - Other chronic pain Category: Medical (6) Left-sided tinnitus: Code(s): H93.12 - Tinnitus, left ear Category: Medical (7) Back pain: Code(s): M54.9 - Dorsalgia, unspecified Category: Medical (8) Nocturnal leg cramps: Code(s): G47.62 - Sleep related leg cramps Category: Medical Plan She continues on her Linzess 290, Reglan 5mg qidachs, omeprazole 40mg qd, simethicone and a denise tea with probiotic. SHE IS AGREEABLE TO A 5 YEAR REPEAT. The procedure was well tolerated. The results were explained and the patient is agreeable to the follow-up interval as stated. The bowel pattern has returned to normal. Education was provided to tell any 1st degree relatives about their findings to be sure that they are screened by age 45. Educated that they will be put on a recall list when it is time for their repeat scope but should they move out of state or away from the hospital they will need to remember along with their primary to repeat the procedure in a timely fashion to avoid any adverse complications. Subjective Patient presents for follow-up after her colonoscopy and for her chronic treatment of her constipation, gastroparesis, GERD and gas trapping. She reports recent pelvic/rectal surgery and to address ongoing constipation, new/worsening headaches, tinnitus/dizziness, and severe nocturnal leg cramps. She reports rectal sphincter reconstruction and concurrent hernia repair performed at [facility] by plastic surgeon Dr. Zuniga; recovery was painful but she feels overall improved. Since surgery she notes urinary retention; she had no prior urinary issues. Constipation persists; she continues to require enemas and requests refills, takes up to two bisacodyl tablets nightly, uses simethicone for gas, and reports improved emptying at times since surgery. Constipation worsens when she does not drink enough water or misses laxatives. She is taking Linzess 290 mcg daily and metoclopramide for nausea, omeprazole daily, and uses hydrocortisone acetate suppositories; she is not currently taking magnesium but would like to. [place] has many complaints not necessarily related to her GI status. Apparently she is having difficulty communicating these concerns to her primary care provider. Headaches occur approximately three times weekly, often left-sided with sharp, stabbing pains that come in brief ?contractions? lasting about a minute; associated symptoms include a persistent high-pitched tinnitus and positional dizziness that worsens when looking or lying on the left side. She becomes sleepy with headaches. Prior head CT about three years ago and again in 2022 were reported as normal. She has not seen neurology. She currently manages with acetaminophen; previously used Fioricet with benefit. She also reports severe leg cramps predominantly at rest and during sleep, described as intense and prolonged; she is concerned about electrolyte imbalance and requests potassium evaluation. She hydrates inconsistently, sometimes uses Gatorade. She denies known anemia and states periodic bloodwork has been normal. She reports prior mild stroke in young adulthood. Relevant Past Medical, Social, and Family History - Status post rectal sphincter reconstruction and hernia repair at [facility] (Dr. Zuniga, Plastic Surgery). - History of mild stroke in early adulthood by patient report. - Prior ENT evaluation suggested headache origin rather than primary ear pathology. Objective - Prior head CT (2022): normal by record review during visit. - Colonoscopy (post-procedure review today): multiple hyperplastic (false) polyps; surveillance interval 5 years. Assessment & Plan Headache with associated tinnitus and positional dizziness: Recurrent left-predominant, sharp, brief headaches occurring ~3 times/week with persistent high-pitched tinnitus and dizziness worse when positioned to the left. Prior head CT in 2022 normal. Clinical picture not classic for migraine but migraine remains possible; further neurologic evaluation indicated. - Start topiramate (Topamax) daily at a low dose with slow titration as tolerated; discussed potential side effects including altered taste of carbonated beverages. This may be helpful if the headache is a migraine or neurologic in origin. - Refer to Neurology for evaluation and management of headaches and associated tinnitus/dizziness and to consider updated neuroimaging and migraine-specific therapy. Severe nocturnal leg cramps: Worsening cramps at rest/night. Differential includes electrolyte disturbance, dehydration, and possible neurogenic contribution. - Check serum potassium per patient request; assess for electrolyte imbalance. - Encourage hydration strategies as tolerated. - Trial magnesium glycinate supplementation; prescription sent to pharmacy and written guidance provided for [id number] option if not covered. - Order lumbar spine X-ray to evaluate for possible radicular contribution to leg cramping. Chronic constipation with anorectal symptoms, status post rectal sphincter reconstruction: Persistent constipation requiring multi-modal regimen; some improvement in emptying post-surgery. - Continue Linzess 290 mcg daily. - Continue bisacodyl up to two tablets nightly as needed. - Continue simethicone for gas relief. - Continue hydrocortisone acetate suppositories as previously used for anorectal irritation/hemorrhoidal symptoms. - Continue omeprazole 40 mg daily and metoclopramide 5 mg four times daily for nausea as previously prescribed. - Provide refills for enemas per patient request. - Add magnesium glycinate as above, monitoring for gastrointestinal tolerance. Urinary retention following pelvic/rectal surgery: New since surgery. - Recommend referral to Urology for evaluation of postoperative urinary retention. History of colon polyps (hyperplastic): Post-procedure pathology consistent with hyperplastic polyps. - Repeat colonoscopy in 5 years. Postoperative status, rectal sphincter and hernia reconstruction (Dr. Nadia Schwartz): Recovering; records may be obtained from [facility] as needed for continuity of care. Follow-up: 10 weeks to reassess headaches, leg cramps, constipation regimen, and review any results and specialty recommendations. Orders: Orders Electrolytes Today G47.62 - Sleep related leg cramps XR lumbar spine 2-3V Today M54.9 - Dorsalgia, unspecified Referrals Neurology Referral G89.29 - Other chronic pain, H93.12 - Tinnitus, left ear, R51.9 - Headache, unspecified Medications: New simethicone 180 mg PO QID 120 caps 6RF Abdominal Discomfort topiramate (Topamax) 25 mg PO DAILY 30 tabs 6RF magnesium glycinate 200 mg (2 x 100 mg magnesium) PO .QD 60 caps 6RF Refilled linaclotide (Linzess) 290 mcg PO DAILY 30 caps 6RF K59.04 - Chronic idiopathic constipation omeprazole 40 mg PO DAILY 30 caps 6RF K21.9 - Gastro-esophageal reflux disease without esophagitis metoclopramide HCl (Reglan) 5 mg PO QIDACHS 120 tabs 6RF K59.9 - Functional intestinal disorder, unspecified bisacodyl (Dulcolax (bisacodyl)) 10 mg (2 x 5 mg) PO BEDTIME 60 tabs 6RF 30 days hydrocortisone acetate 25 mg AL BID 6 supp 3RF 30 days Discontinued magnesium citrate drink 1 bottle every night 6 days before colonoscopy. follow each bottle with 8 oz of water. Discontinued Reason: Doctor's Order 296 mL PO DAILY PRN 296 mL 0RF constipation Coding Level of Care Code Est Pt Level 4 (52481) Diagnoses Gastroparesis K31.84 GERD (gastroesophageal reflux disease) K21.9 Chronic idiopathic constipation K59.04 Tubular adenoma of colon D12.6 Chronic left-sided headaches R51.9; G89.29 Left-sided tinnitus H93.12 Back pain M54.9 Nocturnal leg cramps G47.62 Time Spent (min) 38
[2025-04-06 11:05] VITALS: BP 102/56; PULSE 61; BMI 29.8
== END 2025-04-06 12:11 | disposition home or self-care (01) ==
LOC: HO.HGI 10:28
PROVIDERS: PCP Internal Medicine; Visit Provider Nurse Practitioner
DX: K31.84 Gastroparesis (principal); K21.9 Gastro-esophageal reflux disease without esophagitis; K59.04 Chronic idiopathic constipation; D12.6 Benign neoplasm of colon, unspecified; R51.9 Headache, unspecified; G89.29 Other chronic pain; H93.12 Tinnitus, left ear; M54.9 Dorsalgia, unspecified; G47.62 Sleep related leg cramps
CPT/HCPCS: 99214

== ENCOUNTER → 2025-04-06 10:27 | Outpatient (BNVA) | payer MEDICAID, SELFPAY | PROVIDERS: PCP Internal Medicine; Visit Provider Nurse Practitioner | DX: K21.9 Gastro-esophageal reflux disease without esophagitis (principal); K31.84 Gastroparesis; K59.04 Chronic idiopathic constipation; D12.6 Benign neoplasm of colon, unspecified; R51.9 Headache, unspecified; G89.29 Other chronic pain; H93.12 Tinnitus, left ear; Z87.891 Personal history of nicotine dependence | CPT/HCPCS: 99212 ==

== ENCOUNTER 2025-04-07 09:52 | Emergency (ER) | payer MEDICAID, SELFPAY ==
--- NOTE | ~2025-04-07 | CT_ITS ---
CLINICAL HISTORY: persistent dizziness, ataxia Exam: Nonenhanced CT brain, and contrast-enhanced CTA head and neck with multiplanar reformats. Comparison: CT brain 04/13/2023. Findings: Nonenhanced CT brain: No intracranial mass, midline shift, hydrocephalus, or acute hemorrhage. No CT evidence of acute ischemia. Visualized paranasal sinuses and mastoid air cells normal. Orbits unremarkable. No skull fracture. CTA head: There is good opacification of the bilateral anterior and posterior intracranial arterial circulation. No large vessel occlusion or significant intracranial arterial stenoses. No definable truncation of flow. No evidence of aneurysm or vascular malformation. No venous thrombosis or enhancing parenchymal lesions. CTA neck: Unremarkable aortic arch. Common and internal carotid arteries appear patent bilaterally. There is calcific atherosclerosis at bilateral carotid bifurcations, without hemodynamically significant appearing stenoses. Vertebral arteries appear patent. No occlusion, hemodynamically significant stenoses or evidence of dissection. Visualized pulmonary apices appear clear. No neck masses or adenopathy. No destructive osseous lesions. Impression: 1. No acute intracranial abnormalities. 2. Unremarkable CTA of the head and neck. This document has been electronically signed by: Devan Montgomery MD on 04/07/2025 15:42:23
--- NOTE | ~2025-04-07 | US_ITS ---
CLINICAL HISTORY: B L calf pain and cramping Bilateral lower extremity venous duplex ultrasound. Comparison: 11/02/2023 Technique: Real time sonographic imaging, including color-flow imaging and spectral analysis, was performed by the pulp tester. Multiple food service sales representatives static images were saved for review. Findings: The deep venous systems of both lower extremities are fully compressible from common femoral through the proximal leg veins. There is spontaneous and phasic flow, and augmentation. Color Doppler and spectral tracings are unremarkable. No popliteal fossa cyst. Impression: 1. Bilateral lower extremity venous duplex ultrasound negative for DVT This document has been electronically signed by: Devan Montgomery MD on 04/07/2025 13:35:05
[2025-04-07 10:15] VITALS: BP 137/66; PULSE 65; RESP 16; TEMP 36.2; O2SAT 97; BMI 30.4
[2025-04-07 10:54] LABS: MANUAL DIFF FLAG NO
[2025-04-07 10:56] LABS: Hematocrit 37.9 % (37.0-47.0); Hemoglobin 12.3 g/dl (12.0-16.0); Imm Gran Abs Auto 0.01 X10*3/uL (0.00-0.03); Imm Gran Pct Auto 0.1 % (0.0-0.4); Lymphocytes Absolute Auto 2.8 X10*3/uL (1.2-4.9); Mean Corpuscular HGB Conc 32.5 g/dl (31.0-35.0); Mean Corpuscular Hemoglobin 30.6 pg (27.0-33.0); Mean Corpuscular Volume 94.3 fL (80.0-98.0); NRBC Abs Auto 0.000 X10*3/uL (0.0-0.012); NRBC Pct Auto 0.0 /100WBC (0.0-0.2); Platelet Count 332 X10*3/uL (160-400); Red Blood Count 4.02 X10*6/uL (4.20-5.50); White Blood Count 7.8 X10*3/uL (4.8-10.8)
[2025-04-07 11:13] LABS: Alanine Aminotransferase 23 U/L (0-31); Albumin Level 4.5 g/dL (3.5-5.0); Alkaline Phosphatase 84 U/L (39-117); Anion Gap 12 (12-20); Aspartate Amino Transferase 45 U/L (5-31); Blood Urea Nitrogen 14 mg/dL (9-16); Calcium 9.6 mg/dL (8.4-10.2); Carbon Dioxide 27 mmol/L (22-29); Chloride 106 mmol/L (96-108); Creatinine Clr Calc Pharmacy 99.6; Estimated Glomerular Filt Rate > 60; Magnesium 2.3 mg/dL (1.6-2.6); Potassium 4.8 mmol/L (3.3-5.1); Sodium 140 mmol/L (135-145); Total Protein 7.3 g/dL (6.5-8.0)
--- NOTE | 2025-04-07 12:14 | ED_ITS ---
HPI - Extremity Problem General Chief complaint: Extremity Problem Stated complaint: leg pain Time Seen by Provider: 04/07/25 11:39 Source: patient, RN notes reviewed and old records reviewed Mode of arrival: ambulatory Limitations: no limitations History of Present Illness ED Provider: MEY Sullivan HPI Narrative: 64-year-old female with medical history of IBS, GERD, T2DM, asthma, fibromyalgia, asthma, HLD, HTN, depression, anxiety presents to the ED due to 5 days of bilateral lower extremity aching, and cramping that begins in the calf and includes the feet. Patient states she has a history of leg cramping however feels this has gotten worse and is now experiencing aching of B/L calves and cramping is now involving her feet when in the past it has only affected the calves and is interrupting her sleep. Patient reports during this time she has had constant increased dizziness that is worse when she turns her head to the left and has made her feel very unsteady on her feet. Patient reports history of vertigo and has taken her prescribed meclizine over the past 5 days without relief of her dizziness. Patient is reporting an intermittent dull achy headache over the left side of her head that radiates down the L side of the neck during the last 5 days that improves when she takes tylenol. Additionally, Patient reports 2 episodes of blurry vision over the past 2 weeks, where she had a hard time looking at faces that resolved after approximately 10 minutes. Denies chest pain, SOB, difficultly breathing, abdominal pain, nausea, vomiting, black/tarry stool, urinary symptoms. Related Data Home Medications ?Medication ?Instructions ?Recorded ?Confirmed cinnamon bark 500 mg capsule 1,000 mg PO DAILY 0 10/05/24 (Cinnamon) clonazepam 1 mg tablet 1 mg PO TID PRN Anxiety 03/2610/05/24 albuterol sulfate 90 mcg/actuation 2 puff inhalation Q 4H PRN wheezing 10/07/21 10/05/24 aerosol inhaler (ProAir HFA) meclizine 25 mg tablet 25 mg PO TID PRN Vertigo 10/05/24 pravastatin 40 mg tablet 40 mg PO BEDTIME 10/07/21 ketotifen fumarate 0.025 % (0.035 2 drp ophthalmic (ey e) BID 12/13/22 02/28/25 %) eye drops (Alaway) metoprolol succinate 100 mg 100 mg PO DAILY 10/01/22 0 10/09/24 tablet,extended release 24 hr semaglutide 0.25 mg or 0.5 mg (2 0.25 mg subcut QWEEK 06/23/24 10/05/24 mg/3 mL) subcutaneous pen injector (Ozempic) albuterol sulfate 2.5 mg/3 mL mg continuous nebulizati on BID 10/03/24 (0.083 %) solution for nebulization hydrochlorothiazide 25 mg tablet 12.5 mg PO QAM PRN Ed heraclio 10/03/24 10/05/24 montelukast 10 mg tablet 10 mg PO DAILY 10/03/24 telmisartan 40 mg tablet 40 mg PO DAILY 10/03/2409/24 cetirizine 10 mg capsule (Zyrtec) 10 mg PO DAILY PRN A llergy Symptoms 10/05/24 10/05/24 fluticasone 250 mcg-salmeterol 50 1 inh inhalation BID 10/05/24 10/05/24 mcg/dose blistr powdr for inhalation (Advair Diskus) Previous Rx's ?Medication ?Instructions ?Recorded blood sugar diagnostic (FreeStyle #100 ea 04/23/21 Lite Strips) flash glucose sensor (FreeStyle #2 ea 04/23/21 Glenn 2 Sensor kit) metformin 500 mg tablet,extended See Rx Instructions P O BID 30 days 04/23/21 release 24 hr #90 tabs Saccharomyces boulardii 250 mg 250 mg PO DAILY #30 cap s 12/31/23 capsule (Daily Probiotic (S. boulardii)) acetaminophen 500 mg capsule 1,000 mg (2 x 500 mg) PO Q6H PRN 06/14/24 fever or pain #30 caps bisacodyl 5 mg tablet,delayed 10 mg (2 x 5 mg) PO BEDT STEPHANIE 30 04/06/25 release (Dulcolax (bisacodyl)) days #60 tabs hydrocortisone acetate 25 mg 25 mg OK BID 30 days #6 s upp 04/06/25 rectal suppository linaclotide 290 mcg capsule 290 mcg PO DAILY #30 caps 04/06/25 (Linzess) magnesium glycinate 200 mg (2 x 100 mg magnesium ) PO 04/06/25 .QD #60 caps metoclopramide HCl 5 mg tablet 5 mg PO QIDACHS #120 ta bs 04/06/25 (Reglan) omeprazole 40 mg capsule,delayed 40 mg PO DAILY #30 ca ps 04/06/25 release simethicone 180 mg capsule 180 mg PO QID Abdominal Dis comfort 04/06/25 #120 caps topiramate 25 mg tablet (Topamax) 25 mg PO DAILY #30 t abs 04/06/25 xaihvpbecq-regmshaxrbtgu-haongncq 1 cap PO Q8H PRN pradeep n #9 caps 04/07/25 50 mg-300 mg-40 mg capsule (Fioricet) Allergies Allergy/AdvReac Type Severity Reaction Status Date / Time latex (LATEX) Allergy Intermediate RASH Verified 04/07/25 10:16 lisinopril (LISINOPRIL) Allergy Intermediate HALLUCINATIONS, Verified 04/07/25 10:16 cough CLOVER Inhibitors (CLOVER Allergy Unknown UNKNOWN Verified 04/07/25 10:16 INHIBITORS) canagliflozin (Invokana) Allergy Unknown unknown Verified 04/07/25 10:16 liraglutide (From VICTOZA) Allergy Unknown UNKNOWN, Verified 04/07/25 10:16 abdominal pain, nausea nylon Allergy Unknown irritation Verified 04/07/25 10:16 penicillin V Allergy Unknown angioedema Verified 04/07/25 10:16 Penicillins (PENICILLINS) Allergy Unknown SYNCOPE Verified 04/07/25 10:16 pioglitazone (From ACTOS) Allergy Unknown UNKNOW, Verified 04/07/25 10:16 body puffiness sertraline Allergy Unknown unknown Verified 04/07/25 10:16 shellfish derived (SHELLFISH Allergy Unknown Rash and Verified 04/07/25 10:16 DERIVED) swelling Sulfa (Sulfonamide Allergy Unknown RASH Verified 04/07/25 10:16 Antibiotics) (SULFA (SULFONAMIDE ANTIBIOTICS)) black pepper Allergy cough, Verified 04/07/25 10:16 choking mushrooms Allergy Intermediate Diarrhea, Uncoded 04/07/25 10:16 swollen stomach,rash Onglyza Allergy Unknown unknown Uncoded 04/07/25 10:16 Danish vanilla creamer AdvReac Diarhea, Uncoded 04/07/25 10:16 nausea, stomach pain Review of Systems 2 Review of Systems: Yes all other systems are reviewed and are negative [facility] Past Medical History Attestation statement: The following information was validated with the patient. Medical History IBS (irritable bowel syndrome) GERD (gastroesophageal reflux disease) DM2 (diabetes mellitus, type 2) Cataracts, bilateral Essential hypertension Hyperlipidemia LDL goal <100 Allergic rhinitis Carpal tunnel syndrome Asthma Fibromyalgia Depression with anxiety High cholesterol HTN (hypertension), benign Surgical History Hx of colonoscopy (06/27/24) Hx of hand surgery History of colonoscopy H/O esophagogastroduodenoscopy History of Cynthia fundoplication Hx of cataract surgery History of ear surgery History of carpal tunnel release H/O gastric bypass H/O hemorrhoidectomy S/P appendectomy H/O hysterectomy for benign disease Family History Family History Father Myocardial infarction Hypertension Diabetes Mother Dementia HTN (hypertension), benign High cholesterol Diabetes Maternal Aunt Breast cancer Social History Social History Household Members: Spouse Are you a primary director of managed care to a significant other at home: No Do you presently have visiting nurse or other home services: Yes ([employer] daily 2-3 hours) Alcohol intake: former Patient Tobacco Use Status: Former Tobacco user Tobacco use type: Cigarette Years Smoked: quit 15-20 years ago Smoked in Last 30 Days: No Use of substances other than those prescribed or required for medical reasons: No Advance Directives: No Advance Directives Information Provided: No Current occupational status: employed 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 HEENT: ?NC, AT. MMM. EOMI, clear conjunctiva, oropharynx clear. NECK: ?Supple without lymphadenopathy.? No stiffness or restricted ROM. TTP of L sided cervical paraspinal muscles with an area of tension palpated over the L trapezius, No midline cervical spinal tenderness, no bony step offs palpated, no anatomical abnormalities palpated or observed. No ecchymosis or over lying skin changes. Full ROM intact including flexion, extension and lateral bending, SILT. HEART:? Normal rate and regular rhythm, normal S1/S2, no m/r/g LUNGS:? CTAB, moving air well. No crackles or wheezes are heard. ABDOMEN: ?Soft, nontender, nondistended with good bowel sounds heard. BACK: No CVAT, no obvious deformity. EXTREMITIES: B/L calves with mild tenderness, no erythema, warmth, cyanosis or edema present. Full ROM intact, negative Homans sign. DP pulses 2+ bilaterally. SILT. The lower extremities are without any edema and are neurovascularly intact. NEUROLOGICAL: ?Grossly nonfocal. Alert and oriented, moving all 4 extremities. Observed to ambulate with normal gait. Skin: ?Warm and dry without any rash. NIH Stroke Scale Internal: Initial- Upon Arrival Time: 12:00 Level of Consciousness: Alert Level of Consciousness Questions: Answers both questions correctly Level of Consciousness Commands: Performs both tasks correctly Best Gaze: Normal Visual: No visual loss Facial Palsy: Normal Motor Arm (Right): No drift Motor Arm (Left): No drift Motor Leg (Right): No drift Motor Leg (Left): No drift Limb Ataxia: Present in two limbs (both legs, ataxic gait) Sensory: Normal Best Language: No aphasia Dysarthia: Normal Extinction and Inattention: No abnormality Score: 2 Medications Administered Discontinued Medications Generic Name Dose Route Start Last Admin Trade Name Freq PRN Reason Stop Dose Admin Acetaminophen 975 mg 04/07/25 12:41 04/07/25 13:13 Acetaminophen 325 Mg Tablet PO 04/07/25 12:42 975 mg ONCE ONE Administration Lactated Ringer's 1,000 mls @ 999 mls/hr 04/07/25 16:34 04/07/25 18:30 Lr IV 04/07/25 17:34 Infused .Q1H1M ONE Infusion Iohexol 100 ml 04/07/25 13:40 04/07/25 13:43 Iohexol 350 Mg/Ml 100 Ml Infus..Btl IV 04/07/25 13:41 70 ml ONCE ONE Administration Meclizine HCl 25 mg 04/07/25 16:34 04/07/25 16:50 Meclizine Hcl 25 Mg Tablet PO 04/07/25 16:35 25 mg ONCE ONE Administration Medical Decision Making Medical Decision Making MDM Narrative: 64-year-old female with medical history of IBS, GERD, T2DM, asthma, fibromyalgia, asthma, HLD, HTN, depression, anxiety presents to the ED due to 5 days of bilateral lower extremity aching, and cramping that begins in the calf and includes the feet. With 5 days of continuous dizziness that is worse when looking to the left, and feeling unsteady on her feet. Patient has history of cramping of her legs, but this has changed to now involve her feet and is waking her up through the night disrupting her sleep. VS on initial observation-BP 137/66, pulse rate of 65, respiratory rate of 16, afebrile with oral temp of 97.2, O2 saturation 97 percent on room air. On physical exam patient is well-appearing, nontoxic, in no acute distress. HEENT exam with EOMI, no pain with ocular movements, no nystagmus present, dizziness is worse when gaze directed towards the left, Patient has tenderness of L sided cervical paraspinal muscles with an area of muscle tension palpated over the L trapezius muscle, Full ROM intact, no stiffness, no bony step offs, no midline cervical tenderness, no overlying skin changes, lungs clear to auscultation bilaterally, cardiac exam reveals normal rate and rhythm without murmurs/rubs/gallops, abdomen is soft, non distended, no rigidity, no guarding, non tender, Lower extremities without pitting edema, erythema, cyanosis, warmth or overlying skin changes, mild TTP of B/L calves, DP pulses 2+, homans sign negative. Neurological exam reveals ataxic gait, NIHSS of 2 due to ataxia when ambulating, no other neurological deficits noted. Plan: labs, US venous doppler, CTA head/neck - Patient medicated with 975 PO Tylenol Labs without leukocytosis/leukopenia, H&H stable, no electrolyte abnormalities, AST of 45 US venous Doppler negative for DVT CTA head/neck without an acute intracranial abnormalities Patient with persistent vertigo and ataxia after 1L fluids and 5 days of consistent vertigo with ataxic gait. Patients lab work up has been negative, US venous doppler negative for DVT, CTA head/neck without acute intracranial findings. Due to patients ataxia, NIHSS of 2 due to ataxic gait, I did want patient to be admitted for further evaluation of MRI to rule out posterior stroke. I discussed my concerns with the patient who was initially agreeable to stay. I reached out to hospitalist Dr. Louis who evaluated the patient who was adamant about leaving. I spoke with Dr. Louis who feels patients symptoms are most consistent with vestibular neuritis and is appropriate to go home for self care. Patient requested fiorcet for headache. I will provide prescription for 3 days of fiorcet. I counseled patient to follow up with her primary care doctor to ensure resolution of her symptoms. I counseled patient on strict return precautions. Patient and her are in agreement with the plan. Differential Diagnosis Differential Diagnoses: The differential diagnosis associated with the presentation includes ICH Large vessel occlusion DVT Electrolyte abnormality Vertigo Musculoskeletal pain Admission/Observation Consideration of admission/observation: Escalation of care including admission/observation considered Consult Healthcare Provider Management of the patient was discussed with: Hospitalist (Dr. Louis) Lab Data MDM Lab Attestation statement: I reviewed the patient's lab results. 04/07/25 10:51 04/07/25 10:51 Labs: Lab Results 04/07/25 Range/Units 10:51 WBC 7.8 (4.8-10.8) X10*3/uL RBC 4.02 L (4.20-5.50) X10*6/uL Hgb 12.3 (12.0-16.0) g/dl Hct 37.9 (37.0-47.0) % MCV 94.3 (80.0-98.0) fL MCH 30.6 (27.0-33.0) pg MCHC 32.5 (31.0-35.0) g/dl RDW 12.9 (11.0-16.0) % Plt Count 332 (160-400) X10*3/uL MPV 9.1 L (9.4-12.3) fL Immature Gran % (Auto) 0.1 (0.0-0.4) % Neut % (Auto) 53.3 (45-73) % Lymph % (Auto) 36.5 (20-40) % Cherry % (Auto) 8.1 (2-11) % Eos % (Auto) 1.7 (0-4) % Baso % (Auto) 0.3 (0-2) % Lymph # (Auto) 2.8 (1.2-4.9) X10*3/uL Cherry # (Auto) 0.6 (0.1-1.2) X10*3/uL Eos # (Auto) 0.1 (0.0-0.4) X10*3/uL Baso # (Auto) 0.0 (0.0-0.2) X10*3/uL Abs Immat Gran (auto) 0.01 (0.00-0.03) X10*3/uL Absolute Neuts (auto) 4.1 (2.0-8.3) x10*3/uL Absolute Nucleated RBC 0.000 (0.0-0.012) X10*3/uL Nucleated RBC % (auto) 0.0 (0.0-0.2) /100WBC Sodium 140 (135-145) mmol/L Potassium 4.8 (3.3-5.1) mmol/L Chloride 106 (96-108) mmol/L Carbon Dioxide 27 (22-29) mmol/L Anion Gap 12 (12-20) BUN 14 (9-16) mg/dL Creatinine 0.69 (0.5-1.4) mg/dL Estim Creat Clear Calc 99.6 Estimated GFR > 60 Random Glucose 78 (60-115) mg/dL Calcium 9.6 (8.4-10.2) mg/dL Magnesium 2.3 (1.6-2.6) mg/dL Total Bilirubin 0.9 (0.0-1.0) mg/dL AST 45 H (5-31) U/L ALT 23 (0-31) U/L Alkaline Phosphatase 84 (39-117) U/L Total Protein 7.3 (6.5-8.0) g/dL Albumin 4.5 (3.5-5.0) g/dL Independent Interpretation I performed an independent interpretation of an: Ultrasound and CT Scan Interpretation: I personally interpreted the U/S venous ultrasound which was negative for DVT, I agree with the radiologist's interpretation I personally interpreted the CTA head/neck which was negative for acute intracranial abnormalities, I agree with the radiologist's interpretation Radiology Impression Discussion of test interpretation with radiology: I have reviewed the radiologist's reading. Radiologist Impression: CTA head/neck Findings: Nonenhanced CT brain: No intracranial mass, midline shift, hydrocephalus, or acute hemorrhage. No CT evidence of acute ischemia. Visualized paranasal sinuses and mastoid air cells normal. Orbits unremarkable. No skull fracture. CTA head: There is good opacification of the bilateral anterior and posterior intracranial arterial circulation. No large vessel occlusion or significant intracranial arterial stenoses. No definable truncation of flow. No evidence of aneurysm or vascular malformation. No venous thrombosis or enhancing parenchymal lesions. CTA neck: Unremarkable aortic arch. Common and internal carotid arteries appear patent bilaterally. There is calcific atherosclerosis at bilateral carotid bifurcations, without hemodynamically significant appearing stenoses. Vertebral arteries appear patent. No occlusion, hemodynamically significant stenoses or evidence of dissection. Visualized pulmonary apices appear clear. No neck masses or adenopathy. No destructive osseous lesions. Impression: 1. No acute intracranial abnormalities. 2. Unremarkable CTA of the head and neck. This document has been electronically signed by: Devan Montgomery MD on 04/07/2025 15:42:23 Dictated By: Devan Montgomery MD Signed By: <Electronically signed by Devan Montgomery MD in OV> 04/07/25 1543 U/S venous ultrasound Findings: The deep venous systems of both lower extremities are fully compressible from common femoral through the proximal leg veins. There is spontaneous and phasic flow, and augmentation. Color Doppler and spectral tracings are unremarkable. No popliteal fossa cyst. Impression: 1. Bilateral lower extremity venous duplex ultrasound negative for DVT This document has been electronically signed by: Devan Montgomery MD on 04/07/2025 13:35:05 Dictated By: Devan Montgomery MD Signed By: <Electronically signed by Devan Montgomery MD in OV> 04/07/25 1335 Independent Historian Clinical information obtained from an independent historian. History obtained from or confirmed by: Spouse ( at bedside corroborating history) External Record Review External record reviewed: Inpatient record, Office record, Outpatient record and Prior outpatient labs Chronic Conditions Patient?s care impacted by: Diabetes, Hypertension and Other (IBS, GERD, asthma, fibromyalgia, HLD, depression, anxiety) Discharge Plan Discharge Clinical Impression: Dizziness Patient Disposition: Home, Self-Care Additional Instructions: You were evaluated in the emergency department due to bilateral leg cramping, and continuous dizziness. Your workup in the ED today including blood work, venous ultrasound, and CTA of your head and neck were negative for acute findings. I did think that you needed to be admitted to the hospital for further workup including MRI to rule out posterior stroke. During this conversation with the hospitalist you preferred to go home for self-care and to return to the emergency department if your symptoms worsened. You requested Fioricet for migraine control. I am prescribing 3 days worth of this medication. For management of bilateral leg cramping, I recommend gentle stretching, heating pads, and massage for management. Please return to the emergency department if your dizziness worsens, pain of the legs worsen, chest pain, shortness of breath, fevers, chills, abdominal pain, nausea, vomiting or any new/worsening/concerning symptoms. Prescriptions: New zlifhpqjom-vzqlwbhjlzlyf-vvbb [Fioricet] 50-300-40 mg capsule 1 cap PO Q8H PRN (Reason: pain) Qty: 9 0RF No Action Saccharomyces boulardii [Daily Probiotic (S. boulardii)] 250 mg capsule 250 mg PO DAILY Qty: 30 6RF Zyrtec 10 mg Capsule 10 mg PO DAILY PRN (Reason: Allergy Symptoms) acetaminophen 500 mg capsule 1,000 mg PO Q6H PRN (Reason: fever or pain) Qty: 30 0RF fluticasone propion-salmeterol [Advair Diskus] 250-50 mcg/dose Blister With Device 1 inh INHALATION BID Ozempic 0.25 mg or 0.5 mg (2 mg/3 mL) pen injector 0.25 mg subcut QWEEK cinnamon bark [Cinnamon] 500 mg capsule 1,000 mg PO DAILY (DME) FreeStyle Lite Strips Strip See Rx Instructions .ROUTE .MEDSUPPLY Qty: 100 11RF Rx Instructions: As directed three times a day (DME) FreeStyle Glenn 2 Sensor Kit See Rx Instructions .ROUTE .MEDSUPPLY Qty: 2 11RF Rx Instructions: As directed every 2 weeks metformin 500 mg tablet extended release 24 hr See Rx Instructions PO BID 30 Days Qty: 90 6RF Rx Instructions: 1 tab in the am and 2 tab in pm PO 2 times a day; clonazepam 1 mg tablet 1 mg PO TID PRN (Reason: Anxiety) albuterol sulfate [ProAir HFA] 90 mcg/actuation HFA aerosol inhaler 2 puff inhalation Q4H PRN (Reason: wheezing) meclizine 25 mg tablet 25 mg PO TID PRN (Reason: Vertigo) pravastatin 40 mg tablet 40 mg PO BEDTIME ketotifen fumarate [Alaway] 0.025 % (0.035 %) drops 2 drp ophthalmic (eye) BID metoprolol succinate 100 mg tablet extended release 24 hr 100 mg PO DAILY albuterol sulfate 2.5 mg /3 mL (0.083 %) solution for nebulization continuous nebulization BID montelukast 10 mg tablet 10 mg PO DAILY hydrochlorothiazide 25 mg tablet 12.5 mg PO QAM PRN (Reason: Edema) telmisartan 40 mg tablet 40 mg PO DAILY Linzess 290 mcg capsule 290 mcg PO DAILY Qty: 30 6RF bisacodyl [Dulcolax (bisacodyl)] 5 mg tablet,delayed release (DR/EC) 10 mg PO BEDTIME 30 Days Qty: 60 6RF omeprazole 40 mg capsule,delayed release(DR/EC) 40 mg PO DAILY Qty: 30 6RF simethicone 180 mg capsule 180 mg PO QID Qty: 120 6RF topiramate [Topamax] 25 mg tablet 25 mg PO DAILY Qty: 30 6RF magnesium glycinate 100 mg magnesium capsule 200 mg PO .QD Qty: 60 6RF hydrocortisone acetate 25 mg suppository 25 mg OK BID 30 Days Qty: 6 3RF metoclopramide HCl [Reglan] 5 mg tablet 5 mg PO QIDACHS Qty: 120 6RF Print Language: [place]an
[2025-04-07] MEDS: iohexoL 350 MG/ML 100 ML INFUS..BTL IV (13:43)
[2025-04-07 16:28] VITALS: BP 113/54; BP 124/60; PULSE 52; PULSE 65
[2025-04-07 16:29] VITALS: BP 136/62; PULSE 63
[2025-04-07 16:30] VITALS: BP 136/62; PULSE 63; RESP 18; O2SAT 95
[2025-04-07] MEDS: Lactated Ringers 1,000 ML 999 ML IV (16:46)
--- NOTE | 2025-04-07 18:30 | PM.EVENT ---
Event Note Date of Service: 04/07/25 Event Note: Patient seen and examined. Exam consistent with a vestibular neuritis. After further discussion patient wishes to return home tonight and I believe this is medically acceptable at this time. She does endorse a headache for which she has taken Fioricet in the past. She will receive a Fioricet prior to discharge and will follow up with Dr. susan cueto as scheduled in 1 week Time Spent With Patient Time: Total time managing care of this patient today ____ minutes.
[2025-04-07 19:13] VITALS: BP 136/62; PULSE 63; RESP 18; TEMP 36.8; O2SAT 95
== END 2025-04-07 19:14 | disposition home or self-care (01) ==
PROVIDERS: Emergency Provider Emergency Medicine; PCP Internal Medicine
DX: R42 Dizziness and giddiness (principal); E11.9 Type 2 diabetes mellitus without complications; I10 Essential (primary) hypertension; Z79.899 Other long term (current) drug therapy
CPT/HCPCS: 36415; 70496; 70498; 80053; 83735; 85025; 93970; 96360; 96361; 99284; 99285; J7120; Q9967

== ENCOUNTER → 2025-04-07 12:46 | Outpatient (BNV) | payer MEDICAID, SELFPAY | PROVIDERS: Emergency Provider Emergency Medicine; PCP Internal Medicine; Visit Provider Radiology Diagnostic Radiology | DX: R42 Dizziness and giddiness (principal); M79.661 Pain in right lower leg; M79.662 Pain in left lower leg | CPT/HCPCS: 70496; 70498; 93970 ==